=== PATIENT | male | born 1950 | race Caucasian/White ===

== ENCOUNTER 2020-03-13 12:09 | Outpatient (REF) | payer MEDICARE, MEDICAID, SELFPAY | END 2020-03-13 12:10 | disposition home or self-care (01) | LOC: HO.HAP 12:09 | PROVIDERS: Visit Provider Internal Medicine | DX: Z13.89 Encounter for screening for other disorder (principal) | CPT/HCPCS: 92700 ==

== ENCOUNTER 2020-04-02 10:43 | Outpatient (REF) | payer MEDICARE, MEDICAID, SELFPAY ==
[2020-04-02 11:16] LABS: Basophils Percent Auto 0.8 % (0-2); Eosinophils Absolute Auto 0.2 X10*3/uL (0.0-0.4); Eosinophils Percent Auto 4.1 % (0-4); Hematocrit 31.6 % (42-52); Hemoglobin 11.1 g/dl (14.0-18.0); Imm Gran Abs Auto 0.01 X10*3/uL (0.00-0.03); Imm Gran Pct Auto 0.3 % (0.0-0.4); Lymphocytes Absolute Auto 0.7 X10*3/uL (1.2-4.9); Lymphocytes Percent Auto 18.4 % (20-40); MANUAL DIFF FLAG SCAN; Mean Corpuscular HGB Conc 35.1 g/dl (31.0-36.0); Mean Corpuscular Hemoglobin 32.7 pg (27.0-33.0); Mean Corpuscular Volume 93.2 fL (80-98); Mean Platelet Volume 9.9 fL (9.4-12.4); Monocytes Absolute Auto 0.4 X10*3/uL (0.1-1.2); Monocytes Percent Auto 10.6 % (2-11); Neutrophils Absolute Auto 2.4 X10*3/uL (2.0-8.3); Neutrophils Percent Auto 65.8 % (45-73); Red Blood Count 3.39 X10*6/uL (4.60-5.80); Red Cell Distribution Width 13.6 % (11.0-16.0); SCAN SMEAR FLAG 1
[2020-04-02 11:18] LABS: Platelet Count 78 X10*3/uL (160-400)
[2020-04-02 11:19] LABS: White Blood Count 3.7 X10*3/uL (4.8-10.8)
[2020-04-02 11:23] LABS: INTERNATIONAL NORM RATIO 1.3 (0.9-1.1); Prothrombin Time 15.1 SEC (10.8-13.0)
[2020-04-02 11:32] LABS: Ammonia 58 umol/L (13-55)
[2020-04-02 12:18] LABS: SLIDE REVIEW VERIFIED
[2020-04-02 12:26] LABS: Alanine Aminotransferase 29 U/L (0-40); Anion Gap 11 (12-20); Aspartate Amino Transferase 37 U/L (5-37); Blood Urea Nitrogen 31 mg/dL (9-16); Calcium 8.3 mg/dL (8.4-10.2); Carbon Dioxide 27 mmol/L (22-29); Chloride 103 mmol/L (96-108); Estimated Glomerular Filt Rate > 60; Potassium 4.9 mmol/l (3.3-5.1); Sodium 136 mmol/L (135-145)
[2020-04-02 12:36] LABS: Alanine Aminotransferase 29 U/L (0-40); Alkaline Phosphatase 272 U/L (39-117); Anion Gap 9 (12-20); Aspartate Amino Transferase 36 U/L (5-37); Bilirubin Total 4.6 mg/dL (0.0-1.0); Blood Urea Nitrogen 31 mg/dL (9-16); Calcium 8.3 mg/dL (8.4-10.2); Carbon Dioxide 28 mmol/L (22-29); Chloride 103 mmol/L (96-108); Estimated Glomerular Filt Rate > 60; Glucose Random 170 mg/dL (60-115); Magnesium 2.2 mg/dL (1.6-2.6); Potassium 4.9 mmol/l (3.3-5.1); Sodium 135 mmol/L (135-145); Total Protein 5.9 g/dL (6.5-8.0)
== END 2020-04-02 10:44 | disposition home or self-care (01) ==
LOC: HO.LAB 10:43
PROVIDERS: Absent Provider Internal Medicine Hypertension Specialist; PCP Internal Medicine; Visit Provider Internal Medicine Gastroenterology
DX: K70.30 Alcoholic cirrhosis of liver without ascites (principal); E87.1 Hypo-osmolality and hyponatremia; D63.8 Anemia in other chronic diseases classified elsewhere; I10 Essential (primary) hypertension
CPT/HCPCS: 36415; 80051; 80053; 82040; 82140; 82310; 82565; 83735; 84450; 84460; 84520; 85025; 85610

== ENCOUNTER 2020-04-04 12:33 | Outpatient (REF) | payer MEDICARE, MEDICAID, SELFPAY | END 2020-04-04 12:34 | disposition home or self-care (01) | LOC: HO.HAP 12:33 | PROVIDERS: PCP Internal Medicine; Visit Provider Internal Medicine | DX: Z13.89 Encounter for screening for other disorder (principal) ==

== ENCOUNTER → 2020-05-26 09:51 | Outpatient (BNVA) | payer MEDICARE, MEDICAID, SELFPAY | PROVIDERS: Visit Provider Internal Medicine | DX: I83.10 Varicose veins of unspecified lower extremity with inflammation (principal); E11.9 Type 2 diabetes mellitus without complications; L03.119 Cellulitis of unspecified part of limb | CPT/HCPCS: 99212 ==

== ENCOUNTER → 2020-05-29 08:42 | Outpatient (BNVA) | payer MEDICARE, MEDICAID, SELFPAY | PROVIDERS: Visit Provider Nurse Practitioner Gerontology | DX: Z13.89 Encounter for screening for other disorder (principal) | CPT/HCPCS: Q3014 ==

== ENCOUNTER 2020-06-10 09:56 | Outpatient (REF) | payer MEDICARE, MEDICAID, SELFPAY ==
[2020-06-10 10:28] LABS: Hematocrit 32.8 % (42-52); Hemoglobin 11.7 g/dl (14.0-18.0); Mean Corpuscular HGB Conc 35.7 g/dl (31.0-36.0); Mean Corpuscular Volume 92.4 fL (80-98); Mean Platelet Volume 11.2 fL (9.4-12.4); Red Blood Count 3.55 X10*6/uL (4.60-5.80); Red Cell Distribution Width 13.9 % (11.0-16.0); White Blood Count 4.9 X10*3/uL (4.8-10.8)
[2020-06-10 10:39] LABS: Estimated Average Glucose 232 mg/dL; Hemoglobin A1c % 9.7 %
[2020-06-10 10:41] LABS: Platelet Count 79 X10*3/uL (160-400)
[2020-06-10 10:45] LABS: Ammonia 76 umol/L (13-55)
[2020-06-10 10:59] LABS: Alanine Aminotransferase 27 U/L (0-40); Albumin Level 2.8 g/dL (3.5-5.0); Alkaline Phosphatase 299 U/L (39-117); Anion Gap 10 (12-20); Aspartate Amino Transferase 34 U/L (5-37); Blood Urea Nitrogen 33 mg/dL (9-16); Calcium 8.2 mg/dL (8.4-10.2); Carbon Dioxide 30 mmol/L (22-29); Chloride 102 mmol/L (96-108); Cholesterol 103 mg/dL; Estimated Glomerular Filt Rate > 60; Glucose Fasting 196 mg/dL (60-99); HDL Cholesterol 34 mg/dL; LDL Cholesterol Calculated 54 mg/dl; Potassium 4.4 mmol/l (3.3-5.1); Sodium 138 mmol/L (135-145); Total Protein 5.4 g/dL (6.5-8.0); Triglycerides 79 mg/dL
[2020-06-10 12:35] LABS: Microalbumin Urine < 5.0 mg/L
== END 2020-06-10 09:57 | disposition home or self-care (01) ==
LOC: HO.LAB 09:56
PROVIDERS: PCP Internal Medicine; Visit Provider Internal Medicine
DX: E11.9 Type 2 diabetes mellitus without complications (principal); K14.0 Glossitis; I10 Essential (primary) hypertension; G93.40 Encephalopathy, unspecified
CPT/HCPCS: 36415; 80053; 80061; 82043; 82140; 83036; 85027

== ENCOUNTER 2020-06-11 10:19 | Outpatient (REF) | payer MEDICARE, MEDICAID, SELFPAY | END 2020-06-11 10:20 | disposition home or self-care (01) | LOC: HO.HAP 10:19 | PROVIDERS: Visit Provider Internal Medicine | DX: Z46.1 Encounter for fitting and adjustment of hearing aid (principal) | CPT/HCPCS: V5266 ==

== ENCOUNTER → 2020-06-16 08:19 | Outpatient (BNVA) | payer MEDICARE, MEDICAID, SELFPAY | PROVIDERS: PCP Internal Medicine; Visit Provider Internal Medicine Gastroenterology | DX: Z13.89 Encounter for screening for other disorder (principal) | CPT/HCPCS: Q3014 ==

== ENCOUNTER 2020-07-02 08:38 | Outpatient (REF) | payer MEDICARE, MEDICAID, SELFPAY ==
[2020-07-02 10:03] LABS: Alanine Aminotransferase 25 U/L (0-40); Albumin Level 2.7 g/dL (3.5-5.0); Alkaline Phosphatase 257 U/L (39-117); Anion Gap 10 (12-20); Aspartate Amino Transferase 39 U/L (5-37); Bilirubin Total 4.5 mg/dL (0.0-1.0); Blood Urea Nitrogen 32 mg/dL (9-16); Calcium 8.1 mg/dL (8.4-10.2); Carbon Dioxide 25 mmol/L (22-29); Chloride 104 mmol/L (96-108); Cholesterol 98 mg/dL; Estimated Glomerular Filt Rate > 60; Glucose Fasting 127 mg/dL (60-99); HDL Cholesterol 27 mg/dL; LDL Cholesterol Calculated 55 mg/dl; Potassium 4.3 mmol/L (3.3-5.1); Sodium 135 mmol/L (135-145); Total Protein 5.4 g/dL (6.5-8.0); Triglycerides 80 mg/dL
[2020-07-02 10:24] LABS: Estimated Average Glucose 206 mg/dL; Hemoglobin A1c % 8.8 %
[2020-07-03 05:46] LABS: LDL Cholesterol Direct 47 mg/dL (<100)
== END 2020-07-02 08:39 | disposition home or self-care (01) ==
LOC: HO.LAB 08:38
PROVIDERS: Absent Provider Internal Medicine Gastroenterology; PCP Internal Medicine; Visit Provider Nurse Practitioner Gerontology
DX: E11.65 Type 2 diabetes mellitus with hyperglycemia (principal); Z79.4 Long term (current) use of insulin
CPT/HCPCS: 36415; 80053; 80061; 83036; 83721

== ENCOUNTER → 2020-07-07 09:22 | Outpatient (BNVA) | payer MEDICARE, MEDICAID, SELFPAY | PROVIDERS: PCP Internal Medicine; Visit Provider Nurse Practitioner Gerontology | DX: E11.65 Type 2 diabetes mellitus with hyperglycemia (principal); E11.22 Type 2 diabetes mellitus with diabetic chronic kidney disease; N18.30 Chronic kidney disease, stage 3 unspecified; E78.5 Hyperlipidemia, unspecified; I10 Essential (primary) hypertension; R79.89 Other specified abnormal findings of blood chemistry; E66.9 Obesity, unspecified; Z79.899 Other long term (current) drug therapy; Z79.4 Long term (current) use of insulin | CPT/HCPCS: 82947; 99212 ==

== ENCOUNTER → 2020-07-22 08:51 | Outpatient (BNVA) | payer MEDICARE, MEDICAID, SELFPAY | PROVIDERS: PCP Internal Medicine; Visit Provider Dietitian, Registered ==

== ENCOUNTER 2020-08-01 10:48 | Outpatient (REF) | payer MEDICARE, MEDICAID, SELFPAY ==
[2020-08-01 11:13] LABS: Basophils Percent Auto 0.7 % (0-2); Eosinophils Absolute Auto 0.2 X10*3/uL (0.0-0.4); Eosinophils Percent Auto 4.4 % (0-4); Hematocrit 30.9 % (42-52); Hemoglobin 10.8 g/dl (14.0-18.0); Imm Gran Abs Auto 0.01 X10*3/uL (0.00-0.03); Imm Gran Pct Auto 0.2 % (0.0-0.4); Lymphocytes Absolute Auto 0.6 X10*3/uL (1.2-4.9); Lymphocytes Percent Auto 14.5 % (20-40); MANUAL DIFF FLAG SCAN; Mean Corpuscular Hemoglobin 32.8 pg (27.0-33.0); Mean Corpuscular Volume 93.9 fL (80-98); Mean Platelet Volume 10.1 fL (9.4-12.4); Monocytes Absolute Auto 0.4 X10*3/uL (0.1-1.2); Monocytes Percent Auto 8.7 % (2-11); Neutrophils Absolute Auto 3.1 X10*3/uL (2.0-8.3); Neutrophils Percent Auto 71.5 % (45-73); Red Blood Count 3.29 X10*6/uL (4.60-5.80); Red Cell Distribution Width 14.5 % (11.0-16.0); SCAN SMEAR FLAG 1; White Blood Count 4.3 X10*3/uL (4.8-10.8)
[2020-08-01 11:14] LABS: Platelet Count 70 X10*3/uL (160-400)
[2020-08-01 11:30] LABS: Ammonia 59 umol/L (13-55)
[2020-08-01 11:36] LABS: INTERNATIONAL NORM RATIO 1.4 (0.9-1.1); Prothrombin Time 16.2 SEC (10.8-13.0)
[2020-08-01 11:57] LABS: Chloride 106 mmol/L (96-108)
[2020-08-01 11:58] LABS: Alanine Aminotransferase 26 U/L (0-40); Albumin Level 2.7 g/dL (3.5-5.0); Alkaline Phosphatase 260 U/L (39-117); Anion Gap 8 (12-20); Aspartate Amino Transferase 37 U/L (5-37); Bilirubin Total 4.3 mg/dL (0.0-1.0); Blood Urea Nitrogen 33 mg/dL (9-16); Carbon Dioxide 28 mmol/L (22-29); Estimated Glomerular Filt Rate > 60; Gamma Glutamyl Transpeptidase 117 U/L (11-51); Glucose Random 162 mg/dL (60-115); Magnesium 2.6 mg/dL (1.6-2.6); Potassium 4.7 mmol/L (3.3-5.1); Sodium 137 mmol/L (135-145); Total Protein 5.4 g/dL (6.5-8.0)
[2020-08-01 12:01] LABS: SLIDE REVIEW VERIFIED
[2020-08-01 12:16] LABS: TSH reflex Free T4 0.08 uIU/mL (0.32-4.0); Vitamin D 25-OH Total 19.9 ng/mL (>30)
[2020-08-01 12:52] LABS: Free T4 (Free Thyroxine) 1.04 ng/dL (0.71-1.85)
== END 2020-08-01 10:49 | disposition home or self-care (01) ==
LOC: HO.LAB 10:48
PROVIDERS: Absent Provider Internal Medicine; PCP Internal Medicine; Visit Provider Internal Medicine Gastroenterology
DX: K72.90 Hepatic failure, unspecified without coma (principal); K70.9 Alcoholic liver disease, unspecified; E11.22 Type 2 diabetes mellitus with diabetic chronic kidney disease; N18.30 Chronic kidney disease, stage 3 unspecified; Z79.4 Long term (current) use of insulin
CPT/HCPCS: 36415; 80053; 82140; 82306; 82977; 83735; 84439; 84443; 85025; 85610

== ENCOUNTER 2020-08-01 11:27 | Outpatient (REF) | payer MEDICARE, MEDICAID, SELFPAY | END 2020-08-01 11:28 | disposition home or self-care (01) | LOC: HO.HAP 11:27 | PROVIDERS: Visit Provider Internal Medicine | DX: Z46.1 Encounter for fitting and adjustment of hearing aid (principal); H90.3 Sensorineural hearing loss, bilateral | CPT/HCPCS: 99499 ==

== ENCOUNTER 2020-08-19 11:44 | Outpatient (REF) | payer MEDICARE, MEDICAID, SELFPAY ==
--- NOTE | ~2020-08-19 | CT_ITS ---
EXAMINATION: CT ABDOMEN AND PELVIS WITH CONTRAST CLINICAL INFORMATION: Alcoholic liver disease. COMPARISON: Ultrasound of 09/10/[address] scan of 10/02/2018. MRI of 10/03/2018. TECHNIQUE: Multidetector volumetric images were obtained from the superior aspect of the liver through the pubic symphysis following administration 85 mL of Omnipaque 350 intravenous contrast. Sagittal and coronal reformatted images were obtained on the technologist's workstation. Oral contrast: No This CT examination was performed using dose optimization techniques as appropriate, variously including the following: *Automated exposure control *Adjustment of mA and/or kV according to patient size (this includes techniques or standardized protocols for targeted exams where dose is matched to indication/reason for exam; i.e. extremities or head) *Use of iterative reconstruction technique DLP: 1722 mGy-cm FINDINGS: LUNG BASES: The visualized lung bases are unremarkable. No pleural or pericardial effusion. Coronary artery calcification present. Aortic and mitral annular calcification identified. LIVER, GALLBLADDER, AND BILIARY TREE: The liver is small and has a scalloped border. Within what appears to be segments 7 and 8 of the liver there is again noted to be a cyst with some rim calcification measuring approximately 8 x 7 cm in size. This is larger than on previous study of 10/02/2018 where it measured approximately 5 x 4 cm in size. There is a coarsened heterogeneous appearance of the hepatic parenchyma. No other focal lesion is appreciated. The right portal vein appears small. The left portal vein is not identified. Numerous gallbladder calculi are present. No findings to suggest acute cholecystitis. PANCREAS: Unremarkable. SPLEEN: There is splenomegaly present with vertical span of 19 cm. No focal splenic mass identified. ADRENAL GLANDS: Unremarkable. KIDNEYS AND URETERS: The kidneys are normal in size, shape, and attenuation. No hydronephrosis, hydroureter, or calculi seen. No perinephric stranding. There appears be a subcentimeter cyst midpole of the right kidney. BLADDER: Urinary bladder is distended. No bladder wall thickening is seen. GASTROINTESTINAL TRACT: No dilated loops of large or small bowel are evident. No free air is seen. There is a small amount of ascites present. No definite findings to suggest colitis. No evidence of acute appendicitis. With the edematous change present within the mesentery an inflammatory process could not be excluded but this is most likely related to the ascites. No abscess collection is appreciated. ABDOMINAL WALL: No significant hernia is appreciated. LYMPH NODES: No lymphadenopathy is appreciated. VASCULAR: Left portal vein not identified. Right portal vein appears small. There are large portal varices present with what appears to be a spontaneous left splenorenal shunt. There is moderate aortoiliac calcified plaque present. PELVIC VISCERA: No suspicious mass. Small amount of free fluid. OSSEOUS STRUCTURES: No suspicious destructive bony lesion identified. There is degenerative disc disease seen at the L5-S1 level with a moderate grade [address]/CT abdomen pelvis w con IMPRESSION: Portal hypertension with cirrhotic liver containing large cyst and with heterogeneous coarsened parenchymal appearance. Question occlusion of the left portal vein with small right portal vein. Prominent portal vein varices with spontaneous left splenorenal shunt. Cholelithiasis without evidence of acute cholecystitis. Splenomegaly.
[2020-08-19] MEDS: Barium Sulfate Oral (Berry) 450 ML ORAL.SUSP 900 ML PO (16:14)
== END 2020-08-19 11:45 | disposition home or self-care (01) ==
LOC: HO.CT 11:44
PROVIDERS: PCP Internal Medicine; Visit Provider Internal Medicine Gastroenterology
DX: K70.9 Alcoholic liver disease, unspecified (principal)
CPT/HCPCS: 74177; Q9967

== ENCOUNTER → 2020-08-26 13:19 | Outpatient (BNVA) | payer MEDICARE, MEDICAID, SELFPAY | PROVIDERS: PCP Internal Medicine; Visit Provider Internal Medicine Gastroenterology | DX: K72.90 Hepatic failure, unspecified without coma (principal); K70.9 Alcoholic liver disease, unspecified; R79.89 Other specified abnormal findings of blood chemistry; R19.7 Diarrhea, unspecified; K70.31 Alcoholic cirrhosis of liver with ascites | CPT/HCPCS: 99212 ==

== ENCOUNTER 2020-09-01 | Outpatient (REF) | payer MEDICARE, MEDICAID, SELFPAY ==
[2020-09-01 12:17] LABS: CDIFF Ag Negative (Negative); CDIFF Internal ctrl Dots and bkg OK (V); CDiff Toxin Negative (Negative)
[2020-09-01 13:11] LABS: Leukocytes Stool Qualitative NEGATIVE (NEGATIVE)
[2020-09-03 22:57] LABS: Chymotrypsin, Stool 7.6 U/g (2.3-51.4)
== END 2020-09-01 00:01 | disposition home or self-care (01) ==
LOC: HO.HMGCLNP
PROVIDERS: Visit Provider Internal Medicine Gastroenterology
DX: R19.7 Diarrhea, unspecified (principal)
CPT/HCPCS: 87324; 87449; 89055

== ENCOUNTER 2020-09-08 09:56 | Outpatient (REF) | payer MEDICARE, MEDICAID, SELFPAY ==
[2020-09-08 10:49] LABS: Basophils Percent Auto 0.8 % (0-2); Eosinophils Absolute Auto 0.2 X10*3/uL (0.0-0.4); Eosinophils Percent Auto 4.1 % (0-4); Hematocrit 28.7 % (42-52); Hemoglobin 9.9 g/dl (14.0-18.0); Imm Gran Abs Auto 0.01 X10*3/uL (0.00-0.03); Imm Gran Pct Auto 0.3 % (0.0-0.4); Lymphocytes Absolute Auto 0.7 X10*3/uL (1.2-4.9); Lymphocytes Percent Auto 17.6 % (20-40); MANUAL DIFF FLAG SCAN; Mean Corpuscular HGB Conc 34.5 g/dl (31.0-36.0); Mean Corpuscular Hemoglobin 33.1 pg (27.0-33.0); Mean Platelet Volume 10.6 fL (9.4-12.4); Monocytes Absolute Auto 0.3 X10*3/uL (0.1-1.2); Monocytes Percent Auto 8.8 % (2-11); Neutrophils Absolute Auto 2.6 X10*3/uL (2.0-8.3); Neutrophils Percent Auto 68.4 % (45-73); Red Blood Count 2.99 X10*6/uL (4.60-5.80); Red Cell Distribution Width 14.7 % (11.0-16.0); SCAN SMEAR FLAG 1; White Blood Count 3.9 X10*3/uL (4.8-10.8)
[2020-09-08 11:04] LABS: Ammonia 42 umol/L (13-55)
[2020-09-08 11:10] LABS: Platelet Count 63 X10*3/uL (160-400)
[2020-09-08 11:15] LABS: Alanine Aminotransferase 25 U/L (0-40); Alanine Aminotransferase 26 U/L (0-40); Albumin Level 2.6 g/dL (3.5-5.0); Alkaline Phosphatase 273 U/L (39-117); Anion Gap 12 (12-20); Aspartate Amino Transferase 34 U/L (5-37); Aspartate Amino Transferase 36 U/L (5-37); Bilirubin Total 3.3 mg/dL (0.0-1.0); Blood Urea Nitrogen 41 mg/dL (9-16); Carbon Dioxide 24 mmol/L (22-29); Chloride 107 mmol/L (96-108); Estimated Glomerular Filt Rate 55; Glucose Random 191 mg/dL (60-115); Magnesium 2.3 mg/dL (1.6-2.6); Phosphorus 4.6 mg/dL (2.7-4.5); Potassium 5.5 mmol/L (3.3-5.1); Sodium 137 mmol/L (135-145); Total Protein 5.3 g/dL (6.5-8.0)
[2020-09-08 11:17] LABS: SLIDE REVIEW VERIFIED
[2020-09-09 14:01] LABS: Calcium (PTHI) 8.1 mg/dL (8.6-10.3); PTHI 120 pg/mL (14-64)
== END 2020-09-08 09:57 | disposition home or self-care (01) ==
LOC: HO.LAB 09:56
PROVIDERS: Absent Provider Internal Medicine Hypertension Specialist; PCP Internal Medicine; Visit Provider Internal Medicine Gastroenterology
DX: K70.31 Alcoholic cirrhosis of liver with ascites (principal); D63.8 Anemia in other chronic diseases classified elsewhere; I10 Essential (primary) hypertension
CPT/HCPCS: 36415; 80053; 82040; 82140; 83735; 83970; 84100; 84450; 84460; 85025

== ENCOUNTER 2020-09-15 11:49 | Outpatient (REF) | payer MEDICARE, MEDICAID, SELFPAY ==
[2020-09-15 12:25] LABS: Basophils Percent Auto 0.4 % (0-2); Eosinophils Absolute Auto 0.1 X10*3/uL (0.0-0.4); Eosinophils Percent Auto 2.6 % (0-4); Hematocrit 27.8 % (42-52); Hemoglobin 9.8 g/dl (14.0-18.0); Imm Gran Abs Auto 0.01 X10*3/uL (0.00-0.03); Imm Gran Pct Auto 0.2 % (0.0-0.4); Lymphocytes Absolute Auto 0.5 X10*3/uL (1.2-4.9); Lymphocytes Percent Auto 9.3 % (20-40); MANUAL DIFF FLAG SCAN; Mean Corpuscular HGB Conc 35.3 g/dl (31.0-36.0); Mean Corpuscular Hemoglobin 33.3 pg (27.0-33.0); Mean Corpuscular Volume 94.6 fL (80-98); Mean Platelet Volume 10.7 fL (9.4-12.4); Monocytes Absolute Auto 0.5 X10*3/uL (0.1-1.2); Monocytes Percent Auto 9.1 % (2-11); Neutrophils Percent Auto 78.4 % (45-73); Red Blood Count 2.94 X10*6/uL (4.60-5.80); Red Cell Distribution Width 14.5 % (11.0-16.0); SCAN SMEAR FLAG 1; White Blood Count 5.1 X10*3/uL (4.8-10.8)
[2020-09-15 12:30] LABS: Platelet Count 65 X10*3/uL (160-400)
[2020-09-15 13:37] LABS: SLIDE REVIEW VERIFIED
== END 2020-09-15 11:50 | disposition home or self-care (01) ==
LOC: HO.LAB 11:49
PROVIDERS: PCP Internal Medicine; Visit Provider Internal Medicine Gastroenterology
DX: K70.31 Alcoholic cirrhosis of liver with ascites (principal)
CPT/HCPCS: 36415; 85025

== ENCOUNTER 2020-09-26 10:00 | Outpatient (REF) | payer MEDICARE, MEDICAID, SELFPAY ==
[2020-09-26 10:45] LABS: Basophils Percent Auto 0.6 % (0-2); Eosinophils Absolute Auto 0.2 X10*3/uL (0.0-0.4); Eosinophils Percent Auto 4.6 % (0-4); Hematocrit 26.4 % (42-52); Imm Gran Abs Auto 0.01 X10*3/uL (0.00-0.03); Imm Gran Pct Auto 0.3 % (0.0-0.4); Lymphocytes Absolute Auto 0.5 X10*3/uL (1.2-4.9); Lymphocytes Percent Auto 15.2 % (20-40); MANUAL DIFF FLAG SCAN; Mean Corpuscular HGB Conc 34.1 g/dl (31.0-36.0); Mean Corpuscular Hemoglobin 32.5 pg (27.0-33.0); Mean Corpuscular Volume 95.3 fL (80-98); Mean Platelet Volume 10.9 fL (9.4-12.4); Monocytes Absolute Auto 0.4 X10*3/uL (0.1-1.2); Monocytes Percent Auto 10.1 % (2-11); Neutrophils Absolute Auto 2.4 X10*3/uL (2.0-8.3); Neutrophils Percent Auto 69.2 % (45-73); Red Blood Count 2.77 X10*6/uL (4.60-5.80); Red Cell Distribution Width 14.6 % (11.0-16.0); SCAN SMEAR FLAG 1; White Blood Count 3.5 X10*3/uL (4.8-10.8)
[2020-09-26 10:58] LABS: Platelet Count 60 X10*3/uL (160-400)
[2020-09-26 11:05] LABS: Alanine Aminotransferase 31 U/L (0-40); Albumin Level 2.5 g/dL (3.5-5.0); Alkaline Phosphatase 238 U/L (39-117); Anion Gap 9 (12-20); Aspartate Amino Transferase 33 U/L (5-37); Bilirubin Total 4.1 mg/dL (0.0-1.0); Blood Urea Nitrogen 46 mg/dL (9-16); Calcium 8.1 mg/dL (8.4-10.2); Carbon Dioxide 24 mmol/L (22-29); Chloride 108 mmol/L (96-108); Estimated Glomerular Filt Rate 57; Glucose Random 161 mg/dL (60-115); Magnesium 2.3 mg/dL (1.6-2.6); Potassium 4.9 mmol/L (3.3-5.1); Sodium 136 mmol/L (135-145); Total Protein 5.3 g/dL (6.5-8.0)
[2020-09-26 11:07] LABS: Iron 116 mcg/dL (45-160); Percent Iron Saturation 59 % (15-50); Total Iron Binding Capacity 198 mcg/dL (228-428); Unsaturated Iron Binding 82 ug/dL
[2020-09-26 11:14] LABS: SLIDE REVIEW VERIFIED
[2020-09-26 11:39] LABS: Folate > 20.0 ng/mL (> or = 4.0); Vitamin B12 1203 pg/mL (200-900)
== END 2020-09-26 10:01 | disposition home or self-care (01) ==
LOC: HO.LAB 10:00
PROVIDERS: Absent Provider Internal Medicine Gastroenterology; PCP Internal Medicine; Visit Provider Internal Medicine Hypertension Specialist
DX: K70.31 Alcoholic cirrhosis of liver with ascites (principal); I10 Essential (primary) hypertension; D63.8 Anemia in other chronic diseases classified elsewhere
CPT/HCPCS: 36415; 80053; 82607; 82746; 83540; 83735; 85025

== ENCOUNTER 2020-10-09 14:47 | Outpatient (REF) | payer MEDICARE, MEDICAID, SELFPAY ==
--- NOTE | ~2020-10-09 | XR_ITS ---
EXAMINATION: XR CHEST CLINICAL INFORMATION: Edema COMPARISON: Previous chest x-ray most recent July 2019 TECHNIQUE: 2 views of the chest were obtained. FINDINGS: The cardiac silhouette is enlarged and appears increased in size from previous exam July 2019. Hilar and mediastinal contours are unremarkable. The lungs are clear. There is no pleural effusion or pneumothorax. There are degenerative changes of the spine. XR/XR chest 2V IMPRESSION: Enlarged cardiac silhouette increased in size from July 2019 exam.
[2020-10-09 17:34] LABS: Hematocrit 27.2 % (42-52); Hemoglobin 9.2 g/dl (14.0-18.0); Mean Corpuscular HGB Conc 33.8 g/dl (31.0-36.0); Mean Corpuscular Hemoglobin 32.4 pg (27.0-33.0); Mean Corpuscular Volume 95.8 fL (80-98); Mean Platelet Volume 11.8 fL (9.4-12.4); Red Blood Count 2.84 X10*6/uL (4.60-5.80); Red Cell Distribution Width 13.9 % (11.0-16.0); White Blood Count 3.5 X10*3/uL (4.8-10.8)
[2020-10-09 17:38] LABS: Platelet Count 68 X10*3/uL (160-400)
[2020-10-09 17:44] LABS: Blood Urea Nitrogen 70 mg/dL (9-16); Estimated Glomerular Filt Rate 40
[2020-10-09 17:47] LABS: Anion Gap 15 (12-20); Blood Urea Nitrogen 70 mg/dL (9-16); Calcium 8.1 mg/dL (8.4-10.2); Carbon Dioxide 18 mmol/L (22-29); Chloride 107 mmol/L (96-108); Estimated Glomerular Filt Rate 39; Glucose Random 172 mg/dL (60-115); Iron 118 mcg/dL (45-160); Percent Iron Saturation 50 % (15-50); Sodium 135 mmol/L (135-145); Total Iron Binding Capacity 236 mcg/dL (228-428); Unsaturated Iron Binding 118 ug/dL
[2020-10-09 18:21] LABS: Folate > 20.0 ng/mL (> or = 4.0); Vitamin B12 1314 pg/mL (200-900)
[2020-10-10 11:36] LABS: Alpha Fetoprotein 73.4 ng/mL (<6.1)
[2020-10-10 22:06] LABS: Prot Elec - Alpha1 0.2 g/dL (0.2-0.3); Prot Elec - Alpha2 0.4 g/dL (0.5-0.9); Prot Elec - Beta 1 0.3 g/dL (0.4-0.6); Prot Elec - Beta 2 0.3 g/dL (0.2-0.5); Prot Elec - Gamma 1.6 g/dL (0.8-1.7); Prot Elec - Total Protein 5.7 g/dL (6.1-8.1)
[2020-10-14 12:41] LABS: Mitochondrial Antibodies NEGATIVE (NEGATIVE)
[2020-10-15 11:11] LABS: Smooth Muscle Antibody 24 U (<20)
== END 2020-10-09 14:48 | disposition home or self-care (01) ==
LOC: HO.XRAY 14:47
PROVIDERS: Internal Medicine Gastroenterology; PCP Internal Medicine; Visit Provider Internal Medicine Gastroenterology
DX: K70.31 Alcoholic cirrhosis of liver with ascites (principal); R74.8 Abnormal levels of other serum enzymes; R60.1 Generalized edema; K72.90 Hepatic failure, unspecified without coma
CPT/HCPCS: 36415; 71046; 80048; 82105; 82565; 82607; 82746; 83540; 84155; 84165; 84520; 85027; 86255; 86256; 99212

== ENCOUNTER 2020-10-14 22:13 | Inpatient (IN) | payer MEDICARE, MEDICAID, SELFPAY ==
--- NOTE | ~2020-10-14 | US_ITS ---
EXAMINATION: ULTRASOUND PARACENTESIS ABDOMEN W/IMAGE CLINICAL INFORMATION: Alcoholic cirrhosis with ascites. COMPARISON: None TECHNIQUE: Following explaining ultrasound-guided paracentesis procedure, benefits and risk, a written consent was obtained. Patient was placed supine on ultrasound stretcher and preliminary ultrasound imaging was obtained through the abdomen. An optimal site was selected along the left mid abdomen and marked. The marked site was cleaned and draped in usual sterile manner. 1% lidocaine was injected at puncture site. Through a small skin incision a 5 [employer] catheter was advanced into the left peritoneal space. Catheter was manipulated at least couple of times to obtain good stream of fluid. The stylet was withdrawn and catheter drained into vacuum bottle via connecting cannula. After obtaining as much as fluid with no fluid return, catheter was withdrawn and complete hemostasis achieved at puncture site. Sterile dressing was applied postprocedure. Patient tolerated procedure extremely well. FINDINGS: On preliminary ultrasound imaging there is small to moderate fluid seen in the abdomen. Approximately 850 mL of clear yellowish fluid was drained. A diagnostic sample was sent to pathology for further evaluation. US/US paracentesis abd w/image IMPRESSION: Successful ultrasound-guided paracentesis performed without immediate complications.
[2020-10-14 22:22] VITALS: BP 105/57; PULSE 65; RESP 18; TEMP 37.1; O2SAT 100; BMI 43.0
--- NOTE | 2020-10-14 23:53 | ECG_ITS ---
Test Reason : ABD PAIN Blood Pressure : / mmHG Vent. Rate : 063 BPM Atrial Rate : 056 BPM P-R Int : 000 ms QRS Dur : 102 ms QT Int : 444 ms P-R-T Axes : 000 003 018 degrees QTc Int : 454 ms Atrial fibrillation Abnormal ECG When compared to the previous EKG of Afib present now Referred By: Dewey Wallis Electronically Signed By:West Salazar
[2020-10-14 23:58] LABS: Basophils Percent Auto 0.3 % (0-2); Eosinophils Absolute Auto 0.1 X10*3/uL (0.0-0.4); Eosinophils Percent Auto 3.3 % (0-4); Hematocrit 26.1 % (42-52); Hemoglobin 9.3 g/dl (14.0-18.0); Imm Gran Abs Auto 0.01 X10*3/uL (0.00-0.03); Imm Gran Pct Auto 0.3 % (0.0-0.4); Lymphocytes Absolute Auto 0.4 X10*3/uL (1.2-4.9); Lymphocytes Percent Auto 10.8 % (20-40); MANUAL DIFF FLAG SCAN; Mean Corpuscular HGB Conc 35.6 g/dl (31.0-36.0); Mean Corpuscular Hemoglobin 33.5 pg (27.0-33.0); Mean Corpuscular Volume 93.9 fL (80-98); Mean Platelet Volume 10.3 fL (9.4-12.4); Monocytes Absolute Auto 0.4 X10*3/uL (0.1-1.2); Monocytes Percent Auto 9.5 % (2-11); Neutrophils Percent Auto 75.8 % (45-73); Red Blood Count 2.78 X10*6/uL (4.60-5.80); Red Cell Distribution Width 13.6 % (11.0-16.0); SCAN SMEAR FLAG 1; White Blood Count 3.9 X10*3/uL (4.8-10.8)
[2020-10-15] VITALS (15 sets, daily range): BP systolic 110–140; BP diastolic 40–80; PULSE 53–75; RESP 16–20; TEMP 36–37.2; O2SAT 97–100
[2020-10-15 00:03] LABS: Platelet Count 74 X10*3/uL (160-400)
[2020-10-15] MEDS: Famotidine/PF 20 MG/2 ML VIAL IVPUSH (00:03)
[2020-10-15 00:04] LABS: SLIDE REVIEW VERIFIED
[2020-10-15 00:05] LABS: INTERNATIONAL NORM RATIO 1.4 (0.9-1.1); Prothrombin Time 16.3 SEC (10.8-13.0)
[2020-10-15 00:08] LABS: Partial Thromboplastin Time 38.3 SEC (24.1-38.0)
[2020-10-15 00:23] LABS: Alanine Aminotransferase 38 U/L (0-40); Albumin Level 2.7 g/dL (3.5-5.0); Alkaline Phosphatase 213 U/L (39-117); Aspartate Amino Transferase 46 U/L (5-37); Bilirubin Direct 1.9 mg/dL (0.0-0.5); Bilirubin Total 3.5 mg/dL (0.0-1.0); Lipase 56 U/L (8-78); Total Protein 5.6 g/dL (6.5-8.0)
[2020-10-15 00:30] LABS: Ammonia 147 umol/L (13-55)
[2020-10-15 00:54] LABS: Troponin-I High Sensitivity 7.2 ng/L (<3.5-35.0)
[2020-10-15 01:16] LABS: B Type Natriuretic Peptide 568 pg/mL (<100)
[2020-10-15] MEDS: Lactulose 20 GM/30 ML SOLUTION 30 GM PO ×2 (01:24→09:13)
--- NOTE | 2020-10-15 01:46 | PC.NURSE ---
PT MEDICATED PER EMAR FOR HIGH AMMONIA, PT WORRIED ABOUT NOT MAKING IT TO RESTROOM, COMMODE PLACED AT BEDSIDE FOR PT. PT IS ORIENTED TO TIME AND PLACE, REPEATING QUESTIONS. SPOUSE AT BEDSIDE WITH PT. WILL CONTINUE TO MONITOR PT.
[2020-10-15 02:33] LABS: Alanine Aminotransferase 37 U/L (0-40); Albumin Level 2.7 g/dL (3.5-5.0); Alkaline Phosphatase 210 U/L (39-117); Anion Gap 13 (12-20); Aspartate Amino Transferase 46 U/L (5-37); Bilirubin Total 3.7 mg/dL (0.0-1.0); Blood Urea Nitrogen 75 mg/dL (9-16); Calcium 8.1 mg/dL (8.4-10.2); Carbon Dioxide 17 mmol/L (22-29); Chloride 106 mmol/L (96-108); Creatinine Clr Calc Pharmacy 55.6; Estimated Glomerular Filt Rate 39; Glucose Random 145 mg/dL (60-115); Potassium 5.6 mmol/L (3.3-5.1); Sodium 130 mmol/L (135-145); Total Protein 5.7 g/dL (6.5-8.0)
[2020-10-15 03:19] LABS: COVID-19 Test Negative (Negative)
--- NOTE | 2020-10-15 03:47 | ED_ITS ---
HPI - General Adult General Chief complaint: Abdominal Pain Stated complaint: ABD PAIN Time Seen by Provider: 10/14/20 23:46 Source: patient Mode of arrival: ambulatory Limitations: no limitations History of Present Illness HPI narrative: Patient presents to the ED multiple complaints. brings patient to the ED for confusion. She states patient's history of cirrhosis and was taking of lactulose. Secondly patient has increased swelling of legs and testicles. She also states she has a scheduled paracentesis for his ascites. Patient states epigastric pain going up to the throat with nausea. Denies any r ectal bleeding or vomiting blood. Related Data Home Medications Medication Instructions Recorded Confirmed empagliflozin 25 mg tablet 25 mg PO QAM 04/04/20 10/15/20 lactulose 10 gram/15 mL oral 15 ml PO DAILY PRN 04/04/20 10/15/20 solution losartan 50 mg tablet 50 mg PO DAILY 04/04/20 10/15/20 metoprolol tartrate 25 mg tablet 25 mg PO DAILY 04/04/20 10/15/20 pen needle, diabetic 31 gauge x #50 ea 07/07/20 10/09/2007/29 magnesium oxide 400 mg (241.3 mg 400 mg PO BEDTIME 10/09/20 10/15/20 magnesium) tablet celecoxib 200 mg PO BID 10/15/20 10/15/20 cholecalciferol (vitamin D3) 2,000 unit PO DAILY 10/15/20 10/15/20 psyllium husk 1 tbsp PO BID PRN 10/15/20 10/15/20 Previous Rx's Medication Instructions Recorded thiamine HCl (vitamin B1) 100 mg 100 mg PO DAILY #90 tab 04/21/20 tablet penicillin V potassium 250 mg 250 mg PO BID 90 Days #180 tab 05/26/20 tablet blood sugar diagnostic #100 ea 05/29/20 lancets 28 gauge #100 ea 05/29/20 pen needle, diabetic 32 gauge x #125 ea 05/29/20 blood-glucose meter #1 ea 06/04/20 omeprazole 20 mg capsule,delayed 20 mg PO BID #180 cap 07/15/20 release bumetanide 1 mg tablet 2 mg PO BID #60 tab 08/05/20 folic acid 1 mg tablet 1 mg PO DAILY #30 tab 08/05/20 rifaximin 550 mg tablet 550 mg PO BID #60 tab 09/18/20 Allergies Allergy/AdvReac Type Severity Reaction Status Date / Time metformin AdvReac Unknown diarrhea, Verified 10/09/20 15:20 muscle spasms Review of Systems Review of Systems: History from patient and Yes all other systems are reviewed and are negative Constitutional: Constitutional: Reports as per HPI and Reports no additional constitutional complaints Eyes: Eyes: Reports as per HPI and Reports no additional eye complaints ENT: Reports system reviewed and no additional complaints, except as documented and Reports as per HPI Cardiovascular: Cardiovascular: Reports as per HPI and Reports no additional cardiovascular complaints Respiratory: Respiratory: Reports as per HPI and Reports no additional respi ratory complaints Gastrointestinal: Gastrointestinal: Reports as per HPI, Reports no additional gastrointestinal complaints, Reports abdominal pain (Epigastric), Reports heartburn and Reports nausea Genitourinary: Genitourinary: Reports no additional male genitourinary complaints and Reports as per HPI Musculoskeletal: Musculoskeletal: Reports no additional musculoskeletal complaints and Reports as per HPI Comments: Leg swelling Neurologic: Reports system reviewed and no additional complaints, except as documented and Reports as per HPI Psychiatric: Psychiatric: Reports no additional psychiatric complaints and Reports as per HPI REPLACED BY [facility] Past Medical History Medical History (Updated 10/15/20 @ 03:56 by YELENA Fontaine) Acid reflux Alcohol induced liver disorder Anemia Annual physical exam Aortic stenosis Ascites due to alcoholic cirrhosis Cellulitis CHF (congestive heart failure) Chronic edema CKD (chronic kidney disease) stage 3, GFR 30-59 ml/min Diabetes Dyslipidemia Encephalopathy Essential hypertension Hepatic encephalopathy HTN (hypertension) Lipodermatosclerosis Liver cirrhosis Low serum vitamin D Obesity Obesity (BMI 30-39.9) BARTOLOME (obstructive sleep apnea) Osteoarthritis Portal hypertension syndrome Recurrent cellulitis of lower extremity Tongue ulcer Type 2 diabetes mellitus with chronic kidney disease Type 2 diabetes mellitus with hyperglycemia, with long-term current use of insulin Surgical History H/O colonoscopy History of esophagogastroduodenoscopy (EGD) History of tonsillectomy Family History Family History Brother Diabetes Father No problems noted. Social History Social History Household Members: Spouse Alcohol intake: never Advance Directives: No Advance Directives Information Provided: No Current occupational status: retired Physical Exam Vital Signs: Vital Signs: Last Vital Signs Temp 97.5 F 10/15/20 00:00 Pulse 66 10/15/20 00:00 Resp 20 10/15/20 00:00 BP 113/40 L 10/15/20 00:00 Pulse Ox 100 10/15/20 00:00 Body Mass Index 43.0 Const: General: cooperative, healthy appearing, comfortable and no acute distress Orientation/consciousness: patient oriented x3 HENMT: Head: Yes normal to inspection, Yes No palpable skull fracture present, Yes normocephalic and Yes atraumatic Eyes: Other: Icterus Neck: Neck: Yes normal visual inspection, Yes full ROM, Yes no lymphadenopathy, Yes no meningeal signs, Yes trachea midline, Yes supple and No tender Chest: Chest palpation & inspection: normal inspection of the chest and normal palpation of entire chest wall Resp: Effort & Inspection: normal respiratory effort and able to speak in complete sentences Auscultation: clear to auscultation bilaterally Cardio: Jugular venous distension: no JVD Heart sounds: S1 normal heart sound present and S2 normal heart sound present GI: Inspection: Yes normal to inspection, No abdominal wall ecchymosis and Yes distended Palpation (GI): Soft to palpation, not firm, nontender, no guarding and not rigid : Other: Testicular swelling General: No CVA tenderness Back/Spine/Pelvis: Back: no CVA tenderness, No CVA tenderness and No back tenderness Skin: General skin exam: no rashes or lesions noted and elasticity normal Neuro: General: patient oriented x3, gait normal, no meningeal signs and CN's II-XI intact bilaterally Cranial nerves: Yes CN's II-XII intact bilaterally Extrem: Other: Bilateral lower extremity swelling with pitting edema Psych: Appearance: grossly normal, well kempt and not disheveled Course Course Course Narrative: Patient will have labs drawn including ammonia. History have EKG done. Patient presently is alert oriented x3 but states patient's mental status wax and waning the past 2 weeks. Patient has anasarca Reevaluation(s) Reevaluation #1: Patient ammonia is elevated. Will give lactulose. Patient's 1st troponin negative. Patient's labs are at baseline. Presently no abdominal tenderness and abdomen is soft. Presently no need for immediate paracentesis. Not suspect SBP. Patient will be admitted and can not receive schedule paracentesis which he has at 11:00 already this morning. Patient is afebrile and not tachycardic. Present case to hospitalist. Reevaluation #2: Spoke with Dr. Gann who agrees patient could be admitted. Patient will be admitted for hepatic encephalopathy. Patient has scheduled paracentesis at 11:00. EKG shows new atrial fibrillation Medical Decision Making MDM Narrative Medical decision making narrative: Hepatic encephalopathy. Atrial fibrillation Lab Data Result diagrams: 10/14/20 23:52 10/14/20 23:52 Labs: Lab Results 10/14/20 10/14/20 10/14/20 Range/Units 23:50 23:51 23:52 WBC 3.9 L (4.8-10.8) X10*3/uL RBC 2.78 L (4.60-5.80) X10*6/uL Hgb 9.3 L (14.0-18.0) g/dl Hct 26.1 L (42-52) % MCV 93.9 (80-98) fL MCH 33.5 H (27.0-33.0) pg MCHC 35.6 (31.0-36.0) g/dl RDW 13.6 (11.0-16.0) % Plt Count 74 L (160-400) X10*3/uL MPV 10.3 (9.4-12.4) fL Immature Gran % (Auto) 0.3 (0.0-0.4) % Neut % (Auto) 75.8 H (45-73) % Lymph % (Auto) 10.8 L (20-40) % Harvey % (Auto) 9.5 (2-11) % Eos % (Auto) 3.3 (0-4) % Baso % (Auto) 0.3 (0-2) % Lymph # (Auto) 0.4 L (1.2-4.9) X10*3/uL Harvey # (Auto) 0.4 (0.1-1.2) X10*3/uL Eos # (Auto) 0.1 (0.0-0.4) X10*3/uL Baso # (Auto) 0.0 (0.0-0.2) X10*3/uL Abs Immat Gran (auto) 0.01 (0.00-0.03) X10*3/uL Absolute Neuts (auto) 3.0 (2.0-8.3) X10*3/uL Absolute Nucleated RBC 0.000 (0.0-0.012) X10*3/uL Nucleated RBC % (auto) 0.0 (0.0-0.2) /100WBC Smear Tech's Comments VERIFIED PT 16.3 H (10.8-13.0) SEC INR 1.4 H (0.9-1.1) APTT 38.3 H (24.1-38.0) SEC Sodium (135-145) mmol/L Potassium (3.3-5.1) mmol/L Chloride (96-108) mmol/L Carbon Dioxide (22-29) mmol/L Anion Gap (12-20) BUN (9-16) mg/dL Creatinine (0.5-1.4) mg/dL Estim Creat Clear Calc Estimated GFR Random Glucose (60-115) mg/dL Calcium (8.4-10.2) mg/dL Total Bilirubin (0.0-1.0) mg/dL Direct Bilirubin (0.0-0.5) mg/dL AST (5-37) U/L ALT (0-40) U/L Alkaline Phosphatase (39-117) U/L Ammonia 147 H (13-55) umol/L Troponin I High Sens (<3.5-35.0) ng/L B-Natriuretic Peptide (<100) pg/mL Total Protein (6.5-8.0) g/dL Albumin (3.5-5.0) g/dL Lipase (8-78) U/L COVID-19 (JACKY) (Negative) COVID-19 Clin Com 10/14/20 10/14/20 10/15/20 Range/Units 23:52 23:52 02:49 WBC (4.8-10.8) X10*3/uL RBC (4.60-5.80) X10*6/uL Hgb (14.0-18.0) g/dl Hct (42-52) % MCV (80-98) fL MCH (27.0-33.0) pg MCHC (31.0-36.0) g/dl RDW (11.0-16.0) % Plt Count (160-400) X10*3/uL MPV (9.4-12.4) fL Immature Gran % (Auto) (0.0-0.4) % Neut % (Auto) (45-73) % Lymph % (Auto) (20-40) % Harvey % (Auto) (2-11) % Eos % (Auto) (0-4) % Baso % (Auto) (0-2) % Lymph # (Auto) (1.2-4.9) X10*3/uL Harvey # (Auto) (0.1-1.2) X10*3/uL Eos # (Auto) (0.0-0.4) X10*3/uL Baso # (Auto) (0.0-0.2) X10*3/uL Abs Immat Gran (auto) (0.00-0.03) X10*3/uL Absolute Neuts (auto) (2.0-8.3) X10*3/uL Absolute Nucleated RBC (0.0-0.012) X10*3/uL Nucleated RBC % (auto) (0.0-0.2) /100WBC Smear Tech's Comments PT (10.8-13.0) SEC INR (0.9-1.1) APTT (24.1-38.0) SEC Sodium 130 L (135-145) mmol/L Potassium 5.6 H (3.3-5.1) mmol/L Chloride 106 (96-108) mmol/L Carbon Dioxide 17 L (22-29) mmol/L Anion Gap 13 (12-20) BUN 75 H (9-16) mg/dL Creatinine 1.74 H (0.5-1.4) mg/dL Estim Creat Clear Calc 55.6 Estimated GFR 39 Random Glucose 145 H (60-115) mg/dL Calcium 8.1 L (8.4-10.2) mg/dL Total Bilirubin 3.7 H 3.5 H (0.0-1.0) mg/dL Direct Bilirubin 1.9 H (0.0-0.5) mg/dL AST 46 H 46 H (5-37) U/L ALT 37 38 (0-40) U/L Alkaline Phosphatase 210 H 213 H (39-117) U/L Ammonia (13-55) umol/L Troponin I High Sens (<3.5-35.0) ng/L B-Natriuretic Peptide (<100) pg/mL Total Protein 5.7 L 5.6 L (6.5-8.0) g/dL Albumin 2.7 L 2.7 L (3.5-5.0) g/dL Lipase 56 (8-78) U/L COVID-19 (JACKY) Negative (Negative) COVID-19 Clin Com See Note 10/15/20 Range/Units 23:51 WBC (4.8-10.8) X10*3/uL RBC (4.60-5.80) X10*6/uL Hgb (14.0-18.0) g/dl Hct (42-52) % MCV (80-98) fL MCH (27.0-33.0) pg MCHC (31.0-36.0) g/dl RDW (11.0-16.0) % Plt Count (160-400) X10*3/uL MPV (9.4-12.4) fL Immature Gran % (Auto) (0.0-0.4) % Neut % (Auto) (45-73) % Lymph % (Auto) (20-40) % Harvey % (Auto) (2-11) % Eos % (Auto) (0-4) % Baso % (Auto) (0-2) % Lymph # (Auto) (1.2-4.9) X10*3/uL Harvey # (Auto) (0.1-1.2) X10*3/uL Eos # (Auto) (0.0-0.4) X10*3/uL Baso # (Auto) (0.0-0.2) X10*3/uL Abs Immat Gran (auto) (0.00-0.03) X10*3/uL Absolute Neuts (auto) (2.0-8.3) X10*3/uL Absolute Nucleated RBC (0.0-0.012) X10*3/uL Nucleated RBC % (auto) (0.0-0.2) /100WBC Smear Tech's Comments PT (10.8-13.0) SEC INR (0.9-1.1) APTT (24.1-38.0) SEC Sodium (135-145) mmol/L Potassium (3.3-5.1) mmol/L Chloride (96-108) mmol/L Carbon Dioxide (22-29) mmol/L Anion Gap (12-20) BUN (9-16) mg/dL Creatinine (0.5-1.4) mg/dL Estim Creat Clear Calc Estimated GFR Random Glucose (60-115) mg/dL Calcium (8.4-10.2) mg/dL Total Bilirubin (0.0-1.0) mg/dL Direct Bilirubin (0.0-0.5) mg/dL AST (5-37) U/L ALT (0-40) U/L Alkaline Phosphatase (39-117) U/L Ammonia (13-55) umol/L Troponin I High Sens 7.2 (<3.5-35.0) ng/L B-Natriuretic Peptide 568 H (<100) pg/mL Total Protein (6.5-8.0) g/dL Albumin (3.5-5.0) g/dL Lipase (8-78) U/L COVID-19 (JACKY) (Negative) COVID-19 Clin Com ECG Data Interpretation: Atrial fibrillation. Ventricular rate 63. QRS 102. QTC 454. Negative STEMI Discharge Plan Discharge Clinical Impression: Acute hepatic encephalopathy, Atrial fibrillation Patient Disposition: Admitted As Inpatient
--- NOTE | 2020-10-15 04:00 | PC.NURSE ---
PT AWAKE AND WATCHING TV WITH SPOUSE AT BEDSIDE WITH PT. COVID OBTAINED, MED REC DONE AND PT AWAITING FOR ROOM ASSIGNMENT.
--- NOTE | 2020-10-15 04:45 | PC.NURSE ---
PT AWAITING FOR ROOM ASSIGNMENT. PT ON MONITOR, RESPIRATIONS EASY, N/L. SKIN W/D. WILL CONTINUE TO MONITOR PT.
--- NOTE | 2020-10-15 05:35 | PC.NURSE ---
REPORT TO HASMUKH LUNDBERG ON IMC. PT GOING TO ROOM #446. PT LEFT ED IN NAD.
--- NOTE | 2020-10-15 05:59 | PM.IMHP ---
History of Present Illness Date of Service: 10/15/20 Chief Complaint: Confusion This is a 70-year-old male with past medical history of liver cirrhosis secondary to alcohol abuse, anemia, aortic stenosis, ascites secondary to alcoholic cirrhosis, CHF, CKD, diabetes, HLD, HTN, among others who presents to the hospital with multiple complaints including confusion, leg swelling, as well as epigastric pain. Patient reports that he was asked to stop lactulose about a week ago due to significant diarrhea and his noticed him to be slightly more confused this afternoon. Patient currently is alert oriented x3 making complete sense able to answer questions appropriately. He also reports that he had epigastric pain that resolved after receiving Prilosec in the ED. he is also complaining of leg swelling that is chronic not associated with any orthopnea, PND, reports that the swelling has reached to his groin area. Patient reports that he was taken off his water pills due to LINETTE on but has not noticed increase in his leg swelling. He denies any increased shortness of breath although he does feel dyspneic on exertion. Denies any headache, no change in vision, no numbness tingling, no abdominal pain, no chest pain, no nausea or vomiting, no diarrhea currently, no urinary symptoms. Patient is scheduled for outpatient paracentesis today at 11:00 a.m. it is willing to stay only because of the procedure otherwise with like to be discharged back home today On arrival to the ED patient hemodynamically stable with No significant abnormal vitals Labs are significant for WBC count of 3.9 which is chronic leukopenia, hemoglobin of 9.3 which is around his baseline, platelet count of 74 which is also chronic, PT of 16.3, INR of 1.4, sodium 130, potassium of 5.6, BUN of 75, creatinine of 1.7 for increased of around 1.2 in early September, total bili of 3.7, AST of 46, ALT of 38, alk-phos of 213, BNP of 568, albumin of 2.7. Ammonia level of 147 ( chronically in the 40s) Past medical history as below and confirmed with patient Review of Systems Review of Systems: Yes all other systems are reviewed and are negative [facility] Medical History Acid reflux Alcohol induced liver disorder Anemia Annual physical exam Aortic stenosis Ascites due to alcoholic cirrhosis Cellulitis CHF (congestive heart failure) Chronic edema CKD (chronic kidney disease) stage 3, GFR 30-59 ml/min Diabetes Dyslipidemia Encephalopathy Essential hypertension Hepatic encephalopathy HTN (hypertension) Lipodermatosclerosis Liver cirrhosis Low serum vitamin D Obesity Obesity (BMI 30-39.9) BARTOLOME (obstructive sleep apnea) Osteoarthritis Portal hypertension syndrome Recurrent cellulitis of lower extremity Tongue ulcer Type 2 diabetes mellitus with chronic kidney disease Type 2 diabetes mellitus with hyperglycemia, with long-term current use of insulin Family History Brother Diabetes Father No problems noted. Family history: reviewed and not pertinent Surgical History H/O colonoscopy History of esophagogastroduodenoscopy (EGD) History of tonsillectomy Social History Household Members: Spouse Alcohol intake: never Advance Directives: No Advance Directives Information Provided: No Current occupational status: retired Meds Allergies Allergy/AdvReac Type Severity Reaction Status Date / Time metformin AdvReac Unknown diarrhea, Verified 10/09/20 15:20 muscle spasms Active Medications: Current Medications Generic Name Dose Route Start Last Admin Trade Name Freq PRN Reason Stop Dose Admin Pharmacy Consult 1 each 10/15/20 02:55 Consult Rx Perform Med Rec MISCELLANE ONCE PRN Consult order Home Medications Medication Instructions Recorded Confirmed Last Taken Type empagliflozin 25 mg tablet 25 mg PO QAM 04/04/20 10/15/20 Unknown History lactulose 10 gram/15 mL oral 15 ml PO DAILY PRN 04/04/20 10/15/20 Unknown History solution losartan 50 mg tablet 50 mg PO DAILY 04/04/20 10/15/20 Unknown History metoprolol tartrate 25 mg tablet 25 mg PO DAILY 04/04/20 10/15/20 Unknown History pen needle, diabetic 31 gauge x #50 ea 07/07/20 10/09/20 Unknown History 07/29 magnesium oxide 400 mg (241.3 mg 400 mg PO BEDTIME 10/09/20 10/15/20 Unknown History magnesium) tablet celecoxib 200 mg PO BID 10/15/20 10/15/20 Unknown History cholecalciferol (vitamin D3) 2,000 unit PO DAILY 10/15/20 10/15/20 Unknown History psyllium husk 1 tbsp PO BID PRN 10/15/20 10/15/20 Unknown History Physical Exam Vital Signs and Narrative: Vital Signs: Last Vital Signs Temp 97.5 F 10/15/20 00:00 Pulse 61 10/15/20 05:39 Resp 20 10/15/20 05:39 BP 134/54 L 10/15/20 05:39 Pulse Ox 97 10/15/20 05:39 Body Mass Index 43.0 Const: Other: Patient fully awake, alert, oriented, able to answer questions appropriately General: cooperative and no acute distress Orientation/consciousness: patient oriented x3 Eyes: General: appearance normal, both eyes and all related structures Pupils: Equal, round and reactive pupils present Resp: Effort & Inspection: normal respiratory effort and able to speak in complete sentences Cardio: Rate: regular rate Rhythm: regular rhythm GI: Palpation (GI): Soft to palpation Auscultation: normal bowel sounds Skin: Other: Lower extremity skin changes of chronic lymphedema Neuro: General: patient oriented x3 Cranial nerves: Yes Equal, round and reactive pupils present Cognition (Neuro): normal cognition Extrem: Other: 3+ lower extremity edema extending all the way to the upper thighs Results Labs CBC and Chem 7: 10/14/20 23:52 10/14/20 23:52 Labs: Laboratory Results - last 24 hr 10/14/20 10/14/20 10/14/20 23:50 23:51 23:52 MCV 93.9 MCH 33.5 H MCHC 35.6 RDW 13.6 Plt Count 74 L MPV 10.3 Immature Gran % (Auto) 0.3 Neut % (Auto) 75.8 H Lymph % (Auto) 10.8 L Sherman % (Auto) 9.5 Eos % (Auto) 3.3 Baso % (Auto) 0.3 Lymph # (Auto) 0.4 L Sherman # (Auto) 0.4 Eos # (Auto) 0.1 Baso # (Auto) 0.0 Abs Immat Gran (auto) 0.01 Absolute Neuts (auto) 3.0 Absolute Nucleated RBC 0.000 Nucleated RBC % (auto) 0.0 Smear Tech's Comments VERIFIED PT 16.3 H INR 1.4 H APTT 38.3 H Anion Gap Estim Creat Clear Calc Estimated GFR Random Glucose Calcium Total Bilirubin Direct Bilirubin AST ALT Alkaline Phosphatase Ammonia 147 H Troponin I High Sens B-Natriuretic Peptide Total Protein Albumin Lipase COVID-19 (JACKY) COVID-19 Fiiiling Com 10/14/20 10/14/20 10/15/20 23:52 23:52 02:49 MCV MCH MCHC RDW Plt Count MPV Immature Gran % (Auto) Neut % (Auto) Lymph % (Auto) Sherman % (Auto) Eos % (Auto) Baso % (Auto) Lymph # (Auto) Sherman # (Auto) Eos # (Auto) Baso # (Auto) Abs Immat Gran (auto) Absolute Neuts (auto) Absolute Nucleated RBC Nucleated RBC % (auto) Smear Tech's Comments PT INR APTT Anion Gap 13 Estim Creat Clear Calc 55.6 Estimated GFR 39 Random Glucose 145 H Calcium 8.1 L Total Bilirubin 3.7 H 3.5 H Direct Bilirubin 1.9 H AST 46 H 46 H ALT 37 38 Alkaline Phosphatase 210 H 213 H Ammonia Troponin I High Sens B-Natriuretic Peptide Total Protein 5.7 L 5.6 L Albumin 2.7 L 2.7 L Lipase 56 COVID-19 (JACKY) Negative [employer]-CBIT A/S See Note 10/15/20 23:51 MCV MCH MCHC RDW Plt Count MPV Immature Gran % (Auto) Neut % (Auto) Lymph % (Auto) Sherman % (Auto) Eos % (Auto) Baso % (Auto) Lymph # (Auto) Sherman # (Auto) Eos # (Auto) Baso # (Auto) Abs Immat Gran (auto) Absolute Neuts (auto) Absolute Nucleated RBC Nucleated RBC % (auto) Smear Tech's Comments PT INR APTT Anion Gap Estim Creat Clear Calc Estimated GFR Random Glucose Calcium Total Bilirubin Direct Bilirubin AST ALT Alkaline Phosphatase Ammonia Troponin I High Sens 7.2 B-Natriuretic Peptide 568 H Total Protein Albumin Lipase COVID-19 (JACKY) COVID-CBIT A/S Assessment and Plan (1) Acute hepatic encephalopathy: Status: Acute (2) Anasarca: Status: Acute (3) Ascites due to alcoholic cirrhosis: Status: Acute (4) Lower extremity edema: Status: Acute (5) Elevated brain natriuretic peptide (BNP) level: Status: Acute (6) Hyperammonemia: Status: Acute (7) LINETTE (acute kidney injury): Status: Acute This is a 70-year-old male with past medical history of alcoholic liver cirrhosis who presents to the hospital with confusion initially as well as lower extremity edema # acute hepatic encephalopathy - improved - most likely secondary to hyperammonemia - patient reports that he stop taking his lactulose about a week ago due to diarrhea - received 30 mL of lactulose in the ED with improvement of his mentation - will continue lactulose t.i.d. 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 Bumex but according to his was also stopped due to recent LINETTE # LINETTE on CKD - worsened within the last 2-3 weeks - creatinine of 1.2 from early September currently it is 1.7 - possibly hepatorenal - patient scale stooled for paracentesis today, will continue Bumex - consult gastroenterology as well as Cardiology and a 4 symptoms creatinine function consider consulting Nephrology # ascites due to liver cirrhosis - scheduled for paracentesis today - IR consulted # hyperammonemia - lactulose 30 mL t.i.d. # diabetes - low-dose sliding scale insulin - diabetic diet # hypertension - stable - continue losartan DVT prophylaxis: Heparin subQ
[2020-10-15] MEDS: Omeprazole 20 MG CAPSULE.DR PO ×2 (07:39→15:21)
[2020-10-15 08:45] LABS: Hemoglobin 8.4 g/dl (14.0-18.0); Mean Corpuscular Hemoglobin 32.6 pg (27.0-33.0); Mean Platelet Volume 10.3 fL (9.4-12.4); Red Blood Count 2.58 X10*6/uL (4.60-5.80); Red Cell Distribution Width 13.4 % (11.0-16.0); White Blood Count 3.4 X10*3/uL (4.8-10.8)
[2020-10-15 08:52] LABS: Platelet Count 67 X10*3/uL (160-400)
[2020-10-15] MEDS: Penicillin V Potassium 250 MG TABLET PO ×2 (09:11→21:21)
[2020-10-15] MEDS: Losartan Potassium 50 MG TABLET PO (09:11)
[2020-10-15] MEDS: Thiamine HCL 100 MG TABLET PO (09:11)
[2020-10-15] MEDS: rifAXIMin 550 MG TABLET PO ×2 (09:11→21:20)
[2020-10-15] MEDS: Folic Acid 1 MG TABLET PO (09:11)
[2020-10-15] MEDS: Metoprolol Tartrate 25 MG TABLET PO (09:11)
[2020-10-15] MEDS: 0.9 % Sodium Chloride Flush 3 ML SYRINGE IVFLUSH ×3 (09:13→21:21)
[2020-10-15 09:15] LABS: Anion Gap 12 (12-20); Blood Urea Nitrogen 74 mg/dL (9-16); Carbon Dioxide 16 mmol/L (22-29); Chloride 107 mmol/L (96-108); Creatinine Clr Calc Pharmacy 55.3; Estimated Glomerular Filt Rate 39; Glucose Random 148 mg/dL (60-115); Potassium 5.2 mmol/L (3.3-5.1); Sodium 130 mmol/L (135-145)
[2020-10-15 09:33] LABS: Glucose, Whole Blood 123 mg/dL (60-115)
--- NOTE | 2020-10-15 10:21 | P.CNGI_ITS ---
History of Present Illness Data of Consult Service Date: 10/15/20 Requesting physician: [facility] Primary Care Provider: Selena Stewart MD HPI Reason for consult: encephalopathy 70-year-old male with past medical history of liver cirrhosis secondary to alcohol abuse, anemia, aortic stenosis, ascites, CHF, CKD, diabetes, HLD, HTN, who I am asked to see for evaluation for hepatic encephalopathy. He stopped lactulose 1 week ago due to diarrhea after that he became increasingly confused, and had c/o epigastric pain and abdominal swelling. He was given prilosec in ED which relieved the abdominal pain. He has also been taken off diuretics due to worsening kidney fucntion. He has no santhosh worsening leg swelling and ascites because of that but also admits to loss of complaince with low salt diet.. He has chronic diarrhea for years even when he doesn;t take lactulose. He is on rifaximin but thi has not helped the diarrhea. No melena, or rectal bleeding, no epistaxis, hematuria His last EGD, colonoscopy was 2017 with small varices, PHG otherwise no polyps or masses. Today- he feels better after being tapped (no SBP on labs), no confusion, or abdominal pain. no chest pain, no nausea or vomiting. Labs: WBC count of 3.9, hemoglobin of 9.3 with slow drift downwards to this lev el over months, platelet count of 74, PT of 16.3, INR of 1.4, sodium 130, potassium of 5.6, BUN of 75, creatinine of 1.7 for increased of around 1.2 in early September, total bili of 3.7, AST of 46, ALT of 38, alk-phos of 213, BNP of 568, albumin of 2.7. Ammonia level of 147 ( chronically in the 40s) Prior Imagin08/19/[address] SCAN: Portal hypertension with cirrhotic liver containing large cyst and with heterogeneous coarsened parenchymal appearance. Question occlusion of the left portal vein with small right portal vein. Prominent portal vein varices with spontaneous left splenorenal shunt. Cholelithiasis without evidence of acute cholecystitis. Splenomegaly. 09/2018 ABD MRI SCAN: Cirrhotic appearing liver. A 4.4 x 5.3 cm slightly complex cyst in the right lobe. No liver mass. The main and right portal veins appear very thin with circumferential wall thickening, suggestive of changes from old thrombus. No acute appearing portal vein thrombosis/filling defect is seen. The left portal vein is difficult to visualize. Splenomegaly. Enlarged splenic vein, left upper quadrant varices and probable spontaneous splenorenal shunt. Gallstones. Small right renal cyst. Review of Systems Review of Systems: History from patient and Yes all other systems are reviewed and are negative Constitutional: Constitutional: Reports as per HPI, Reports no additional constitutional complaints, Denies chills, Reports fatigue and Denies fever(s) Eyes: Eyes: Reports as per HPI and Reports no additional eye complaints ENT: Reports system reviewed and no additional complaints, except as documented and Reports as per HPI Cardiovascular: Cardiovascular: Reports as per HPI, Reports no additional cardiovascular complaints and Denies chest pain Respiratory: Respiratory: Reports as per HPI, Reports no additional respiratory complaints and Denies cough Gastrointestinal: Gastrointestinal: Reports as per HPI, Reports no additional gastrointestinal complaints, Denies abdominal pain, Reports heartburn and Reports nausea Genitourinary: Genitourinary: Reports no additional male genitourinary complaints and Reports as per HPI Musculoskeletal: Musculoskeletal: Reports no additional musculoskeletal compla ints and Reports as per HPI Neurologic: Reports system reviewed and no additional complaints, except as documented and Reports as per HPI Psychiatric: Psychiatric: Reports no additional psychiatric complaints and Reports as per HPI Endocrine: Endocrine: Reports fatigue Allergic/Immunologic: Allergic/Immunologic: Reports no additional jasmeet rgic/immunologic complaints PMFSH Past Medical History Medical History Acid reflux Alcohol induced liver disorder Anemia Annual physical exam Aortic stenosis Ascites due to alcoholic cirrhosis Cellulitis CHF (congestive heart failure) Chronic edema CKD (chronic kidney disease) stage 3, GFR 30-59 ml/min Diabetes Dyslipidemia Encephalopathy Essential hypertension Hepatic encephalopathy HTN (hypertension) Lipodermatosclerosis Liver cirrhosis Low serum vitamin D Obesity Obesity (BMI 30-39.9) BARTOLOME (obstructive sleep apnea) Osteoarthritis Portal hypertension syndrome Recurrent cellulitis of lower extremity Tongue ulcer Type 2 diabetes mellitus with chronic kidney disease Type 2 diabetes mellitus with hyperglycemia, with long-term current use of insulin Family History Family History Brother Diabetes Father No problems noted. Family history: reviewed and not pertinent Surgical History Surgical History H/O colonoscopy History of esophagogastroduodenoscopy (EGD) History of tonsillectomy Social History Social History Household Members: Spouse Housing: House Do you presently have visiting nurse or other home services: No Alcohol intake: never Patient Tobacco Use Status: Never used Tobacco e-Cigarette/Vaping Use: Never Used Second Hand Smoke Exposure: No Use of substances other than those prescribed or required for medical reasons: No Currently Displaying Signs/Symptoms of Drug Intoxication Withdrawal: No Any prior treatment program specific to substance use: No Have you been hit, kicked, punched, or otherwise hurt by someone within the past year? If so, by whom?: No Do you feel safe in your current relationship?: Yes Is there a partner from a previous relationship who is making you feel unsafe now?: No Are you made to feel afraid or neglected: No Are you DNR?: No Advance Directives: No Advance Directives Information Provided: No Advance Directives on File: No Do you have thoughts of harming others: None Do you have a plan to hurt others: No Plan Recently lost weight without trying: No Eating poorly because of decreased appetite: No Nutrition Risks: No Nutritional Risk Poor oral hygiene: No service: No Current occupational status: retired Meds Allergies Allergy/AdvReac Type Severity Reaction Status Date / Time metformin AdvReac Severe diarrhea, Verified 10/16/20 13:25 muscle spasms Active Medications: Current Medications Generic Name Dose Route Start Last Admin Trade Name Freq PRN Reason Stop Dose Admin Acetaminophen 650 mg 10/15/20 06:15 Acetaminophen 325 Mg Tablet PO Q8H PRN Pain, Mild (Pain Scale 1-3) Bumetanide 2 mg 10/15/20 09:00 10/15/20 09:59 Bumetanide 1 Mg Tablet PO Not Given BID [facility] Protocol Folic Acid 1 mg 10/15/20 09:00 10/15/20 09:11 Folic Acid 1 Mg Tablet PO 1 mg DAILY GEOFF Administration Heparin Sodium (Porcine) 5,000 unit 10/15/20 06:15 10/15/20 06:47 Heparin Sodium,Porcine 5,000 Unit/Ml Vial SUBCUT Not Given Q12H GEOFF Lactulose 30 gm 10/15/20 09:00 10/15/20 09:13 Lactulose 20 Gm/30 Ml Solution PO 30 gm TID GEOFF Administration Losartan Potassium 50 mg 10/15/20 09:00 10/15/20 09:11 Losartan Potassium 50 Mg Tablet PO 50 mg DAILY GEOFF Administration Protocol Magnesium Oxide 400 mg 10/15/20 21:00 Magnesium Oxide 400 Mg Tablet PO BEDTIME [facility] Metoprolol Tartrate 25 mg 10/15/20 09:00 10/15/20 09:11 Metoprolol Tartrate 25 Mg Tablet PO 25 mg DAILY GEOFF Administration Protocol Omeprazole 20 mg 10/15/20 06:30 10/15/20 07:39 Omeprazole 20 Mg Capsule. PO 20 mg BID@0630,1630 GEOFF Administration Ondansetron HCl 4 mg 10/15/20 06:15 Ondansetron Hcl 4 Mg/2 Ml Vial IVPUSH Q8H PRN Nausea and Vomiting Penicillin V Potassium 250 mg 10/15/20 09:00 10/15/20 09:11 Penicillin V Potassium 250 Mg Tablet PO 250 mg BID [facility] Administration Pharmacy Consult 1 each 10/15/20 02:55 Consult Rx Perform Med Rec MISCELLANE ONCE PRN Consult order Rifaximin 550 mg 10/15/20 09:00 10/15/20 09:11 Rifaximin 550 Mg Tablet PO 550 mg BID GEOFF Administration Sodium Chloride 3 ml 10/15/20 08:00 10/15/20 09:13 0.9 % Sodium Chloride Flush 3 Ml Syringe IVFLUSH 3 ml QSHIFT [facility] Administration Thiamine HCl 100 mg 10/15/20 09:00 10/15/20 09:11 Thiamine Hcl 100 Mg Tablet PO 100 mg DAILY GEOFF Administration Home Medications Medication Instructions Recorded Confirmed Last Taken Type empagliflozin 25 mg tablet 25 mg PO QAM 04/04/20 10/15/20 Unknown History lactulose 10 gram/15 mL oral 15 ml PO DAILY PRN 04/04/20 10/15/20 Unknown History solution losartan 50 mg tablet 50 mg PO DAILY 04/04/20 10/15/20 Unknown History metoprolol tartrate 25 mg tablet 25 mg PO DAILY 04/04/20 10/15/20 Unknown History pen needle, diabetic 31 gauge x #50 ea 07/07/20 10/09/20 Unknown History 316 magnesium oxide 400 mg (241.3 mg 400 mg PO BEDTIME 10/09/20 10/15/20 Unknown History magnesium) tablet celecoxib 200 mg PO BID 10/15/20 10/15/20 Unknown History cholecalciferol (vitamin D3) 2,000 unit PO DAILY 10/15/20 10/15/20 Unknown History insulin degludec [Tresiba 30 unit SUBCUT DAILY 10/15/20 10/15/20 Unknown History FlexTouch U-200] liraglutide [Victoza 3-Gorod] 0.3 ml SUBCUT DAILY 10/15/20 10/15/20 Unknown History psyllium husk 1 tbsp PO BID PRN 10/15/20 10/15/20 Unknown History Physical Exam Vital Signs: Vital Signs: Last Vital Signs Temp 97.6 F 10/15/20 07:42 Pulse 75 10/15/20 09:11 Resp 18 10/15/20 07:42 BP 138/72 10/15/20 09:11 Pulse Ox 100 10/15/20 07:42 Body Mass Index 43.0 Const: Other: Patient fully awake, alert, oriented, able to answer questions appropriately General: cooperative, healthy appearing, comfortable, no acute distress, alert and awake Nutritional Appearance: obese Orientation/consciousness: patient oriented x3 HENMT: Head: Yes normal to inspection, Yes No palpable skull fracture present, Yes normocephalic and Yes atraumatic Eyes: Other: Icterus General: appearance normal, both eyes and all related structures Sclerae: sclerae normal Pupils: Equal, round and reactive pupils present Neck: Neck: Yes normal visual inspection, Yes full ROM, Yes no lymphadenopathy, Yes no meningeal signs, Yes trachea midline, Yes supple and No tender Chest: Chest palpation & inspection: normal inspection of the chest and normal palpation of entire chest wall Resp: Other: diminished breath sounds Effort & Inspection: normal respiratory effort, able to speak in complete sentences and no respiratory distress Auscultation: clear to auscultation bilaterally and no wheezes Cardio: Jugular venous distension: JVD (pos hepatojugular reflux) elevated Rate: regular rate Rhythm: abnormal rhythm Heart sounds: S1 normal heart sound present and S2 normal heart sound present GI: Inspection: Yes normal to inspection, No abdominal wall ecchymosis and Yes distended Palpation (GI): Soft to palpation, not firm, nontender, no guarding and not rigid Auscultation: normal bowel sounds : General: No CVA tenderness and Yes no CVA tenderness Back/Spine/Pelvis: Back: no CVA tenderness, No CVA tenderness and No back tenderness Skin: Other: Lower extremity skin changes of chronic lymphedema with lipodermatosclerosis General skin exam: no rashes or lesions noted and elasticity normal Neuro: General: patient oriented x3, gait normal, no meningeal signs and CN's II-XI intact bilaterally Cranial nerves: Yes CN's II-XII intact bilaterally, Yes Equal, round and reactive pupils present and Yes Bilaterally intact EOM present Cognition (Neuro): normal cognition Extrem: Other: b/l leg edema; chronic skin changes Psych: Appearance: grossly normal, well kempt and not disheveled Results Labs CBC & Chem 7: 10/16/20 05:31 10/16/20 05:31 Labs: Short CBC 10/14/20 10/15/20 Range/Units 23:52 08:33 WBC 3.9 L 3.4 L (4.8-10.8) X10*3/uL Hgb 9.3 L 8.4 L (14.0-18.0) g/dl Hct 26.1 L 24.0 L (42-52) % Plt Count 74 L 67 L (160-400) X10*3/uL BMP 10/14/20 10/15/20 23:52 08:33 Sodium 130 L 130 L Potassium 5.6 H 5.2 H Chloride 106 107 Carbon Dioxide 17 L 16 L BUN 75 H 74 H Creatinine 1.74 H 1.75 H Calcium 8.1 L 8.0 L Liver Function 10/14/20 10/14/20 Range/Units 23:52 23:52 Total Bilirubin 3.7 H 3.5 H (0.0-1.0) mg/dL Direct Bilirubin 1.9 H (0.0-0.5) mg/dL AST 46 H 46 H (5-37) U/L ALT 37 38 (0-40) U/L Alkaline Phosphatase 210 H 213 H (39-117) U/L Albumin 2.7 L 2.7 L (3.5-5.0) g/dL Assessment and Plan (1) Ascites due to alcoholic cirrhosis: Status: Acute (2) Hepatic encephalopathy: Status: Acute (3) Anasarca: Status: Acute (4) Elevated brain natriuretic peptide (BNP) level: Status: Acute (5) LINETTE (acute kidney injury): Status: Acute 1/ Subacute acute on chronic anemia, maybe multifactorial from ACD, cirr hosis, splenic sequestration, dietary defcn and malabsorption. He has a splenorenal shunt which reduces risk of varices but he may be bleeding from PHG, or gastritis, GAVE, AVM 2/ Hepatic encephalopathy, now improved, may be due to dehydration, LINETTE, meds, or splenorenal shunt itself, lyte imbalance 3/ LINETTE, maybe related to meds, he is on celebrex, diuretics and ARB. Given he is fluid over loaded then these maybe contributing to maladaptive intravascular dynamics. HRS is also possible. 4/ Ansarca, may be combination of cirrhosis and right heart failure, he prob has BARTOLOME and obesity hypoventilation syndrome at baseline. Other possibility is protein losing enteropathy or colopathy from his portal HTN or nephrotic syndrome 5/ Diarrhea, may be from colonic edema from fluid retention, ddx: microscopic colitis, BAM, hormone secreting tumour PLAN; 1/ stop nephrotixins incl celebrex, ARB, US kidney , ur creat/protein ratio 2/ hol ddiuretics, renal consult and chekc urine for Fena, FeUrea, urine Na, UA--he may need ultrafiltration 3/EGD tomorrow to evla upper gi tract and see if helps with MX 4/check nutrients ie Vit A,D,E,<K, Vit B1, B6, b12and ffolic, iron studies 5/consider echo to re eval cardiac function Procedures Date of Service Date of Service: 10/15/20
[2020-10-15 11:11] LABS: Ammonia 123 umol/L (13-55)
--- NOTE | 2020-10-15 11:52 | MHC.CM.PN ---
met with pt and his they explin they had no servcwis prior to admission and do not anticapate needing servceis when dcd to transport home
--- NOTE | 2020-10-15 12:35 | PM.CNCAR ---
History of Present Illness History of Present Illness Date of Service: 10/15/20 Requesting physician: Paul Quinones Chief complaint: ? 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 He is presenting for lower extremity edema and abdominal distension. Is denying any orthopnea or PND. It appears his spironolactone was held because of worsening kidney function. He is saying he has not been taking Bumex also. As per GI record review he was taking extra salt in his diet. He is due to get paracentesis. We have been asked whether he has congestive heart failure. Is denying dyspnea on exertion, orthopnea PND at now. He also has new onset atrial fibrillation. He is asymptomatic from that point of view. Heart rates are well controlled on metoprolol. [facility] Past Medical History Medical History Acid reflux Alcohol induced liver disorder Anemia Annual physical exam Aortic stenosis Ascites due to alcoholic cirrhosis Cellulitis CHF (congestive heart failure) Chronic edema CKD (chronic kidney disease) stage 3, GFR 30-59 ml/min Diabetes Dyslipidemia Encephalopathy Essential hypertension Hepatic encephalopathy HTN (hypertension) Lipodermatosclerosis Liver cirrhosis Low serum vitamin D Obesity Obesity (BMI 30-39.9) BARTOLOME (obstructive sleep apnea) Osteoarthritis Portal hypertension syndrome Recurrent cellulitis of lower extremity Tongue ulcer Type 2 diabetes mellitus with chronic kidney disease Type 2 diabetes mellitus with hyperglycemia, with long-term current use of insulin Family History Family History Brother Diabetes Father No problems noted. Family history: reviewed and not pertinent Surgical History Surgical History H/O colonoscopy History of esophagogastroduodenoscopy (EGD) History of tonsillectomy Social History Social History Household Members: Spouse Housing: House Do you presently have visiting nurse or other home services: No Alcohol intake: never Patient Tobacco Use Status: Never used Tobacco e-Cigarette/Vaping Use: Never Used Second Hand Smoke Exposure: No Use of substances other than those prescribed or required for medical reasons: No Currently Displaying Signs/Symptoms of Drug Intoxication Withdrawal: No Any prior treatment program specific to substance use: No Have you been hit, kicked, punched, or otherwise hurt by someone within the past year? If so, by whom?: No Do you feel safe in your current relationship?: Yes Is there a partner from a previous relationship who is making you feel unsafe now?: No Are you made to feel afraid or neglected: No Advance Directives: No Advance Directives Information Provided: No Advance Directives on File: No Do you have thoughts of harming others: None Do you have a plan to hurt others: No Plan Recently lost weight without trying: No Eating poorly because of decreased appetite: No Nutrition Risks: No Nutritional Risk Poor oral hygiene: No service: No Current occupational status: retired [employer] Allergies Allergy/AdvReac Type Severity Reaction Status Date / Time metformin AdvReac Unknown diarrhea, Verified 10/09/20 15:20 muscle spasms Active Medications: Current Medications Generic Name Dose Route Start Last Admin Trade Name Freq PRN Reason Stop Dose Admin Acetaminophen 650 mg 10/15/20 06:15 Acetaminophen 325 Mg Tablet PO Q8H PRN Pain, Mild (Pain Scale 1-3) Bumetanide 2 mg 10/15/20 09:00 10/15/20 09:59 Bumetanide 1 Mg Tablet PO Not Given BID [facility] Protocol Folic Acid 1 mg 10/15/20 09:00 10/15/20 09:11 Folic Acid 1 Mg Tablet PO 1 mg DAILY GEOFF Administration Heparin Sodium (Porcine) 5,000 unit 10/15/20 06:15 10/15/20 06:47 Heparin Sodium,Porcine 5,000 Unit/Ml Vial SUBCUT Not Given Q12H GEOFF Lactulose 30 gm 10/15/20 09:00 10/15/20 09:13 Lactulose 20 Gm/30 Ml Solution PO 30 gm TID GEOFF Administration Losartan Potassium 50 mg 10/15/20 09:00 10/15/20 09:11 Losartan Potassium 50 Mg Tablet PO 50 mg DAILY GEOFF Administration Protocol Magnesium Oxide 400 mg 10/15/20 21:00 Magnesium Oxide 400 Mg Tablet PO BEDTIME GEOFF Metoprolol Tartrate 25 mg 10/15/20 09:00 10/15/20 09:11 Metoprolol Tartrate 25 Mg Tablet PO 25 mg DAILY GEOFF Administration Protocol Omeprazole 20 mg 10/15/20 06:30 10/15/20 07:39 Omeprazole 20 Mg Capsule. PO 20 mg BID@4703,4169 GEOFF Administration Ondansetron HCl 4 mg 10/15/20 06:15 Ondansetron Hcl 4 Mg/2 Ml Vial IVPUSH Q8H PRN Nausea and Vomiting Penicillin V Potassium 250 mg 10/15/20 09:00 10/15/20 09:11 Penicillin V Potassium 250 Mg Tablet PO 250 mg BID GEOFF Administration Pharmacy Consult 1 each 10/15/20 02:55 Consult Rx Perform Med Rec MISCELLANE ONCE PRN Consult order Rifaximin 550 mg 10/15/20 09:00 10/15/20 09:11 Rifaximin 550 Mg Tablet PO 550 mg BID GEOFF Administration Sodium Chloride 3 ml 10/15/20 08:00 10/15/20 09:13 0.9 % Sodium Chloride Flush 3 Ml Syringe IVFLUSH 3 ml QSHIFT GEOFF Administration Thiamine HCl 100 mg 10/15/20 09:00 10/15/20 09:11 Thiamine Hcl 100 Mg Tablet PO 100 mg DAILY GEOFF Administration Home Medications Medication Instructions Recorded Confirmed Last Taken Type empagliflozin 25 mg tablet 25 mg PO QAM 04/04/20 10/15/20 Unknown History lactulose 10 gram/15 mL oral 15 ml PO DAILY PRN 04/04/20 10/15/20 Unknown History solution losartan 50 mg tablet 50 mg PO DAILY 04/04/20 10/15/20 Unknown History metoprolol tartrate 25 mg tablet 25 mg PO DAILY 04/04/20 10/15/20 Unknown History pen needle, diabetic 31 gauge x #50 ea 07/07/20 10/09/20 Unknown History 07/29 magnesium oxide 400 mg (241.3 mg 400 mg PO BEDTIME 10/09/20 10/15/20 Unknown History magnesium) tablet celecoxib 200 mg PO BID 10/15/20 10/15/20 Unknown History cholecalciferol (vitamin D3) 2,000 unit PO DAILY 10/15/20 10/15/20 Unknown History insulin degludec [Tresiba 30 unit SUBCUT DAILY 10/15/20 10/15/20 Unknown History FlexTouch U-200] liraglutide [Victoza 3-Gordo] 0.3 ml SUBCUT DAILY 10/15/20 10/15/20 Unknown History psyllium husk 1 tbsp PO BID PRN 10/15/20 10/15/20 Unknown History Physical Exam Vital Signs: Vital Signs: Last Vital Signs Temp 96.9 F 10/15/20 11:11 Pulse 68 10/15/20 11:11 Resp 18 10/15/20 11:11 BP 110/53 L 10/15/20 11:11 Pulse Ox 98 10/15/20 11:11 Body Mass Index 43.0 GENERAL APPEARANCE: in no acute distress, pleasant. NECK: no carotid bruit, positive JVD. SKIN: no suspicious lesions, warm and dry. HEART: no murmurs, regular rate and rhythm. LUNGS: clear to auscultation bilaterally. ABDOMEN: soft, mildly distended, nontender. EXTREMITIES: Significant edema to the thighs. PERIPHERAL PULSES: equal. NEUROLOGIC: No gross deficits, AAO X 3 Results Labs and Meds Result diagrams: 10/15/20 08:33 10/15/20 08:33 Lab results: Laboratory Results - last 24 hr 10/14/20 10/14/20 10/14/20 23:50 23:51 23:52 WBC 3.9 L RBC 2.78 L Hgb 9.3 L Hct 26.1 L MCV 93.9 MCH 33.5 H MCHC 35.6 RDW 13.6 Plt Count 74 L MPV 10.3 Immature Gran % (Auto) 0.3 Neut % (Auto) 75.8 H Lymph % (Auto) 10.8 L [place] % (Auto) 9.5 Eos % (Auto) 3.3 Baso % (Auto) 0.3 Lymph # (Auto) 0.4 L [place] # (Auto) 0.4 Eos # (Auto) 0.1 Baso # (Auto) 0.0 Abs Immat Gran (auto) 0.01 Absolute Neuts (auto) 3.0 Absolute Nucleated RBC 0.000 Nucleated RBC % (auto) 0.0 Smear Tech's Comments VERIFIED PT 16.3 H INR 1.4 H APTT 38.3 H Sodium Potassium Chloride Carbon Dioxide Anion Gap BUN Creatinine Estim Creat Clear Calc Estimated GFR POC Glucose Random Glucose Calcium Total Bilirubin Direct Bilirubin AST ALT Alkaline Phosphatase Ammonia 147 H Troponin I High Sens B-Natriuretic Peptide Total Protein Albumin Lipase COVID-19 (JACKY) COVID-19 Clin Com 10/14/20 10/14/20 10/15/20 23:52 23:52 02:49 WBC RBC Hgb Hct MCV MCH MCHC RDW Plt Count MPV Immature Gran % (Auto) Neut % (Auto) Lymph % (Auto) [place] % (Auto) Eos % (Auto) Baso % (Auto) Lymph # (Auto) [place] # (Auto) Eos # (Auto) Baso # (Auto) Abs Immat Gran (auto) Absolute Neuts (auto) Absolute Nucleated RBC Nucleated RBC % (auto) Smear Tech's Comments PT INR APTT Sodium 130 L Potassium 5.6 H Chloride 106 Carbon Dioxide 17 L Anion Gap 13 BUN 75 H Creatinine 1.74 H Estim Creat Clear Calc 55.6 Estimated GFR 39 POC Glucose Random Glucose 145 H Calcium 8.1 L Total Bilirubin 3.7 H 3.5 H Direct Bilirubin 1.9 H AST 46 H 46 H ALT 37 38 Alkaline Phosphatase 210 H 213 H Ammonia Troponin I High Sens B-Natriuretic Peptide Total Protein 5.7 L 5.6 L Albumin 2.7 L 2.7 L Lipase 56 COVID-19 (JACKY) Negative [employer]-ARDACO Com See Note 10/15/20 10/15/20 10/15/20 08:33 08:33 09:29 WBC 3.4 L RBC 2.58 L Hgb 8.4 L Hct 24.0 L MCV 93.0 MCH 32.6 MCHC 35.0 RDW 13.4 Plt Count 67 L MPV 10.3 Immature Gran % (Auto) Neut % (Auto) Lymph % (Auto) [place] % (Auto) Eos % (Auto) Baso % (Auto) Lymph # (Auto) [place] # (Auto) Eos # (Auto) Baso # (Auto) Abs Immat Gran (auto) Absolute Neuts (auto) Absolute Nucleated RBC 0.000 Nucleated RBC % (auto) 0.0 Smear Tech's Comments PT INR APTT Sodium 130 L Potassium 5.2 H Chloride 107 Carbon Dioxide 16 L Anion Gap 12 BUN 74 H Creatinine 1.75 H Estim Creat Clear Calc 55.3 Estimated GFR 39 POC Glucose 123 H Random Glucose 148 H Calcium 8.0 L Total Bilirubin Direct Bilirubin AST ALT Alkaline Phosphatase Ammonia Troponin I High Sens B-Natriuretic Peptide Total Protein Albumin Lipase COVID-19 (JACKY) COVID-19 Clin Com 10/15/20 10/15/20 10:25 23:51 WBC RBC Hgb Hct MCV MCH MCHC RDW Plt Count MPV Immature Gran % (Auto) Neut % (Auto) Lymph % (Auto) [place] % (Auto) Eos % (Auto) Baso % (Auto) Lymph # (Auto) [place] # (Auto) Eos # (Auto) Baso # (Auto) Abs Immat Gran (auto) Absolute Neuts (auto) Absolute Nucleated RBC Nucleated RBC % (auto) Smear Tech's Comments PT INR APTT Sodium Potassium Chloride Carbon Dioxide Anion Gap BUN Creatinine Estim Creat Clear Calc Estimated GFR POC Glucose Random Glucose Calcium Total Bilirubin Direct Bilirubin AST ALT Alkaline Phosphatase Ammonia 123 H Troponin I High Sens 7.2 B-Natriuretic Peptide 568 H Total Protein Albumin Lipase COVID-19 (JACKY) COVID-19 Clin Com Assessment and Plan (1) LINETTE (acute kidney injury): Status: Acute (2) Atrial fibrillation: Status: Acute (3) Anasarca: Status: Acute (4) Ascites due to alcoholic cirrhosis: Status: Acute Pleasant 70 gentleman with alcoholic cirrhosis. He has portal hypertension and ascites. It appears is diuretics for her due to kidney injury recently. There are some dietary indiscretions. He has significant volume overload at this point. He is going for paracentesis. Post paracentesis if his blood pressure is stable I think he would benefit from getting back on diuretics. GI is consulted and they can weigh in on this also. I think his problem mostly is anasarca due to liver issues and not heart failure right now. He has atrial fibrillation which is new onset. His chads Vasc score is 3. With cirrhosis he has risk of bleeding but I think he should be anticoagulated. This can be again discussed with GI that he does not have any significant varices or concern for bleeding. Continue beta-christen for rate control. Thank you for allowing me to participate in the care of your patient. Please feel free to contact me if you have any questions. Procedures Date of Service Date of Service: 10/15/20
[2020-10-15] MEDS: Lidocaine HCl 1 % MPF 5 ML VIAL SUBCUT (12:54)
[2020-10-15 12:57] LABS: OBS Int Ctl Valid YES; OBS1 POSITIVE (NEGATIVE)
[2020-10-15 14:08] LABS: MN% 81.7 %; PMN% 18.3 %; WBC Peritoneal Fluid 0.159 X10*3/uL
[2020-10-15 14:09] LABS: RBC Peritoneal Fluid < 0.002 X10*6/uL
--- NOTE | 2020-10-15 14:48 | MHC.CM.PN ---
pt dcd home no skilled servcies ordered by
[2020-10-15 14:49] LABS: BF Shift QC OK YES; Lymphocyte Peritoneal Fl 30 %; Man Diluent Bkgrd OK YES; Monocytes Peritoneal Fl 21 %; Neutrophils Peritoneal Fluid 22 %; Other Peritioneal Fl 27 %
--- NOTE | 2020-10-15 17:29 | P.PNIM_ITS ---
Subjective Subjective Date of Service: 10/15/20 Interval History: Seen and examined this morning Patient is alert and oriented, no confusion No complaints this morning Plan for paracentesis this afternoon Review of Systems Review of Systems: Yes all other systems are reviewed and are negative Constitutional Constitutional: Denies chills and Denies fever(s) Cardiovascular Cardiovascular: Denies chest pain Respiratory Respiratory: Denies cough Gastrointestinal Gastrointestinal: Denies abdominal pain Physical Exam Vital Signs: Vital Signs: Last Vital Signs Temp 98.4 F 10/15/20 16:00 Pulse 62 10/15/20 16:00 Resp 18 10/15/20 16:00 BP 122/70 10/15/20 16:00 Pulse Ox 100 10/15/20 16:00 Body Mass Index 43.0 Const: General: comfortable, no acute distress, alert and awake Nutritional Appearance: obese Orientation/consciousness: patient oriented x3 HENMT: Head: Yes normocephalic and Yes atraumatic Eyes: Sclerae: sclerae normal Chest: Chest palpation & inspection: normal inspection of the chest Resp: Other: diminished breath sounds Effort & Inspection: normal respiratory effort and no respiratory distress Auscultation: no wheezes Cardio: Rate: regular rate Rhythm: regular rhythm GI: Palpation (GI): Soft to palpation and nontender Neuro: General: patient oriented x3 Cranial nerves: Yes CN's II-XII intact bilaterally and Yes Bilaterally intact EOM present Extrem: Other: b/l leg edema; chronic skin changes Objective Data Current Medications Generic Name Dose Route Start Last Admin Trade Name Freq PRN Reason Stop Dose Admin Acetaminophen 650 mg 10/15/20 06:15 Acetaminophen 325 Mg Tablet PO Q8H PRN Pain, Mild (Pain Scale 1-3) Bumetanide 2 mg 10/15/20 09:00 10/15/20 09:59 Bumetanide 1 Mg Tablet PO Not Given BID [facility] Protocol Folic Acid 1 mg 10/15/20 09:00 10/15/20 09:11 Folic Acid 1 Mg Tablet PO 1 mg DAILY GEOFF Administration Losartan Potassium 50 mg 10/15/20 09:00 10/15/20 09:11 Losartan Potassium 50 Mg Tablet PO 50 mg DAILY GEOFF Administration Protocol Magnesium Oxide 400 mg 10/15/20 21:00 Magnesium Oxide 400 Mg Tablet PO BEDTIME [facility] Metoprolol Tartrate 25 mg 10/15/20 09:00 10/15/20 09:11 Metoprolol Tartrate 25 Mg Tablet PO 25 mg DAILY GEOFF Administration Protocol Omeprazole 20 mg 10/15/20 06:30 10/15/20 15:21 Omeprazole 20 Mg Capsule. PO 20 mg BID@2730,8310 GEOFF Administration Ondansetron HCl 4 mg 10/15/20 06:15 Ondansetron Hcl 4 Mg/2 Ml Vial IVPUSH Q8H PRN Nausea and Vomiting Penicillin V Potassium 250 mg 10/15/20 09:00 10/15/20 09:11 Penicillin V Potassium 250 Mg Tablet PO 250 mg BID GEOFF Administration Pharmacy Consult 1 each 10/15/20 02:55 Consult Rx Perform Med Rec MISCELLANE ONCE PRN Consult order Rifaximin 550 mg 10/15/20 09:00 10/15/20 09:11 Rifaximin 550 Mg Tablet PO 550 mg BID GEOFF Administration Sodium Chloride 3 ml 10/15/20 08:00 10/15/20 15:21 0.9 % Sodium Chloride Flush 3 Ml Syringe IVFLUSH 3 ml QSHIFT GEOFF Administration Thiamine HCl 100 mg 10/15/20 09:00 10/15/20 09:11 Thiamine Hcl 100 Mg Tablet PO 100 mg DAILY GEOFF Administration Labs CBC & Chem 7: 10/15/20 08:33 10/15/20 08:33 Assessment and Plan (1) LINETTE (acute kidney injury): Status: Acute (2) Hyperammonemia: Status: Acute (3) Lower extremity edema: Status: Acute (4) Atrial fibrillation: Status: Acute Assessment and Plan: This is a 70-year-old male with history of alcoholic liver cirrhosis, CKD, diabetes, hypertension who presented to the emergency department with epigastric abdominal pain found to have elevated ammonia and new onset atrial fibrillation Anemia with heme-positive stools -seen by GI, plan for EGD in a.m. -NPO at midnight -follow CBC Alcoholic liver cirrhosis Scheduled outpatient paracentesis completed while inpatient 850 ml removed -follow up fluid studies Lower extremity edema Patient appears fluid overloaded, BNP elevated but has no orthopnea, no PND Seen by Cardiology who does not feel that the patient is in heart failure ? r/t underlying cirrhosis/low albumin -will obtain echocardiogram -continue home dose of Bumex for now Hyperammonemia Ammonia 147, down to 123 today. no encephalopathy Has been off lactulose due to daily diarrhea -continue rifaximin LINETTE on CKD Scr stable overnight at 1.75, but this is an increase from recent baseline of 1.2-1.9 in September ?hepatorenal -will consult nephrology -follow renal function Hyponatremia na 130. likely r/t fluid overload -follow chemistries -nephrology consult Thrombocytopenia Related to underlying liver disease -follow CBC Diabetes tresiba, bill, victoza are NF -SSI, POCs -ADA diet Hypertension -continue metoprolol -continue losartan for now Morbid obesity BMI 43.0 on penicillin at home, will check with patient about indication, continue for now DVT prophylaxis-will DC subcu heparin due to heme-positive stool Code status-full code Attending-Dr. Quinones
[2020-10-15 21:02] LABS: Glucose, Whole Blood 215 mg/dL (60-115)
[2020-10-15] MEDS: Bumetanide 1 MG TABLET 2 MG PO (21:20)
[2020-10-15] MEDS: Insulin Lispro 100 UNIT/ML 3 ML VIAL SUBCUT (21:20)
[2020-10-15] MEDS: Magnesium Oxide 400 MG TABLET PO (21:21)
[2020-10-16] VITALS (11 sets, daily range): BP systolic 105–142; BP diastolic 39–65; PULSE 58–70; RESP 14–20; TEMP 36.1–36.9; O2SAT 97–100
[2020-10-16 06:46] LABS: Basophils Percent Auto 0.9 % (0-2); Eosinophils Absolute Auto 0.2 X10*3/uL (0.0-0.4); Eosinophils Percent Auto 5.8 % (0-4); Hematocrit 23.5 % (42-52); Hemoglobin 8.3 g/dl (14.0-18.0); Imm Gran Abs Auto 0.01 X10*3/uL (0.00-0.03); Imm Gran Pct Auto 0.3 % (0.0-0.4); Lymphocytes Absolute Auto 0.5 X10*3/uL (1.2-4.9); Lymphocytes Percent Auto 16.5 % (20-40); MANUAL DIFF FLAG SCAN; Mean Corpuscular HGB Conc 35.3 g/dl (31.0-36.0); Mean Corpuscular Hemoglobin 32.9 pg (27.0-33.0); Mean Corpuscular Volume 93.3 fL (80-98); Mean Platelet Volume 10.5 fL (9.4-12.4); Monocytes Absolute Auto 0.5 X10*3/uL (0.1-1.2); Monocytes Percent Auto 15.9 % (2-11); Neutrophils Percent Auto 60.6 % (45-73); Red Blood Count 2.52 X10*6/uL (4.60-5.80); Red Cell Distribution Width 13.4 % (11.0-16.0); SCAN SMEAR FLAG 1; White Blood Count 3.3 X10*3/uL (4.8-10.8)
[2020-10-16 07:04] LABS: Anion Gap 11 (12-20); Blood Urea Nitrogen 74 mg/dL (9-16); Calcium 7.9 mg/dL (8.4-10.2); Carbon Dioxide 15 mmol/L (22-29); Chloride 109 mmol/L (96-108); Estimated Glomerular Filt Rate 39; Glucose Random 110 mg/dL (60-115); Potassium 5.1 mmol/L (3.3-5.1); Sodium 130 mmol/L (135-145)
[2020-10-16 07:07] LABS: Platelet Count 69 X10*3/uL (160-400)
[2020-10-16 07:14] LABS: Glucose, Whole Blood 109 mg/dL (60-115)
--- NOTE | 2020-10-16 07:30 | CA_ITS ---
Transthoracic Echocardiogram Patient (Last, First, Middle): Shadi Tom G Gender: Male Date of : 1950 Age: 70 Procedure Date: 10/16/2020 Procedure Type: Transthoracic [place] [facility] [place]: 177.8 cm Weight: 136.08 kg BSA: 2.48 m2 Heart Rate: bpm BP: 128 / 53 mmHg Traverse Rod Assembler: SAJI Referring MD: Magdalene KIRK Symptoms: fluid overload Study Quality: Good Conclusions: - The left ventricular systolic function is hyperdynamic. The visually estimated ejection fraction is >70%. - Normal right ventricular cavity size and systolic function. - The left atrium is severely dilated. The right atrium is severely dilated. - There is no evidence of pulmonary hypertension. Findings Left Ventricle Normal left ventricular cavity size. There is mildly increased left ventricular wall thickness. The left ventricular systolic function is hyperdynamic. The visually estimated ejection fraction is >70%. There is no evidence of regional wall motion abnormalities. Diastolic function is indeterminate on the basis of available data. Right Ventricle Normal right ventricular cavity size and systolic function. Atria The left atrium is severely dilated. The right atrium is severely dilated. Aortic Valve There is a normal trileaflet aortic valve. There is mild calcification of the aortic valve. There is mild thickening of the aortic valve. There is mild aortic valve stenosis. There is trace (trivial) aortic valve regurgitation. Mitral Valve There is moderate mitral annular calcification. There is trace mitral valve regurgitation. There is no mitral valve stenosis. Pulmonic Valve Normal pulmonic valve structure and function. There is trace pulmonic valve regurgitation. Tricuspid Valve Normal right atrial pressure. There is no evidence of pulmonary hypertension. Great Vessels All visible segments of the aorta are normal in size. The visualized portions of the pulmonary artery and branches are normal. Venous The inferior vena cava is normal in size and collapses greater than 50% with inspiration. Pericardium/Pleural There is no evidence of pericardial effusion. Prior Study Comparison Changes noted compared to prior study dated: 02/18/2016. Hyperdynamic left ventricle. severe biatrial enlargement. Measurements 2D Linear Measurements IVSd: 1.20 0.6-0.9/0.6-1.0 cm LVIDd: 5.16 3.9-5.3/4.2-5.9 cm LVIDd Index: 2.08 2.4-3.2/2.2-3.1 cm/m2 LVIDs: 3.14 2.0-3.6 cm LVPWd: 1.24 0.7-1.1 cm Ao Root: 3.70 2.1-3.5 cm LA Diam: 5.00 2.7-3.8/3.0-4.0 cm LAIDs Index: 2.02 1.5-2.3 cm/m2 LV Mass: 313.65 67-162/88-224 g LV Mass Index: 126.47 43-95/49-115 g/m2 LVOT Diam: 2.20 3.0+(-)1.3 cm 2D Systolic Function EF 4C: 65.60 >55% EF 2C: 62.90 >55% EF BiP: 65.00 >55% Mitral Valve E'Lateral: 11.30 E'Medial: 9.25 Aortic Valve AoV Pk Werner: 2.49 AoV Mn Werner: 1.68 AoV VTI: 0.54 AoV Pk Grad: 25.00 Aov Mn Grad: 13.00 NEELA Cont.VTI: 2.98 LVOT LVOT Pk Werner: 2.00 LVOT Mn Werner: 1.41 LVOT VTI: 0.42 LVOT Pk Grad: 16.00 LVOT Mn Grad: 9.00 LVOT Diam: 2.20 LVOT Area: 3.80 Diastolic Function E'Medial: 9.25 E' Laterial: 11.30 Tricuspid Valve TR Pk Werner: 2.43 TR Pk Grad: 24.00 RA Press: 8.00 RVSP: 32.00 Great Vessels Aorta Ao Root-2D: 3.70 2.0-3.7 cm Ao Asc: 3.40 2.1-3.4 cm Ao Arch: 3.00 Updated in Other Vendor System with Status of Final [place] MD electronically signed on 10/17/2020 4:08:46 PM with status of Final
[2020-10-16 07:31] LABS: Albumin Peritoneal Fluid 0.2; Total Protein Peritoneal Fluid 0.5
[2020-10-16 07:32] LABS: LDH Peritoneal Fluid 40
[2020-10-16 08:23] LABS: SLIDE REVIEW VERIFIED
[2020-10-16] MEDS: 0.9 % Sodium Chloride Flush 3 ML SYRINGE IVFLUSH ×2 (09:26→17:06)
[2020-10-16] MEDS: Metoprolol Tartrate 25 MG TABLET PO (09:27)
[2020-10-16 11:31] LABS: Glucose, Whole Blood 105 mg/dL (60-115)
--- NOTE | 2020-10-16 11:41 | HO.PM.IMPN ---
Subjective Subjective Date of Service: 10/16/20 <YELENA Ibanez - Last Filed: 10/16/20 12:06> 10/16/20 <Paul Quinones MD - Last Filed: 10/16/20 18:23> Interval History: seen and examined this morning resting in bed comfortably, awake and alert Denies orthopnea, PND, shortness of breath No overnight events <YELENA Ibanez - Last Filed: 10/16/20 12:06> Review of Systems Review of Systems: Yes all other systems are reviewed and are negative <YELENA Ibanez - Last Filed: 10/16/20 12:06> Constitutional Constitutional: Denies chills and Denies fever(s) <YELENA Ibanez Last Filed: 10/16/20 12:06> Cardiovascular Cardiovascular: Denies chest pain <YELENA Ibanez - Last Filed: 10/16/20 12:06> Respiratory Respiratory: Denies cough <YELENA Ibanez - Last Filed: 10/16/20 12:06> Gastrointestinal Gastrointestinal: Denies abdominal pain <YELENA Ibanez - Last Filed: 10/16/20 12:06> Physical Exam Vital Signs: Vital Signs: Last Vital Signs Temp 97.0 F 10/16/20 07:40 Pulse 64 10/16/20 09:27 Resp 20 10/16/20 07:40 BP 132/60 10/16/20 09:27 Pulse Ox 100 10/16/20 07:40 Body Mass Index 43.0 <YELENA Ibanez - Last Filed: 10/16/20 12:06> Const: General: comfortable, no acute distress, alert and awake <YELENA Ibanez - Last Filed: 10/16/20 12:06> Nutritional Appearance: obese <YELENA Ibanez - Last Filed: 10/16/20 12:06> Orientation/consciousness: patient oriented x3 <YELENA Ibanez Last Filed: 10/16/20 12:06> HENMT: Head: Yes normocephalic and Yes atraumatic <YELENA Ibanez - Last Filed: 10/16/20 12:06> Eyes: Sclerae: sclerae normal <YELENA Ibanez - Last Filed: 10/16/20 12:06> Chest: Chest palpation & inspection: normal inspection of the chest <YELENA Ibanez - Last Filed: 10/16/20 12:06> Resp: Other: diminished breath sounds <YELENA Ibanez - Last Filed: 10/16/20 12:06> Effort & Inspection: normal respiratory effort and no respiratory distress <YELENA Ibanez - Last Filed: 10/16/20 12:06> Auscultation: no wheezes <YELENA Ibanez - Last Filed: 10/16/20 12:06> Cardio: Rate: regular rate <YELENA Ibanez - Last Filed: 10/16/20 12:06> Rhythm: regular rhythm <YELENA Ibanez - Last Filed: 10/16/20 12:06> GI: Palpation (GI): Soft to palpation and nontender <YELENA Ibanez - Last Filed: 10/16/20 12:06> Neuro: General: patient oriented x3 <YELENA Ibanez - Last Filed: 10/16/20 12:06> Cranial nerves: Yes CN's II-XII intact bilaterally and Yes Bilaterally intact EOM present <YELENA Ibanez Last Filed: 10/16/20 12:06> Extrem: Other: b/l leg edema; chronic skin changes <YELENA Ibanez Last Filed: 10/16/20 12:06> Objective Data Current Medications Generic Name Dose Route Start Last Admin Trade Name Freq PRN Reason Stop Dose Admin Acetaminophen 650 mg 10/15/20 06:15 Acetaminophen 325 Mg Tablet PO Q8H PRN Pain, Mild (Pain Scale 1-3) Bumetanide 2 mg 10/15/20 09:00 10/16/20 11:12 Bumetanide 1 Mg Tablet PO Not Given BID [facility] Protocol Folic Acid 1 mg 10/15/20 09:00 10/16/20 09:15 Folic Acid 1 Mg Tablet PO Not Given DAILY [facility] Insulin Human Lispro 0 unit 10/15/20 21:00 10/16/20 07:24 Insulin Lispro 100 Unit/Ml 3 Ml Vial SUBCUT Not Given QIDACHS [facility] Protocol Magnesium Oxide 400 mg 10/15/20 21:00 10/15/20 21:21 Magnesium Oxide 400 Mg Tablet PO 400 mg BEDTIME [facility] Administration Metoprolol Tartrate 25 mg 10/15/20 09:00 10/16/20 09:27 Metoprolol Tartrate 25 Mg Tablet PO 25 mg DAILY [facility] Administration Protocol Omeprazole 20 mg 10/15/20 06:30 10/16/20 05:47 Omeprazole 20 Mg Capsule.Dr PO Not Given BID@0630,1630 [facility] Ondansetron HCl 4 mg 10/15/20 06:15 Ondansetron Hcl 4 Mg/2 Ml Vial IVPUSH Q8H PRN Nausea and Vomiting Penicillin V Potassium 250 mg 10/15/20 09:00 10/16/20 09:15 Penicillin V Potassium 250 Mg Tablet PO Not Given BID [facility] Pharmacy Consult 1 each 10/15/20 02:55 Consult Rx Perform Med Rec MISCELLANE ONCE PRN Consult order Rifaximin 550 mg 10/15/20 09:00 10/16/20 09:15 Rifaximin 550 Mg Tablet PO Not Given BID [facility] Sodium Chloride 3 ml 10/15/20 08:00 10/16/20 09:26 0.9 % Sodium Chloride Flush 3 Ml Syringe IVFLUSH 3 ml QSHIFT [facility] Administration Thiamine HCl 100 mg 10/15/20 09:00 10/16/20 09:15 Thiamine Hcl 100 Mg Tablet PO Not Given DAILY [facility] <YELENA Ibanez - Last Filed: 10/16/20 12:06> Labs CBC & Chem 7: : 10/16/20 05:31 10/16/20 05:31 <YELENA Ibanez - Last Filed: 10/16/20 12:06> Microbiology Microbiology Results: Microbiology 10/15/20 13:30 Abdominal Fluid Gram Stain - Final 10/15/20 13:30 Abdominal Fluid Routine Culture - Preliminary No growth to date. 10/15/20 13:30 Abdominal Fluid Anaerobic Culture - Preliminary No growth to date. <YELENA Ibanez - Last Filed: 10/16/20 12:06> Assessment and Plan (1) LINETTE (acute kidney injury): Status: Acute <YELENA Ibanez - Last Filed: 10/16/20 12:06> (2) Hyperammonemia: Status: Acute <YELENA Ibanez - Last Filed: 10/16/20 12:06> (3) Lower extremity edema: Status: Acute <YELENA Ibanez - Last Filed: 10/16/20 12:06> (4) Atrial fibrillation: Status: Acute <YELENA Ibanez - Last Filed: 10/16/20 12:06> Assessment and Plan: This is a 70-year-old male with history of alcoholic liver cirrhosis, CKD, diabetes, hypertension who presented to the emergency department with epigastric abdominal pain found to have elevated ammonia and new onset atrial fibrillation Anemia with heme-positive stools H/H stable overnight -seen by GI, plan for EGD today -follow CBC -iron studies, b12, folic acid Lower extremity edema Patient appears fluid overloaded, BNP elevated but has no orthopnea, no PND Seen by Cardiology who does not feel that the patient is in heart failure ? r/t underlying cirrhosis/low albumin -echocardiogram pending -continue home dose of Bumex for now, follow UO -nephrology consult New onset atrial fibrillation Chadsvasc score 3, cardiology rec AC EGD today, then discuss risk and benefit of anticoagulation -HR controlled -echo pending Alcoholic liver cirrhosis Scheduled outpatient paracentesis completed while inpatient 850 ml removed Hyperammonemia Ammonia 147, down to 123 today. no encephalopathy Has been off lactulose due to daily diarrhea -continue rifaximin LINETTE on CKD Scr stable overnight at 1.75, but this is an increase from recent baseline of 1.2-1.9 in September ?hepatorenal -nephrology following -follow renal function -hold losartan Hyponatremia sodium stable at 130 likely r/t fluid overload/liver dz -follow chemistries -nephrology consult -urine studies pending Thrombocytopenia Related to underlying liver disease Platelets at baseline -follow CBC Diabetes tresiba, jardiance, victoza are NF -SSI, POCs -ADA diet Hypertension -continue metoprolol -hold losartan for worsening renal function Morbid obesity BMI 43.0 on chronic penicillin to prevent infection in his legs per patient DVT prophylaxis-will DC subcu heparin due to heme-positive stool, boots Code status-full code Attending-Dr. Quinones <YELENA Ibanez - Last Filed: 10/16/20 12:06> I have seen and evaluated this patient. I have discussed the case and its management with the PA and I agree with the findings and plan as documented in the PA's note <Paul Quinones MD - Last Filed: 10/16/20 18:23>
--- NOTE | 2020-10-16 11:44 | CONS_ITS ---
DATE OF SERVICE: 10/16/2020 REASON FOR CONSULTATION: I was called to see this patient to assist in the management of patient's acute kidney injury. HISTORY OF PRESENT ILLNESS: To summary, Shadi is well known to me. He is a 70-year-old man with a history of cirrhosis of the liver due to chronic alcohol use in the past congestive heart failure with diabetes mellitus and obesity, who has chronic hyponatremia in the past. He was admitted because of increasing weight gain and acute kidney injury and possible confusion. At the time of admission, his serum ammonia was 146. He has not been taking lactulose due to diarrhea. His baseline creatinine is around 1 mg/dL and at the time of admission, creatinine was 1.76, which has been in that range for almost 2 weeks. This consultation requested for further management of acute kidney injury. He was on Bumex, which has been placed on hold prior to admission. Since admission, the lactulose were resumed. He is having loose stools. He has gained about 10 kg over the last 2 months. There has also been a decrease in hemoglobin, is currently being worked up for the same. He underwent a paracentesis yesterday and 1 L was removed. The serum albumin has been stable around 2.7. PAST MEDICAL HISTORY: Ongoing medical problems include history of obesity, diabetes mellitus, hypertension, chronic hyponatremia, cirrhosis of the liver with history of hepatic encephalopathy, obstructive sleep apnea, portal hypertension, aortic stenosis, and anemia. FAMILY HISTORY: Significant for diabetes mellitus. No kidney disease colonoscopy. SOCIAL HISTORY: He has no history of any alcohol abuse at present. No history of smoking. He is retired. SURGICAL HISTORY: Significant for tonsillectomy, EGD and colonoscopies. ALLERGIES: HE IS ALLERGIC TO METFORMIN. MEDICATIONS: At time of admission included empagliflozin, lactulose, losartan 50 mg, metoprolol, magnesium oxide, Celebrex, cholecalciferol, and . REVIEW OF SYSTEMS: Positive for increased weight gain. No shortness of breath. No abdominal pain. No nausea, vomiting. He has diarrhea. No urinary symptoms. No fever. All other systems were reviewed. PHYSICAL EXAMINATION: GENERAL: Shadi is a middle-aged man who appears comfortable. He is obese, not in any distress. NECK: Supple. No JVD. LUNGS: Air entry equal. No significant rales. HEART: S1, S2 heard. ABDOMEN: Obese, soft, nontender. NEURO: Alert and awake. EXTREMITIES: With 3+ edema. No rash. No clubbing. VITAL SIGNS: Blood pressure was 130/58, pulse , temperature 97.0. LABORATORY DATA: Hemoglobin 8.8, WBC 3.3, platelets 69,000. Sodium 130, potassium 5.1, CO2 15, BUN 74, creatinine 1.76. BNP 568. IMPRESSION: A 70-year-old man with cirrhosis of the liver, diabetes mellitus, hypertension, comes in with increased fluid retention and acute kidney injury. The different diagnosis of acute kidney injury would include hypoperfusion and it could have progressed to ischemic ATN. Obstructive uropathy should be ruled out. Other glomerular interstitial disease seem unlikely, but nevertheless, we will rule that out. Shadi was also taking losartan and Celebrex in the outpatient setting. Therefore, hypoperfusion from this combination is a possibility. At this point, he has significant fluid overload and I will resume the Bumex 2 mg twice a day. We will watch his daily weights and urine output. We will keep him in a negative fluid balance. I agree with the current management and keep him on a low sodium diet. He is scheduled for an upper endoscopy as well. Until renal function improves, I will hold the losartan and avoid using Celebrex. Further workup will be based on the outcome of the baseline investigations. I will follow him closely with the team. Malcolm Morgan MD BPA/MODL / [id number]
[2020-10-16 12:25] LABS: Iron 159 mcg/dL (45-160); Percent Iron Saturation 84 % (15-50); Total Iron Binding Capacity 190 mcg/dL (228-428); Unsaturated Iron Binding 31 ug/dL
[2020-10-16 12:35] LABS: Glucose Urine UA NEG (NEG); Leukocyte Esterase Urine NEG (NEG); Nitrite Urine NEG (NEG); PH 5.5 (5.0-8.0); Urine Blood TRACE (NEG); Urine Ketones NEG (NEG); Urine Protein NEG (NEG-TRACE)
[2020-10-16 12:48] LABS: Appearance Urine CLEAR; Color Urine YELLOW
[2020-10-16 12:53] LABS: Sodium Urine Random < 20.0 mmol/L; Total Protein Urine Random < 7 mg/dL (<12)
[2020-10-16 12:54] LABS: Osmolality Urine 293 mosm/kg (373-1093)
[2020-10-16 13:23] LABS: Folate > 20.0 ng/mL (> or = 4.0); Vitamin B12 1528 pg/mL (200-900)
--- NOTE | 2020-10-16 13:41 | P.CONAN_ITS ---
[facility] Active Problems Active Problems: All Active Problems (Updated 10/15/20 @ 06:10 by Thanh Restrepo MD) LINETTE (acute kidney injury) (Acute) Hyperammonemia (Acute) Elevated brain natriuretic peptide (BNP) level (Acute) Lower extremity edema (Acute) Acute hepatic encephalopathy (Acute) Atrial fibrillation (Acute) Anasarca (Acute) Elevated alkaline phosphatase level (Acute) Diarrhea (Acute) Ascites due to alcoholic cirrhosis (Acute) Annual physical exam (Acute) Hepatic encephalopathy (Acute) Alcohol induced liver disorder (Acute) Type 2 diabetes mellitus with chronic kidney disease (Acute) Type 2 diabetes mellitus with hyperglycemia, with long-term current use of insulin (Acute) Dyslipidemia (Acute) Essential hypertension (Acute) Low serum vitamin D (Acute) Obesity (BMI 30-39.9) (Acute) Recurrent cellulitis of lower extremity (Acute) Lipodermatosclerosis (Acute) CKD (chronic kidney disease) stage 3, GFR 30-59 ml/min (Acute) Diabetes (Acute) HTN (hypertension) (Acute) Tongue ulcer (Acute) Past Medical History Medical History Acid reflux Alcohol induced liver disorder Anemia Annual physical exam Aortic stenosis Ascites due to alcoholic cirrhosis Cellulitis CHF (congestive heart failure) Chronic edema CKD (chronic kidney disease) stage 3, GFR 30-59 ml/min Diabetes Dyslipidemia Encephalopathy Essential hypertension Hepatic encephalopathy HTN (hypertension) Lipodermatosclerosis Liver cirrhosis Low serum vitamin D Obesity Obesity (BMI 30-39.9) BARTOLOME (obstructive sleep apnea) Osteoarthritis Portal hypertension syndrome Recurrent cellulitis of lower extremity Tongue ulcer Type 2 diabetes mellitus with chronic kidney disease Type 2 diabetes mellitus with hyperglycemia, with long-term current use of insulin Family History Family History Brother Diabetes Father No problems noted. Surgical History Surgical History H/O colonoscopy History of esophagogastroduodenoscopy (EGD) History of tonsillectomy Social History Social History Household Members: Spouse Housing: House Do you presently have visiting nurse or other home services: No Alcohol intake: never Patient Tobacco Use Status: Never used Tobacco e-Cigarette/Vaping Use: Never Used Second Hand Smoke Exposure: No Use of substances other than those prescribed or required for medical reasons: No Currently Displaying Signs/Symptoms of Drug Intoxication Withdrawal: No Any prior treatment program specific to substance use: No Have you been hit, kicked, punched, or otherwise hurt by someone within the past year? If so, by whom?: No Do you feel safe in your current relationship?: Yes Is there a partner from a previous relationship who is making you feel unsafe now?: No Are you made to feel afraid or neglected: No Are you DNR?: No Advance Directives: No Advance Directives Information Provided: No Advance Directives on File: No Do you have thoughts of harming others: None Do you have a plan to hurt others: No Plan Recently lost weight without trying: No Eating poorly because of decreased appetite: No Nutrition Risks: No Nutritional Risk Poor oral hygiene: No service: No Current occupational status: retired [employer] Allergies Allergy/AdvReac Type Severity Reaction Status Date / Time metformin AdvReac Severe diarrhea, Verified 10/16/20 13:25 muscle spasms Active Medications: Current Medications Generic Name Dose Route Start Last Admin Trade Name Freq PRN Reason Stop Dose Admin Acetaminophen 650 mg 10/15/20 06:15 Acetaminophen 325 Mg Tablet PO Q8H PRN Pain, Mild (Pain Scale 1-3) Bumetanide 2 mg 10/15/20 09:00 10/16/20 11:12 Bumetanide 1 Mg Tablet PO Not Given BID [facility] Protocol Folic Acid 1 mg 10/15/20 09:00 10/16/20 09:15 Folic Acid 1 Mg Tablet PO Not Given DAILY [facility] Insulin Human Lispro 0 unit 10/15/20 21:00 10/16/20 12:35 Insulin Lispro 100 Unit/Ml 3 Ml Vial SUBCUT Not Given QIDACHS [facility] Protocol Magnesium Oxide 400 mg 10/15/20 21:00 10/15/20 21:21 Magnesium Oxide 400 Mg Tablet PO 400 mg BEDTIME [facility] Administration Metoprolol Tartrate 25 mg 10/15/20 09:00 10/16/20 09:27 Metoprolol Tartrate 25 Mg Tablet PO 25 mg DAILY [facility] Administration Protocol Omeprazole 20 mg 10/15/20 06:30 10/16/20 05:47 Omeprazole 20 Mg Capsule. PO Not Given BID@0630,1630 [facility] Ondansetron HCl 4 mg 10/15/20 06:15 Ondansetron Hcl 4 Mg/2 Ml Vial IVPUSH Q8H PRN Nausea and Vomiting Penicillin V Potassium 250 mg 10/15/20 09:00 10/16/20 09:15 Penicillin V Potassium 250 Mg Tablet PO Not Given BID [facility] Pharmacy Consult 1 each 10/15/20 02:55 Consult Rx Perform Med Rec MISCELLANE ONCE PRN Consult order Rifaximin 550 mg 10/15/20 09:00 10/16/20 09:15 Rifaximin 550 Mg Tablet PO Not Given BID [facility] Sodium Chloride 3 ml 10/15/20 08:00 10/16/20 09:26 0.9 % Sodium Chloride Flush 3 Ml Syringe IVFLUSH 3 ml QSHIFT [facility] Administration Thiamine HCl 100 mg 10/15/20 09:00 10/16/20 09:15 Thiamine Hcl 100 Mg Tablet PO Not Given DAILY [facility] Home Medications Medication Instructions Recorded Confirmed Last Taken Type empagliflozin 25 mg tablet 25 mg PO QAM 04/04/20 10/15/20 Unknown History lactulose 10 gram/15 mL oral 15 ml PO DAILY PRN 04/04/20 10/15/20 Unknown History solution losartan 50 mg tablet 50 mg PO DAILY 04/04/20 10/15/20 Unknown History metoprolol tartrate 25 mg tablet 25 mg PO DAILY 04/04/20 10/15/20 Unknown History pen needle, diabetic 31 gauge x #50 ea 07/07/20 10/09/20 Unknown History 07/29 magnesium oxide 400 mg (241.3 mg 400 mg PO BEDTIME 10/09/20 10/15/20 Unknown History magnesium) tablet celecoxib 200 mg PO BID 10/15/20 10/15/20 Unknown History cholecalciferol (vitamin D3) 2,000 unit PO DAILY 10/15/20 10/15/20 Unknown History insulin degludec [Tresiba 30 unit SUBCUT DAILY 10/15/20 10/15/20 Unknown History FlexTouch U-200] liraglutide [Victoza 3-Gordo] 0.3 ml SUBCUT DAILY 10/15/20 10/15/20 Unknown History psyllium husk 1 tbsp PO BID PRN 10/15/20 10/15/20 Unknown History Exam Exam Date and Time: October 16, 2020 1341 Height,Weight and Vital Signs: Height 5 ft 10 in Weight 136.078 kg Last Vital Signs Temp 97.4 F 10/16/20 11:53 Pulse 60 10/16/20 11:53 Resp 20 10/16/20 11:53 BP 119/59 L 10/16/20 11:53 Pulse Ox 100 10/16/20 11:53 Pertinent Lab Results Pertinent Lab Results: Laboratory Tests 10/14/20 10/14/20 10/14/20 23:50 23:51 23:52 WBC 3.9 L RBC 2.78 L Hgb 9.3 L Hct 26.1 L MCV 93.9 MCH 33.5 H MCHC 35.6 RDW 13.6 Plt Count 74 L MPV 10.3 Immature Gran % (Auto) 0.3 Neut % (Auto) 75.8 H Lymph % (Auto) 10.8 L Dawson % (Auto) 9.5 Eos % (Auto) 3.3 Baso % (Auto) 0.3 Lymph # (Auto) 0.4 L Dawson # (Auto) 0.4 Eos # (Auto) 0.1 Baso # (Auto) 0.0 Abs Immat Gran (auto) 0.01 Absolute Neuts (auto) 3.0 Absolute Nucleated RBC 0.000 Nucleated RBC % (auto) 0.0 Smear Tech's Comments VERIFIED PT 16.3 H INR 1.4 H APTT 38.3 H Sodium Potassium Chloride Carbon Dioxide Anion Gap BUN Creatinine Estim Creat Clear Calc Estimated GFR POC Glucose Random Glucose Calcium Iron TIBC % Saturation Unsat Iron Binding Total Bilirubin Direct Bilirubin AST ALT Alkaline Phosphatase Ammonia 147 H Troponin I High Sens B-Natriuretic Peptide Total Protein Albumin Lipase Vitamin B12 Folate Urine Color Urine Appearance Urine pH Ur Specific [place] Urine Protein Urine Glucose (UA) Urine Ketones Urine Blood Urine Nitrite Ur Leukocyte Esterase Urine Osmolality U Random Total Protein Ur Random Sodium Peritoneal WBC Peritoneal RBC Periton Neutrophils Periton Lymphocytes Peritoneal Monocytes Peritoneal Other Cells Peritoneal Tot Protein Peritoneal Albumin Peritoneal LDH Stool Occult Blood COVID-19 (JACKY) COVID-19 Clin Com 10/14/20 10/14/20 10/15/20 23:52 23:52 02:49 WBC RBC Hgb Hct MCV MCH MCHC RDW Plt Count MPV Immature Gran % (Auto) Neut % (Auto) Lymph % (Auto) Dawson % (Auto) Eos % (Auto) Baso % (Auto) Lymph # (Auto) Dawson # (Auto) Eos # (Auto) Baso # (Auto) Abs Immat Gran (auto) Absolute Neuts (auto) Absolute Nucleated RBC Nucleated RBC % (auto) Smear Tech's Comments PT INR APTT Sodium 130 L Potassium 5.6 H Chloride 106 Carbon Dioxide 17 L Anion Gap 13 BUN 75 H Creatinine 1.74 H Estim Creat Clear Calc 55.6 Estimated GFR 39 POC Glucose Random Glucose 145 H Calcium 8.1 L Iron TIBC % Saturation Unsat Iron Binding Total Bilirubin 3.7 H 3.5 H Direct Bilirubin 1.9 H AST 46 H 46 H ALT 37 38 Alkaline Phosphatase 210 H 213 H Ammonia Troponin I High Sens B-Natriuretic Peptide Total Protein 5.7 L 5.6 L Albumin 2.7 L 2.7 L Lipase 56 Vitamin B12 Folate Urine Color Urine Appearance Urine pH Ur Specific [place] Urine Protein Urine Glucose (UA) Urine Ketones Urine Blood Urine Nitrite Ur Leukocyte Esterase Urine Osmolality U Random Total Protein Ur Random Sodium Peritoneal WBC Peritoneal RBC Periton Neutrophils Periton Lymphocytes Peritoneal Monocytes Peritoneal Other Cells Peritoneal Tot Protein Peritoneal Albumin Peritoneal LDH Stool Occult Blood COVID-19 (JACKY) Negative COVID-19 Clin Com See Note 10/15/20 10/15/20 10/15/20 08:33 08:33 09:29 WBC 3.4 L RBC 2.58 L Hgb 8.4 L Hct 24.0 L MCV 93.0 MCH 32.6 MCHC 35.0 RDW 13.4 Plt Count 67 L MPV 10.3 Immature Gran % (Auto) Neut % (Auto) Lymph % (Auto) Dawson % (Auto) Eos % (Auto) Baso % (Auto) Lymph # (Auto) Dawson # (Auto) Eos # (Auto) Baso # (Auto) Abs Immat Gran (auto) Absolute Neuts (auto) Absolute Nucleated RBC 0.000 Nucleated RBC % (auto) 0.0 Smear Tech's Comments PT INR APTT Sodium 130 L Potassium 5.2 H Chloride 107 Carbon Dioxide 16 L Anion Gap 12 BUN 74 H Creatinine 1.75 H Estim Creat Clear Calc 55.3 Estimated GFR 39 POC Glucose 123 H Random Glucose 148 H Calcium 8.0 L Iron TIBC % Saturation Unsat Iron Binding Total Bilirubin Direct Bilirubin AST ALT Alkaline Phosphatase Ammonia Troponin I High Sens B-Natriuretic Peptide Total Protein Albumin Lipase Vitamin B12 Folate Urine Color Urine Appearance Urine pH Ur Specific [place] Urine Protein Urine Glucose (UA) Urine Ketones Urine Blood Urine Nitrite Ur Leukocyte Esterase Urine Osmolality U Random Total Protein Ur Random Sodium Peritoneal WBC Peritoneal RBC Periton Neutrophils Periton Lymphocytes Peritoneal Monocytes Peritoneal Other Cells Peritoneal Tot Protein Peritoneal Albumin Peritoneal LDH Stool Occult Blood COVID-19 (JACKY) COVID-19 Clin Com 10/15/20 10/15/20 10/15/20 10:25 12:36 13:30 WBC RBC Hgb Hct MCV MCH MCHC RDW Plt Count MPV Immature Gran % (Auto) Neut % (Auto) Lymph % (Auto) Dawson % (Auto) Eos % (Auto) Baso % (Auto) Lymph # (Auto) Dawson # (Auto) Eos # (Auto) Baso # (Auto) Abs Immat Gran (auto) Absolute Neuts (auto) Absolute Nucleated RBC Nucleated RBC % (auto) Smear Tech's Comments PT INR APTT Sodium Potassium Chloride Carbon Dioxide Anion Gap BUN Creatinine Estim Creat Clear Calc Estimated GFR POC Glucose Random Glucose Calcium Iron TIBC % Saturation Unsat Iron Binding Total Bilirubin Direct Bilirubin AST ALT Alkaline Phosphatase Ammonia 123 H Troponin I High Sens B-Natriuretic Peptide Total Protein Albumin Lipase Vitamin B12 Folate Urine Color Urine Appearance Urine pH Ur Specific [place] Urine Protein Urine Glucose (UA) Urine Ketones Urine Blood Urine Nitrite Ur Leukocyte Esterase Urine Osmolality U Random Total Protein Ur Random Sodium Peritoneal WBC 0.159 Peritoneal RBC < 0.002 Periton Neutrophils 22 Periton Lymphocytes 30 Peritoneal Monocytes 21 Peritoneal Other Cells 27 Peritoneal Tot Protein Peritoneal Albumin Peritoneal LDH Stool Occult Blood POSITIVE COVID-19 (JACKY) COVID-19 Clin Com 10/15/20 10/15/20 10/15/20 13:30 20:58 23:51 WBC RBC Hgb Hct MCV MCH MCHC RDW Plt Count MPV Immature Gran % (Auto) Neut % (Auto) Lymph % (Auto) Dawson % (Auto) Eos % (Auto) Baso % (Auto) Lymph # (Auto) Dawson # (Auto) Eos # (Auto) Baso # (Auto) Abs Immat Gran (auto) Absolute Neuts (auto) Absolute Nucleated RBC Nucleated RBC % (auto) Smear Tech's Comments PT INR APTT Sodium Potassium Chloride Carbon Dioxide Anion Gap BUN Creatinine Estim Creat Clear Calc Estimated GFR POC Glucose 215 H Random Glucose Calcium Iron TIBC % Saturation Unsat Iron Binding Total Bilirubin Direct Bilirubin AST ALT Alkaline Phosphatase Ammonia Troponin I High Sens 7.2 B-Natriuretic Peptide 568 H Total Protein Albumin Lipase Vitamin B12 Folate Urine Color Urine Appearance Urine pH Ur Specific [place] Urine Protein Urine Glucose (UA) Urine Ketones Urine Blood Urine Nitrite Ur Leukocyte Esterase Urine Osmolality U Random Total Protein Ur Random Sodium Peritoneal WBC Peritoneal RBC Periton Neutrophils Periton Lymphocytes Peritoneal Monocytes Peritoneal Other Cells Peritoneal Tot Protein 0.5 Peritoneal Albumin 0.2 Peritoneal LDH 40 Stool Occult Blood COVID-19 (JACKY) COVID-19 Clin Com 10/16/20 10/16/20 10/16/20 05:31 05:31 05:31 WBC 3.3 L RBC 2.52 L Hgb 8.3 L Hct 23.5 L MCV 93.3 MCH 32.9 MCHC 35.3 RDW 13.4 Plt Count 69 L MPV 10.5 Immature Gran % (Auto) 0.3 Neut % (Auto) 60.6 Lymph % (Auto) 16.5 L Dawson % (Auto) 15.9 H Eos % (Auto) 5.8 H Baso % (Auto) 0.9 Lymph # (Auto) 0.5 L Dawson # (Auto) 0.5 Eos # (Auto) 0.2 Baso # (Auto) 0.0 Abs Immat Gran (auto) 0.01 Absolute Neuts (auto) 2.0 Absolute Nucleated RBC 0.000 Nucleated RBC % (auto) 0.0 Smear Tech's Comments VERIFIED PT INR APTT Sodium 130 L Potassium 5.1 Chloride 109 H Carbon Dioxide 15 L Anion Gap 11 L BUN 74 H Creatinine 1.76 H Estim Creat Clear Calc 55.0 Estimated GFR 39 POC Glucose Random Glucose 110 Calcium 7.9 L Iron 159 TIBC 190 L % Saturation 84 H Unsat Iron Binding 31 Total Bilirubin Direct Bilirubin AST ALT Alkaline Phosphatase Ammonia Troponin I High Sens B-Natriuretic Peptide Total Protein Albumin Lipase Vitamin B12 1528 H Folate > 20.0 Urine Color Urine Appearance Urine pH Ur Specific [place] Urine Protein Urine Glucose (UA) Urine Ketones Urine Blood Urine Nitrite Ur Leukocyte Esterase Urine Osmolality U Random Total Protein Ur Random Sodium Peritoneal WBC Peritoneal RBC Periton Neutrophils Periton Lymphocytes Peritoneal Monocytes Peritoneal Other Cells Peritoneal Tot Protein Peritoneal Albumin Peritoneal LDH Stool Occult Blood COVID-19 (JACKY) COVID-19 Clin Com 10/16/20 10/16/20 10/16/20 07:02 11:18 12:04 WBC RBC Hgb Hct MCV MCH MCHC RDW Plt Count MPV Immature Gran % (Auto) Neut % (Auto) Lymph % (Auto) Dawson % (Auto) Eos % (Auto) Baso % (Auto) Lymph # (Auto) Dawson # (Auto) Eos # (Auto) Baso # (Auto) Abs Immat Gran (auto) Absolute Neuts (auto) Absolute Nucleated RBC Nucleated RBC % (auto) Smear Tech's Comments PT INR APTT Sodium Potassium Chloride Carbon Dioxide Anion Gap BUN Creatinine Estim Creat Clear Calc Estimated GFR POC Glucose 109 105 Random Glucose Calcium Iron TIBC % Saturation Unsat Iron Binding Total Bilirubin Direct Bilirubin AST ALT Alkaline Phosphatase Ammonia Troponin I High Sens B-Natriuretic Peptide Total Protein Albumin Lipase Vitamin B12 Folate Urine Color Urine Appearance Urine pH Ur Specific [place] Urine Protein Urine Glucose (UA) Urine Ketones Urine Blood Urine Nitrite Ur Leukocyte Esterase Urine Osmolality 293 L U Random Total Protein Ur Random Sodium Peritoneal WBC Peritoneal RBC Periton Neutrophils Periton Lymphocytes Peritoneal Monocytes Peritoneal Other Cells Peritoneal Tot Protein Peritoneal Albumin Peritoneal LDH Stool Occult Blood COVID-19 (JACKY) COVID-19 [employer] Com 10/16/20 10/16/20 12:04 12:04 WBC RBC Hgb Hct MCV MCH MCHC RDW Plt Count MPV Immature Gran % (Auto) Neut % (Auto) Lymph % (Auto) Dawson % (Auto) Eos % (Auto) Baso % (Auto) Lymph # (Auto) Dawson # (Auto) Eos # (Auto) Baso # (Auto) Abs Immat Gran (auto) Absolute Neuts (auto) Absolute Nucleated RBC Nucleated RBC % (auto) Smear Tech's Comments PT INR APTT Sodium Potassium Chloride Carbon Dioxide Anion Gap BUN Creatinine Estim Creat Clear Calc Estimated GFR POC Glucose Random Glucose Calcium Iron TIBC % Saturation Unsat Iron Binding Total Bilirubin Direct Bilirubin AST ALT Alkaline Phosphatase Ammonia Troponin I High Sens B-Natriuretic Peptide Total Protein Albumin Lipase Vitamin B12 Folate Urine Color YELLOW Urine Appearance CLEAR Urine pH 5.5 Ur Specific [place] 1.020 Urine Protein NEG Urine Glucose (UA) NEG Urine Ketones NEG Urine Blood TRACE Urine Nitrite NEG Ur Leukocyte Esterase NEG Urine Osmolality U Random Total Protein < 7 Ur Random Sodium < 20.0 Peritoneal WBC Peritoneal RBC Periton Neutrophils Periton Lymphocytes Peritoneal Monocytes Peritoneal Other Cells Peritoneal Tot Protein Peritoneal Albumin Peritoneal LDH Stool Occult Blood COVID-19 (JACKY) COVID-19 Clin Com Airway Mallampati Class: II TM Dist: >3cm Neck ROM: Limited Assessment and Plan Assessment Anesthesia Assessment: Anesthesia Plan Discussed and Chart Reviewed Final Anesthetic Review NPO: Yes ASA Class: IV Final Preanesthetic Review: No Changes in Pt Med Stat, Meds/Allgs Chart Reviewed, Consent Obtained/Reviewed and Anes Risks/Benef Reviewed Patient Risk: High Procedure Risk: Low Assessment/Block/Sedation in SS: Assess/Block/Sedation-SS Anesthetic Plan Anesthetic Plan: MAC: Disposition: Standard PACU
[2020-10-16 13:55] LABS: Glucose, Whole Blood 96 mg/dL (60-115)
[2020-10-16 14:00] LABS: RBC Urine 0 /HPF (0); Renal Epithelial Cells Urine TRACE /LPF; Squamous Epithelial Cell Urine TRACE /LPF; White Blood Cell Casts Urine 0-2 /LPF
--- NOTE | 2020-10-16 14:29 | MHC.SHP ---
Pre-Procedural Eval Section A The patient is an INPATIENT: Yes The History & Physical has been completed within 30 days and I have reviewed it.: Yes Section B Chief Complaint: ? CHF, Afib Allergies: Allergies Allergy/AdvReac Type Severity Reaction Status Date / Time metformin AdvReac Severe diarrhea, Verified 10/16/20 13:25 muscle spasms Plan Diagnosis/Plan: Unchanged I have reviewed the history and physical and performed a pertinent physical examination on my patient. No changes have occurred unless specified.
--- NOTE | 2020-10-16 14:30 | P.BOP_ITS ---
Brief Operative Note Date of Service: 10/16/20 Pre-op diagnosis: anemia Post-op diagnosis: same Surgeon: Jose Rudolph MD Was an Employment Officer used for this Procedure?: No Estimated blood loss (mL): 10
--- NOTE | 2020-10-16 14:31 | W.PM.OPN ---
Operative Note Operative Note Date of Service: 10/16/20 Narrative: Procedure Description: EGD FLEXIBLE TRANSORAL UPPER GASTROINTESTINAL ENDOSCOPY UPPER ENDOSCOPY Consent: Indications for the procedure and potential complications of bleeding, perforation, reaction to medications and missed diagnosis were discussed with the patient and informed consent was obtained. Instrument: Olympus GIF H 190 J mid size upper endoscope Monitoring: Vital signs and clinical assessment, continuous EKG monitoring, Pulse oximetry, Carbon Dioxide monitoring and blood pressure monitoring were done throughout the procedure. Procedure: The patient was placed in the left lateral decubitis position and pre-procedure medications were administered and a bite block was placed. The endoscope was inserted into the mouth and advanced under direct vision to the third part of duodenum. A careful inspection was made as the upper endoscope was withdrawn including a retroflexed examination of the proximal stomach; Findings and interventions are described below. Findings: Larynx:normal Esophagus: GE junction at 40 cm, diaphragm hiatus at 40 cm, x 1 grade II varix noted, no red winter Stomach: Patchy gastric erythema especially around the antrum compatible with GAVE. Grade 2 flap valve on retroflexed examination of the cardia. No gastric varices seen. After retroflexion he kept bleeding and wouldn;t stop so hemospray used with good effect. I held on APC for the GAVE due to this. Mosaic pattern consistent with portal hypertensive gastropathy also noted Duodenum: Congestion of mucosa with mild duodenitis noted. Intervention: hemospray Impression/Findings: portal hypertensive gastropathy duodenitis varix, esophageal GAVE PLAN: consider 5 d course of doptelet and bring back for APC to [facility] GAVE and esophageal banding, will discuss risks/benefits with patient meantime should be on PPI BID and carafate (carafate may help the diarrhea)
[2020-10-16] MEDS: 0.9 % Sodium Chloride 500 ML 20 ML IVCONT (14:42)
[2020-10-16 16:02] LABS: Glucose, Whole Blood 103 mg/dL (60-115)
[2020-10-16 16:21] LABS: Ferritin 184 ng/mL (20-250)
[2020-10-16] MEDS: Sucralfate 1 GM TABLET PO (17:06)
[2020-10-16] MEDS: Omeprazole 20 MG CAPSULE.DR PO (17:06)
[2020-10-16 20:24] LABS: Glucose, Whole Blood 216 mg/dL (60-115)
[2020-10-16] MEDS: Bumetanide 1 MG TABLET 2 MG PO (20:54)
[2020-10-16] MEDS: Magnesium Oxide 400 MG TABLET PO (20:55)
[2020-10-16] MEDS: rifAXIMin 550 MG TABLET PO (20:55)
[2020-10-16] MEDS: Penicillin V Potassium 250 MG TABLET PO (20:55)
[2020-10-16] MEDS: Insulin Lispro 100 UNIT/ML 3 ML VIAL SUBCUT (21:06)
[2020-10-17 03:22] VITALS: BP 125/56; PULSE 74; RESP 18; TEMP 36.8; O2SAT 100
--- NOTE | 2020-10-17 06:48 | HO.POSTANES ---
Post Anesthesia Evaluation Post Anesthesia Evaluation Vital Signs: Vital Signs Temp Pulse Resp BP Pulse Ox 10/17/20 03:22 98.2 F 74 18 125/56 L 100 10/16/20 23:40 98.4 F 69 18 114/56 L 100 10/16/20 19:19 97.5 F 65 16 142/65 H 100 Anesthesia: Monitored Mental Status: Awake Pain Control: Satisfactory Nausea/Vomiting: None Hydration: Adequate Anesthesia-Related Issues: No Anes. Related Issues
[2020-10-17] MEDS: Omeprazole 20 MG CAPSULE.DR PO ×2 (06:53→16:30)
[2020-10-17 06:55] VITALS: BP 143/61; PULSE 73; RESP 19; TEMP 36.1; O2SAT 99
[2020-10-17 06:59] LABS: Hematocrit 23.2 % (42-52); Hemoglobin 8.1 g/dl (14.0-18.0); Mean Corpuscular HGB Conc 34.9 g/dl (31.0-36.0); Mean Corpuscular Hemoglobin 32.5 pg (27.0-33.0); Mean Corpuscular Volume 93.2 fL (80-98); Mean Platelet Volume 10.7 fL (9.4-12.4); Red Blood Count 2.49 X10*6/uL (4.60-5.80); Red Cell Distribution Width 13.5 % (11.0-16.0); White Blood Count 3.7 X10*3/uL (4.8-10.8)
[2020-10-17 07:10] LABS: Platelet Count 67 X10*3/uL (160-400)
[2020-10-17 07:12] LABS: Glucose, Whole Blood 118 mg/dL (60-115)
[2020-10-17 07:16] LABS: Anion Gap 12 (12-20); Blood Urea Nitrogen 71 mg/dL (9-16); Calcium 7.9 mg/dL (8.4-10.2); Carbon Dioxide 16 mmol/L (22-29); Chloride 106 mmol/L (96-108); Creatinine Clr Calc Pharmacy 57.6; Estimated Glomerular Filt Rate 41; Glucose Random 125 mg/dL (60-115); Potassium 4.8 mmol/L (3.3-5.1); Sodium 129 mmol/L (135-145)
[2020-10-17] MEDS: Metoprolol Tartrate 25 MG TABLET PO (08:02)
[2020-10-17] MEDS: Sucralfate 1 GM TABLET PO ×2 (08:02→16:30)
[2020-10-17] MEDS: Bumetanide 1 MG TABLET 2 MG PO (08:02)
[2020-10-17] MEDS: Penicillin V Potassium 250 MG TABLET PO ×2 (08:02→20:33)
[2020-10-17] MEDS: rifAXIMin 550 MG TABLET PO ×2 (08:02→20:33)
[2020-10-17] MEDS: Folic Acid 1 MG TABLET PO (08:03)
[2020-10-17] MEDS: Thiamine HCL 100 MG TABLET PO (08:03)
[2020-10-17] MEDS: 0.9 % Sodium Chloride Flush 3 ML SYRINGE IVFLUSH ×4 (08:03→22:52)
[2020-10-17] MEDS: Bumetanide 1 MG/4 ML VIAL 2 MG IVPUSH ×2 (10:31→16:29)
[2020-10-17 11:01] VITALS: BP 120/61; PULSE 70; RESP 20; TEMP 36.6; O2SAT 97
[2020-10-17 11:15] LABS: Glucose, Whole Blood 179 mg/dL (60-115)
[2020-10-17] MEDS: Insulin Lispro 100 UNIT/ML 3 ML VIAL SUBCUT ×3 (11:49→20:33)
--- NOTE | 2020-10-17 11:54 | P.PNNP_ITS ---
Subjective Subjective Date of Service: 10/30/20 Interval history: Events noted s/p EGD Sub optimal response to PO BUMEX Switched to IV Bumex today Adamant about going home today Physical Exam Vital Signs: Vital Signs: Last Vital Signs Temp 97.8 F 10/17/20 11:01 Pulse 70 10/17/20 11:01 Resp 20 10/17/20 11:01 BP 120/61 10/17/20 11:01 Pulse Ox 97 10/17/20 11:01 Body Mass Index 43.0 Const: General: alert Orientation/consciousness: patient oriented x3 Neck: Neck: Yes supple and Yes JVD Resp: Effort & Inspection: normal respiratory effort and no cough Cardio: Heart sounds: no murmurs and no rubs GI: Palpation (GI): Soft to palpation, nontender and Ascites present Skin: General skin exam: striae Neuro: General: patient oriented x3 Motor exam (neuro): No Asterixis during motor activity present Extrem: General: Yes edema Objective Data Labs CBC & Chem 7: 10/18/20 06:02 10/18/20 06:02 Labs: Laboratory Results - last 24 hr 10/16/20 10/16/20 10/16/20 05:31 05:31 12:04 WBC RBC Hgb Hct MCV MCH MCHC RDW Plt Count MPV Absolute Nucleated RBC Nucleated RBC % (auto) Sodium Potassium Chloride Carbon Dioxide Anion Gap BUN Creatinine Estim Creat Clear Calc Estimated GFR POC Glucose Random Glucose Calcium Iron 159 TIBC 190 L % Saturation 84 H Unsat Iron Binding 31 Ferritin 184 Vitamin B12 1528 H Folate > 20.0 Urine Color Urine Appearance Urine pH Ur Specific [place] Urine Protein Urine Glucose (UA) Urine Ketones Urine Blood Urine Nitrite Ur Leukocyte Esterase Urine RBC Urine WBC Ur Squamous Epith Cells Ur Renal Epithelial Cell Urine Bacteria Hyaline Casts WBC Casts Urine Osmolality 293 L U Random Total Protein Ur Random Sodium 10/16/20 10/16/20 10/16/20 12:04 12:04 13:50 WBC RBC Hgb Hct MCV MCH MCHC RDW Plt Count MPV Absolute Nucleated RBC Nucleated RBC % (auto) Sodium Potassium Chloride Carbon Dioxide Anion Gap BUN Creatinine Estim Creat Clear Calc Estimated GFR POC Glucose 96 Random Glucose Calcium Iron TIBC % Saturation Unsat Iron Binding Ferritin Vitamin B12 Folate Urine Color YELLOW Urine Appearance CLEAR Urine pH 5.5 Ur Specific [place] 1.020 Urine Protein NEG Urine Glucose (UA) NEG Urine Ketones NEG Urine Blood TRACE Urine Nitrite NEG Ur Leukocyte Esterase NEG Urine RBC 0 Urine WBC 1-4 Ur Squamous Epith Cells TRACE Ur Renal Epithelial Cell TRACE Urine Bacteria NONE Hyaline Casts 5-9 WBC Casts 0-2 Urine Osmolality U Random Total Protein < 7 Ur Random Sodium < 20.0 10/16/20 10/16/20 10/17/20 15:56 20:14 05:16 WBC 3.7 L RBC 2.49 L Hgb 8.1 L Hct 23.2 L MCV 93.2 MCH 32.5 MCHC 34.9 RDW 13.5 Plt Count 67 L MPV 10.7 Absolute Nucleated RBC 0.000 Nucleated RBC % (auto) 0.0 Sodium Potassium Chloride Carbon Dioxide Anion Gap BUN Creatinine Estim Creat Clear Calc Estimated GFR POC Glucose 103 216 H Random Glucose Calcium Iron TIBC % Saturation Unsat Iron Binding Ferritin Vitamin B12 Folate Urine Color Urine Appearance Urine pH Ur Specific [place] Urine Protein Urine Glucose (UA) Urine Ketones Urine Blood Urine Nitrite Ur Leukocyte Esterase Urine RBC Urine WBC Ur Squamous Epith Cells Ur Renal Epithelial Cell Urine Bacteria Hyaline Casts WBC Casts Urine Osmolality U Random Total Protein Ur Random Sodium 10/17/20 10/17/20 10/17/20 05:16 06:56 11:01 WBC RBC Hgb Hct MCV MCH MCHC RDW Plt Count MPV Absolute Nucleated RBC Nucleated RBC % (auto) Sodium 129 L Potassium 4.8 Chloride 106 Carbon Dioxide 16 L Anion Gap 12 BUN 71 H Creatinine 1.68 H Estim Creat Clear Calc 57.6 Estimated GFR 41 POC Glucose 118 H 179 H Random Glucose 125 H Calcium 7.9 L Iron TIBC % Saturation Unsat Iron Binding Ferritin Vitamin B12 Folate Urine Color Urine Appearance Urine pH Ur Specific [place] Urine Protein Urine Glucose (UA) Urine Ketones Urine Blood Urine Nitrite Ur Leukocyte Esterase Urine RBC Urine WBC Ur Squamous Epith Cells Ur Renal Epithelial Cell Urine Bacteria Hyaline Casts WBC Casts Urine Osmolality U Random Total Protein Ur Random Sodium Microbiology Microbiology Results: Microbiology 10/15/20 13:30 Abdominal Fluid Gram Stain - Final 10/15/20 13:30 Abdominal Fluid Routine Culture - Final No growth after 2 days 10/15/20 13:30 Abdominal Fluid Anaerobic Culture - Preliminary No growth to date. Assessment & Plan Assessment and plan (1) LINETTE (acute kidney injury): Assessment and Plan: 70 yr old man with LINETTE in a setting of Cirrhosis , and now with Hyponatremia and Met acidosis. He was on Losartan and CELEBREX prior to admission and sustained LINETTE Bumex was held due to elevated creatinine and he has gained about about 10 kg Suggest: 2 gm Na diet DC CELEBREX ( done) Hold Losartan Keep on BUMEX 2 mg IV BID No indication for ultrafilteration yet Restrict PO water intake to 1.2 L per 24 hrs to correct hyponatremia Time Spent With Patient Time: Total time spent is greater than 50% in coordination of care (as documented) at patient's floor/unit and/or counseling patient: Procedures Date of Service Date of Service: 10/17/20
--- NOTE | 2020-10-17 13:01 | PC.NURSE ---
pt refusing groundwater monitoring technician dr. lennon made aware.
--- NOTE | 2020-10-17 13:21 | HO.PM.IMPN ---
Subjective Subjective Date of Service: 10/17/20 <YELENA Ibanez - Last Filed: 10/17/20 14:06> 10/17/20 <Paul Quinones MD - Last Filed: 10/17/20 17:54> Interval History: seen and examined this morning frustrated with staying in the hospital, says he is leaving tomorrow no matter what denies sob, chest pain; ongoing leg edema <YELENA Ibanez - Last Filed: 10/17/20 14:06> Review of Systems Review of Systems: Yes all other systems are reviewed and are negative <YELENA Ibanez - Last Filed: 10/17/20 14:06> Constitutional Constitutional: Denies chills and Denies fever(s) <YELENA Ibanez - Last Filed: 10/17/20 14:06> Cardiovascular Cardiovascular: Denies chest pain <YELENA Ibanez Last Filed: 10/17/20 14:06> Respiratory Respiratory: Denies cough <YELENA Ibanez - Last Filed: 10/17/20 14:06> Gastrointestinal Gastrointestinal: Denies abdominal pain <YELENA Ibanez Last Filed: 10/17/20 14:06> Physical Exam Vital Signs: Vital Signs: Last Vital Signs Temp 97.8 F 10/17/20 11:01 Pulse 70 10/17/20 11:01 Resp 20 10/17/20 11:01 BP 120/61 10/17/20 11:01 Pulse Ox 97 10/17/20 11:01 Body Mass Index 43.0 <YELENA Ibanez - Last Filed: 10/17/20 14:06> Const: General: comfortable, no acute distress, alert and awake <YELENA Ibanez Last Filed: 10/17/20 14:06> Nutritional Appearance: obese <YELENA Ibanez Last Filed: 10/17/20 14:06> Orientation/consciousness: patient oriented x3 <YELENA Ibanez Last Filed: 10/17/20 14:06> HENMT: Head: Yes normocephalic and Yes atraumatic <YELENA Ibanez - Last Filed: 10/17/20 14:06> Eyes: Sclerae: sclerae normal <YELENA Ibanez - Last Filed: 10/17/20 14:06> Chest: Chest palpation & inspection: normal inspection of the chest <YELENA Ibanez - Last Filed: 10/17/20 14:06> Resp: Other: diminished breath sounds <YELENA Ibanez - Last Filed: 10/17/20 14:06> Effort & Inspection: normal respiratory effort and no respiratory distress <YELENA Ibanez - Last Filed: 10/17/20 14:06> Auscultation: no wheezes <YELENA Ibanez - Last Filed: 10/17/20 14:06> Cardio: Jugular venous distension: JVD <YELENA Ibanez - Last Filed: 10/17/20 14:06> Rate: regular rate <YELENA Ibanez - Last Filed: 10/17/20 14:06> Rhythm: regular rhythm <YELENA Ibanez - Last Filed: 10/17/20 14:06> Heart sounds: Murmur heart sound present <YELENA Ibanez - Last Filed: 10/17/20 14:06> GI: Palpation (GI): Soft to palpation and nontender <YELENA Ibanez - Last Filed: 10/17/20 14:06> Neuro: General: patient oriented x3 <YELENA Ibanez - Last Filed: 10/17/20 14:06> Cranial nerves: Yes CN's II-XII intact bilaterally and Yes Bilaterally intact EOM present <YELENA Ibanez - Last Filed: 10/17/20 14:06> Extrem: Other: significant b/l leg edema; chronic skin changes <YELENA Ibanez Last Filed: 10/17/20 14:06> Objective Data Current Medications Generic Name Dose Route Start Last Admin Trade Name Freq PRN Reason Stop Dose Admin Acetaminophen 650 mg 10/15/20 06:15 Acetaminophen 325 Mg Tablet PO Q8H PRN Pain, Mild (Pain Scale 1-3) Bumetanide 2 mg 10/17/20 21:00 Bumetanide 1 Mg/4 Ml Vial IVPUSH BID GEOFF Protocol Folic Acid 1 mg 10/15/20 09:00 10/17/20 08:03 Folic Acid 1 Mg Tablet PO 1 mg DAILY GEOFF Administration Sodium Chloride 500 mls @ 20 mls/hr 10/16/20 14:00 10/17/20 10:47 Ns IVCONT 10/17/20 14:59 Not Given .Q24H GEOFF Insulin Human Lispro 0 unit 10/15/20 21:00 10/17/20 11:49 Insulin Lispro 100 Unit/Ml 3 Ml Vial SUBCUT 2 unit QIDACHS [facility] Administration Protocol Magnesium Oxide 400 mg 10/15/20 21:00 10/16/20 20:55 Magnesium Oxide 400 Mg Tablet PO 400 mg BEDTIME GEOFF Administration Metoprolol Tartrate 25 mg 10/15/20 09:00 10/17/20 08:02 Metoprolol Tartrate 25 Mg Tablet PO 25 mg DAILY GEOFF Administration Protocol Omeprazole 20 mg 10/15/20 06:30 10/17/20 06:53 Omeprazole 20 Mg Capsule.Dr PO 20 mg BID@0630,1630 GEOFF Administration Ondansetron HCl 4 mg 10/15/20 06:15 Ondansetron Hcl 4 Mg/2 Ml Vial IVPUSH Q8H PRN Nausea and Vomiting Penicillin V Potassium 250 mg 10/15/20 09:00 10/17/20 08:02 Penicillin V Potassium 250 Mg Tablet PO 250 mg BID GEOFF Administration Pharmacy Consult 1 each 10/15/20 02:55 Consult Rx Perform Med Rec MISCELLANE ONCE PRN Consult order Rifaximin 550 mg 10/15/20 09:00 10/17/20 08:02 Rifaximin 550 Mg Tablet PO 550 mg BID GEOFF Administration Sodium Chloride 3 ml 10/15/20 08:00 10/17/20 08:03 0.9 % Sodium Chloride Flush 3 Ml Syringe IVFLUSH 3 ml QSHIFT GEOFF Administration Sucralfate 1 gm 10/16/20 16:30 10/17/20 08:02 Sucralfate 1 Gm Tablet PO 1 gm BIDAC GEOFF Administration Thiamine HCl 100 mg 10/15/20 09:00 10/17/20 08:03 Thiamine Hcl 100 Mg Tablet PO 100 mg DAILY GEOFF Administration <YELENA Ibanez - Last Filed: 10/17/20 14:06> Labs CBC & Chem 7: : 10/17/20 05:16 10/17/20 05:16 <YELENA Ibanez - Last Filed: 10/17/20 14:06> Microbiology Microbiology Results: Microbiology 10/15/20 13:30 Abdominal Fluid Gram Stain - Final 10/15/20 13:30 Abdominal Fluid Routine Culture - Final No growth after 2 days 10/15/20 13:30 Abdominal Fluid Anaerobic Culture - Preliminary No growth to date. <YELENA Ibanez - Last Filed: 10/17/20 14:06> Assessment and Plan (1) LINETTE (acute kidney injury): Status: Acute <YELENA Ibanez - Last Filed: 10/17/20 14:06> (2) Hyperammonemia: Status: Acute <YELENA Ibanez - Last Filed: 10/17/20 14:06> (3) Lower extremity edema: Status: Acute <YELENA Ibanez - Last Filed: 10/17/20 14:06> (4) Atrial fibrillation: Status: Acute <YELENA Ibanez - Last Filed: 10/17/20 14:06> Assessment and Plan: This is a 70-year-old male with history of alcoholic liver cirrhosis, CKD, diabetes, hypertension who presented to the emergency department with epigastric abdominal pain found to have elevated ammonia, fluid overload and new onset atrial fibrillation course complicated by anemia Anemia with heme-positive stools seen by GI, 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 Bumex stopped outpatient due to worsening renal function. Pt has gained significant amount of weight since being off duiretics. Seen by Cardiology who does not feel that the patient is in heart failure ? r/t underlying cirrhosis/low albumin -echocardiogram done, reading pending -suboptimal response to PO bumex, will change to IV bumex -nephrology following New onset atrial fibrillation Chadsvasc score 3, cardiology rec AC EGD showing GAVE, increased risk of bleeding. Not likely good candidate for full AC. -HR controlled -echo pending -outpatient cardiology follow up Alcoholic liver cirrhosis Scheduled outpatient paracentesis completed while inpatient; 850 ml removed 6/2 Hyperammonemia Ammonia 147, down to 123. no encephalopathy Has been off lactulose for weeks due to daily diarrhea. still having diarrhea -can consider cholestyramine for chronic diarrhea -continue rifaximin LINETTE on CKD Scr trending down slightly 1.68 ?hepatorenal -nephrology following -follow renal function daily -hold losartan, celebrx d/c on discharge Hyponatremia sodium stable at 129 likely r/t fluid overload/liver dz -follow chemistries -nephrology following -fluid restriction Thrombocytopenia Related to underlying liver disease Platelets at baseline -follow CBC Diabetes tresiba, jardiance, victoza are NF -SSI, POCs -ADA diet Hypertension Blood pressure stable -continue metoprolol -d/c losartan for worsening renal function Morbid obesity BMI 43.0 on chronic penicillin to prevent infection in his legs per patient DVT prophylaxis-will DC subcu heparin due to heme-positive stool, boots Code status-full code Attending-Dr. Quinones Dispo: home when medically stable <YELENA Ibanez - Last Filed: 10/17/20 14:06> Seen and examined, plan, management and finding discussed with YELENA and I agree with above. Reasess tomorrow for discharge <Paul Quinones MD - Last Filed: 10/17/20 17:54>
[2020-10-17 15:04] VITALS: BP 131/57; PULSE 83; RESP 20; TEMP 36.6; O2SAT 100
[2020-10-17 15:58] LABS: Glucose, Whole Blood 185 mg/dL (60-115)
[2020-10-17 19:00] VITALS: BP 115/50; PULSE 79; RESP 20; TEMP 37.3; O2SAT 100
[2020-10-17 20:04] LABS: Glucose, Whole Blood 194 mg/dL (60-115)
[2020-10-17] MEDS: Magnesium Oxide 400 MG TABLET PO (20:33)
[2020-10-17 23:35] VITALS: BP 139/63; PULSE 76; RESP 18; TEMP 36.6; O2SAT 100
[2020-10-18 04:00] VITALS: BP 134/64; PULSE 88; RESP 18; TEMP 37.1; O2SAT 100
[2020-10-18 04:46] LABS: Glucose, Whole Blood 145 mg/dL (60-115)
[2020-10-18] MEDS: Omeprazole 20 MG CAPSULE.DR PO (05:37)
[2020-10-18 06:56] VITALS: BP 153/59; PULSE 78; RESP 18; TEMP 36.6; O2SAT 97
[2020-10-18 07:16] LABS: Glucose, Whole Blood 178 mg/dL (60-115)
[2020-10-18 07:23] LABS: Hemoglobin 8.1 g/dl (14.0-18.0); Mean Corpuscular HGB Conc 35.2 g/dl (31.0-36.0); Mean Corpuscular Hemoglobin 32.7 pg (27.0-33.0); Mean Corpuscular Volume 92.7 fL (80-98); Mean Platelet Volume 10.7 fL (9.4-12.4); Red Blood Count 2.48 X10*6/uL (4.60-5.80); Red Cell Distribution Width 13.7 % (11.0-16.0); White Blood Count 4.2 X10*3/uL (4.8-10.8)
[2020-10-18 07:32] LABS: Platelet Count 69 X10*3/uL (160-400)
[2020-10-18] MEDS: 0.9 % Sodium Chloride Flush 3 ML SYRINGE IVFLUSH (07:47)
[2020-10-18] MEDS: Bumetanide 1 MG/4 ML VIAL 2 MG IVPUSH (07:47)
[2020-10-18] MEDS: Insulin Lispro 100 UNIT/ML 3 ML VIAL SUBCUT ×2 (07:47→11:31)
[2020-10-18] MEDS: Sucralfate 1 GM TABLET PO (07:47)
[2020-10-18] MEDS: rifAXIMin 550 MG TABLET PO (07:48)
[2020-10-18] MEDS: Thiamine HCL 100 MG TABLET PO (07:48)
[2020-10-18] MEDS: Metoprolol Tartrate 25 MG TABLET PO (07:48)
[2020-10-18] MEDS: Folic Acid 1 MG TABLET PO (07:48)
[2020-10-18] MEDS: Penicillin V Potassium 250 MG TABLET PO (07:48)
[2020-10-18 08:02] LABS: Blood Urea Nitrogen 73 mg/dL (9-16); Calcium 7.9 mg/dL (8.4-10.2); Creatinine Clr Calc Pharmacy 53.8; Estimated Glomerular Filt Rate 38; Glucose Random 162 mg/dL (60-115)
[2020-10-18 08:25] LABS: Anion Gap 13 (12-20); Carbon Dioxide 17 mmol/L (22-29); Chloride 105 mmol/L (96-108); Potassium 4.6 mmol/L (3.3-5.1); Sodium 130 mmol/L (135-145)
[2020-10-18 11:11] LABS: Glucose, Whole Blood 197 mg/dL (60-115)
[2020-10-18 11:35] VITALS: TEMP 36.6
--- NOTE | 2020-10-18 13:19 | MHC.CM.PN ---
pt being discharged home today. [facility]NA services offered and declined. F/U [facility] delivered. present to transport
--- NOTE | 2020-10-18 14:32 | PM.DS ---
DS: Providers Provider Date of Service: 10/18/20 Date of admission: 10/15/20 03:06 Primary care physician: Selena Stewart MD Consults: 10/15/20 05:38 Consult to Gastroenterology Routine Consulting Provider: Ave Cho Reason for consultation: encephalopathy Has provider been notified: No 10/15/20 06:00 Consult to Cardiology Routine Consulting Provider: West Salazar Reason for consultation: leg swelling chf or ascietes due to liver failure? Has provider been notified: No 10/15/20 15:10 Consult to Nephrology Routine Consulting Provider: Malcolm Morgan Reason for consultation: worsening renal function, ?ultrafiltration vs. duiresis Has provider been notified: No DS: Diagnosis Discharge Diagnosis (1) Acute on chronic kidney failure: Status: Acute (2) Lower extremity edema: Status: Acute (3) Acute hepatic encephalopathy: Status: Acute (4) Atrial fibrillation: Status: Acute (5) Anasarca: Status: Acute (6) Cirrhosis: Status: Acute (7) Diarrhea: Status: Acute (8) Ascites due to alcoholic cirrhosis: Status: Acute (9) Hepatic encephalopathy: Status: Acute (10) GAVE (gastric antral vascular ectasia): Status: Acute (11) Esophageal varix: Status: Acute (12) Portal hypertensive gastropathy: Status: Acute (13) Hyponatremia: Status: Acute DS: Medications Discharge Medications Home Medications: Home Medications Medication Instructions Recorded Confirmed empagliflozin 25 mg tablet 25 mg PO QAM 04/04/20 10/15/20 lactulose 10 gram/15 mL oral 15 ml PO DAILY PRN 04/04/20 10/15/20 solution pen needle, diabetic 31 gauge x #50 ea 07/07/20 10/09/2007/29 magnesium oxide 400 mg (241.3 mg 400 mg PO BEDTIME 10/09/20 10/15/20 magnesium) tablet Tresiba FlexTouch U-200 30 unit SUBCUT DAILY 10/15/20 10/15/20 Victoza 3-Gordo 0.3 ml SUBCUT DAILY 10/15/20 10/15/20 cholecalciferol (vitamin D3) 2,000 unit PO DAILY 10/15/20 10/15/20 Previous Rx's Medication Instructions Recorded thiamine HCl (vitamin B1) 100 mg 100 mg PO DAILY #90 tab 12/07/20 tablet penicillin V potassium 250 mg 250 mg PO BID 90 Days #180 tab 05/26/20 tablet blood sugar diagnostic #100 ea 05/29/20 lancets 28 gauge #100 ea 05/29/20 pen needle, diabetic 32 gauge x #125 ea 05/29/20 blood-glucose meter #1 ea 06/04/20 omeprazole 20 mg capsule,delayed 20 mg PO BID #180 cap 07/15/20 release bumetanide 1 mg tablet 2 mg PO BID #60 tab 08/05/20 folic acid 1 mg tablet 1 mg PO DAILY #30 tab 08/05/20 rifaximin 550 mg tablet 550 mg PO BID #60 tab 09/18/20 propranolol 10 mg PO BID #60 tab 10/18/20 sucralfate 1 g PO BIDAC #60 tab 10/18/20 DS: Summary Hospital Course Hospital Course: from admission H+P by hospitalist Thanh Restrepo, 10/15/20: This is a 70-year-old male with past medical history of liver cirrhosis secondary to alcohol abuse, anemia, aortic stenosis, ascites secondary to alcoholic cirrhosis, CHF, CKD, diabetes, HLD, HTN, among others who presents to the hospital with multiple complaints including confusion, leg swelling, as well as epigastric pain. Patient reports that he was asked to stop lactulose about a week ago due to significant diarrhea and his noticed him to be slightly more confused this afternoon. Patient currently is alert oriented x3 making complete sense able to answer questions appropriately. He also reports that he had epigastric pain that resolved after receiving Prilosec in the ED. he is also complaining of leg swelling that is chronic not associated with any orthopnea, PND, reports that the swelling has reached to his groin area. Patient reports that he was taken off his water pills due to LINETTE on but has not noticed increase in his leg swelling. He denies any increased shortness of breath although he does feel dyspneic on exertion. Denies any headache, no change in vision, no numbness tingling, no abdominal pain, no chest pain, no nausea or vomiting, no diarrhea currently, no urinary symptoms. Patient is scheduled for outpatient paracentesis today at 11:00 a.m. it is willing to stay only because of the procedure otherwise with like to be discharged back home today On arrival to the ED patient hemodynamically stable with No significant abnormal vitals Labs are significant for WBC count of 3.9 which is chronic leukopenia, hemoglobin of 9.3 which is around his baseline, platelet count of 74 which is also chronic, PT of 16.3, INR of 1.4, sodium 130, potassium of 5.6, BUN of 75, creatinine of 1.7 for increased of around 1.2 in early September, total bili of 3.7, AST of 46, ALT of 38, alk-phos of 213, BNP of 568, albumin of 2.7. Ammonia level of 147 ( chronically in the 40s) The patient was admitted to the [facility] with hepatic encepahlopathy, hypervolemia, and new-onset atrial fibrillation complicated by anemia. By problem: 1. Anemia with heme-positive stools. PPI and sucralfate were started. GI was consulted. EGD done on 10/[address] Rudolph showed: Esophagus: GE junction at 40 cm, diaphragm hiatus at 40 cm, x 1 grade II varix noted, no red winter Stomach: Patchy gastric erythema especially around the antrum compatible with GAVE. Grade 2 flap valve on retroflexed examination of the cardia. No gastric varices seen. After retroflexion he kept bleeding and wouldn;t stop so hemospray used with good effect. I held on APC for the GAVE due to this. Mosaic pattern consistent with portal hypertensive gastropathy also noted Duodenum: Congestion of mucosa with mild duodenitis noted. APC and esophageal varix banding will be revisited by the GI as an outpatient. Metoprolol was switched to propranolol for prevention of variceal hemorrhage. Repeat labs in 1 week were ordered. 2. Hypervolemia with ascites due to cirrhosis. He underwent paracentesis with removal of 850mL of ascites. No evidence of SBP or maligancy. Bumetanide was resumed and he even received 1 day of bumetanide IV. He was seen by Cardiology and was not felt to be in heart failure. He was discharged on bumetanide 2 mg bid and was instructed to maintain sodium restriction to 2000 mg/d. 3. New-onset atrial fibrillation. Despite a [id number] score of 3, anticoagulation was felt unsafe due to issue #1 above. Rate was controlled on metoprolol; switched to propranolol due to issue #1 above. He will need outpatient cardiology follow-up. 4. Hyperammonemia with history of hepatic encephalopathy Rifaximin was continued. Lactulose was held due to diarrhea, which improved. 5. Hyponatremia Due to cirrhosis and improved to SNa of around 130 with fluid restriction to 1200 mL/d. 6. LINETTE/CKD Losartan was discontinued and the patient was instructed to stop taking celecoxib. Likely new creatinine baseline is around 1.6-1.8. He will need outpatient Nephrology follow-up. 7. Thrombocytopenia Platelets remained at his baseline in the 60s and is attributable to underlying cirrhosis. The patient was discharged home with instructions to repeat labs [CBCd, CMP, magnesium, and PT/INR] in 1 week. He declined VNA services. He will need outpatient GI, Nephrology, and Cardiology follow-up. Time Spent with Patient Time attestation: Total time spent providing and/or coordinating discharge services: 45 Discharge coordination time: Greater than 30 minutes Quality: Stroke Does the patient have a stroke diagnosis?: No Physical Exam Vital Signs: Vital Signs: Last Vital Signs Temp 98 F 10/18/20 11:35 Pulse 78 10/18/20 06:56 Resp 18 10/18/20 06:56 BP 153/59 H 10/18/20 06:56 Pulse Ox 97 10/18/20 06:56 Body Mass Index 43.0 Gen: in no acute distress HEENT: sclera mildly icteric, moist mucus membranes Neck: supple Lungs: clear to auscultation bilaterally Heart: regular rate and rhythm, no murmurs Abd: soft, non-tender, non-distended, non-tense ascites present Ext: 2+ edema to knees Skin: warm/well-perfused Neuro: alert and oriented x3, no focal findings, no asterixis present Psych: appropriate affect DS: Data Data Completed and Pending Completed studies during hospitalization [Text1]: Pending at discharge Laboratory Results WBC 4.2 X10*3/uL (4.8-10.8) L 10/18/20 06:02 RBC 2.48 X10*6/uL (4.60-5.80) L 10/18/20 06:02 Hgb 8.1 g/dl (14.0-18.0) L 10/18/20 06:02 Hct 23.0 % (42-52) L 10/18/20 06:02 MCV 92.7 fL (80-98) 10/18/20 06:02 MCH 32.7 pg (27.0-33.0) 10/18/20 06:02 MCHC 35.2 g/dl (31.0-36.0) 10/18/20 06:02 RDW 13.7 % (11.0-16.0) 10/18/20 06:02 Plt Count 69 X10*3/uL (160-400) L 10/18/20 06:02 MPV 10.7 fL (9.4-12.4) 10/18/20 06:02 Immature Gran % (Auto) 0.3 % (0.0-0.4) 10/16/20 05:31 Neut % (Auto) 60.6 % (45-73) 10/16/20 05:31 Lymph % (Auto) 16.5 % (20-40) L 10/16/20 05:31 [place]annin % (Auto) 15.9 % (2-11) H 10/16/20 05:31 Eos % (Auto) 5.8 % (0-4) H 10/16/20 05:31 Baso % (Auto) 0.9 % (0-2) 10/16/20 05:31 Lymph # (Auto) 0.5 X10*3/uL (1.2-4.9) L 10/16/20 05:31 Fannin # (Auto) 0.5 X10*3/uL (0.1-1.2) 10/16/20 05:31 Eos # (Auto) 0.2 X10*3/uL (0.0-0.4) 10/16/20 05:31 Baso # (Auto) 0.0 X10*3/uL (0.0-0.2) 10/16/20 05:31 Abs Immat Gran (auto) 0.01 X10*3/uL (0.00-0.03) 10/16/20 05:31 Absolute Neuts (auto) 2.0 X10*3/uL (2.0-8.3) 10/16/20 05:31 Absolute Nucleated RBC 0.000 X10*3/uL (0.0-0.012) 10/18/20 06:02 Nucleated RBC % (auto) 0.0 /100WBC (0.0-0.2) 10/18/20 06:02 Smear Tech's Comments VERIFIED 10/16/20 05:31 PT 16.3 SEC (10.8-13.0) H 10/14/20 23:50 INR 1.4 (0.9-1.1) H 10/14/20 23:50 APTT 38.3 SEC (24.1-38.0) H 10/14/20 23:50 Sodium 130 mmol/L (135-145) L 10/18/20 06:02 Potassium 4.6 mmol/L (3.3-5.1) 10/18/20 06:02 Chloride 105 mmol/L (96-108) 10/18/20 06:02 Carbon Dioxide 17 mmol/L (22-29) L 10/18/20 06:02 Anion Gap 13 (12-20) 10/18/20 06:02 BUN 73 mg/dL (9-16) H 10/18/20 06:02 Creatinine 1.80 mg/dL (0.5-1.4) H 10/18/20 06:02 Estim Creat Clear Calc 53.8 10/18/20 06:02 Estimated GFR 38 10/18/20 06:02 POC Glucose 197 mg/dL (60-115) H 10/18/20 10:52 Random Glucose 162 mg/dL (60-115) H 10/18/20 06:02 Calcium 7.9 mg/dL (8.4-10.2) L 10/18/20 06:02 Iron 159 mcg/dL (45-160) 10/16/20 05:31 TIBC 190 mcg/dL (228-428) L 10/16/20 05:31 % Saturation 84 % (15-50) H 10/16/20 05:31 Unsat Iron Binding 31 ug/dL 10/16/20 05:31 Ferritin 184 ng/mL (20-250) 10/16/20 05:31 Total Bilirubin 3.5 mg/dL (0.0-1.0) H 10/14/20 23:52 Total Bilirubin 3.7 mg/dL (0.0-1.0) H 10/14/20 23:52 Direct Bilirubin 1.9 mg/dL (0.0-0.5) H 10/14/20 23:52 AST 46 U/L (5-37) H 10/14/20 23:52 AST 46 U/L (5-37) H 10/14/20 23:52 ALT 37 U/L (0-40) 10/14/20 23:52 ALT 38 U/L (0-40) 10/14/20 23:52 Alkaline Phosphatase 210 U/L (39-117) H 10/14/20 23:52 Alkaline Phosphatase 213 U/L (39-117) H 10/14/20 23:52 Ammonia 123 umol/L (13-55) H 10/15/20 10:25 Troponin I High Sens 7.2 ng/L (<3.5-35.0) 10/15/20 23:51 B-Natriuretic Peptide 568 pg/mL (<100) H 10/15/20 23:51 Total Protein 5.6 g/dL (6.5-8.0) L 10/14/20 23:52 Total Protein 5.7 g/dL (6.5-8.0) L 10/14/20 23:52 Albumin 2.7 g/dL (3.5-5.0) L 10/14/20 23:52 Albumin 2.7 g/dL (3.5-5.0) L 10/14/20 23:52 Lipase 56 U/L (8-78) 10/14/20 23:52 Vitamin B12 1528 pg/mL (200-900) H 10/16/20 05:31 Folate > 20.0 ng/mL (> or = 4.0) 10/16/20 05:31 Urine Color YELLOW 10/16/20 12:04 Urine Appearance CLEAR 10/16/20 12:04 Urine pH 5.5 (5.0-8.0) 10/16/20 12:04 Ur Specific [place] 1.020 (1.005-1.025) 10/16/20 12:04 Urine Protein NEG MG/DL (NEG-TRACE) 10/16/20 12:04 Urine Glucose (UA) NEG MG/DL (NEG) 10/16/20 12:04 Urine Ketones NEG MG/DL (NEG) 10/16/20 12:04 Urine Blood TRACE (NEG) 10/16/20 12:04 Urine Nitrite NEG (NEG) 10/16/20 12:04 Ur Leukocyte Esterase NEG (NEG) 10/16/20 12:04 Urine RBC 0 /HPF (0) 10/16/20 12:04 Urine WBC 1-4 /HPF (0-4) 10/16/20 12:04 Ur Squamous Epith Cells TRACE /LPF 10/16/20 12:04 Ur Renal Epithelial Cell TRACE /LPF 10/16/20 12:04 Urine Bacteria NONE /LPF 10/16/20 12:04 Hyaline Casts 5-9 /LPF 10/16/20 12:04 WBC Casts 0-2 /LPF 10/16/20 12:04 Urine Osmolality 293 mosm/kg (373-1093) L 10/16/20 12:04 U Random Total Protein < 7 mg/dL (<12) 10/16/20 12:04 Ur Random Sodium < 20.0 mmol/L 10/16/20 12:04 Peritoneal WBC 0.159 X10*3/uL 10/15/20 13:30 Peritoneal RBC < 0.002 X10*6/uL 10/15/20 13:30 Periton Neutrophils 22 % 10/15/20 13:30 Periton Lymphocytes 30 % 10/15/20 13:30 Peritoneal Monocytes 21 % 10/15/20 13:30 Peritoneal Other Cells 27 % 10/15/20 13:30 Peritoneal Tot Protein 0.5 10/15/20 13:30 Peritoneal Albumin 0.2 10/15/20 13:30 Peritoneal LDH 40 10/15/20 13:30 Stool Occult Blood POSITIVE (NEGATIVE) 10/15/20 12:36 COVID-19 (JACKY) Negative (Negative) 10/15/20 02:49 COVID-19 Clin Com See Note 10/15/20 02:49 Impressions Paracentesis Ultrasound 10/15/20 13:32 IMPRESSION: Successful ultrasound-guided paracentesis performed without immediate complications. 10/15/20 13:30 Cytology [PTH] Routine Ascites, paracentesis: No malignancy identified. See comment. COMMENT: Moderately cellular specimen consisting mostly of macrophages, lymphocytes, neutrophils and some blood. Admixed reactive appearing mesothelial cells are also present TTE 10/16/20 - The left ventricular systolic function is hyperdynamic. The visually estimated ejection fraction is >70%. - Normal right ventricular cavity size and systolic function. - The left atrium is severely dilated. The right atrium is severely dilated. - There is no evidence of pulmonary hypertension. Discharge Plan Discharge Patient Disposition: Home, Self-Care Discharge Diagnosis: anemia, GAVE/portal hypertensive gastropathy/esophageal varix, edema/ascites due to cirrhosis, new-onset atrial fibrillation, [id number] kidney failure, hyponatremia, cirrhosis of the liver Referrals: Selena Stewart MD [Primary Care Provider] - [address] Cho MD [Physician] - 1 Week West Salazar MD [Physician] - 1 Week Malcolm Morgan MD [Physician] - 1 Week Discharge Medications: New sucralfate 1 gram Tablet 1 g PO BIDAC Qty: 60 RF: 0 propranolol 10 mg tablet 10 mg PO BID Qty: 60 RF: 0 Continued thiamine HCl (vitamin B1) 100 mg tablet 100 mg PO DAILY Qty: 90 RF: 2 (DME) FreeStyle Lite Strips Strip See Rx Instructions .ROUTE .MEDSUPPLY Qty: 100 RF: 11 (DME) blood-glucose meter [FreeStyle Lite Meter] Kit See Rx Instructions .ROUTE .MEDSUPPLY Qty: 1 RF: 0 omeprazole 20 mg capsule,delayed release(DR/EC) 20 mg PO BID Qty: 180 RF: 1 bumetanide 1 mg tablet 2 mg PO BID Qty: 60 RF: 0 folic acid 1 mg tablet 1 mg PO DAILY Qty: 30 RF: 0 Xifaxan 550 mg tablet 550 mg PO BID Qty: 60 RF: 3 cholecalciferol (vitamin D3) 1,250 mcg (50,000 unit) capsule 2,000 unit PO DAILY RF: 0 Victoza 3-Gordo 0.6 mg/0.1 mL (18 mg/3 mL) pen injector 0.3 ml subcut DAILY RF: 0 Tresiba FlexTouch U-200 200 unit/mL (3 mL) insulin pen 30 unit subcut DAILY RF: 0 lactulose 10 gram/15 mL solution 15 ml PO DAILY PRN (Reason: Constipation) RF: 0 empagliflozin 25 mg tablet 25 mg PO QAM RF: 0 (DME) pen needle, diabetic [BD Ultra-Fine Tracee Pen Needle] 32 gauge x 5/32 needle See Rx Instructions .ROUTE .MEDSUPPLY Qty: 125 RF: 11 (DME) lancets [FreeStyle Lancets] 28 gauge [facility] See Rx Instructions .ROUTE .MEDSUPPLY Qty: 100 RF: 11 penicillin V potassium 250 mg tablet 250 mg PO BID 90 Days Qty: 180 RF: 3 (DME) pen needle, diabetic 31 gauge x 3/16 needle See Rx Instructions ea subcut QID Qty: 50 RF: 0 magnesium oxide 400 mg (241.3 mg magnesium) tablet 400 mg PO BEDTIME RF: 0 Discontinued celecoxib 200 mg capsule 200 mg PO BID RF: 0 psyllium husk 2.6 gram/4.1 gram powder 1 tbsp PO BID PRN (Reason: Constipation) RF: 0 losartan 50 mg tablet 50 mg PO DAILY RF: 0 metoprolol tartrate 25 mg tablet 25 mg PO DAILY RF: 0 Discharge Orders: Discharge Order (Routine); Ordered 10/18/20 Ordered By: Donis Tucker Diet: diabetic diet, low salt diet and other Activity on Discharge: As tolerated Stand Alone Forms: Patient Portal Discharge page Other Ambulatory Orders: Complete Blood Count no Diff (Routine) Timeframe: 1 Week Facility: [facility] - Location: Laboratory Ordered By: Donis Tucker Comprehensive Met. Panel (Routine) Timeframe: 1 Week Facility: [facility] - Location: Laboratory Ordered By: Donis Tucker Magnesium (Routine) Timeframe: 1 Week Facility: [facility] - Location: Laboratory Ordered By: Donis Tucker Prothrombin Time INR (Routine) Timeframe: 1 Week Facility: [facility] - Location: Laboratory Ordered By: Donis Tucker Care Plan Goals: prevention of cirrhosis complications Health Concerns: anemia and thrombocytopenia [low platelets] due to cirrhosis possible GI sources of bleeding: GAVE, portal hypertensive gastropathy, and esophageal varices new-onset atrial fibrillation leg swelling and ascites due to cirrhosis; [id number] kidney failure hyponatremia due to cirrhosis chronic diarrhea Plan of Treatment: avoid aspirin and NSAIDs follow up with Tiffani Cho or Klaudia at [facility] in 1-2 weeks; to consider repeat EGD with esophageal varix banding and argon photocoagulation change metoprolol to PROPRANOLOL 10 MG TWICE DAILY to prevent variceal bleeding too dangerous to anticoagulate to prevent strokes; heart rate controlled on beta-christen [metoprolol changed to propranolol]; follow up with Dr Salazar at [facility] in 2 weeks resume bumetanide [BUMEX] 2 mg twice daily and restrict sodium to 2000 mg daily; follow up with Dr Morgan at [facility] in 2 weeks restrict fluid intake to 1200 mL daily take sucralfate 1 g twice daily check labs in 1 week [non-fasting]: CBCd, CMP, PT/INR, magnesium see your primary care doctor in 1 week Assessment: as above Patient Instructions: A-fib (Atrial Fibrillation) (DC), Cirrhosis (DC), Esophageal Varices (DC), Portal Hypertension (DC) Discharge Date/Time: 10/18/20 14:16
== END 2020-10-18 14:16 | disposition home or self-care (01) | DRG 441 ==
LOC: HO.ED 10-15 03:56 → HO.EDOVER 10-15 04:35 → HO.IMC 10-15 04:39
PROVIDERS: Internal Medicine; Internal Medicine Gastroenterology; Internal Medicine Hypertension Specialist; Physician Assistant; Physician Assistant Medical; Radiology Diagnostic Radiology; Admitting Provider Internal Medicine; Emergency Provider Emergency Medicine; PCP Internal Medicine; Visit Provider Family Medicine
PROC: 0W9G3ZZ Drainage of Peritoneal Cavity, Percutaneous Approach (ICD-10-PCS; principal; 2020-10-15 13:00)
PROC: 0DJ08ZZ Inspection of Upper Intestinal Tract, Via Natural or Artificial Opening Endoscopic (ICD-10-PCS; CPT 43235; principal; 2020-10-16 15:10)
DX: K72.00 Acute and subacute hepatic failure without coma (principal); K31.811 Angiodysplasia of stomach and duodenum with bleeding; K29.81 Duodenitis with bleeding; I85.11 Secondary esophageal varices with bleeding; I13.0 Hypertensive heart and chronic kidney disease with heart failure and stage 1 through stage 4 chronic kidney disease, or unspecified chronic kidney disease; N17.9 Acute kidney failure, unspecified; Z68.41 Body mass index [BMI] 40.0-44.9, adult; K76.6 Portal hypertension; I48.91 Unspecified atrial fibrillation; K21.9 Gastro-esophageal reflux disease without esophagitis; E11.22 Type 2 diabetes mellitus with diabetic chronic kidney disease; N18.9 Chronic kidney disease, unspecified; K70.31 Alcoholic cirrhosis of liver with ascites; D63.1 Anemia in chronic kidney disease; F10.10 Alcohol abuse, uncomplicated; E78.5 Hyperlipidemia, unspecified; D69.6 Thrombocytopenia, unspecified; E66.01 Morbid (severe) obesity due to excess calories; K31.89 Other diseases of stomach and duodenum; Z20.822 Contact with and (suspected) exposure to COVID-19; Z79.899 Other long term (current) drug therapy
CPT/HCPCS: 36415; 49083; 80048; 80053; 80076; 81001; 82042; 82140; 82272; 82607; 82728; 82746; 82947; 83540; 83615; 83690; 83880; 83935; 84156; 84157; 84300; 84484; 85025; 85027; 85610; 85730; 87071; 87073; 87205; 87635; 88112; 89051; 93005; 93306; 96374; 99285; J2370

== ENCOUNTER 2020-10-24 11:35 | Outpatient (REF) | payer MEDICARE, MEDICAID, SELFPAY ==
[2020-10-24 13:01] LABS: Hematocrit 24.6 % (42-52); Hemoglobin 8.5 g/dl (14.0-18.0); Mean Corpuscular HGB Conc 34.6 g/dl (31.0-36.0); Mean Corpuscular Hemoglobin 32.2 pg (27.0-33.0); Mean Corpuscular Volume 93.2 fL (80-98); Mean Platelet Volume 10.2 fL (9.4-12.4); Red Blood Count 2.64 X10*6/uL (4.60-5.80); Red Cell Distribution Width 14.4 % (11.0-16.0); White Blood Count 5.5 X10*3/uL (4.8-10.8)
[2020-10-24 13:09] LABS: Alanine Aminotransferase 25 U/L (0-40); Albumin Level 2.6 g/dL (3.5-5.0); Alkaline Phosphatase 182 U/L (39-117); Anion Gap 10 (12-20); Aspartate Amino Transferase 33 U/L (5-37); Blood Urea Nitrogen 61 mg/dL (9-16); Calcium 7.7 mg/dL (8.4-10.2); Carbon Dioxide 22 mmol/L (22-29); Chloride 105 mmol/L (96-108); Estimated Glomerular Filt Rate 42; Glucose Random 105 mg/dL (60-115); Magnesium 1.8 mg/dL (1.6-2.6); Potassium 4.2 mmol/L (3.3-5.1); Sodium 133 mmol/L (135-145); Total Protein 5.4 g/dL (6.5-8.0)
[2020-10-24 13:15] LABS: INTERNATIONAL NORM RATIO 1.6 (0.9-1.1); Prothrombin Time 19.3 SEC (10.8-13.0)
[2020-10-24 13:24] LABS: Platelet Count 73 X10*3/uL (160-400)
== END 2020-10-24 11:36 | disposition home or self-care (01) ==
LOC: HO.LAB 11:35
PROVIDERS: Absent Provider Internal Medicine Gastroenterology; PCP Internal Medicine; Visit Provider Family Medicine
DX: K74.60 Unspecified cirrhosis of liver (principal)
CPT/HCPCS: 36415; 80053; 83735; 85027; 85610

== ENCOUNTER → 2020-10-27 11:29 | Outpatient (BNVA) | payer MEDICARE, MEDICAID, SELFPAY | PROVIDERS: PCP Internal Medicine; Visit Provider Internal Medicine Gastroenterology | DX: K76.6 Portal hypertension (principal); K31.89 Other diseases of stomach and duodenum; K31.819 Angiodysplasia of stomach and duodenum without bleeding; K74.60 Unspecified cirrhosis of liver; I85.00 Esophageal varices without bleeding; R18.8 Other ascites; E11.22 Type 2 diabetes mellitus with diabetic chronic kidney disease; N18.30 Chronic kidney disease, stage 3 unspecified; Z79.4 Long term (current) use of insulin | CPT/HCPCS: 99212 ==

== ENCOUNTER 2020-10-30 09:50 | Outpatient (REF) | payer MEDICARE, MEDICAID, SELFPAY ==
[2020-10-30 11:06] LABS: Anion Gap 11 (12-20); Blood Urea Nitrogen 52 mg/dL (9-16); Calcium 7.7 mg/dL (8.4-10.2); Carbon Dioxide 22 mmol/L (22-29); Chloride 104 mmol/L (96-108); Estimated Glomerular Filt Rate 44; Potassium 4.2 mmol/L (3.3-5.1); Sodium 133 mmol/L (135-145)
== END 2020-10-30 09:51 | disposition home or self-care (01) ==
LOC: HO.LAB 09:50
PROVIDERS: PCP Internal Medicine; Visit Provider Internal Medicine Hypertension Specialist
DX: R60.1 Generalized edema (principal)
CPT/HCPCS: 36415; 80051; 82310; 82565; 84520

== ENCOUNTER 2020-10-31 11:16 | Day surgery (SDC) | payer MEDICARE, MEDICAID, SELFPAY ==
--- NOTE | ~2020-10-31 | US_ITS ---
EXAMINATION: ULTRASOUND-GUIDED PARACENTESIS CLINICAL INFORMATION: Ascites COMPARISON: Previous exam 10/15/2020 TECHNIQUE: Procedure and risks and benefits including bleeding, infection and low blood pressure was discussed with the patient and informed consent was obtained. The right upper quadrant was prepped and draped in the usual sterile fashion. The skin and soft tissues were anesthetized with 1% lidocaine plain. Using ultrasound guidance and a 5 [place] rapid centesis catheter, access to the ascitic fluid was obtained. 1.3 L of clear yellow fluid was removed. FINDINGS: There is a small amount of ascites. US/US paracentesis abd w/image IMPRESSION: Ultrasound-guided paracentesis.
[2020-10-31 11:53] VITALS: BMI 42.7
--- NOTE | 2020-10-31 13:27 | HO.RADPN ---
RADIOLOGY Narrative Narrative: Right upper quadrant paracentesis performed using 5Fr angiocath. 1.3 L clear yellow fluid removed. No specimen sent.
[2020-10-31 13:40] VITALS: BP 137/37; PULSE 63; RESP 17; TEMP 36.9; O2SAT 100
[2020-10-31] MEDS: Lidocaine HCl 1 % MPF 5 ML VIAL SUBCUT (13:40)
[2020-10-31 13:55] VITALS: BP 131/54; PULSE 69; RESP 19; O2SAT 100
[2020-10-31 14:10] VITALS: BP 129/47; PULSE 63; RESP 17; O2SAT 100
[2020-10-31 14:26] VITALS: BP 131/45; PULSE 65; RESP 17; O2SAT 100
[2020-10-31 14:41] VITALS: BP 114/53; PULSE 65; RESP 17; O2SAT 100
[2020-11-03 05:06] LABS: Glucose, Whole Blood 158 mg/dL (60-115)
== END 2020-10-31 14:52 | disposition home or self-care (01) ==
PROVIDERS: PCP Internal Medicine; Visit Provider Radiology Diagnostic Radiology
DX: K70.31 Alcoholic cirrhosis of liver with ascites (principal); E11.22 Type 2 diabetes mellitus with diabetic chronic kidney disease; I13.0 Hypertensive heart and chronic kidney disease with heart failure and stage 1 through stage 4 chronic kidney disease, or unspecified chronic kidney disease; N18.30 Chronic kidney disease, stage 3 unspecified; I50.9 Heart failure, unspecified; N17.9 Acute kidney failure, unspecified; G47.33 Obstructive sleep apnea (adult) (pediatric); Z79.4 Long term (current) use of insulin; Z79.899 Other long term (current) drug therapy
CPT/HCPCS: 36415; 49083; 80051; 82310; 82565; 82607; 82746; 82947; 83540; 84520; 85025

== ENCOUNTER 2020-11-05 13:42 | Outpatient (REF) | payer MEDICARE, MEDICAID, SELFPAY | END 2020-11-05 13:43 | disposition home or self-care (01) | LOC: HO.MDS 13:42 | PROVIDERS: PCP Internal Medicine; Visit Provider Internal Medicine Hypertension Specialist | DX: R60.1 Generalized edema (principal) | CPT/HCPCS: 96365 ==

== ENCOUNTER 2020-11-06 11:49 | Outpatient (REF) | payer MEDICARE, MEDICAID, SELFPAY | END 2020-11-06 11:50 | disposition home or self-care (01) | LOC: HO.MDS 11:49 | PROVIDERS: PCP Internal Medicine; Visit Provider Internal Medicine Hypertension Specialist | DX: R60.1 Generalized edema (principal) | CPT/HCPCS: 96365 ==

== ENCOUNTER 2020-11-07 08:39 | Day surgery (SDC) | payer MEDICARE, MEDICAID, SELFPAY ==
[2020-11-07 09:11] VITALS: BP 147/63; PULSE 60; RESP 20; TEMP 36.9; O2SAT 99; BMI 43.0
[2020-11-07 09:22] LABS: Glucose, Whole Blood 108 mg/dL (60-115)
--- NOTE | 2020-11-07 09:30 | MHC.SHP ---
Pre-Procedural Eval Section A Date of Service: 11/07/20 The patient is an INPATIENT: No Changes since office visit: Yes Changes in Medication and Yes Patient answered all questions; No Cold of Flu in the past 2 weeks and No New Medical Problems The History & Physical has been completed within 30 days and I have reviewed it.: Yes Section B Chief Complaint: cirrhosis of liver Allergies: Allergies Allergy/AdvReac Type Severity Reaction Status Date / Time No Known Allergies Allergy Verified 10/31/20 13:26 Plan I have reviewed the history and physical and performed a pertinent physical examination on my patient. No changes have occurred unless specified.
--- NOTE | 2020-11-07 09:31 | P.OP_ITS ---
Operative Note Operative Note Date of Service: 11/07/20 Narrative: Pre-op diagnosis: FU of esophageal Varices & GAVE Post-op diagnosis: same Procedure: FLEXIBLE TRANSORAL UPPER GASTROINTESTINAL ENDOSCOPY WITH ARGON PLASMA COAGULATION OF GASTRIC ANTRAL VASCULAR ECTASIA Consent: Indications for the procedure and potential complications of bleeding, perforation, reaction to medications and missed diagnosis were discussed with the patient and informed consent was obtained. Instrument: Olympus GIF H 190 mid size upper endoscope Monitoring: Vital signs and clinical assessment, continuous EKG monitoring, Pulse oximetry, Carbon Dioxide monitoring and blood pressure monitoring were done throughout the procedure. Procedure: The patient was placed in the left lateral decubitis position and pre-procedure medications were administered and a bite block was placed. The endoscope was inserted into the mouth and advanced under direct vision to the third part of duodenum. A careful inspection was made as the upper endoscope was withdrawn including a retroflexed examination of the proximal stomach; Findings and interventions are described below. Findings: Larynx: Normal Esophagus: GE junction at 40 cms. Grade 1 single column varix from 30 to 40 cms without stigmata for bleeding. No esophagitis or Martínez's Stomach: Moderate portal gastropathy with changes suggestive of GAVE in the antrum - treated with APC. Grade 2 flap valve and no gastric varices on retroflexed examination of the cardia. Duodenum: Normal bulb and descending duodenum Intervention: Biopsies as noted above Impression and Post Procedure Diagnosis: Endoscopy Findings: ESOPHAGUS: Grade 1 single column varix from 30 to 40 cms without stigmata for bleeding. STOMACH: Moderate portal gastropathy with changes suggestive of GAVE in the antrum - treated with APC. Plan: Patient will be scheduled for a FU appointment in the GI Clinic with Ave Cho M.D. Repeat EGD in 3-4 months if patient has persistent anemia. Surgeon: Ave Cho MD Anesthesia: MAC (Elise Lee CRNA) Was an Material Expeditor used for this Procedure?: Yes Material Expeditor: Evelin Woodard Estimated blood loss (mL): 0 Pathology: none sent Condition: stable Disposition: PACU
--- NOTE | 2020-11-07 09:50 | P.CONAN_ITS ---
[facility] Active Problems Active Problems: All Active Problems (Updated 10/27/20 @ 12:[address] MD) Cirrhosis of liver with ascites (Acute) Hyponatremia (Acute) Portal hypertensive gastropathy (Acute) Esophageal varix (Acute) GAVE (gastric antral vascular ectasia) (Acute) Acute on chronic kidney failure (Acute) Cirrhosis (Acute) Elevated alkaline phosphatase level (Acute) Diarrhea (Acute) Annual physical exam (Acute) Alcohol induced liver disorder (Acute) Type 2 diabetes mellitus with chronic kidney disease (Acute) Type 2 diabetes mellitus with hyperglycemia, with long-term current use of insulin (Acute) Dyslipidemia (Acute) Essential hypertension (Acute) Low serum vitamin D (Acute) Obesity (BMI 30-39.9) (Acute) Recurrent cellulitis of lower extremity (Acute) Lipodermatosclerosis (Acute) CKD (chronic kidney disease) stage 3, GFR 30-59 ml/min (Acute) Diabetes (Acute) HTN (hypertension) (Acute) Tongue ulcer (Acute) Past Medical History Medical History Acid reflux Acute hepatic encephalopathy Acute on chronic kidney failure LINETTE (acute kidney injury) Alcohol induced liver disorder Anasarca Anemia Annual physical exam Aortic stenosis Ascites due to alcoholic cirrhosis Atrial fibrillation Cellulitis CHF (congestive heart failure) Chronic edema Cirrhosis CKD (chronic kidney disease) stage 3, GFR 30-59 ml/min Diabetes Dyslipidemia Elevated brain natriuretic peptide (BNP) level Encephalopathy Esophageal varix Essential hypertension GAVE (gastric antral vascular ectasia) Hepatic encephalopathy HTN (hypertension) Hyperammonemia Hyponatremia Lipodermatosclerosis Liver cirrhosis Low serum vitamin D Lower extremity edema Obesity Obesity (BMI 30-39.9) BARTOLOME (obstructive sleep apnea) Osteoarthritis Portal hypertension syndrome Portal hypertensive gastropathy Recurrent cellulitis of lower extremity Tongue ulcer Type 2 diabetes mellitus with chronic kidney disease Type 2 diabetes mellitus with hyperglycemia, with long-term current use of insulin Family History Family History Brother Diabetes Father No problems noted. Surgical History Surgical History H/O colonoscopy History of esophagogastroduodenoscopy (EGD) History of tonsillectomy Social History Social History Household Members: Spouse Housing: House Do you presently have visiting nurse or other home services: No Alcohol intake: never Patient Tobacco Use Status: Never used Tobacco e-Cigarette/Vaping Use: Never Used Second Hand Smoke Exposure: No Use of substances other than those prescribed or required for medical reasons: No Are you DNR?: No Advance Directives: No Advance Directives Information Provided: Yes service: No Current occupational status: retired Meds Allergies Allergy/AdvReac Type Severity Reaction Status Date / Time No Known Allergies Allergy Verified 10/31/20 13:26 Home Medications Medication Instructions Recorded Confirmed Last Taken Type empagliflozin 25 mg tablet 25 mg PO QAM 04/04/20 10/27/20 Unknown History lactulose 10 gram/15 mL oral 15 ml PO DAILY PRN 04/04/20 10/27/20 Unknown History solution pen needle, diabetic 31 gauge x #50 ea 07/07/20 10/27/20 Unknown History 07/29 magnesium oxide 400 mg (241.3 mg 400 mg PO BEDTIME 10/09/20 10/27/20 Unknown History magnesium) tablet Tresiba FlexTouch U-200 30 unit SUBCUT DAILY 10/15/20 10/27/20 Unknown History Victoza 3-Gordo 0.3 ml SUBCUT DAILY 10/15/20 10/27/20 Unknown History cholecalciferol (vitamin D3) 2,000 unit PO DAILY 10/15/20 10/27/20 Unknown History Exam Exam Date and Time: November 07, 2020 0950 Height,Weight and Vital Signs: Height 5 ft 10 in Weight 136.078 kg Last Vital Signs Temp 98.4 F 11/07/20 09:11 Pulse 60 11/07/20 09:11 Resp 20 11/07/20 09:11 BP 147/63 H 11/07/20 09:11 Pulse Ox 99 11/07/20 09:11 Pertinent Lab Results Pertinent Lab Results: Laboratory Tests 11/07/20 09:17 POC Glucose 108 Airway Mallampati Class: II TM Dist: >3cm Neck ROM: Full
[2020-11-07] MEDS: Lactated Ringers 1,000 ML 100 ML IVCONT (09:52)
[2020-11-07 10:15] VITALS: BP 118/51; PULSE 66; RESP 16; TEMP 37.2; O2SAT 96
[2020-11-07 10:30] VITALS: BP 133/66; PULSE 71; RESP 20; O2SAT 97
[2020-11-07 10:45] VITALS: BP 149/66; PULSE 64; RESP 22; TEMP 36.6; O2SAT 98
[2020-11-07 11:02] VITALS: BP 143/69; PULSE 64; RESP 18; O2SAT 99
[2020-11-07 11:15] VITALS: BP 134/62; PULSE 62; RESP 18; TEMP 37; O2SAT 100
== END 2020-11-07 13:09 | disposition home or self-care (01) ==
PROVIDERS: PCP Internal Medicine; Visit Provider Internal Medicine Gastroenterology
PROC: 0DJ08ZZ Inspection of Upper Intestinal Tract, Via Natural or Artificial Opening Endoscopic (ICD-10-PCS; CPT 43235; principal; 2020-11-07 10:20)
DX: I85.00 Esophageal varices without bleeding (principal); K76.6 Portal hypertension; K70.31 Alcoholic cirrhosis of liver with ascites; K31.819 Angiodysplasia of stomach and duodenum without bleeding; K72.00 Acute and subacute hepatic failure without coma; K31.89 Other diseases of stomach and duodenum; K21.9 Gastro-esophageal reflux disease without esophagitis; E11.22 Type 2 diabetes mellitus with diabetic chronic kidney disease; I13.0 Hypertensive heart and chronic kidney disease with heart failure and stage 1 through stage 4 chronic kidney disease, or unspecified chronic kidney disease; N18.30 Chronic kidney disease, stage 3 unspecified; I50.9 Heart failure, unspecified; G47.33 Obstructive sleep apnea (adult) (pediatric); D64.9 Anemia, unspecified; I48.91 Unspecified atrial fibrillation; Z79.4 Long term (current) use of insulin; Z79.899 Other long term (current) drug therapy; Z88.8 Allergy status to other drugs, medicaments and biological substances
CPT/HCPCS: 43270; 82947

== ENCOUNTER → 2020-11-27 14:21 | Outpatient (BNVA) | payer MEDICARE, MEDICAID, SELFPAY | PROVIDERS: PCP Internal Medicine; Referring Provider Internal Medicine; Visit Provider Internal Medicine Gastroenterology | DX: K74.60 Unspecified cirrhosis of liver (principal); R18.8 Other ascites; K76.6 Portal hypertension; K31.89 Other diseases of stomach and duodenum; K31.819 Angiodysplasia of stomach and duodenum without bleeding; I85.00 Esophageal varices without bleeding; E87.1 Hypo-osmolality and hyponatremia; N18.30 Chronic kidney disease, stage 3 unspecified | CPT/HCPCS: 99212 ==

== ENCOUNTER 2020-11-28 10:08 | Outpatient (REF) | payer MEDICARE, MEDICAID, SELFPAY ==
[2020-11-28 10:35] LABS: MANUAL DIFF FLAG NO
[2020-11-28 10:41] LABS: Basophils Absolute Auto 0.1 X10*3/uL (0.0-0.2); Basophils Percent Auto 0.9 % (0-2); Eosinophils Absolute Auto 0.4 X10*3/uL (0.0-0.4); Eosinophils Percent Auto 6.5 % (0-4); Hematocrit 27.5 % (42-52); Hemoglobin 9.9 g/dl (14.0-18.0); Imm Gran Abs Auto 0.02 X10*3/uL (0.00-0.03); Imm Gran Pct Auto 0.3 % (0.0-0.4); Lymphocytes Absolute Auto 1.2 X10*3/uL (1.2-4.9); Lymphocytes Percent Auto 17.6 % (20-40); Mean Corpuscular Hemoglobin 32.6 pg (27.0-33.0); Mean Corpuscular Volume 90.5 fL (80-98); Mean Platelet Volume 8.9 fL (9.4-12.4); Monocytes Absolute Auto 0.7 X10*3/uL (0.1-1.2); Monocytes Percent Auto 9.8 % (2-11); Neutrophils Absolute Auto 4.4 X10*3/uL (2.0-8.3); Neutrophils Percent Auto 64.9 % (45-73); Red Blood Count 3.04 X10*6/uL (4.60-5.80); Red Cell Distribution Width 15.8 % (11.0-16.0); White Blood Count 6.8 X10*3/uL (4.8-10.8)
[2020-11-28 10:45] LABS: INTERNATIONAL NORM RATIO 1.6 (0.9-1.1); Platelet Count 98 X10*3/uL (160-400); Prothrombin Time 18.3 SEC (9.9-13.0)
[2020-11-28 10:53] LABS: Ammonia 92 umol/L (13-55)
[2020-11-28 11:00] LABS: Alanine Aminotransferase 31 U/L (0-40); Albumin Level 2.4 g/dL (3.5-5.0); Alkaline Phosphatase 179 U/L (39-117); Anion Gap 10 (12-20); Aspartate Amino Transferase 55 U/L (5-37); Bilirubin Total 4.6 mg/dL (0.0-1.0); Blood Urea Nitrogen 33 mg/dL (9-16); Carbon Dioxide 23 mmol/L (22-29); Chloride 100 mmol/L (96-108); Estimated Glomerular Filt Rate 58; Glucose Random 77 mg/dL (60-115); Potassium 4.7 mmol/L (3.3-5.1); Sodium 128 mmol/L (135-145); Total Protein 5.2 g/dL (6.5-8.0)
[2020-11-28 14:43] LABS: MN% 86.2 %; PMN% 13.8 %
[2020-11-28 14:44] LABS: RBC Pleural Fluid < 0.002 X10*3/uL
[2020-11-28 15:06] LABS: BF Shift QC OK YES; Lymphocytes Pleural Fluid 49 %; Monocytes Pleural Fluid 21 %; Neutrophils Pleural Fluid 13 %; Other Cells Plerual Fl 17 %
[2020-11-29 06:48] LABS: Albumin Pleural Fluid 0.2
== END 2020-11-28 10:09 | disposition home or self-care (01) ==
LOC: HO.US 10:08
PROVIDERS: PCP Internal Medicine; Visit Provider Internal Medicine Gastroenterology
DX: K31.89 Other diseases of stomach and duodenum (principal); K76.6 Portal hypertension; R18.8 Other ascites; K74.60 Unspecified cirrhosis of liver
CPT/HCPCS: 36415; 49083; 80053; 82042; 82140; 82947; 85025; 85610; 85730; 89051; P9047

== ENCOUNTER 2020-11-28 10:35 | Day surgery (SDC) | payer MEDICARE, MEDICAID, SELFPAY ==
--- NOTE | ~2020-11-28 | US_ITS ---
EXAMINATION: ULTRASOUND-GUIDED PARACENTESIS. CLINICAL INFORMATION: Cirrhosis of liver. Ascites. COMPARISON: None TECHNIQUE: Following explaining ultrasound-guided paracentesis procedure, benefits and risks, written consent was obtained. Patient was placed supine on ultrasound table and preliminary ultrasound imaging was obtained. An optimal site was selected along the left flank and marked. The marked site was cleaned and draped in usual sterile manner. 1% lidocaine was injected at puncture site. Through a small skin incision a long 5-English Farelogixeh catheter was advanced into the peritoneal space. After observing fluid return, stylet was withdrawn and catheter tip was connected to vacuum bottle via connecting cannula. After obtaining all fluid and observing no more fluid remaining, catheter was removed and pressure dressing was applied. Patient tolerated procedure extremely well. FINDINGS: On preliminary ultrasound imaging there is moderate ascites more on the left than the right. There is significant thickening and edematous anterior abdominal wall. Approximately 6.7 L of fluid was drained from the peritoneal space. Some of this fluid was sent to lab as per referring physician's orders. US/US paracentesis abd w/image IMPRESSION: Successful therapeutic and diagnostic ultrasound-guided paracentesis performed.
[2020-11-28 11:07] LABS: MANUAL DIFF FLAG NO
[2020-11-28 11:09] VITALS: BMI 47.3
[2020-11-28 11:12] LABS: Basophils Absolute Auto 0.1 X10*3/uL (0.0-0.2); Basophils Percent Auto 0.8 % (0-2); Eosinophils Absolute Auto 0.4 X10*3/uL (0.0-0.4); Eosinophils Percent Auto 5.9 % (0-4); Hematocrit 26.4 % (42-52); Hemoglobin 9.3 g/dl (14.0-18.0); Imm Gran Abs Auto 0.02 X10*3/uL (0.00-0.03); Imm Gran Pct Auto 0.3 % (0.0-0.4); Lymphocytes Absolute Auto 0.9 X10*3/uL (1.2-4.9); Lymphocytes Percent Auto 15.3 % (20-40); Mean Corpuscular HGB Conc 35.2 g/dl (31.0-36.0); Mean Corpuscular Hemoglobin 32.1 pg (27.0-33.0); Mean Platelet Volume 9.2 fL (9.4-12.4); Monocytes Absolute Auto 0.7 X10*3/uL (0.1-1.2); Monocytes Percent Auto 11.4 % (2-11); Neutrophils Percent Auto 66.3 % (45-73); Red Cell Distribution Width 15.9 % (11.0-16.0); White Blood Count 6.1 X10*3/uL (4.8-10.8)
[2020-11-28 11:17] LABS: Platelet Count 99 X10*3/uL (160-400)
[2020-11-28 11:19] LABS: INTERNATIONAL NORM RATIO 1.7 (0.9-1.1); Prothrombin Time 19.1 SEC (9.9-13.0)
[2020-11-28 11:55] LABS: Glucose, Whole Blood 71 mg/dL (60-115)
[2020-11-28 14:21] VITALS: BP 134/49; PULSE 72; RESP 16; TEMP 36.7; O2SAT 100
[2020-11-28 14:50] VITALS: BP 134/61; PULSE 62; RESP 18; O2SAT 99
[2020-11-28] MEDS: Lidocaine HCl 1 % MPF 5 ML VIAL SUBCUT (14:54)
[2020-11-28 15:20] VITALS: BP 126/56; PULSE 63; RESP 18; O2SAT 98
[2020-11-28 16:20] VITALS: BP 130/59; PULSE 65; RESP 18; TEMP 36.8; O2SAT 99
== END 2020-11-28 16:40 | disposition home or self-care (01) ==
PROVIDERS: PCP Internal Medicine; Visit Provider Radiology Diagnostic Radiology
DX: R18.8 Other ascites (principal); K74.60 Unspecified cirrhosis of liver; E11.65 Type 2 diabetes mellitus with hyperglycemia; E11.22 Type 2 diabetes mellitus with diabetic chronic kidney disease; I13.0 Hypertensive heart and chronic kidney disease with heart failure and stage 1 through stage 4 chronic kidney disease, or unspecified chronic kidney disease; N18.30 Chronic kidney disease, stage 3 unspecified; I50.9 Heart failure, unspecified; G47.33 Obstructive sleep apnea (adult) (pediatric); K31.89 Other diseases of stomach and duodenum; K76.6 Portal hypertension; Z79.4 Long term (current) use of insulin; Z79.899 Other long term (current) drug therapy
CPT/HCPCS: 36415; 49083; 82947; 85025; 85610; 85730; P9047

== ENCOUNTER 2021-01-01 10:16 | Emergency (ER) | payer MEDICARE, MEDICAID, SELFPAY ==
--- NOTE | ~2021-01-01 | XR_ITS ---
EXAMINATION: XR CHEST CLINICAL INFORMATION: Congestive heart failure. COMPARISON: Chest radiographs dated 10/09/2020. TECHNIQUE: Frontal view of the chest was obtained. FINDINGS: The heart size is least top normal. There is mild to moderate pulmonary vascular congestion. There are mildly increased central interstitial markings. There is a moderately severe right upper lobe patchy opacity. No pleural effusion or pneumothorax is seen. There is no acute osseous abnormality. XR/XR chest 1V IMPRESSION: The heart size is upper normal. There is mild to moderate pulmonary vascular congestion and increase in central interstitial markings, consistent with the provided diagnosis of congestive heart failure. There is a superimposed right upper lobe patchy opacity, which may be related to pulmonary edema; however, the possibility of a superimposed pneumonia and/or underlying lesion cannot be excluded without with certainty. Recommend clinical correlation and radiographic follow-up to clearance.
[2021-01-01 10:39] VITALS: BP 116/43; PULSE 65; RESP 16; TEMP 37.1; O2SAT 98; BMI 48.6
[2021-01-01 11:44] VITALS: BP 124/55; PULSE 61; RESP 16; O2SAT 99
--- NOTE | 2021-01-01 12:37 | ED_ITS ---
HPI - General Adult General Chief complaint: General Medical Stated complaint: pedal edema, abdominal distention Time Seen by Provider: 01/01/21 12:37 Source: patient Mode of arrival: ambulatory Limitations: no limitations History of Present Illness HPI narrative: Patient's history of hepatic cirrhosis chronic leg edema with ascites followed by [facility] was seen there 5 days ago [facility] since then today nurse saw him and noticed increased leg swelling and sent the patient here. Patient been taking lactulose twice daily missed a dose yesterday had 5 bowel movements yesterday patient denied any confusion no fever no chills no increased leg swelling no worsening of shortness of breath ago to patient he feels fine as before. Patient had indwelling Lee catheter and urinating well on torsemide Related Data Home Medications Medication Instructions Recorded Confirmed lactulose 10 gram/15 mL oral 15 ml PO DAILY PRN 04/04/20 11/27/20 solution pen needle, diabetic 31 gauge x #50 ea 07/07/20 11/27/20 3/16 magnesium oxide 400 mg (241.3 mg 400 mg PO BEDTIME 10/09/20 11/27/20 magnesium) tablet cholecalciferol (vitamin D3) 1,250 2,000 unit PO DAILY 10/15/20 11/27/20 mcg (50,000 unit) capsule insulin degludec 200 unit/mL (3 30 unit SUBCUT DAILY 10/15/20 11/27/20 mL) subcutaneous pen (Tresiba FlexTouch U-200 insulin) Previous Rx's Medication Instructions Recorded penicillin V potassium 250 mg 250 mg PO BID 90 Days #180 tab 05/26/20 tablet blood sugar diagnostic (FreeStyle #100 ea 05/29/20 Lite Strips) lancets 28 gauge (FreeStyle #100 ea 05/29/20 Lancets) pen needle, diabetic 32 gauge x #125 ea 05/29/2032 (BD Ultra-Fine Tracee Pen Needle) blood-glucose meter (FreeStyle #1 ea 06/04/20 Lite Meter) omeprazole 20 mg capsule,delayed 20 mg PO BID #180 cap 07/15/20 release bumetanide 1 mg tablet 2 mg PO BID #60 tab 08/05/20 folic acid 1 mg tablet 1 mg PO DAILY #30 tab 08/05/20 rifaximin 550 mg tablet (Xifaxan) 550 mg PO BID #60 tab 09/18/20 nystatin 100,000 unit/gram topical 1 appl TOPICAL BID #60 g 11/14/20 powder lift recliner chair #1 ea 11/26/20 empagliflozin 25 mg tablet 25 mg PO QAM 90 Days #90 tab 12/01/20 liraglutide 0.6 mg/0.1 mL (18 mg/3 1.8 mg SUBCUT DAILY 30 Days #9 ml 12/03/20 mL) subcutaneous pen injector (Birdposttoza 3-Gorod) thiamine HCl (vitamin B1) 100 mg 100 mg PO DAILY #90 tab 01/01/21 tablet Allergies Allergy/AdvReac Type Severity Reaction Status Date / Time No Known Allergies Allergy Verified 11/27/20 14:38 Review of Systems Review of Systems: Yes all other systems are reviewed and are negative Neurologic: Denies confusion Psychiatric: Psychiatric: Denies confusion [facility] Past Medical History Medical History Acid reflux Acute hepatic encephalopathy Acute on chronic kidney failure LINETTE (acute kidney injury) Alcohol induced liver disorder Anasarca Anemia Annual physical exam Aortic stenosis Ascites due to alcoholic cirrhosis Atrial fibrillation Cellulitis CHF (congestive heart failure) Chronic edema Cirrhosis CKD (chronic kidney disease) stage 3, GFR 30-59 ml/min Diabetes Dyslipidemia Elevated brain natriuretic peptide (BNP) level Encephalopathy Esophageal varix Essential hypertension GAVE (gastric antral vascular ectasia) Hepatic encephalopathy HTN (hypertension) Hyperammonemia Hyponatremia Lipodermatosclerosis Liver cirrhosis Low serum vitamin D Lower extremity edema Obesity Obesity (BMI 30-39.9) BARTOLOME (obstructive sleep apnea) Osteoarthritis Portal hypertension syndrome Portal hypertensive gastropathy Recurrent cellulitis of lower extremity Tongue ulcer Type 2 diabetes mellitus with chronic kidney disease Type 2 diabetes mellitus with hyperglycemia, with long-term current use of insulin Surgical History H/O colonoscopy History of esophagogastroduodenoscopy (EGD) History of tonsillectomy Family History Family History Brother Diabetes Father No problems noted. Social History Social History Household Members: Spouse Housing: House Do you presently have visiting nurse or other home services: No Alcohol intake: never Patient Tobacco Use Status: Never used Tobacco e-Cigarette/Vaping Use: Never Used Second Hand Smoke Exposure: No Advance Directives: Yes Advance Directives Information Provided: No Advance Directives on File: No service: No Current occupational status: retired Physical Exam Vital Signs: Vital Signs: Last Vital Signs Temp 98.7 F 01/01/21 10:39 Pulse 63 01/01/21 14:17 Resp 18 01/01/21 14:17 BP 120/51 L 01/01/21 14:17 Pulse Ox 99 01/01/21 14:17 Body Mass Index 48.6 Const: General: no acute distress; No confusion Nutritional Appearance: obese Orientation/consciousness: patient oriented x3 and No confusion HENMT: Head: Yes normocephalic Ears: hearing grossly normal bilaterally General nose exam: Normal external nose present Mouth: Normal oral and palatal mucosa present Eyes: Other: Icterus+ Neck: Neck: Yes normal visual inspection Chest: Chest palpation & inspection: normal palpation of entire chest wall Resp: Effort & Inspection: normal respiratory effort Auscultation: clear to auscultation bilaterally, no crackles, no rales and no rhonchi Cardio: Palpation: normal PMI Rhythm: abnormal rhythm irregularly irregular Heart sounds: S1 normal heart sound present and S2 normal heart sound present GI: Inspection: Yes Abdominal wall edema Palpation (GI): Soft to palpation Auscultation: normal bowel sounds : Other: Scrotal edema, Lee catheter in place General: Yes no CVA tenderness Back/Spine/Pelvis: Back: no CVA tenderness Skin: General skin exam: no rashes or lesions noted Neuro: General: patient oriented x3, no focal motor deficits and No confusion Extrem: Other: Chronic lymphedema bilateral slight erythema on the right leg which is chronic, no hepatic flaps Medical Decision Making MDM Narrative Medical decision making narrative: Patient with chronic liver disease with stable labs last ammonia level 2 days ago was 95 today was 115 patient denies any confusion will give extra dose of lactulose patient urinating well he was given extra dose of Lasix in the ER advised to follow-up with [facility] liver tra nsplant team at this time there is no finding of acute decompensation Lab Data Lab results reviewed: Yes I reviewed the patient's lab results. Result diagrams: 01/01/21 13:41 01/01/21 13:40 Labs: Lab Results 01/01/21 01/01/21 01/01/21 Range/Units 13:40 13:40 13:40 WBC (4.8-10.8) X10*3/uL RBC (4.60-5.80) X10*6/uL Hgb (14.0-18.0) g/dl Hct (42-52) % MCV (80-98) fL MCH (27.0-33.0) pg MCHC (31.0-36.0) g/dl RDW (11.0-16.0) % Plt Count (160-400) X10*3/uL MPV (9.4-12.4) fL Immature Gran % (Auto) (0.0-0.4) % Neut % (Auto) (45-73) % Lymph % (Auto) (20-40) % [place] % (Auto) (2-11) % Eos % (Auto) (0-4) % Baso % (Auto) (0-2) % Lymph # (Auto) (1.2-4.9) X10*3/uL [place] # (Auto) (0.1-1.2) X10*3/uL Eos # (Auto) (0.0-0.4) X10*3/uL Baso # (Auto) (0.0-0.2) X10*3/uL Abs Immat Gran (auto) (0.00-0.03) X10*3/uL Absolute Neuts (auto) (2.0-8.3) X10*3/uL Absolute Nucleated RBC (0.0-0.012) X10*3/uL Nucleated RBC % (auto) (0.0-0.2) /100WBC PT (9.9-13.0) SEC INR (0.9-1.1) APTT (24.1-38.0) SEC Sodium 139 (135-145) mmol/L Potassium 3.5 D (3.3-5.1) mmol/L Chloride 101 (96-108) mmol/L Carbon Dioxide 32 H (22-29) mmol/L Anion Gap 10 L (12-20) BUN 55 H D (9-16) mg/dL Creatinine 1.54 H (0.5-1.4) mg/dL Estim Creat Clear Calc 65.3 Estimated GFR 45 Random Glucose 148 H D (60-115) mg/dL Calcium 8.6 D (8.4-10.2) mg/dL Total Bilirubin 5.8 H (0.0-1.0) mg/dL AST 41 H (5-37) U/L ALT 30 (0-40) U/L Alkaline Phosphatase 103 D (39-117) U/L Ammonia (13-55) umol/L B-Natriuretic Peptide 978 H (<100) pg/mL Total Protein 5.3 L (6.5-8.0) g/dL Albumin 3.0 L D (3.5-5.0) g/dL Lipase 28 (8-78) U/L COVID-19 (JACKY) (Negative) COVID-19 Clin Com 01/01/21 01/01/21 01/01/21 Range/Units 13:40 13:41 13:41 WBC 4.9 (4.8-10.8) X10*3/uL RBC 2.66 L (4.60-5.80) X10*6/uL Hgb 8.5 L (14.0-18.0) g/dl Hct 25.8 L (42-52) % MCV 97.0 (80-98) fL MCH 32.0 (27.0-33.0) pg MCHC 32.9 (31.0-36.0) g/dl RDW 19.3 H (11.0-16.0) % Plt Count 60 L D (160-400) X10*3/uL MPV 10.1 (9.4-12.4) fL Immature Gran % (Auto) 0.2 (0.0-0.4) % Neut % (Auto) 71.2 (45-73) % Lymph % (Auto) 10.3 L (20-40) % [place] % (Auto) 10.9 (2-11) % Eos % (Auto) 6.6 H (0-4) % Baso % (Auto) 0.8 (0-2) % Lymph # (Auto) 0.5 L (1.2-4.9) X10*3/uL [place] # (Auto) 0.5 (0.1-1.2) X10*3/uL Eos # (Auto) 0.3 (0.0-0.4) X10*3/uL Baso # (Auto) 0.0 (0.0-0.2) X10*3/uL Abs Immat Gran (auto) 0.01 (0.00-0.03) X10*3/uL Absolute Neuts (auto) 3.5 (2.0-8.3) X10*3/uL Absolute Nucleated RBC 0.000 (0.0-0.012) X10*3/uL Nucleated RBC % (auto) 0.0 (0.0-0.2) /100WBC PT 22.7 H (9.9-13.0) SEC INR 2.0 H (0.9-1.1) APTT 41.9 H (24.1-38.0) SEC Sodium (135-145) mmol/L Potassium (3.3-5.1) mmol/L Chloride (96-108) mmol/L Carbon Dioxide (22-29) mmol/L Anion Gap (12-20) BUN (9-16) mg/dL Creatinine (0.5-1.4) mg/dL Estim Creat Clear Calc Estimated GFR Random Glucose (60-115) mg/dL Calcium (8.4-10.2) mg/dL Total Bilirubin (0.0-1.0) mg/dL AST (5-37) U/L ALT (0-40) U/L Alkaline Phosphatase (39-117) U/L Ammonia 115 H (13-55) umol/L B-Natriuretic Peptide (<100) pg/mL Total Protein (6.5-8.0) g/dL Albumin (3.5-5.0) g/dL Lipase (8-78) U/L COVID-19 (JACKY) (Negative) COVID-19 Clin Com 01/01/21 Range/Units 13:42 WBC (4.8-10.8) X10*3/uL RBC (4.60-5.80) X10*6/uL Hgb (14.0-18.0) g/dl Hct (42-52) % MCV (80-98) fL MCH (27.0-33.0) pg MCHC (31.0-36.0) g/dl RDW (11.0-16.0) % Plt Count (160-400) X10*3/uL MPV (9.4-12.4) fL Immature Gran % (Auto) (0.0-0.4) % Neut % (Auto) (45-73) % Lymph % (Auto) (20-40) % [place] % (Auto) (2-11) % Eos % (Auto) (0-4) % Baso % (Auto) (0-2) % Lymph # (Auto) (1.2-4.9) X10*3/uL [place] # (Auto) (0.1-1.2) X10*3/uL Eos # (Auto) (0.0-0.4) X10*3/uL Baso # (Auto) (0.0-0.2) X10*3/uL Abs Immat Gran (auto) (0.00-0.03) X10*3/uL Absolute Neuts (auto) (2.0-8.3) X10*3/uL Absolute Nucleated RBC (0.0-0.012) X10*3/uL Nucleated RBC % (auto) (0.0-0.2) /100WBC PT (9.9-13.0) SEC INR (0.9-1.1) APTT (24.1-38.0) SEC Sodium (135-145) mmol/L Potassium (3.3-5.1) mmol/L Chloride (96-108) mmol/L Carbon Dioxide (22-29) mmol/L Anion Gap (12-20) BUN (9-16) mg/dL Creatinine (0.5-1.4) mg/dL Estim Creat Clear Calc Estimated GFR Random Glucose (60-115) mg/dL Calcium (8.4-10.2) mg/dL Total Bilirubin (0.0-1.0) mg/dL AST (5-37) U/L ALT (0-40) U/L Alkaline Phosphatase (39-117) U/L Ammonia (13-55) umol/L B-Natriuretic Peptide (<100) pg/mL Total Protein (6.5-8.0) g/dL Albumin (3.5-5.0) g/dL Lipase (8-78) U/L COVID-19 (JACKY) Negative (Negative) COVID-19 Clin Com See Note ECG Data Attestation: I personally reviewed and interpreted this ECG as follows: Interpretation: Atrial fibrillation heart rate 61 beats per minute nonspecific T-wave changes no acute ischemic changes Discharge Plan Discharge Clinical Impression: Encephalopathy, hepatic Cirrhosis of liver with ascites Qualifiers: Hepatic cirrhosis type: alcoholic cirrhosis Qualified Code(s): K70.31 - Alcoholic cirrhosis of liver with ascites Patient Disposition: Xfer LTC Transfer Details: [facility] Instructions: Cirrhosis (ED), Ascites (ED) Additional Instructions: Continue medications as prescribed by [facility], continue lactulose report to the ER/to PCP if increased confusion Follow-up with experimental electronics developer at [facility] Prescriptions: No Action (DME) FreeStyle Lite Strips Strip See Rx Instructions .ROUTE .MEDSUPPLY Qty: 100 RF: 11 (DME) blood-glucose meter [FreeStyle Lite Meter] Kit See Rx Instructions .ROUTE .MEDSUPPLY Qty: 1 RF: 0 omeprazole 20 mg capsule,delayed release(DR/EC) 20 mg PO BID Qty: 180 RF: 1 bumetanide 1 mg tablet 2 mg PO BID Qty: 60 RF: 0 folic acid 1 mg tablet 1 mg PO DAILY Qty: 30 RF: 0 Xifaxan 550 mg tablet 550 mg PO BID Qty: 60 RF: 3 (DME) lift recliner chair 0 .Route .MEDSUPPLY Qty: 1 RF: 0 empagliflozin 25 mg tablet 25 mg PO QAM 90 Days Qty: 90 RF: 0 liraglutide [Victoza 3-Gordo] 0.6 mg/0.1 mL (18 mg/3 mL) pen injector 1.8 mg subcut DAILY 30 Days Qty: 9 RF: 0 thiamine HCl (vitamin B1) 100 mg tablet 100 mg PO DAILY Qty: 90 RF: 2 cholecalciferol (vitamin D3) 1,250 mcg (50,000 unit) capsule 2,000 unit PO DAILY RF: 0 Tresiba FlexTouch U-200 200 unit/mL (3 mL) insulin pen 30 unit subcut DAILY RF: 0 lactulose 10 gram/15 mL solution 15 ml PO DAILY PRN (Reason: Constipation) RF: 0 nystatin 100,000 unit/gram powder 1 appl topical BID Qty: 60 RF: 4 (DME) pen needle, diabetic [BD Ultra-Fine Tracee Pen Needle] 32 gauge x / needle See Rx Instructions .ROUTE .MEDSUPPLY Qty: 125 RF: 11 (DME) lancets [FreeStyle Lancets] 28 gauge misc See Rx Instructions .ROUTE .MEDSUPPLY Qty: 100 RF: 11 penicillin V potassium 250 mg tablet 250 mg PO BID 90 Days Qty: 180 RF: 3 (DME) pen needle, diabetic 31 gauge x 3/16 needle See Rx Instructions ea subcut QID Qty: 50 RF: 0 magnesium oxide 400 mg (241.3 mg magnesium) tablet 400 mg PO BEDTIME RF: 0
--- NOTE | 2021-01-01 12:49 | ECG_ITS ---
Test Reason : LIVER FAILURE Blood Pressure : / mmHG Vent. Rate : 061 BPM Atrial Rate : 241 BPM P-R Int : 000 ms QRS Dur : 100 ms QT Int : 472 ms P-R-T Axes : 000 010 -15 degrees QTc Int : 475 ms Atrial fibrillation T wave abnormality, consider anterior ischemia Abnormal ECG When compared with ECG of 15-OCT-2020 00:31, Nonspecific T wave abnormality, worse in Inferior leads T wave inversion now evident in Anterior leads Referred By: Freedom Hawkins Electronically Signed By:ZAIDA APARICIO
[2021-01-01 13:46] VITALS: BP 110/58; PULSE 63; RESP 16; O2SAT 98
[2021-01-01] MEDS: Furosemide 40 MG/4 ML VIAL IVPUSH (13:46)
[2021-01-01 13:51] LABS: MANUAL DIFF FLAG NO
[2021-01-01 13:54] LABS: Basophils Percent Auto 0.8 % (0-2); Eosinophils Absolute Auto 0.3 X10*3/uL (0.0-0.4); Eosinophils Percent Auto 6.6 % (0-4); Hematocrit 25.8 % (42-52); Hemoglobin 8.5 g/dl (14.0-18.0); Imm Gran Abs Auto 0.01 X10*3/uL (0.00-0.03); Imm Gran Pct Auto 0.2 % (0.0-0.4); Lymphocytes Absolute Auto 0.5 X10*3/uL (1.2-4.9); Lymphocytes Percent Auto 10.3 % (20-40); Mean Corpuscular HGB Conc 32.9 g/dl (31.0-36.0); Mean Platelet Volume 10.1 fL (9.4-12.4); Monocytes Absolute Auto 0.5 X10*3/uL (0.1-1.2); Monocytes Percent Auto 10.9 % (2-11); Neutrophils Absolute Auto 3.5 X10*3/uL (2.0-8.3); Neutrophils Percent Auto 71.2 % (45-73); Red Blood Count 2.66 X10*6/uL (4.60-5.80); Red Cell Distribution Width 19.3 % (11.0-16.0); White Blood Count 4.9 X10*3/uL (4.8-10.8)
[2021-01-01 13:58] LABS: Platelet Count 60 X10*3/uL (160-400)
[2021-01-01 14:05] LABS: Prothrombin Time 22.7 SEC (9.9-13.0)
[2021-01-01 14:08] LABS: Partial Thromboplastin Time 41.9 SEC (24.1-38.0)
[2021-01-01 14:09] LABS: COVID-19 Test Negative (Negative); IDNOW Serial# 9DD0AD1C
[2021-01-01 14:12] LABS: Ammonia 115 umol/L (13-55)
[2021-01-01 14:17] VITALS: BP 120/51; PULSE 63; RESP 18; O2SAT 99
[2021-01-01 14:22] LABS: Alanine Aminotransferase 30 U/L (0-40); Alkaline Phosphatase 103 U/L (39-117); Anion Gap 10 (12-20); Aspartate Amino Transferase 41 U/L (5-37); Bilirubin Total 5.8 mg/dL (0.0-1.0); Blood Urea Nitrogen 55 mg/dL (9-16); Calcium 8.6 mg/dL (8.4-10.2); Carbon Dioxide 32 mmol/L (22-29); Chloride 101 mmol/L (96-108); Creatinine Clr Calc Pharmacy 65.3; Estimated Glomerular Filt Rate 45; Glucose Random 148 mg/dL (60-115); Lipase 28 U/L (8-78); Potassium 3.5 mmol/L (3.3-5.1); Sodium 139 mmol/L (135-145); Total Protein 5.3 g/dL (6.5-8.0)
[2021-01-01 14:24] LABS: B Type Natriuretic Peptide 978 pg/mL (<100)
[2021-01-01] MEDS: Lactulose 20 GM/30 ML SOLUTION 30 GM PO (15:55)
== END 2021-01-01 16:39 ==
PROVIDERS: Emergency Provider Internal Medicine; PCP Internal Medicine
DX: K70.40 Alcoholic hepatic failure without coma (principal); K70.31 Alcoholic cirrhosis of liver with ascites; Z20.822 Contact with and (suspected) exposure to COVID-19; E11.22 Type 2 diabetes mellitus with diabetic chronic kidney disease; I12.9 Hypertensive chronic kidney disease with stage 1 through stage 4 chronic kidney disease, or unspecified chronic kidney disease; N18.9 Chronic kidney disease, unspecified; I48.91 Unspecified atrial fibrillation; Z96.0 Presence of urogenital implants; Z79.4 Long term (current) use of insulin; Z79.899 Other long term (current) drug therapy
CPT/HCPCS: 36415; 71045; 80053; 82140; 83690; 83880; 85025; 85610; 85730; 87635; 93005; 96374; 99284; J1940

== ENCOUNTER 2021-01-04 10:03 | Inpatient (IN) | payer MEDICARE, MEDICAID, SELFPAY ==
--- NOTE | ~2021-01-04 | CT_ITS ---
EXAMINATION: CT CHEST WITHOUT CONTRAST CLINICAL INFORMATION: Chills. Right upper lobe opacity. COMPARISON: Chest 08/04/2020. TECHNIQUE: Multidetector volumetric CT imaging of the chest was done. Axial MIP volume rendering provided. Sagittal and coronal reformatted images were obtained. This CT examination was performed using dose optimization techniques as appropriate, variously including the following: *Automated exposure control *Adjustment of mA and/or kV according to patient size (this includes techniques or standardized protocols for targeted exams where dose is matched to indication/reason for exam; i.e. 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 LUNGS: The lungs are well expanded with patchy ground-glass opacities seen in right upper lobe, both lower lobes superior segment and posterior basal segment, and right middle lobe. MEDIASTINUM: The heart size is mildly enlarged. Central trachea and the bronchi widely patent. There is no abnormal mediastinal or hilar lymph nodes seen. There is atrioventricular and coronary artery calcifications present. PLEURA: There are small bilateral pleural effusions. AXILLA: No abnormal axillary lymph nodes seen. However there is mild chest wall haziness, likely edema. UPPER ABDOMEN: There is diffuse ascites. There is a large right hepatic lobe 7.2 cm x 7.2 cm cyst. Numerous radiopaque gallstones are visualized. OSSEOUS STRUCTURES: No lytic or sclerotic process seen. There is moderate ventral spondylosis mid and lower dorsal spine. CT/CT chest wo con IMPRESSION: Bilateral patchy ground-glass opacities in both upper lobes and lower lobes consistent with infiltrates. There are small bilateral pleural effusions. Ascites of the right hepatic lobe cyst. Cholelithiasis.
--- NOTE | ~2021-01-04 | XR_ITS ---
EXAMINATION: XR CHEST CLINICAL INFORMATION: Shortness of breath, rule out pneumonia. COMPARISON: 01/01/2021 portable chest. TECHNIQUE: Frontal view of the chest was obtained. FINDINGS: Lordotic positioning and low lung volumes limit evaluation. An infiltrate is seen inferiorly in the right upper lobe. The left lung is clear. The heart and mediastinal structures are unremarkable. XR/XR chest 1V IMPRESSION: Right upper lobe infiltrate, similar if not minimally improved compared to the previous study.
--- NOTE | ~2021-01-04 | US_ITS ---
EXAMINATION: ULTRASOUND-GUIDED PARACENTESIS CLINICAL INFORMATION: Ascites COMPARISON: November 28, 2020 TECHNIQUE: Ultrasound-guided paracentesis FINDINGS: Informed consent was obtained from the patient prior to the procedure. During this process, the procedure and potential alternatives were explained, along with the intended outcome and benefits. The risks of the procedure, as well as the risk of not doing the procedure, were discussed. The patient was given the opportunity to ask questions regarding the procedure and appeared competent to make medical decisions. A signed consent form which documents this discussion was placed in the medical record. Using sterile technique and ultrasound guidance a 5 [place] Sarwat needle was directed into the right lower quadrant where the largest fluid collection was present. There is a small to moderate amount of ascites present with peristalsing bowel. Only a total of 2.3 L of clear yellow fluid were aspirated from the pocket before bowel encased the catheter limiting drainage. Since there was not a large amount of fluid within the abdomen a second needle stick into another area was not performed. There is edema about thickened abdominal wall to greater than 5 cm in diameter. US/US paracentesis abd w/image IMPRESSION: Paracentesis with removal of 2.3 L of clear yellow fluid.
--- NOTE | ~2021-01-04 | XR_ITS ---
EXAMINATION: XR CHEST CLINICAL INFORMATION: Pneumonia COMPARISON: Chest x-ray January 07, 2021 TECHNIQUE: Frontal view of the chest was obtained. FINDINGS: Similar cardiac enlargement. Hypoinflated lungs. Patchy airspace disease is again noted bilaterally although more prominent within the right hemithorax. The degree of airspace disease appears relatively similar to January 07 imaging. No pleural effusion or pneumothorax identified. XR/XR chest 1V IMPRESSION: Relatively similar prominence of bilateral airspace disease.
--- NOTE | ~2021-01-04 | XR_ITS ---
EXAMINATION: XR CHEST CLINICAL INFORMATION: Follow-up CHF versus pneumonia COMPARISON: Previous chest x-ray and chest CT 01/04/2021 TECHNIQUE: Frontal view of the chest was obtained. FINDINGS: The cardiac silhouette is slightly enlarged but stable. Hilar and mediastinal contours are unremarkable. The lung volumes are low. There are bilateral patchy areas of airspace disease, right greater than left. These do not appear appreciably changed and are more suggestive of pneumonia than pulmonary edema. There is no pleural effusion. There are degenerative changes of the spine. XR/XR chest 1V IMPRESSION: Low lung volumes. Bilateral airspace disease, right greater than left, more suggestive of pneumonia.
--- NOTE | ~2021-01-04 | CT_ITS ---
EXAMINATION: CT HEAD WITHOUT CONTRAST CLINICAL INFORMATION: Seizure COMPARISON: 10/03/2019 TECHNIQUE: Contiguous axial imaging was performed from the skull base to vertex without intravenous administration of contrast. This CT examination was performed using dose optimization techniques as appropriate, variously including the following: *Automated exposure control *Adjustment of mA and/or kV according to patient size (this includes techniques or standardized protocols for targeted exams where dose is matched to indication/reason for exam; i.e. extremities or head) *Use of iterative reconstruction technique DLP: 792 mGy-cm FINDINGS: There is no evidence of acute intracranial hemorrhage or territorial infarction. No abnormal mass effect or midline shift is seen. Cueto to white matter differentiation is well preserved. No extra-axial fluid collections are identified. The ventricles are normal in size. There is mild periventricular white matter hypoattenuation consistent with chronic small vessel ischemic disease. The osseous structures and soft tissues are normal. The mastoid air cells and visualized portions of the paranasal sinuses are well aerated. CT/CT head/brain wo con IMPRESSION: No acute intracranial pathology.
--- NOTE | ~2021-01-04 | XR_ITS ---
EXAMINATION: XR CHEST CLINICAL INFORMATION: Central venous line placement COMPARISON: 01/02/2021 TECHNIQUE: Frontal view of the chest was obtained. FINDINGS: Interval placement of a left subclavian approach central venous catheter with tip at the brachiocephalic confluence. Cardia mediastinal silhouette is mildly enlarged, stable. Low lung volumes. Patchy bilateral airspace opacities without significant change from the prior exam. There is no pneumothorax. No large effusion. XR/XR chest 1V IMPRESSION: Bilateral infiltrates. Low lung volumes. Left subclavian approach central venous catheter tip projects over the brachiocephalic confluence. No pneumothorax.
--- NOTE | 2021-01-04 10:10 | ED_ITS ---
HPI - Weakness General Chief complaint: General Medical Stated complaint: low blood sugar Time Seen by Provider: 01/04/21 10:10 Source: patient and EMS Mode of arrival: EMS Limitations: no limitations History of Present Illness MD Complaint: generalized weakness (blood sugar in 20s) Onset (ago): hour(s) (3) Duration: improved (EMS gave glucagon and Dextrose with sig improvement ) Location: generalized Migration: none Severity: moderate Relieving factors: other (EMS treatments) Exacerbating factors: other (states since he has been at [facility] he has a terr ible appetitie) Associated symptoms: loss of appetite Related Data Home Medications Medication Instructions Recorded Confirmed lactulose 10 gram/15 mL oral 15 ml PO DAILY PRN 04/04/20 11/27/20 solution pen needle, diabetic 31 gauge x #50 ea 07/07/20 11/27/20/16 magnesium oxide 400 mg (241.3 mg 400 mg PO BEDTIME 10/09/20 11/27/20 magnesium) tablet cholecalciferol (vitamin D3) 1,250 2,000 unit PO DAILY 10/15/20 11/27/20 mcg (50,000 unit) capsule insulin degludec 200 unit/mL (3 30 unit SUBCUT DAILY 10/15/20 11/27/20 mL) subcutaneous pen (Tresiba FlexTouch U-200 insulin) Previous Rx's Medication Instructions Recorded penicillin V potassium 250 mg 250 mg PO BID 90 Days #180 tab 05/26/20 tablet blood sugar diagnostic (FreeStyle #100 ea 05/29/20 Lite Strips) lancets 28 gauge (FreeStyle #100 ea 05/29/20 Lancets) pen needle, diabetic 32 gauge x #125 ea 05/29/20 (BD Ultra-Fine Tracee Pen Needle) blood-glucose meter (FreeStyle #1 ea 06/04/20 Lite Meter) omeprazole 20 mg capsule,delayed 20 mg PO BID #180 cap 07/15/20 release bumetanide 1 mg tablet 2 mg PO BID #60 tab 08/05/20 folic acid 1 mg tablet 1 mg PO DAILY #30 tab 08/05/20 rifaximin 550 mg tablet (Xifaxan) 550 mg PO BID #60 tab 09/18/20 nystatin 100,000 unit/gram topical 1 appl TOPICAL BID #60 g 11/14/20 powder lift recliner chair #1 ea 11/26/20 empagliflozin 25 mg tablet 25 mg PO QAM 90 Days #90 tab 12/01/20 liraglutide 0.6 mg/0.1 mL (18 mg/3 1.8 mg SUBCUT DAILY 30 Days #9 ml 12/03/20 mL) subcutaneous pen injector (Bookeentoza 3-Gordo) thiamine HCl (vitamin B1) 100 mg 100 mg PO DAILY #90 tab 01/01/21 tablet Allergies Allergy/AdvReac Type Severity Reaction Status Date / Time No Known Allergies Allergy Verified 11/27/20 14:38 Review of Systems Review of Systems: Constitutional : No Weight loss, No Fever, No Chills, No Fatigue, No Malaise ENT/Mouth : No sore throat, No Rhinorrhea Eyes: No Eye Pain, No Swelling, No Redness Cardiovascular : No Chest Pain, No SOB, No Dyspnea on Exertion, No Orthopnea, pos Edema, No Palpitations Respiratory : No Cough, No Sputum, No Wheezing Gastrointestinal : No Nausea, No Vomiting, No Diarrhea, No Constipation, No abdominal Pain, No Hematochezia, No Melena Genitourinary : No Dysuria, No Urinary Frequency, No Hematuria, Musculoskeletal : No joint pain, No Myalgias, No Joint Swelling Skin : No Skin Lesions, No rash Neuro : pos Weakness prior to EMS correction of low blood sugar, No Numbness, No Dizziness, No Headache, Psych : No Anxiety/Panic, No Depression Heme/Lymph: No Bruising, No Bleeding,No Lymphadenopathy Endocrine : No Polyuria, No Polydipsia All other systems reviewed and are negative [facility] Past Medical History Attestation statement: The following information was validated with the patient. Medical History Acid reflux Acute hepatic encephalopathy Acute on chronic kidney failure LINETTE (acute kidney injury) Alcohol induced liver disorder Anasarca Anemia Annual physical exam Aortic stenosis Ascites due to alcoholic cirrhosis Atrial fibrillation Cellulitis CHF (congestive heart failure) Chronic edema Cirrhosis CKD (chronic kidney disease) stage 3, GFR 30-59 ml/min Diabetes Dyslipidemia Elevated brain natriuretic peptide (BNP) level Encephalopathy Esophageal varix Essential hypertension GAVE (gastric antral vascular ectasia) Hepatic encephalopathy HTN (hypertension) Hyperammonemia Hyponatremia Lipodermatosclerosis Liver cirrhosis Low serum vitamin D Lower extremity edema Obesity Obesity (BMI 30-39.9) BARTOLOME (obstructive sleep apnea) Osteoarthritis Portal hypertension syndrome Portal hypertensive gastropathy Recurrent cellulitis of lower extremity Tongue ulcer Type 2 diabetes mellitus with chronic kidney disease Type 2 diabetes mellitus with hyperglycemia, with long-term current use of insulin Surgical History H/O colonoscopy History of esophagogastroduodenoscopy (EGD) History of tonsillectomy Family History Family History Brother Diabetes Father No problems noted. Social History Social History Household Members: Spouse Housing: House Do you presently have visiting nurse or other home services: No Alcohol intake: never Patient Tobacco Use Status: Never used Tobacco e-Cigarette/Vaping Use: Never Used Second Hand Smoke Exposure: No Use of substances other than those prescribed or required for medical reasons: No Advance Directives: No Advance Directives Information Provided: No service: No Current occupational status: retired Physical Exam Vital Signs: Vital Signs: Last Vital Signs Temp 98.8 F 01/04/21 10:21 Pulse 68 01/04/21 10:21 Resp 18 01/04/21 10:21 BP 113/43 L 01/04/21 10:21 Pulse Ox 100 01/04/21 10:21 Body Mass Index 48.7 Appearance: Alert. Oriented X3. No acute distress. Eyes: Pupils equal, round and reactive to light. Glassy appearance ENT: Pharynx normal. Neck: Normal inspection. Neck supple. CVS: Normal heart rate and rhythm. Pulses normal. Respiratory: No respiratory distress. Breath sounds normal. Abdomen: Soft and nontender but with moderate ascited noted Skin: Skin warm and dry. pale/yellow skin color. Normal skin turgor. Extremities: pos bilateral 3+ pitting lower extremity edema. No calf ttp Neuro: Oriented X 3. No motor deficit. No sensory deficit. Course Course Course Narrative: CBC baseline, INR baseline Glucose dropped again to 50 currently eating will monitor, likely lack of glycogen stores ammonia level lower than baseline RUL infiltrate noted on CXR was present on 01/01 no abx started at this time, will treat for HCAP and admit possible cause of low blood sugar MDM - Weakness MDM Narrative Medical decision making narrative: 70 yo male with hx of cirrhosis with ascites, CKD, DM on insulin, HLD, HTN, LE swelling here with low blood sugars reportedly down to the 20s - patient felt confused, EMS was called treated with glucagon and dextrose with sig improvement at this time symptoms could be related to infection vs poor PO intake that he reports. Labs, CXR, UA ordered, will need observation in ED to make sure he maintains his BS. Lab Data Result diagrams: 01/04/21 10:48 01/04/21 10:48 Labs: Lab Results 01/04/21 01/04/21 01/04/21 Range/Units 10:48 10:48 10:48 WBC 4.7 L (4.8-10.8) X10*3/uL RBC 2.73 L (4.60-5.80) X10*6/uL Hgb 8.9 L (14.0-18.0) g/dl Hct 26.5 L (42-52) % MCV 97.1 (80-98) fL MCH 32.6 (27.0-33.0) pg MCHC 33.6 (31.0-36.0) g/dl RDW 19.2 H (11.0-16.0) % Plt Count 57 L (160-400) X10*3/uL MPV 10.0 (9.4-12.4) fL Immature Gran % (Auto) 0.4 (0.0-0.4) % Neut % (Auto) 76.7 H (45-73) % Lymph % (Auto) 10.7 L (20-40) % [place] % (Auto) 9.0 (2-11) % Eos % (Auto) 2.6 (0-4) % Baso % (Auto) 0.6 (0-2) % Lymph # (Auto) 0.5 L (1.2-4.9) X10*3/uL [place] # (Auto) 0.4 (0.1-1.2) X10*3/uL Eos # (Auto) 0.1 (0.0-0.4) X10*3/uL Baso # (Auto) 0.0 (0.0-0.2) X10*3/uL Abs Immat Gran (auto) 0.02 (0.00-0.03) X10*3/uL Absolute Neuts (auto) 3.6 (2.0-8.3) X10*3/uL Absolute Nucleated RBC 0.000 (0.0-0.012) X10*3/uL Nucleated RBC % (auto) 0.0 (0.0-0.2) /100WBC PT 21.2 H (9.9-13.0) SEC INR 1.8 H (0.9-1.1) APTT 46.6 H (24.1-38.0) SEC Sodium 138 (135-145) mmol/L Potassium 3.3 (3.3-5.1) mmol/L Chloride 103 (96-108) mmol/L Carbon Dioxide 26 (22-29) mmol/L Anion Gap 12 (12-20) BUN 53 H (9-16) mg/dL Creatinine 1.48 H (0.5-1.4) mg/dL Estim Creat Clear Calc 68.1 Estimated GFR 47 POC Glucose (60-115) mg/dL Random Glucose 54 L* (60-115) mg/dL Lactic Acid (0.5-2.0) mmol/L Calcium 8.5 (8.4-10.2) mg/dL Magnesium 2.2 (1.6-2.6) mg/dL Total Bilirubin 4.9 H (0.0-1.0) mg/dL Direct Bilirubin 1.9 H (0.0-0.5) mg/dL AST 48 H (5-37) U/L ALT 31 (0-40) U/L Alkaline Phosphatase 99 (39-117) U/L Ammonia (13-55) umol/L B-Natriuretic Peptide (<100) pg/mL Total Protein 5.2 L (6.5-8.0) g/dL Albumin 2.9 L (3.5-5.0) g/dL Lipase 29 (8-78) U/L COVID-19 (JACKY) (Negative) COVID-19 Clin Com 01/04/21 01/04/21 01/04/21 Range/Units 10:48 10:48 10:48 WBC (4.8-10.8) X10*3/uL RBC (4.60-5.80) X10*6/uL Hgb (14.0-18.0) g/dl Hct (42-52) % MCV (80-98) fL MCH (27.0-33.0) pg MCHC (31.0-36.0) g/dl RDW (11.0-16.0) % Plt Count (160-400) X10*3/uL MPV (9.4-12.4) fL Immature Gran % (Auto) (0.0-0.4) % Neut % (Auto) (45-73) % Lymph % (Auto) (20-40) % [place] % (Auto) (2-11) % Eos % (Auto) (0-4) % Baso % (Auto) (0-2) % Lymph # (Auto) (1.2-4.9) X10*3/uL [place] # (Auto) (0.1-1.2) X10*3/uL Eos # (Auto) (0.0-0.4) X10*3/uL Baso # (Auto) (0.0-0.2) X10*3/uL Abs Immat Gran (auto) (0.00-0.03) X10*3/uL Absolute Neuts (auto) (2.0-8.3) X10*3/uL Absolute Nucleated RBC (0.0-0.012) X10*3/uL Nucleated RBC % (auto) (0.0-0.2) /100WBC PT (9.9-13.0) SEC INR (0.9-1.1) APTT (24.1-38.0) SEC Sodium (135-145) mmol/L Potassium (3.3-5.1) mmol/L Chloride (96-108) mmol/L Carbon Dioxide (22-29) mmol/L Anion Gap (12-20) BUN (9-16) mg/dL Creatinine (0.5-1.4) mg/dL Estim Creat Clear Calc Estimated GFR POC Glucose (60-115) mg/dL Random Glucose (60-115) mg/dL Lactic Acid 1.3 (0.5-2.0) mmol/L Calcium (8.4-10.2) mg/dL Magnesium (1.6-2.6) mg/dL Total Bilirubin (0.0-1.0) mg/dL Direct Bilirubin (0.0-0.5) mg/dL AST (5-37) U/L ALT (0-40) U/L Alkaline Phosphatase (39-117) U/L Ammonia 84 H (13-55) umol/L B-Natriuretic Peptide 776 H (<100) pg/mL Total Protein (6.5-8.0) g/dL Albumin (3.5-5.0) g/dL Lipase (8-78) U/L COVID-19 (JACKY) (Negative) COVID-19 Clin Com 01/04/21 01/04/21 01/04/21 Range/Units 10:49 11:02 11:40 WBC (4.8-10.8) X10*3/uL RBC (4.60-5.80) X10*6/uL Hgb (14.0-18.0) g/dl Hct (42-52) % MCV (80-98) fL MCH (27.0-33.0) pg MCHC (31.0-36.0) g/dl RDW (11.0-16.0) % Plt Count (160-400) X10*3/uL MPV (9.4-12.4) fL Immature Gran % (Auto) (0.0-0.4) % Neut % (Auto) (45-73) % Lymph % (Auto) (20-40) % [place] % (Auto) (2-11) % Eos % (Auto) (0-4) % Baso % (Auto) (0-2) % Lymph # (Auto) (1.2-4.9) X10*3/uL [place] # (Auto) (0.1-1.2) X10*3/uL Eos # (Auto) (0.0-0.4) X10*3/uL Baso # (Auto) (0.0-0.2) X10*3/uL Abs Immat Gran (auto) (0.00-0.03) X10*3/uL Absolute Neuts (auto) (2.0-8.3) X10*3/uL Absolute Nucleated RBC (0.0-0.012) X10*3/uL Nucleated RBC % (auto) (0.0-0.2) /100WBC PT (9.9-13.0) SEC INR (0.9-1.1) APTT (24.1-38.0) SEC Sodium (135-145) mmol/L Potassium (3.3-5.1) mmol/L Chloride (96-108) mmol/L Carbon Dioxide (22-29) mmol/L Anion Gap (12-20) BUN (9-16) mg/dL Creatinine (0.5-1.4) mg/dL Estim Creat Clear Calc Estimated GFR POC Glucose 50 L* 90 (60-115) mg/dL Random Glucose (60-115) mg/dL Lactic Acid (0.5-2.0) mmol/L Calcium (8.4-10.2) mg/dL Magnesium (1.6-2.6) mg/dL Total Bilirubin (0.0-1.0) mg/dL Direct Bilirubin (0.0-0.5) mg/dL AST (5-37) U/L ALT (0-40) U/L Alkaline Phosphatase (39-117) U/L Ammonia (13-55) umol/L B-Natriuretic Peptide (<100) pg/mL Total Protein (6.5-8.0) g/dL Albumin (3.5-5.0) g/dL Lipase (8-78) U/L COVID-19 (JACKY) Negative (Negative) COVID-19 Clin Com See Note ECG Data Attestation: I personally reviewed and interpreted this ECG as follows: ECG interpretation date: 01/04/21 ECG interpretation time: 10:47 Interpretation: Rate: 61 Rhythm: afib [place]: normal Normal P waves. Normal AMADA. Normal QRS complex. ST T wave : no YVETTE, flat t waves diffusely, inverted V1-V3 qTC: normal prior studies: no change from priors no sig ischemia The study has been interpreted contemporaneously by me. . Discharge Plan Discharge Clinical Impression: Hypoglycemia, Cirrhosis, Pneumonia Patient Disposition: Admitted As Inpatient Prescriptions: No Action (DME) FreeStyle Lite Strips Strip See Rx Instructions .ROUTE .MEDSUPPLY Qty: 100 RF: 11 (DME) blood-glucose meter [FreeStyle Lite Meter] Kit See Rx Instructions .ROUTE .MEDSUPPLY Qty: 1 RF: 0 omeprazole 20 mg capsule,delayed release(DR/EC) 20 mg PO BID Qty: 180 RF: 1 bumetanide 1 mg tablet 2 mg PO BID Qty: 60 RF: 0 folic acid 1 mg tablet 1 mg PO DAILY Qty: 30 RF: 0 Xifaxan 550 mg tablet 550 mg PO BID Qty: 60 RF: 3 (DME) lift recliner chair 0 .Route .MEDSUPPLY Qty: 1 RF: 0 empagliflozin 25 mg tablet 25 mg PO QAM 90 Days Qty: 90 RF: 0 liraglutide [Victoza 3-Gordo] 0.6 mg/0.1 mL (18 mg/3 mL) pen injector 1.8 mg subcut DAILY 30 Days Qty: 9 RF: 0 thiamine HCl (vitamin B1) 100 mg tablet 100 mg PO DAILY Qty: 90 RF: 2 cholecalciferol (vitamin D3) 1,250 mcg (50,000 unit) capsule 2,000 unit PO DAILY RF: 0 Tresiba FlexTouch U-200 200 unit/mL (3 mL) insulin pen 30 unit subcut DAILY RF: 0 lactulose 10 gram/15 mL solution 15 ml PO DAILY PRN (Reason: Constipation) RF: 0 nystatin 100,000 unit/gram powder 1 appl topical BID Qty: 60 RF: 4 (DME) pen needle, diabetic [BD Ultra-Fine Tracee Pen Needle] 32 gauge x 5/32 needle See Rx Instructions .ROUTE .MEDSUPPLY Qty: 125 RF: 11 (DME) lancets [FreeStyle Lancets] 28 gauge misc See Rx Instructions .ROUTE .MEDSUPPLY Qty: 100 RF: 11 penicillin V potassium 250 mg tablet 250 mg PO BID 90 Days Qty: 180 RF: 3 (DME) pen needle, diabetic 31 gauge x 3/16 needle See Rx Instructions ea subcut QID Qty: 50 RF: 0 magnesium oxide 400 mg (241.3 mg magnesium) tablet 400 mg PO BEDTIME RF: 0
--- NOTE | 2021-01-04 10:20 | ECG_ITS ---
Test Reason : WEAKNESS Blood Pressure : / mmHG Vent. Rate : 061 BPM Atrial Rate : 081 BPM P-R Int : 000 ms QRS Dur : 106 ms QT Int : 470 ms P-R-T Axes : 000 004 -13 degrees QTc Int : 473 ms Atrial fibrillation Nonspecific T wave abnormality Abnormal ECG When compared with ECG of 01-JAN-2021 13:05, No significant change was found Referred By: Erica Ferrell Electronically Signed By:ZAIDA APARICIO
[2021-01-04 10:21] VITALS: BP 113/43; BP 130/80; PULSE 60; PULSE 68; RESP 18; TEMP 37.1; O2SAT 100; BMI 48.7
[2021-01-04 10:55] LABS: MANUAL DIFF FLAG NO
[2021-01-04 10:59] LABS: Basophils Percent Auto 0.6 % (0-2); Eosinophils Absolute Auto 0.1 X10*3/uL (0.0-0.4); Eosinophils Percent Auto 2.6 % (0-4); Hematocrit 26.5 % (42-52); Hemoglobin 8.9 g/dl (14.0-18.0); Imm Gran Abs Auto 0.02 X10*3/uL (0.00-0.03); Imm Gran Pct Auto 0.4 % (0.0-0.4); Lymphocytes Absolute Auto 0.5 X10*3/uL (1.2-4.9); Lymphocytes Percent Auto 10.7 % (20-40); Mean Corpuscular HGB Conc 33.6 g/dl (31.0-36.0); Mean Corpuscular Hemoglobin 32.6 pg (27.0-33.0); Mean Corpuscular Volume 97.1 fL (80-98); Monocytes Absolute Auto 0.4 X10*3/uL (0.1-1.2); Neutrophils Absolute Auto 3.6 X10*3/uL (2.0-8.3); Neutrophils Percent Auto 76.7 % (45-73); Red Blood Count 2.73 X10*6/uL (4.60-5.80); Red Cell Distribution Width 19.2 % (11.0-16.0); White Blood Count 4.7 X10*3/uL (4.8-10.8)
[2021-01-04 11:00] LABS: Platelet Count 57 X10*3/uL (160-400)
[2021-01-04 11:07] LABS: INTERNATIONAL NORM RATIO 1.8 (0.9-1.1); Prothrombin Time 21.2 SEC (9.9-13.0)
[2021-01-04 11:09] LABS: Partial Thromboplastin Time 46.6 SEC (24.1-38.0)
[2021-01-04 11:12] LABS: COVID-19 Test Negative (Negative); IDNOW Serial# 9DD0AD1C
[2021-01-04 11:14] LABS: Ammonia 84 umol/L (13-55)
[2021-01-04 11:17] LABS: Lactic Acid 1.3 mmol/L (0.5-2.0)
[2021-01-04 11:28] LABS: Alanine Aminotransferase 31 U/L (0-40); Albumin Level 2.9 g/dL (3.5-5.0); Alkaline Phosphatase 99 U/L (39-117); Anion Gap 12 (12-20); Aspartate Amino Transferase 48 U/L (5-37); Bilirubin Direct 1.9 mg/dL (0.0-0.5); Bilirubin Total 4.9 mg/dL (0.0-1.0); Blood Urea Nitrogen 53 mg/dL (9-16); Calcium 8.5 mg/dL (8.4-10.2); Carbon Dioxide 26 mmol/L (22-29); Chloride 103 mmol/L (96-108); Creatinine Clr Calc Pharmacy 68.1; Estimated Glomerular Filt Rate 47; Glucose Random 54 mg/dL (60-115); Lipase 29 U/L (8-78); Magnesium 2.2 mg/dL (1.6-2.6); Potassium 3.3 mmol/L (3.3-5.1); Sodium 138 mmol/L (135-145); Total Protein 5.2 g/dL (6.5-8.0)
[2021-01-04 11:29] LABS: B Type Natriuretic Peptide 776 pg/mL (<100)
[2021-01-04 11:45] LABS: Glucose, Whole Blood 90 mg/dL (60-115)
[2021-01-04 11:45] LABS: Glucose, Whole Blood 50 mg/dL (60-115)
--- NOTE | 2021-01-04 11:54 | PC.NURSE ---
marcelo johnson and called about pt glasses and belongings.
[2021-01-04] MEDS: cefEPime HCl 2 GM in 0.9 % Sodium Chloride 50 ML IV (12:24)
--- NOTE | 2021-01-04 13:02 | P.HPHOSP_ITS ---
History of Present Illness Date of Service: 01/04/21 Chief Complaint: hypoglycemia 70M sent from [place] for hypoglycemia., patient is poor historian, was sent from [place] by EMS for hypoglycemia down to 20s, with AMS, given glucagon and dextrose, reported decreased appetite and no change in insulin dosage. noted to have RUL opacity on CXR concerning for pneumonia. Review of Systems Review of Systems: Constitutional: Chills Eyes: denies blurry vision ENT: denies sore throat CVS: denies chest pain Respiratory: Denies dyspnea GI: no abdominal pain : denies dysuria MSK: denies neck pain Skin: denies rash Neuro: denies specific motor weakness Psych: denies suicidal ideation Endocrine: denies heat/cold intolerance Hematologic: denies easy bleeding Allergy: denies hives [facility] Medical History Acid reflux Acute hepatic encephalopathy Acute on chronic kidney failure LINETTE (acute kidney injury) Alcohol induced liver disorder Anasarca Anemia Annual physical exam Aortic stenosis Ascites due to alcoholic cirrhosis Atrial fibrillation Cellulitis CHF (congestive heart failure) Chronic edema Cirrhosis CKD (chronic kidney disease) stage 3, GFR 30-59 ml/min Diabetes Dyslipidemia Elevated brain natriuretic peptide (BNP) level Encephalopathy Esophageal varix Essential hypertension GAVE (gastric antral vascular ectasia) Hepatic encephalopathy HTN (hypertension) Hyperammonemia Hyponatremia Lipodermatosclerosis Liver cirrhosis Low serum vitamin D Lower extremity edema Obesity Obesity (BMI 30-39.9) BARTOLOME (obstructive sleep apnea) Osteoarthritis Portal hypertension syndrome Portal hypertensive gastropathy Recurrent cellulitis of lower extremity Tongue ulcer Type 2 diabetes mellitus with chronic kidney disease Type 2 diabetes mellitus with hyperglycemia, with long-term current use of insulin Family History Brother Diabetes Father No problems noted. Family history: reviewed and not pertinent Surgical History H/O colonoscopy History of esophagogastroduodenoscopy (EGD) History of tonsillectomy Social History Household Members: Spouse Housing: House Do you presently have visiting nurse or other home services: No Alcohol intake: never Patient Tobacco Use Status: Never used Tobacco e-Cigarette/Vaping Use: Never Used Second Hand Smoke Exposure: No Use of substances other than those prescribed or required for medical reasons: No Advance Directives: No Advance Directives Information Provided: No service: No Current occupational status: retired Meds Allergies Allergy/AdvReac Type Severity Reaction Status Date / Time No Known Allergies Allergy Verified 11/27/20 14:38 Active Medications: Current Medications Generic Name Dose Route Start Last Admin Trade Name Freq PRN Reason Stop Dose Admin Dextrose 25 gm 01/04/21 12:58 Dextrose 50 % 25 Gm/50 Ml Vial IVPUSH Q15M PRN per Hypoglycemia Standing Ord. Protocol Glucose 15 gm 01/04/21 12:58 Glucose Gel 15 Gm Gel..Gram. PO Q15M PRN per Hypoglycemia Standing Ord. Protocol Vancomycin HCl 1,500 mg/ 500 mls @ 333.333 mls/hr 01/04/21 12:14 Sodium Chloride IV 01/04/21 13:43 ONCE ONE Ceftriaxone Sodium 1 gm/ 50 mls @ 100 mls/hr 01/05/21 08:00 Sodium Chloride IV Q24H [facility] Doxycycline Hyclate 100 mg/ 250 mls @ 166.67 mls/hr 01/04/21 13:00 Sodium Chloride IV Q12H [facility] Insulin Human Lispro 0 unit 01/04/21 16:30 Insulin Lispro 100 Unit/Ml 3 Ml Vial SUBCUT [facility] Protocol Pharmacy Consult 1 each 01/04/21 12:14 Consult Rx Vancomycin Dosing MISCELLANE DAILY PRN Consult order Home Medications Medication Instructions Recorded Confirmed Last Taken Type cholecalciferol (vitamin D3) 50 50 mcg PO DAILY 01/04/21 01/04/21 Unknown History mcg (2,000 unit) capsule (Vitamin D3) empagliflozin 25 mg tablet 25 mg PO DAILY 01/04/21 01/04/21 Unknown History (Jardiance) folic acid 1 mg tablet 1 mg PO DAILY 01/04/21 01/04/21 Unknown History insulin degludec 200 unit/mL (3 100 unit SUBCUT DAILY 01/04/21 01/04/21 Unknown History mL) subcutaneous pen (Tresiba FlexTouch U-200 insulin) insulin lispro 100 unit/mL 0 unit SUBCUT TID 01/04/21 01/04/21 Unknown History subcutaneous pen (Humalog KwikPen (U-100) Insulin) lactulose 10 gram/15 mL oral syrup 20 g PO TID 01/04/21 01/04/21 Unknown History levothyroxine 50 mcg tablet 50 mcg PO DAILY 01/04/21 01/04/21 Unknown History liraglutide 0.6 mg/0.1 mL (18 mg/3 0.6 mg SUBCUT DAILY 01/04/21 01/04/21 Unknown History mL) subcutaneous pen injector ([employer] 2-Gordo) metoprolol tartrate 25 mg tablet 25 mg PO DAILY 01/04/21 01/04/21 Unknown Hi story omeprazole 20 mg capsule,delayed 20 mg PO BID 01/04/21 01/04/21 Unknown History release penicillin V potassium 250 mg 250 mg PO BID 01/04/21 01/04/21 Unknown History tablet rifaximin 550 mg tablet (Xifaxan) 550 mg PO BID 01/04/21 01/04/21 Unknown History tamsulosin 0.4 mg capsule (Flomax) 0.4 mg PO BEDTIME 01/04/21 01/04/21 Unknown History thiamine HCl (vitamin B1) 100 mg 100 mg PO BID 01/04/21 01/04/21 Unknown History tablet torsemide 20 mg tablet 40 mg PO BID 01/04/21 01/04/21 Unknown History Physical Exam Vital Signs and Narrative: Vital Signs: Last Vital Signs Temp 98.8 F 01/04/21 10:21 Pulse 68 01/04/21 10:21 Resp 18 01/04/21 10:21 BP 113/43 L 01/04/21 10:21 Pulse Ox 100 01/04/21 10:21 Body Mass Index 48.7 General: no acute distress HEENT: atraumatic Neck: normal to visual inspection CVS: S1, S2, RRR Resp: CTA bilateral Chest: non tender GI: soft, non tender, non distended : no CVA tenderness Skin: no rashes Extremities: 3-4+ edema, chronic skin changes Neuro: Oriented X3 but seems mentally sluggish Psych: cooperative Results Labs CBC and Chem 7: 01/04/21 10:48 01/04/21 10:48 Labs: Laboratory Results - last 24 hr 01/04/21 01/04/21 01/04/21 10:48 10:48 10:48 MCV 97.1 MCH 32.6 MCHC 33.6 RDW 19.2 H Plt Count 57 L MPV 10.0 Immature Gran % (Auto) 0.4 Neut % (Auto) 76.7 H Lymph % (Auto) 10.7 L [place] % (Auto) 9.0 Eos % (Auto) 2.6 Baso % (Auto) 0.6 Lymph # (Auto) 0.5 L [place] # (Auto) 0.4 Eos # (Auto) 0.1 Baso # (Auto) 0.0 Abs Immat Gran (auto) 0.02 Absolute Neuts (auto) 3.6 Absolute Nucleated RBC 0.000 Nucleated RBC % (auto) 0.0 PT 21.2 H INR 1.8 H APTT 46.6 H Anion Gap 12 Estim Creat Clear Calc 68.1 Estimated GFR 47 POC Glucose Random Glucose 54 L* Lactic Acid Calcium 8.5 Magnesium 2.2 Total Bilirubin 4.9 H Direct Bilirubin 1.9 H AST 48 H ALT 31 Alkaline Phosphatase 99 Ammonia B-Natriuretic Peptide Total Protein 5.2 L Albumin 2.9 L Lipase 29 COVID-19 (JACKY) COVID-19 [employer] 01/04/21 01/04/21 01/04/21 10:48 10:48 10:48 MCV MCH MCHC RDW Plt Count MPV Immature Gran % (Auto) Neut % (Auto) Lymph % (Auto) [place] % (Auto) Eos % (Auto) Baso % (Auto) Lymph # (Auto) [place] # (Auto) Eos # (Auto) Baso # (Auto) Abs Immat Gran (auto) Absolute Neuts (auto) Absolute Nucleated RBC Nucleated RBC % (auto) PT INR APTT Anion Gap Estim Creat Clear Calc Estimated GFR POC Glucose Random Glucose Lactic Acid 1.3 Calcium Magnesium Total Bilirubin Direct Bilirubin AST ALT Alkaline Phosphatase Ammonia 84 H B-Natriuretic Peptide 776 H Total Protein Albumin Lipase COVID-19 (JACKY) COVID-19 [employer] 01/04/21 01/04/21 01/04/21 10:49 11:02 11:40 MCV MCH MCHC RDW Plt Count MPV Immature Gran % (Auto) Neut % (Auto) Lymph % (Auto) [place] % (Auto) Eos % (Auto) Baso % (Auto) Lymph # (Auto) [place] # (Auto) Eos # (Auto) Baso # (Auto) Abs Immat Gran (auto) Absolute Neuts (auto) Absolute Nucleated RBC Nucleated RBC % (auto) PT INR APTT Anion Gap Estim Creat Clear Calc Estimated GFR POC Glucose 50 L* 90 Random Glucose Lactic Acid Calcium Magnesium Total Bilirubin Direct Bilirubin AST ALT Alkaline Phosphatase Ammonia B-Natriuretic Peptide Total Protein Albumin Lipase COVID-19 (JACKY) Negative COVID-19 Clin Com See Note Imaging Radiologist's Impressions: Impressions Chest X-Ray 01/04/21 10:20 IMPRESSION: Right upper lobe infiltrate, similar if not minimally improved compared to the previous study. Assessment and Plan (1) Pneumonia: Qualifiers: Laterality: right Lung location: upper lobe of lung Pneumonia type: due to unspecified organism Qualified Code(s): J18.9 - Pneumonia, unspecified organism Status: Acute 70M presented with hypoglycemia and ams found to have pneumonia DM with hypoglycemia complicated by metabolic encephalopathy resolved will hold home insulin, just sliding scale for now, monitor pneumonia rocpehin, azithro check CT chest alcohol liver cirrhosis continue rifaximin, lactulose follow with umass CKD III stable LE edema due to liver disease mechanical compression vte prophylaxis - mechanical due to thrombocytopenia Quality Stroke Does the patient have a stroke diagnosis?: No VTE Prior VTE?: No VTE Risk Level:: Medical - moderate - high VTE Device Contraindication: N/A - Device Ordered VTE Drug Contraindication: Treatment Not Indicated
[2021-01-04] MEDS: vancomycin HCL 1,500 MG in 0.9 % Sodium Chloride 500 ML 333.33 MG IV (13:13)
[2021-01-04 13:17] VITALS: BP 123/71; PULSE 78; RESP 18; O2SAT 100
--- NOTE | 2021-01-04 13:52 | PC.NURSE ---
med rec completed
[2021-01-04 14:05] LABS: Glucose, Whole Blood 125 mg/dL (60-115)
[2021-01-04] MEDS: Doxycycline Hyclate 100 MG in 0.9 % Sodium Chloride 250 ML 166.67 MG IV (15:02)
[2021-01-04] MEDS: Lactulose 20 GM/30 ML SOLUTION PO ×2 (15:02→20:41)
[2021-01-04 15:38] VITALS: BP 147/57; PULSE 82; RESP 18; TEMP 36.4; O2SAT 97
[2021-01-04 15:45] LABS: Glucose Urine UA NEG (NEG); Leukocyte Esterase Urine 3+ (NEG); Nitrite Urine NEG (NEG); Specific Gravity - Urine 1.015 (1.005-1.025); UACC Culture Trigger YES; Urine Blood 3+ (NEG); Urine Ketones NEG (NEG); Urine Protein 2+ MG/DL (NEG-TRACE)
[2021-01-04 15:46] LABS: Appearance Urine CLOUDY; Color Urine YELLOW
[2021-01-04 15:55] LABS: Bacteria Urine 1+ /LPF; WBC Urine 50-75 /HPF (0-4)
--- NOTE | 2021-01-04 17:40 | PC.NURSE ---
pt pulled out ems iv. new 22g r hand placed.
[2021-01-04 17:41] LABS: Glucose, Whole Blood 106 mg/dL (60-115)
--- NOTE | 2021-01-04 17:58 | PC.NURSE ---
exp wheeze noted. verbal for karina arce. rt at bedside
[2021-01-04] MEDS: Albuterol/Iprat 2.5/0.5MG 3 ML AMPUL.NEB INHALE ×2 (18:06→23:31)
[2021-01-04 18:08] VITALS: PULSE 90; O2SAT 100
[2021-01-04] MEDS: Omeprazole 20 MG CAPSULE.DR PO (18:35)
[2021-01-04 19:24] VITALS: BP 146/80; PULSE 76; RESP 20
[2021-01-04 20:35] LABS: Glucose, Whole Blood 152 mg/dL (60-115)
[2021-01-04] MEDS: Tamsulosin HCL 0.4 MG CAPSULE PO (20:41)
[2021-01-04] MEDS: Thiamine HCL 100 MG TABLET PO (20:41)
[2021-01-04] MEDS: Insulin Lispro 100 UNIT/ML 3 ML VIAL SUBCUT (20:41)
--- NOTE | 2021-01-04 20:52 | PC.NURSE ---
Pharm contacted regarding 2100 medication not stocked in pyxis.
[2021-01-04] MEDS: rifAXIMin 550 MG TABLET PO (21:01)
--- NOTE | 2021-01-04 23:18 | PC.NURSE ---
RT called for PRN nebulizer.
[2021-01-04 23:33] VITALS: PULSE 79; O2SAT 99
--- NOTE | 2021-01-04 23:50 | PC.NURSE ---
RT at bedside for PRN updraft.
[2021-01-05] VITALS (8 sets, daily range): BP systolic 142–176; BP diastolic 63–80; PULSE 62–124; RESP 18–20; TEMP 36.7–37; O2SAT 90–97
[2021-01-05] MEDS: 0.9 % Sodium Chloride Flush 3 ML SYRINGE IVFLUSH ×3 (00:46→16:08)
[2021-01-05] MEDS: Doxycycline Hyclate 100 MG in 0.9 % Sodium Chloride 250 ML 166.67 MG IV ×2 (01:54→13:16)
--- NOTE | 2021-01-05 02:27 | PC.NURSE ---
Pt provided with magi care and a complete bed change. Pt noted to be leaking around haas catheter however haas draining without difficulty. Pt repositioned into POC. Continue to monitor.
[2021-01-05] MEDS: Omeprazole 20 MG CAPSULE.DR PO ×2 (06:04→16:03)
[2021-01-05] MEDS: Levothyroxine Sodium 50 MCG TABLET PO (06:04)
[2021-01-05] MEDS: cefTRIAXone sodium 1 GM in 0.9 % Sodium Chloride 50 ML IV (07:05)
[2021-01-05 07:12] LABS: Hematocrit 24.7 % (42-52); Hemoglobin 8.2 g/dl (14.0-18.0); Mean Corpuscular HGB Conc 33.2 g/dl (31.0-36.0); Mean Corpuscular Volume 96.5 fL (80-98); Mean Platelet Volume 9.9 fL (9.4-12.4); Red Blood Count 2.56 X10*6/uL (4.60-5.80); Red Cell Distribution Width 19.1 % (11.0-16.0); White Blood Count 4.7 X10*3/uL (4.8-10.8)
[2021-01-05 07:20] LABS: Platelet Count 57 X10*3/uL (160-400)
[2021-01-05 07:25] LABS: Anion Gap 12 (12-20); Blood Urea Nitrogen 51 mg/dL (9-16); Calcium 8.2 mg/dL (8.4-10.2); Carbon Dioxide 27 mmol/L (22-29); Chloride 103 mmol/L (96-108); Creatinine Clr Calc Pharmacy 67.2; Estimated Glomerular Filt Rate 46; Glucose Fasting 97 mg/dL (60-99); Potassium 3.7 mmol/L (3.3-5.1); Sodium 138 mmol/L (135-145)
--- NOTE | 2021-01-05 08:23 | P.CDIC_ITS ---
CDI Concurrent Query Service Date: 01/05/21 Documentation Clarification: Please clarify if you are treating a proba ble/suspected/likely or confirmed: Encephalopathy, present on admission - Metabolic - Septic - Toxic - Toxic metabolic - Hypertensive - Anoxic - Alcoholic - Hepatic (reported as hepatic failure and needs further specificity as to acute, subacute, or chronic) - Due to a specified condition (such as UTI, hyponatremia, CVA, etc.) - Other (please specify): - Unable to determine No Encephalopathy Use of terms such as suspected, likely, concern for, or probable (associated with a specific diagnosis that is being evaluated, monitored, or treated as if it exists) are acceptable and can be coded in the inpatient setting, when documented at the time of discharge. Provider Response: Other Other Diagnosis: please see my H and p from yesterday PLEASE DO NOT DELETE/MODIFY EXISTING CONTENT Additional information is needed in order to code to the highest accuracy and appropriate Severity of Illness (SOI). Please clarify the information noted below in your progress notes and discharge summary. Risk Factors/Clinical Indicators/Treatments Admit with weakness, low blood sugar, 20's, confused. Ammonia 84 CXR: RUL opacity concerning for pneumonia Treated with Glucagon, Dextrose, IV antibiotic Per H&P: Oriented x3 but seems mentally sluggish PMH: DM, Acute Hepatic Encephalopathy Cirrhosis CDS: Anna Hill RN Contact Number: [phone] Please Review the information above and exercise your independent professional judgment in responding to the query. If you concur, pleas document in the PROGRESS NOTES and DISCHARGE SUMMARY. If you do not agree with the query, pl ease document in the query above. THIS QUERY IS PART OF THE PERMANENT MEDICAL RECORD
[2021-01-05] MEDS: rifAXIMin 550 MG TABLET PO ×2 (08:31→21:40)
[2021-01-05] MEDS: Lactulose 20 GM/30 ML SOLUTION PO ×3 (08:32→21:40)
[2021-01-05] MEDS: Thiamine HCL 100 MG TABLET PO ×2 (08:32→21:40)
[2021-01-05] MEDS: Folic Acid 1 MG TABLET PO (08:32)
[2021-01-05] MEDS: Metoprolol Tartrate 25 MG TABLET PO (08:32)
[2021-01-05 08:48] LABS: Glucose, Whole Blood 96 mg/dL (60-115)
[2021-01-05] MEDS: Furosemide 40 MG/4 ML VIAL IVPUSH ×2 (09:17→19:08)
--- NOTE | 2021-01-05 11:28 | PC.NURSE ---
report given to imc rn
[2021-01-05 12:04] LABS: Glucose, Whole Blood 45 mg/dL (60-115)
--- NOTE | 2021-01-05 12:18 | HO.PM.IMPN ---
Subjective Subjective Date of Service: 01/05/21 Interval History: lethargic Cardiovascular Cardiovascular: Reports no additional cardiovascular complaints Respiratory Respiratory: Reports no additional respiratory complaints Physical Exam Vital Signs: Vital Signs: Last Vital Signs Temp 97.6 F 01/04/21 15:38 Pulse 62 01/05/21 12:00 Resp 18 01/05/21 12:00 BP 142/63 H 01/05/21 12:00 Pulse Ox 97 01/05/21 12:00 Body Mass Index 48.7 General: lethargic, ill appearing Resp: Crackles CVS: S1,S2,RRR GI: soft, non tender, distended Neuro: motor grossly intact Psych: appropriate affect Objective Data Current Medications Generic Name Dose Route Start Last Admin Trade Name Freq PRN Reason Stop Dose Admin Albuterol/Ipratropium 3 ml 01/04/21 17:56 01/04/21 23:31 Albuterol/Iprat 2.5/0.5mg 3 Ml Ampul.Neb INHALE 3 ml RQ4H PRN Administration Dyspnea Dextrose 25 gm 01/04/21 12:58 Dextrose 50 % 25 Gm/50 Ml Vial IVPUSH Q15M PRN per Hypoglycemia Standing Ord. Protocol Folic Acid 1 mg 01/05/21 09:00 01/05/21 08:32 Folic Acid 1 Mg Tablet PO 1 mg DAILY GEOFF Administration Furosemide 40 mg 01/05/21 09:00 01/05/21 09:17 Furosemide 40 Mg/4 Ml Vial IVPUSH 40 mg BID@0900,1800 GEOFF Administration Protocol Glucose 15 gm 01/04/21 12:58 Glucose Gel 15 Gm Gel..Gram. PO Q15M PRN per Hypoglycemia Standing Ord. Protocol Ceftriaxone Sodium 1 gm/ 50 mls @ 100 mls/hr 01/05/21 08:00 01/05/21 11:30 Sodium Chloride IV Infused Q24H GEOFF Infusion Doxycycline Hyclate 100 mg/ 250 mls @ 166.67 mls/hr 01/04/21 14:00 01/05/21 03:36 Sodium Chloride IV Infused Q12H GEOFF Infusion Insulin Human Lispro 0 unit 01/04/21 16:30 01/05/21 11:59 Insulin Lispro 100 Unit/Ml 3 Ml Vial SUBCUT Not Given QIDACHS [facility] Protocol Lactulose 20 gm 01/04/21 15:00 01/05/21 08:32 Lactulose 20 Gm/30 Ml Solution PO 20 gm TID GEOFF Administration Levothyroxine Sodium 50 mcg 01/05/21 06:00 01/05/21 06:04 Levothyroxine Sodium 50 Mcg Tablet PO 50 mcg DAILY@0600 GEOFF Administration Metoprolol Tartrate 25 mg 01/05/21 09:00 01/05/21 08:32 Metoprolol Tartrate 25 Mg Tablet PO 25 mg DAILY GEOFF Administration Protocol Omeprazole 20 mg 01/04/21 16:30 01/05/21 06:04 Omeprazole 20 Mg Capsule.Dr PO 20 mg BID@0630,1630 GEOFF Administration Rifaximin 550 mg 01/04/21 21:00 01/05/21 08:31 Rifaximin 550 Mg Tablet PO 550 mg BID GEOFF Administration Sodium Chloride 3 ml 01/04/21 16:00 01/05/21 08:33 0.9 % Sodium Chloride Flush 3 Ml Syringe IVFLUSH 3 ml QSHIFT GEOFF Administration Tamsulosin HCl 0.4 mg 01/04/21 21:00 01/04/21 20:41 Tamsulosin Hcl 0.4 Mg Capsule PO 0.4 mg BEDTIME GEOFF Administration Thiamine HCl 100 mg 01/04/21 21:00 01/05/21 08:32 Thiamine Hcl 100 Mg Tablet PO 100 mg BID GEOFF Administration Labs CBC & Chem 7: 01/05/21 06:38 01/05/21 06:38 Labs: Laboratory Results - last 24 hr 01/04/21 01/04/21 01/04/21 14:01 15:39 17:39 MCV MCH MCHC RDW Plt Count MPV Absolute Nucleated RBC Nucleated RBC % (auto) Anion Gap Estim Creat Clear Calc Estimated GFR POC Glucose 125 H 106 Fasting Glucose Calcium Urine Color YELLOW Urine Appearance CLOUDY Urine pH 6.0 Ur Specific [place] 1.015 Urine Protein 2+ H Urine Glucose (UA) NEG Urine Ketones NEG Urine Blood 3+ H Urine Nitrite NEG Ur Leukocyte Esterase 3+ H Urine RBC 15-29 H Urine WBC 50-75 H Ur Squamous Epith Cells NONE Urine Bacteria 1+ Urine Yeast 3+ 01/04/21 01/05/21 01/05/21 20:32 06:38 06:38 MCV 96.5 MCH 32.0 MCHC 33.2 RDW 19.1 H Plt Count 57 L MPV 9.9 Absolute Nucleated RBC 0.000 Nucleated RBC % (auto) 0.0 Anion Gap 12 Estim Creat Clear Calc 67.2 Estimated GFR 46 POC Glucose 152 H Fasting Glucose 97 Calcium 8.2 L Urine Color Urine Appearance Urine pH Ur Specific [place] Urine Protein Urine Glucose (UA) Urine Ketones Urine Blood Urine Nitrite Ur Leukocyte Esterase Urine RBC Urine WBC Ur Squamous Epith Cells Urine Bacteria Urine Yeast 01/05/21 01/05/21 07:07 11:55 MCV MCH MCHC RDW Plt Count MPV Absolute Nucleated RBC Nucleated RBC % (auto) Anion Gap Estim Creat Clear Calc Estimated GFR POC Glucose 96 45 L* Fasting Glucose Calcium Urine Color Urine Appearance Urine pH Ur Specific [place] Urine Protein Urine Glucose (UA) Urine Ketones Urine Blood Urine Nitrite Ur Leukocyte Esterase Urine RBC Urine WBC Ur Squamous Epith Cells Urine Bacteria Urine Yeast Microbiology Microbiology Results: Microbiology 01/04/21 15:49 Urine Culture - Final Urine clean catch - Urine raygoza top No growth. Assessment and Plan (1) Hypoglycemia: Status: Acute Assessment and Plan: 70M presented with hypoglycemia and ams found to have pneumonia DM with hypoglycemia complicated by metabolic encephalopathy related to liver cirrhosis, decreased appetite holding home insulin, just sliding scale for now, monitor pneumonia vs pulm edema rocephin, azithro 24 iv lasix, then check repeat cxr alcohol liver cirrhosis continue rifaximin, lactulose follows with umass CKD III stable LE edema due to liver disease mechanical compression vte prophylaxis - mechanical due to thrombocytopenia Quality Stroke Does the patient have a stroke diagnosis?: No VTE Prior VTE?: No VTE Risk Level:: Medical - moderate - high VTE Device Contraindication: N/A - Device Ordered VTE Drug Contraindication: Treatment Not Indicated
[2021-01-05 13:01] LABS: Glucose, Whole Blood 82 mg/dL (60-115)
[2021-01-05 15:52] LABS: Glucose, Whole Blood 89 mg/dL (60-115)
[2021-01-05 20:16] LABS: Glucose, Whole Blood 84 mg/dL (60-115)
[2021-01-05] MEDS: Tamsulosin HCL 0.4 MG CAPSULE PO (21:40)
[2021-01-06] VITALS (7 sets, daily range): BP systolic 129–185; BP diastolic 64–86; PULSE 70–90; RESP 18–22; TEMP 36–37.2; O2SAT 96–100; BMI 48.7
[2021-01-06] MEDS: 0.9 % Sodium Chloride Flush 3 ML SYRINGE IVFLUSH ×3 (00:45→21:49)
[2021-01-06] MEDS: Doxycycline Hyclate 100 MG in 0.9 % Sodium Chloride 250 ML 166.67 MG IV ×2 (03:59→15:19)
[2021-01-06] MEDS: Omeprazole 20 MG CAPSULE.DR PO ×2 (05:40→17:17)
[2021-01-06] MEDS: Levothyroxine Sodium 50 MCG TABLET PO (05:40)
[2021-01-06 07:09] LABS: Glucose, Whole Blood 54 mg/dL (60-115)
[2021-01-06 07:18] LABS: Hematocrit 26.1 % (42-52); Hemoglobin 8.5 g/dl (14.0-18.0); Mean Corpuscular HGB Conc 32.6 g/dl (31.0-36.0); Mean Corpuscular Hemoglobin 31.7 pg (27.0-33.0); Mean Corpuscular Volume 97.4 fL (80-98); Mean Platelet Volume 10.4 fL (9.4-12.4); Red Blood Count 2.68 X10*6/uL (4.60-5.80); Red Cell Distribution Width 19.3 % (11.0-16.0); White Blood Count 4.2 X10*3/uL (4.8-10.8)
[2021-01-06 07:20] LABS: Platelet Count 60 X10*3/uL (160-400)
[2021-01-06 07:54] LABS: Anion Gap 12 (12-20); Blood Urea Nitrogen 47 mg/dL (9-16); Calcium 8.3 mg/dL (8.4-10.2); Carbon Dioxide 28 mmol/L (22-29); Chloride 102 mmol/L (96-108); Creatinine Clr Calc Pharmacy 74.7; Estimated Glomerular Filt Rate 52; Glucose Fasting 50 mg/dL (60-99); Magnesium 2.1 mg/dL (1.6-2.6); Potassium 3.9 mmol/L (3.3-5.1); Sodium 138 mmol/L (135-145)
--- NOTE | 2021-01-06 09:22 | MHC.CM.PN ---
Patient is described as a poor Historian; CM spoke with /HCP/Edna @ [phone] and addressed IMM with her, mailing the original to her via certified mail and placing a copy on the chart. Patient typically lives in a house with his and required no services and no DME. Patient now comes to us from [facility] and the goal is for him to return there to complete his STR, prior to returning home. CM has initiated and will follow for dc planning. Patient is on the Liver Transplant Waiting List at [facility].PCP is Dr. Selena Stewart.
[2021-01-06] MEDS: cefTRIAXone sodium 1 GM in 0.9 % Sodium Chloride 50 ML IV (09:37)
[2021-01-06] MEDS: Metoprolol Tartrate 25 MG TABLET PO (09:39)
[2021-01-06] MEDS: Folic Acid 1 MG TABLET PO (09:39)
[2021-01-06] MEDS: rifAXIMin 550 MG TABLET PO ×2 (09:39→21:49)
[2021-01-06] MEDS: Furosemide 40 MG/4 ML VIAL IVPUSH ×2 (09:39→17:17)
[2021-01-06] MEDS: Thiamine HCL 100 MG TABLET PO ×2 (09:39→21:49)
[2021-01-06] MEDS: Lactulose 20 GM/30 ML SOLUTION PO ×3 (09:39→21:49)
--- NOTE | 2021-01-06 10:48 | HO.PM.IMPN ---
Subjective Subjective Date of Service: 01/06/21 Interval History: lethargic, low appetite Cardiovascular Cardiovascular: Reports no additional cardiovascular complaints Respiratory Respiratory: Reports no additional respiratory complaints Physical Exam Vital Signs: Vital Signs: Last Vital Signs Temp 98 F 01/06/21 07:11 Pulse 90 01/06/21 09:39 Resp 20 01/06/21 07:11 BP 143/64 H 01/06/21 09:39 Pulse Ox 98 01/06/21 07:11 Body Mass Index 48.7 General: lethargic, ill appearing Resp:? Crackles CVS: S1,S2,RRR GI: soft, non tender, distended Neuro:? motor grossly intact Psych: appropriate affect Objective Data Current Medications Generic Name Dose Route Start Last Admin Trade Name Freq PRN Reason Stop Dose Admin Albuterol/Ipratropium 3 ml 01/04/21 17:56 01/04/21 23:31 Albuterol/Iprat 2.5/0.5mg 3 Ml Ampul.Neb INHALE 3 ml RQ4H PRN Administration Dyspnea Dextrose 25 gm 01/04/21 12:58 Dextrose 50 % 25 Gm/50 Ml Vial IVPUSH Q15M PRN per Hypoglycemia Standing Ord. Protocol Folic Acid 1 mg 01/05/21 09:00 01/06/21 09:39 Folic Acid 1 Mg Tablet PO 1 mg DAILY GEOFF Administration Furosemide 40 mg 01/05/21 09:00 01/06/21 09:39 Furosemide 40 Mg/4 Ml Vial IVPUSH 40 mg BID@0900,1800 GEOFF Administration Protocol Glucose 15 gm 01/04/21 12:58 Glucose Gel 15 Gm Gel..Gram. PO Q15M PRN per Hypoglycemia Standing Ord. Protocol Ceftriaxone Sodium 1 gm/ 50 mls @ 100 mls/hr 01/05/21 08:00 01/06/21 10:24 Sodium Chloride IV Infused Q24H GEOFF Infusion Doxycycline Hyclate 100 mg/ 250 mls @ 166.67 mls/hr 01/04/21 14:00 01/06/21 05:40 Sodium Chloride IV Infused Q12H GEOFF Infusion Insulin Human Lispro 0 unit 01/04/21 16:30 01/06/21 07:09 Insulin Lispro 100 Unit/Ml 3 Ml Vial SUBCUT Not Given QIDACHS [facility] Protocol Lactulose 20 gm 01/04/21 15:00 01/06/21 09:39 Lactulose 20 Gm/30 Ml Solution PO 20 gm TID GEOFF Administration Levothyroxine Sodium 50 mcg 01/05/21 06:00 01/06/21 05:40 Levothyroxine Sodium 50 Mcg Tablet PO 50 mcg DAILY@0600 GEOFF Administration Metoprolol Tartrate 25 mg 01/05/21 09:00 01/06/21 09:39 Metoprolol Tartrate 25 Mg Tablet PO 25 mg DAILY GEOFF Administration Protocol Omeprazole 20 mg 01/04/21 16:30 01/06/21 05:40 Omeprazole 20 Mg Capsule.Dr PO 20 mg BID@0630,1630 GEOFF Administration Rifaximin 550 mg 01/04/21 21:00 01/06/21 09:39 Rifaximin 550 Mg Tablet PO 550 mg BID GEOFF Administration Sodium Chloride 3 ml 01/04/21 16:00 01/06/21 09:37 0.9 % Sodium Chloride Flush 3 Ml Syringe IVFLUSH 3 ml QSHIFT GEOFF Administration Tamsulosin HCl 0.4 mg 01/04/21 21:00 01/05/21 21:40 Tamsulosin Hcl 0.4 Mg Capsule PO 0.4 mg BEDTIME GEOFF Administration Thiamine HCl 100 mg 01/04/21 21:00 01/06/21 09:39 Thiamine Hcl 100 Mg Tablet PO 100 mg BID GEOFF Administration Labs CBC & Chem 7: 01/06/21 05:54 01/06/21 05:54 Labs: Laboratory Results - last 24 hr 01/05/21 01/05/21 01/05/21 11:55 12:53 15:48 MCV MCH MCHC RDW Plt Count MPV Absolute Nucleated RBC Nucleated RBC % (auto) Anion Gap Estim Creat Clear Calc Estimated GFR POC Glucose 45 L* 82 89 Fasting Glucose Calcium Magnesium 01/05/21 01/06/21 01/06/21 20:01 05:54 05:54 MCV 97.4 MCH 31.7 MCHC 32.6 RDW 19.3 H Plt Count 60 L MPV 10.4 Absolute Nucleated RBC 0.000 Nucleated RBC % (auto) 0.0 Anion Gap 12 Estim Creat Clear Calc 74.7 Estimated GFR 52 POC Glucose 84 Fasting Glucose 50 L* Calcium 8.3 L Magnesium 2.1 01/06/21 07:05 MCV MCH MCHC RDW Plt Count MPV Absolute Nucleated RBC Nucleated RBC % (auto) Anion Gap Estim Creat Clear Calc Estimated GFR POC Glucose 54 L* Fasting Glucose Calcium Magnesium Microbiology Microbiology Results: Microbiology 01/04/21 11:03 Blood Culture - Preliminary Blood - Venous No growth after 24 hours. 01/04/21 10:48 Blood Culture - Preliminary Blood - Venous No growth after 24 hours. 01/04/21 15:49 Urine Culture - Final Urine clean catch - Urine raygoza top No growth. Assessment and Plan (1) Hypoglycemia: Status: Acute Assessment and Plan: 70M presented with hypoglycemia and ams found to have pneumonia DM with hypoglycemia complicated by metabolic encephalopathy related to liver cirrhosis, decreased appetite holding home insulin, just sliding scale for now, monitor pneumonia vs pulm edema fili buitrago will do another 24hr iv lasix and then check cxr alcohol liver cirrhosis continue rifaximin, lactulose follows with umass CKD III stable LE edema due to liver disease mechanical compression vte prophylaxis - mechanical due to thrombocytopenia Quality Stroke Does the patient have a stroke diagnosis?: No VTE Prior VTE?: No VTE Risk Level:: Medical - moderate - high VTE Device Contraindication: N/A - Device Ordered VTE Drug Contraindication: Treatment Not Indicated
[2021-01-06 11:35] LABS: Glucose, Whole Blood 141 mg/dL (60-115)
[2021-01-06 16:17] LABS: Glucose, Whole Blood 113 mg/dL (60-115)
--- NOTE | 2021-01-06 17:54 | PC.NURSE ---
Patient remains on IMC. Tele showing NSR throughout the day. Confused this AM, with combativeness. Dr. Sutton aware. POC 50 at the time. Lucas juice and breakfast tray given. Mental status improved throughout the day, with all subsequent blood sugars wnLs, not requiring Insulin cov'g. Mild intermittent forgetfulness though, continues on Lactulose for cirrhosis. Ambulates with walker and standby assist. Lee draining cloudy yellow urine. Edema throughout, weeping in some areas. Skin tear noted to posterior Right calf this AM. Serosanguinous drainage noted. Xeroform + sterile gauze applied. Wrapped with Roll eyad and HAMZAH wrap. in to visit from 11am to present.
[2021-01-06 20:30] LABS: Glucose, Whole Blood 134 mg/dL (60-115)
[2021-01-06] MEDS: Tamsulosin HCL 0.4 MG CAPSULE PO (21:49)
[2021-01-07] MEDS: Doxycycline Hyclate 100 MG in 0.9 % Sodium Chloride 250 ML 166.67 MG IV ×2 (01:26→15:34)
--- NOTE | 2021-01-07 05:36 | PC.NURSE ---
Patient confused and uncooperative overnight at times, needing assistance from security X2. Pt refusing to allow any staff to check POC or blood draws this morning. Pt given PARKER and sharon king. Pt standing in front of chair. Sitter in room. Will continue to monitor.
[2021-01-07] MEDS: Omeprazole 20 MG CAPSULE.DR PO ×2 (06:37→17:25)
[2021-01-07] MEDS: Levothyroxine Sodium 50 MCG TABLET PO (06:37)
[2021-01-07 07:08] VITALS: BP 157/89; PULSE 73; RESP 19; TEMP 36.4; O2SAT 99
[2021-01-07 07:42] LABS: Glucose, Whole Blood 180 mg/dL (60-115)
[2021-01-07 08:47] VITALS: BP 157/89; PULSE 73
[2021-01-07] MEDS: Metoprolol Tartrate 25 MG TABLET PO (08:47)
[2021-01-07] MEDS: Folic Acid 1 MG TABLET PO (08:47)
[2021-01-07] MEDS: Thiamine HCL 100 MG TABLET PO ×2 (08:47→21:12)
[2021-01-07] MEDS: rifAXIMin 550 MG TABLET PO ×2 (08:47→21:12)
[2021-01-07] MEDS: cefTRIAXone sodium 1 GM in 0.9 % Sodium Chloride 50 ML IV (08:48)
[2021-01-07] MEDS: Furosemide 40 MG/4 ML VIAL IVPUSH (08:48)
[2021-01-07] MEDS: Lactulose 20 GM/30 ML SOLUTION PO ×3 (08:48→21:12)
[2021-01-07] MEDS: 0.9 % Sodium Chloride Flush 3 ML SYRINGE IVFLUSH ×2 (08:48→21:12)
[2021-01-07 09:18] LABS: Hematocrit 28.6 % (42-52); Hemoglobin 9.4 g/dl (14.0-18.0); Mean Corpuscular HGB Conc 32.9 g/dl (31.0-36.0); Mean Corpuscular Volume 97.3 fL (80-98); Mean Platelet Volume 10.5 fL (9.4-12.4); Red Blood Count 2.94 X10*6/uL (4.60-5.80); Red Cell Distribution Width 18.8 % (11.0-16.0); White Blood Count 4.9 X10*3/uL (4.8-10.8)
[2021-01-07 09:20] LABS: Platelet Count 73 X10*3/uL (160-400)
--- NOTE | 2021-01-07 09:40 | MHC.CM.PN ---
Patient has not yet been medically cleared for dc (Sitter/Behavioral at [facility] and Security assisted, 2 IV ABT, IV Lasix).Returning to [facility] [place] is the goal for dc and CM will continue to follow for possible need to adjust the dc plan.
[2021-01-07 09:47] LABS: Ammonia 54 umol/L (13-55)
[2021-01-07 10:02] LABS: Anion Gap 12 (12-20); Blood Urea Nitrogen 46 mg/dL (9-16); Calcium 8.6 mg/dL (8.4-10.2); Carbon Dioxide 27 mmol/L (22-29); Chloride 98 mmol/L (96-108); Creatinine Clr Calc Pharmacy 65.9; Estimated Glomerular Filt Rate 45; Glucose Fasting 229 mg/dL (60-99); Potassium 3.7 mmol/L (3.3-5.1); Sodium 133 mmol/L (135-145)
--- NOTE | 2021-01-07 10:51 | P.PNIM_ITS ---
Subjective Subjective Date of Service: 01/07/21 Interval History: lethargic Cardiovascular Cardiovascular: Reports no additional cardiovascular complaints Respiratory Respiratory: Reports no additional respiratory complaints Physical Exam Vital Signs: Vital Signs: Last Vital Signs Temp 97.6 F 01/07/21 07:08 Pulse 73 01/07/21 08:47 Resp 19 01/07/21 07:08 BP 157/89 H 01/07/21 08:47 Pulse Ox 99 01/07/21 07:08 Body Mass Index 48.7 General: lethargic, ill appearing Resp:? Crackles CVS: S1,S2,RRR GI: soft, non tender, distended Neuro:? motor grossly intact Psych: appropriate affect ext: bilateral lymphedema Objective Data Current Medications Generic Name Dose Route Start Last Admin Trade Name Freq PRN Reason Stop Dose Admin Albuterol/Ipratropium 3 ml 01/04/21 17:56 01/04/21 23:31 Albuterol/Iprat 2.5/0.5mg 3 Ml Ampul.Neb INHALE 3 ml RQ4H PRN Administration Dyspnea Dextrose 25 gm 01/04/21 12:58 Dextrose 50 % 25 Gm/50 Ml Vial IVPUSH Q15M PRN per Hypoglycemia Standing Ord. Protocol Folic Acid 1 mg 01/05/21 09:00 01/07/21 08:47 Folic Acid 1 Mg Tablet PO 1 mg DAILY GEOFF Administration Furosemide 40 mg 01/07/21 18:00 Furosemide 40 Mg Tablet PO BID@0900,1800 [facility] Protocol Glucose 15 gm 01/04/21 12:58 Glucose Gel 15 Gm Gel..Gram. PO Q15M PRN per Hypoglycemia Standing Ord. Protocol Ceftriaxone Sodium 1 gm/ 50 mls @ 100 mls/hr 01/05/21 08:00 01/07/21 09:20 Sodium Chloride IV Infused Q24H GEOFF Infusion Doxycycline Hyclate 100 mg/ 250 mls @ 166.67 mls/hr 01/04/21 14:00 01/07/21 03:10 Sodium Chloride IV Infused Q12H GEOFF Infusion Insulin Human Lispro 0 unit 01/04/21 16:30 01/07/21 08:48 Insulin Lispro 100 Unit/Ml 3 Ml Vial SUBCUT Not Given QIDACHS [facility] Protocol Lactulose 20 gm 01/04/21 15:00 01/07/21 08:48 Lactulose 20 Gm/30 Ml Solution PO 20 gm TID GEOFF Administration Levothyroxine Sodium 50 mcg 01/05/21 06:00 01/07/21 06:37 Levothyroxine Sodium 50 Mcg Tablet PO 50 mcg DAILY@0600 GEOFF Administration Metoprolol Tartrate 25 mg 01/05/21 09:00 01/07/21 08:47 Metoprolol Tartrate 25 Mg Tablet PO 25 mg DAILY GEOFF Administration Protocol Omeprazole 20 mg 01/04/21 16:30 01/07/21 06:37 Omeprazole 20 Mg Capsule.Dr PO 20 mg BID@0630,1630 GEOFF Administration Rifaximin 550 mg 01/04/21 21:00 01/07/21 08:47 Rifaximin 550 Mg Tablet PO 550 mg BID GEOFF Administration Sodium Chloride 3 ml 01/04/21 16:00 01/07/21 08:48 0.9 % Sodium Chloride Flush 3 Ml Syringe IVFLUSH 3 ml QSHIFT GEOFF Administration Tamsulosin HCl 0.4 mg 01/04/21 21:00 01/06/21 21:49 Tamsulosin Hcl 0.4 Mg Capsule PO 0.4 mg BEDTIME GEOFF Administration Thiamine HCl 100 mg 01/04/21 21:00 01/07/21 08:47 Thiamine Hcl 100 Mg Tablet PO 100 mg BID GEOFF Administration Labs CBC & Chem 7: 01/07/21 08:48 01/07/21 08:48 Labs: Laboratory Results - last 24 hr 01/06/21 01/06/21 01/06/21 11:31 16:13 20:27 MCV MCH MCHC RDW Plt Count MPV Absolute Nucleated RBC Nucleated RBC % (auto) Anion Gap Estim Creat Clear Calc Estimated GFR POC Glucose 141 H 113 134 H Fasting Glucose Calcium Ammonia 01/07/21 01/07/21 01/07/21 07:39 08:48 08:48 MCV 97.3 MCH 32.0 MCHC 32.9 RDW 18.8 H Plt Count 73 L MPV 10.5 Absolute Nucleated RBC 0.000 Nucleated RBC % (auto) 0.0 Anion Gap 12 Estim Creat Clear Calc 65.9 Estimated GFR 45 POC Glucose 180 H Fasting Glucose 229 H D Calcium 8.6 Ammonia 01/07/21 08:48 MCV MCH MCHC RDW Plt Count MPV Absolute Nucleated RBC Nucleated RBC % (auto) Anion Gap Estim Creat Clear Calc Estimated GFR POC Glucose Fasting Glucose Calcium Ammonia 54 Microbiology Microbiology Results: Microbiology 01/04/21 11:03 Blood Culture - Preliminary Blood - Venous No growth after 48 hours. 01/04/21 10:48 Blood Culture - Preliminary Blood - Venous No growth after 48 hours. Assessment and Plan (1) Hypoglycemia: Status: Acute Assessment and Plan: 70M presented with hypoglycemia and ams found to have pneumonia DM with hypoglycemia complicated by metabolic encephalopathy related to liver cirrhosis, decreased appetite holding home insulin, just sliding scale for now, monitor last low sugar was AM of 01/06, continue to monitor pneumonia rocephin, azithro cxr unchanged after 48hrs of diuresis, pulm edema less likely will change back to oral lasix alcohol liver cirrhosis continue rifaximin, lactulose follows with umass CKD III stable LE edema due to liver disease mechanical compression vte prophylaxis - mechanical due to thrombocytopenia Quality Stroke Does the patient have a stroke diagnosis?: No VTE Prior VTE?: No VTE Risk Level:: Medical - moderate - high VTE Device Contraindication: N/A - Device Ordered VTE Drug Contraindication: Treatment Not Indicated
[2021-01-07 12:00] VITALS: BP 150/62; PULSE 70; RESP 20; TEMP 36.6; O2SAT 99
[2021-01-07 12:00] LABS: Glucose, Whole Blood 189 mg/dL (60-115)
[2021-01-07] MEDS: Insulin Lispro 100 UNIT/ML 3 ML VIAL SUBCUT ×2 (12:36→17:25)
[2021-01-07 15:28] VITALS: BP 136/67; PULSE 67; RESP 17; TEMP 36.8; O2SAT 97
[2021-01-07 16:08] LABS: Glucose, Whole Blood 167 mg/dL (60-115)
[2021-01-07] MEDS: Furosemide 40 MG TABLET PO (17:25)
[2021-01-07 19:13] VITALS: BP 134/62; PULSE 86; RESP 18; TEMP 36.2; O2SAT 97
[2021-01-07 20:27] LABS: Glucose, Whole Blood 151 mg/dL (60-115)
[2021-01-07] MEDS: Tamsulosin HCL 0.4 MG CAPSULE PO (21:12)
[2021-01-07 23:14] VITALS: BP 160/76; PULSE 69; RESP 19; TEMP 36.3; O2SAT 96
[2021-01-08] VITALS (7 sets, daily range): BP systolic 121–146; BP diastolic 56–80; PULSE 66–77; RESP 18–21; TEMP 36.1–36.6; O2SAT 95–100
[2021-01-08] MEDS: Doxycycline Hyclate 100 MG in 0.9 % Sodium Chloride 250 ML 166.67 MG IV ×2 (01:50→15:18)
[2021-01-08 04:12] LABS: Glucose, Whole Blood 138 mg/dL (60-115)
[2021-01-08 04:32] LABS: Hematocrit 26.8 % (42-52); Hemoglobin 9.2 g/dl (14.0-18.0); Mean Corpuscular HGB Conc 34.3 g/dl (31.0-36.0); Mean Corpuscular Volume 96.1 fL (80-98); Mean Platelet Volume 9.6 fL (9.4-12.4); Red Blood Count 2.79 X10*6/uL (4.60-5.80); Red Cell Distribution Width 18.5 % (11.0-16.0); White Blood Count 4.5 X10*3/uL (4.8-10.8)
[2021-01-08 04:37] LABS: Platelet Count 65 X10*3/uL (160-400)
[2021-01-08 05:02] LABS: Anion Gap 9 (12-20); Blood Urea Nitrogen 46 mg/dL (9-16); Calcium 8.4 mg/dL (8.4-10.2); Carbon Dioxide 28 mmol/L (22-29); Chloride 99 mmol/L (96-108); Creatinine Clr Calc Pharmacy 67.7; Estimated Glomerular Filt Rate 47; Glucose Fasting 145 mg/dL (60-99); Potassium 3.8 mmol/L (3.3-5.1); Sodium 132 mmol/L (135-145)
[2021-01-08] MEDS: Omeprazole 20 MG CAPSULE.DR PO ×2 (06:10→15:20)
[2021-01-08] MEDS: Levothyroxine Sodium 50 MCG TABLET PO (06:10)
[2021-01-08 07:39] LABS: Glucose, Whole Blood 135 mg/dL (60-115)
[2021-01-08] MEDS: cefTRIAXone sodium 1 GM in 0.9 % Sodium Chloride 50 ML IV (07:56)
[2021-01-08] MEDS: Lactulose 20 GM/30 ML SOLUTION PO ×3 (07:56→20:30)
[2021-01-08] MEDS: rifAXIMin 550 MG TABLET PO ×2 (07:56→20:30)
[2021-01-08] MEDS: Thiamine HCL 100 MG TABLET PO ×2 (07:56→20:30)
[2021-01-08] MEDS: Metoprolol Tartrate 25 MG TABLET PO (07:56)
[2021-01-08] MEDS: Furosemide 40 MG TABLET PO ×2 (07:56→17:17)
[2021-01-08] MEDS: Folic Acid 1 MG TABLET PO (07:56)
[2021-01-08] MEDS: 0.9 % Sodium Chloride Flush 3 ML SYRINGE IVFLUSH ×3 (07:57→20:31)
[2021-01-08 11:24] LABS: Glucose, Whole Blood 150 mg/dL (60-115)
--- NOTE | 2021-01-08 13:40 | MHC.CLN ---
F/U EATING 100% AT MEALS. CONTINUE DIABETIC 1800 KCAL DIET; GLUCERNA 240 ML BID (474 KCAL/20 G PROTEIN) FOR WOUND HEALING.
[2021-01-08] MEDS: Lidocaine HCl 1 % MPF 5 ML VIAL SUBCUT (13:44)
--- NOTE | 2021-01-08 13:45 | P.PNIM_ITS ---
Subjective Subjective Date of Service: 01/08/21 Interval History: F/u on hypoglycemia, hepatic encephalopaty, ascietes Review of Systems Gen: no fever Resp: no sob, no cough CV: no chest, no RODRIGUEZ, + leg edema GI: No n/v, no abd pain Neuro: some confusion Physical Exam Vital Signs: Vital Signs: Last Vital Signs Temp 97.8 F 01/08/21 11:06 Pulse 70 01/08/21 11:06 Resp 18 01/08/21 11:06 BP 140/80 H 01/08/21 11:06 Pulse Ox 95 01/08/21 11:06 Body Mass Index 48.7 General: lethargic, ill appearing Resp:? Crackles CVS: S1,S2,RRR GI: soft, non tender, distended Neuro:? motor grossly intact Psych: appropriate affect ext: bilateral lymphedema Objective Data Current Medications Generic Name Dose Route Start Last Admin Trade Name Freq PRN Reason Stop Dose Admin Albuterol/Ipratropium 3 ml 01/04/21 17:56 01/04/21 23:31 Albuterol/Iprat 2.5/0.5mg 3 Ml Ampul.Neb INHALE 3 ml RQ4H PRN Administration Dyspnea Dextrose 25 gm 01/04/21 12:58 Dextrose 50 % 25 Gm/50 Ml Vial IVPUSH Q15M PRN per Hypoglycemia Standing Ord. Protocol Folic Acid 1 mg 01/05/21 09:00 01/08/21 07:56 Folic Acid 1 Mg Tablet PO 1 mg DAILY GEOFF Administration Furosemide 40 mg 01/07/21 18:00 01/08/21 07:56 Furosemide 40 Mg Tablet PO 40 mg BID@0900,1800 GEOFF Administration Protocol Glucose 15 gm 01/04/21 12:58 Glucose Gel 15 Gm Gel..Gram. PO Q15M PRN per Hypoglycemia Standing Ord. Protocol Ceftriaxone Sodium 1 gm/ 50 mls @ 100 mls/hr 01/05/21 08:00 01/08/21 08:44 Sodium Chloride IV Infused Q24H GEOFF Infusion Doxycycline Hyclate 100 mg/ 250 mls @ 166.67 mls/hr 01/04/21 14:00 01/08/21 03:24 Sodium Chloride IV Infused Q12H GEOFF Infusion Insulin Human Lispro 0 unit 01/04/21 16:30 01/08/21 12:10 Insulin Lispro 100 Unit/Ml 3 Ml Vial SUBCUT Not Given QIDACHS [facility] Protocol Lactulose 20 gm 01/04/21 15:00 01/08/21 07:56 Lactulose 20 Gm/30 Ml Solution PO 20 gm TID GEOFF Administration Levothyroxine Sodium 50 mcg 01/05/21 06:00 01/08/21 06:10 Levothyroxine Sodium 50 Mcg Tablet PO 50 mcg DAILY@0600 GEOFF Administration Lidocaine HCl 5 ml 01/08/21 13:43 01/08/21 13:44 Lidocaine Hcl 1 % Mpf 5 Ml Vial SUBCUT 01/08/21 13:44 5 ml ONCE ONE Administration Metoprolol Tartrate 25 mg 01/05/21 09:00 01/08/21 07:56 Metoprolol Tartrate 25 Mg Tablet PO 25 mg DAILY [facility] Administration Protocol Omeprazole 20 mg 01/04/21 16:30 01/08/21 06:10 Omeprazole 20 Mg Capsule.Dr PO 20 mg BID@0630,1630 GEOFF Administration Rifaximin 550 mg 01/04/21 21:00 01/08/21 07:56 Rifaximin 550 Mg Tablet PO 550 mg BID GEOFF Administration Sodium Chloride 3 ml 01/04/21 16:00 01/08/21 07:57 0.9 % Sodium Chloride Flush 3 Ml Syringe IVFLUSH 3 ml QSHIFT [facility] Administration Tamsulosin HCl 0.4 mg 01/04/21 21:00 01/07/21 21:12 Tamsulosin Hcl 0.4 Mg Capsule PO 0.4 mg BEDTIME GEOFF Administration Thiamine HCl 100 mg 01/04/21 21:00 01/08/21 07:56 Thiamine Hcl 100 Mg Tablet PO 100 mg BID GEOFF Administration Labs CBC & Chem 7: 01/08/21 04:24 01/08/21 04:24 Labs: Laboratory Results - last 24 hr 01/07/21 01/07/21 01/08/21 16:05 20:23 04:07 MCV MCH MCHC RDW Plt Count MPV Absolute Nucleated RBC Nucleated RBC % (auto) Anion Gap Estim Creat Clear Calc Estimated GFR POC Glucose 167 H 151 H 138 H Fasting Glucose Calcium 01/08/21 01/08/21 01/08/21 04:24 04:24 07:36 MCV 96.1 MCH 33.0 MCHC 34.3 RDW 18.5 H Plt Count 65 L MPV 9.6 Absolute Nucleated RBC 0.000 Nucleated RBC % (auto) 0.0 Anion Gap 9 L Estim Creat Clear Calc 67.7 Estimated GFR 47 POC Glucose 135 H Fasting Glucose 145 H D Calcium 8.4 01/08/21 11:09 MCV MCH MCHC RDW Plt Count MPV Absolute Nucleated RBC Nucleated RBC % (auto) Anion Gap Estim Creat Clear Calc Estimated GFR POC Glucose 150 H Fasting Glucose Calcium Assessment and Plan (1) Hypoglycemia: Status: Acute Assessment and Plan: 70/m with cirrhosis of liver related to alcohol, CKD3 chronic lymphadema presented with hypoglycemia, AMS and found to have PNA, and hepatic encephalopathy HyPoglycemia in setting of type 2 Diabetes in setting of alcoholic liver cirrhosis, this has resolved. Avoid long acting insulin, SSI insulin pneumonia--clinically doing better, continue Azithro and Rocephin Hepatic Encephalopathy--ammoia has come down to normal and reportedly his mental status has improved and yet he still seem confused, will check ammonia level, continue lactulose and titrate up to 3 to 4 bowel movment a day. Continue Rifaximin alcohol liver cirrhosis continue rifaximin, lactulose Umass is monitoring and if deteliorate and it appear to need transplant then will need to be transfer CKD III stable LE edema Chronicl leg edema--continue leg Lasix due to liver disease mechanical compression, Lasix Ascietes--Paracentesis today vte prophylaxis - mechanical due to thrombocytopenia Quality Stroke Does the patient have a stroke diagnosis?: No VTE Prior VTE?: No VTE Risk Level:: Medical - moderate - high VTE Device Contraindication: N/A - Device Ordered VTE Drug Contraindication: Treatment Not Indicated
[2021-01-08 15:37] LABS: Glucose, Whole Blood 157 mg/dL (60-115)
[2021-01-08 15:37] LABS: Ammonia 77 umol/L (13-55)
[2021-01-08 19:54] LABS: Glucose, Whole Blood 186 mg/dL (60-115)
[2021-01-08] MEDS: Insulin Lispro 100 UNIT/ML 3 ML VIAL SUBCUT (20:31)
[2021-01-08] MEDS: traZODone HCL 50 MG TABLET PO (20:31)
[2021-01-08] MEDS: Melatonin 3 MG TABLET 6 MG PO (20:31)
[2021-01-08] MEDS: Tamsulosin HCL 0.4 MG CAPSULE PO (20:31)
[2021-01-08 23:10] LABS: Glucose, Whole Blood 149 mg/dL (60-115)
--- NOTE | 2021-01-08 23:52 | P.EN_ITS ---
Event Note Date of Service: 01/09/21 Event Note: a rapid response was called on the pt for seizure witnessed by pancho sheldon. pt postictal. bit his tongue and has some bleeding. Case discussed with our own resident GI who recommended no contraindication against giving a small dose of Ativan in case of a recurrent seizure. Spoke to [facility] rug setter at [facility], felt that given patient is hemodynamically stable and is not in status with low MEDDRY score (used INR for calculation) patient does not need immediate transfer. Patient had another to [id number] episodes of seizures, given 1 mg of Ativan. Another call was placed for [facility]minster rug setter at [facility], of 4:30 a.m. still awaiting call back. Patient also had hypothermia with a temperature of 95.5?, lactic acid of 2.6, patient started on IV antibiotics, blood cultures were drawn, head CT without IV contrast ordered, CMP, PT INR, and CBC.
[2021-01-09] VITALS (7 sets, daily range): BP systolic 114–148; BP diastolic 58–72; PULSE 62–69; RESP 18–20; TEMP 35.8–36.7; O2SAT 98–100
[2021-01-09] MEDS: LORazepam 2 MG/ML VIAL 1 MG IVPUSH (00:55)
[2021-01-09] MEDS: Doxycycline Hyclate 100 MG in 0.9 % Sodium Chloride 250 ML 166.67 MG IV (01:20)
[2021-01-09 02:03] LABS: Prothrombin Time 23.4 SEC (9.9-13.0)
[2021-01-09 02:09] LABS: Alanine Aminotransferase 38 U/L (0-40); Albumin Level 2.7 g/dL (3.5-5.0); Alkaline Phosphatase 153 U/L (39-117); Anion Gap 14 (12-20); Aspartate Amino Transferase 60 U/L (5-37); Bilirubin Total 3.9 mg/dL (0.0-1.0); Blood Urea Nitrogen 50 mg/dL (9-16); Calcium 8.3 mg/dL (8.4-10.2); Carbon Dioxide 23 mmol/L (22-29); Chloride 99 mmol/L (96-108); Creatinine Clr Calc Pharmacy 55.4; Estimated Glomerular Filt Rate 37; Glucose Random 159 mg/dL (60-115); Potassium 3.9 mmol/L (3.3-5.1); Sodium 132 mmol/L (135-145)
[2021-01-09 02:13] LABS: Lactic Acid 2.6 mmol/L (0.5-2.0)
[2021-01-09] MEDS: cefEPime HCl 1 GM in 0.9 % Sodium Chloride 50 ML IV (03:32)
[2021-01-09 03:39] LABS: Reflex Lactate? Lactic Acid Added
[2021-01-09] MEDS: Lactated Ringers 1,000 ML 80 ML IVCONT (04:10)
[2021-01-09] MEDS: vancomycin HCL 1,500 MG in 0.9 % Sodium Chloride 500 ML 333.33 MG IV (04:11)
[2021-01-09 04:21] LABS: ~Lactic Acid-LAB USE ONLY 1.9 mmol/L (0.5-2.0)
[2021-01-09 05:09] LABS: MANUAL DIFF FLAG NO
[2021-01-09 05:14] LABS: Basophils Percent Auto 0.5 % (0-2); Eosinophils Absolute Auto 0.3 X10*3/uL (0.0-0.4); Eosinophils Percent Auto 7.1 % (0-4); Hematocrit 22.2 % (42-52); Hemoglobin 7.6 g/dl (14.0-18.0); Imm Gran Abs Auto 0.02 X10*3/uL (0.00-0.03); Imm Gran Pct Auto 0.5 % (0.0-0.4); Lymphocytes Absolute Auto 0.5 X10*3/uL (1.2-4.9); Lymphocytes Percent Auto 14.3 % (20-40); Mean Corpuscular HGB Conc 34.2 g/dl (31.0-36.0); Mean Corpuscular Volume 96.5 fL (80-98); Mean Platelet Volume 10.5 fL (9.4-12.4); Monocytes Absolute Auto 0.4 X10*3/uL (0.1-1.2); Monocytes Percent Auto 10.6 % (2-11); Neutrophils Absolute Auto 2.5 X10*3/uL (2.0-8.3); Platelet Count 57 X10*3/uL (160-400); Red Cell Distribution Width 18.9 % (11.0-16.0); White Blood Count 3.8 X10*3/uL (4.8-10.8)
--- NOTE | 2021-01-09 07:45 | PC.NURSE ---
Patient noted to be having a seizure on camera around 2255. Staff responded, rapid response called. Seizure lasted approx. 90 seconds, pt alert but not responding to most questions. Pt bleeding from mouth after seizure. 1mg IV ativan ordered but then held by MD. Pt transferred into bed. Vitals taken, POC 149, oxygen on. ?? if pt needs tele monitor, LEO kyle ativan. This RN at bedside around [address] new IV. At 0038 pt noted to be having another seizure lasting about 2 minutes, MD notified, order for 1mg ativan - administered at 0052. Pt had a third seizure at 0055. Vitals repeated at this time, rectal temp noted to be 95.5 - MD notified. Blood work and warming blanket ordered. Pt lactic acid 2.6, IVF and abx ordered and administered. PT is arousable to name but remains drowsy. Pt down to CT at 0600, waiting on results.
[2021-01-09 07:48] LABS: Glucose, Whole Blood 133 mg/dL (60-115)
[2021-01-09] MEDS: levETIRAcetam in NaCl (iso-os) 1,500 MG/100 ML PIGGYBACK 400 MG IV (08:26)
[2021-01-09] MEDS: Piperacillin Sodium/Tazobactam 3.375 GM in 0.9 % Sodium Chloride 50 ML IV ×3 (08:43→20:12)
[2021-01-09] MEDS: 0.9 % Sodium Chloride Flush 3 ML SYRINGE IVFLUSH (08:44)
[2021-01-09 09:03] LABS: ABG Base Excess 1.4 mmol/L; ABG HCO3 25 mmol/L (22-26); ABG pCO2 39 mmHg (32-45); ABG pCO2 TC 38 mmHg (32-45); ABG pH 7.41 (7.35-7.45); ABG pH TC 7.43 (7.35-7.45); ABG pO2 132 mmHg (83-108); ABG pO2 TC 126 (83-108)
[2021-01-09 09:10] LABS: Hematocrit 23.8 % (42-52)
[2021-01-09 09:21] LABS: Ammonia 73 umol/L (13-55)
[2021-01-09 09:33] LABS: Anion Gap 11 (12-20); Blood Urea Nitrogen 51 mg/dL (9-16); Calcium 8.5 mg/dL (8.4-10.2); Carbon Dioxide 25 mmol/L (22-29); Chloride 101 mmol/L (96-108); Creatinine Clr Calc Pharmacy 54.5; Estimated Glomerular Filt Rate 36; Glucose Random 116 mg/dL (60-115); Magnesium 2.2 mg/dL (1.6-2.6); Potassium 3.7 mmol/L (3.3-5.1); Sodium 133 mmol/L (135-145)
[2021-01-09 09:53] LABS: Procalcitonin 0.37 ng/mL
[2021-01-09] MEDS: Albumin Human 25 % 100 ML IV ×3 (11:10→23:20)
[2021-01-09 11:28] LABS: Glucose, Whole Blood 105 mg/dL (60-115)
--- NOTE | 2021-01-09 11:31 | PM.NEUROCN ---
History of Present Illness Data of Consult Service Date: 01/09/21 HPI Reason for consult: Seizures 70 years old man with underlying history of alcoholic liver cirrhosis and liver failure who was recently put on transplant list, obesity, who was initially admitted hospital with complications of hypoglycemia. Last night he was reported to have multiple convulsions and this consultation was requested. He was not known to have any seizures. Around the time of convulsions as blood sugar was not low. He was treated with lorazepam and later Keppra was given. At this time he was not responsive. Family stated that usually he was talkative and able to walk around and comprehend. [facility] Past Medical History Medical History Acid reflux Acute hepatic encephalopathy Acute on chronic kidney failure LINETTE (acute kidney injury) Alcohol induced liver disorder Anasarca Anemia Annual physical exam Aortic stenosis Ascites due to alcoholic cirrhosis Atrial fibrillation Cellulitis CHF (congestive heart failure) Chronic edema Cirrhosis CKD (chronic kidney disease) stage 3, GFR 30-59 ml/min Diabetes Dyslipidemia Elevated brain natriuretic peptide (BNP) level Encephalopathy Esophageal varix Essential hypertension GAVE (gastric antral vascular ectasia) Hepatic encephalopathy HTN (hypertension) Hyperammonemia Hyponatremia Lipodermatosclerosis Liver cirrhosis Low serum vitamin D Lower extremity edema Obesity Obesity (BMI 30-39.9) BARTOLOME (obstructive sleep apnea) Osteoarthritis Portal hypertension syndrome Portal hypertensive gastropathy Recurrent cellulitis of lower extremity Tongue ulcer Type 2 diabetes mellitus with chronic kidney disease Type 2 diabetes mellitus with hyperglycemia, with long-term current use of insulin Family History Family History Brother Diabetes Father No problems noted. Family history: reviewed and not pertinent Surgical History Surgical History H/O colonoscopy History of esophagogastroduodenoscopy (EGD) History of tonsillectomy Social History Social History Household Members: Spouse Housing: House Do you presently have visiting nurse or other home services: No Alcohol intake: never Patient Tobacco Use Status: Never used Tobacco e-Cigarette/Vaping Use: Never Used Second Hand Smoke Exposure: No service: No Current occupational status: retired Meds Allergies Allergy/AdvReac Type Severity Reaction Status Date / Time No Known Allergies Allergy Verified 11/27/20 14:38 Active Medications: Current Medications Generic Name Dose Route Start Last Admin Trade Name Freq PRN Reason Stop Dose Admin Albuterol/Ipratropium 3 ml 01/04/21 17:56 01/04/21 23:31 Albuterol/Iprat 2.5/0.5mg 3 Ml Ampul.Neb INHALE 3 ml RQ4H PRN Administration Dyspnea Dextrose 25 gm 01/04/21 12:58 Dextrose 50 % 25 Gm/50 Ml Vial IVPUSH Q15M PRN per Hypoglycemia Standing Ord. Protocol Folic Acid 1 mg 01/05/21 09:00 01/09/21 08:50 Folic Acid 1 Mg Tablet PO Not Given DAILY GEOFF Glucose 15 gm 01/04/21 12:58 Glucose Gel 15 Gm Gel..Gram. PO Q15M PRN per Hypoglycemia Standing Ord. Protocol Lactated Ringer's 1,000 mls @ 80 mls/hr 01/09/21 02:45 01/09/21 04:10 Lr IVCONT 80 mls/hr .[id number] GEOFF Administration Vancomycin HCl 1,500 mg/ 500 mls @ 333.333 mls/hr 01/09/21 04:00 01/09/21 05:44 Sodium Chloride IV Infused Q24H GEOFF Infusion Piperacillin Sod/Tazobactam 50 mls @ 100 mls/hr 01/09/21 09:00 01/09/21 09:19 Sod 3.375 gm/ Sodium Chloride IV Infused Q6H GEOFF Infusion Levetiracetam 1,000 mg in 100 mls @ 400 mls/hr 01/09/21 20:00 Keppra IV Q12H GEOFF Albumin Human 100 mls @ 100 mls/hr 01/09/21 10:45 01/09/21 11:10 Kedbumin 25 % IV 01/10/21 05:44 100 mls/hr Q6H GEOFF Administration Insulin Human Lispro 0 unit 01/04/21 16:30 01/09/21 08:25 Insulin Lispro 100 Unit/Ml 3 Ml Vial SUBCUT Not Given QIDACHS GEOFF Protocol Lactulose 20 gm 01/04/21 15:00 01/09/21 08:50 Lactulose 20 Gm/30 Ml Solution PO Not Given TID GEOFF Levothyroxine Sodium 50 mcg 01/05/21 06:00 01/09/21 05:22 Levothyroxine Sodium 50 Mcg Tablet PO Not Given DAILY@0600 [facility] Melatonin 6 mg 01/08/21 21:00 01/08/21 20:31 Melatonin 3 Mg Tablet PO 6 mg BEDTIME [facility] Administration Metoprolol Tartrate 25 mg 01/05/21 09:00 01/09/21 08:50 Metoprolol Tartrate 25 Mg Tablet PO Not Given DAILY [facility] Protocol Omeprazole 20 mg 01/04/21 16:30 01/09/21 05:22 Omeprazole 20 Mg Capsule.Dr PO Not Given BID@0630,1630 [facility] Pharmacy Consult 1 each 01/09/21 02:40 Consult Rx Vancomycin Dosing MISCELLANE DAILY PRN Consult order Rifaximin 550 mg 01/04/21 21:00 01/09/21 08:50 Rifaximin 550 Mg Tablet PO Not Given BID [facility] Sodium Chloride 3 ml 01/04/21 16:00 01/09/21 08:44 0.9 % Sodium Chloride Flush 3 Ml Syringe IVFLUSH 3 ml QSHIFT [facility] Administration Tamsulosin HCl 0.4 mg 01/04/21 21:00 01/08/21 20:31 Tamsulosin Hcl 0.4 Mg Capsule PO 0.4 mg BEDTIME [facility] Administration Thiamine HCl 100 mg 01/04/21 21:00 01/09/21 08:50 Thiamine Hcl 100 Mg Tablet PO Not Given BID [facility] Home Medications Medication Instructions Recorded Confirmed Last Taken Type cholecalciferol (vitamin D3) 50 50 mcg PO DAILY 01/04/21 01/04/21 Unknown History mcg (2,000 unit) capsule (Vitamin D3) empagliflozin 25 mg tablet 25 mg PO DAILY 01/04/21 01/04/21 Unknown History (Jardiance) folic acid 1 mg tablet 1 mg PO DAILY 01/04/21 01/04/21 Unknown History insulin degludec 200 unit/mL (3 100 unit SUBCUT DAILY 01/04/21 01/04/21 Unknown History mL) subcutaneous pen (Tresiba FlexTouch U-200 insulin) insulin lispro 100 unit/mL 0 unit SUBCUT TID 01/04/21 01/04/21 Unknown History subcutaneous pen (Humalog KwikPen (U-100) Insulin) lactulose 10 gram/15 mL oral syrup 20 g PO TID 01/04/21 01/04/21 Unknown History levothyroxine 50 mcg tablet 50 mcg PO DAILY 01/04/21 01/04/21 Unknown History liraglutide 0.6 mg/0.1 mL (18 mg/3 0.6 mg SUBCUT DAILY 01/04/21 01/04/21 Unknown History mL) subcutaneous pen injector ([employer]za 2-Gordo) metoprolol tartrate 25 mg tablet 25 mg PO DAILY 01/04/21 01/04/21 Unknown History omeprazole 20 mg capsule,delayed 20 mg PO BID 01/04/21 01/04/21 Unknown History release penicillin V potassium 250 mg 250 mg PO BID 01/04/21 01/04/21 Unknown History tablet rifaximin 550 mg tablet (Xifaxan) 550 mg PO BID 01/04/21 01/04/21 Unknown History tamsulosin 0.4 mg capsule (Flomax) 0.4 mg PO BEDTIME 01/04/21 01/04/21 Unknown History thiamine HCl (vitamin B1) 100 mg 100 mg PO BID 01/04/21 01/04/21 Unknown History tablet torsemide 20 mg tablet 40 mg PO BID 01/04/21 01/04/21 Unknown History Physical Exam Vital Signs: Vital Signs: Last Vital Signs Temp 96.9 F 01/09/21 10:58 Pulse 62 01/09/21 10:58 Resp 18 01/09/21 10:58 BP 114/58 L 01/09/21 10:58 Pulse Ox 99 01/09/21 10:58 Body Mass Index 48.7 Neuro: Other: He was responsive to pain but did not respond to verbal stimuli. I was able to open his eyes and there was no nystagmus or jerking. Minor roving eye motions were noted. Face was symmetrical. There was no obvious convulsion or jerking or muscle spasms. Deep tendon reflexes were absent with bilateral extensor plantars. Results Labs CBC & Chem 7: 01/09/21 08:35 01/09/21 08:35 Labs: Short CBC 01/04/21 01/09/21 01/09/21 Range/Units 10:48 01:36 04:54 WBC 3.8 L (4.8-10.8) X10*3/uL Hgb 7.6 L (14.0-18.0) g/dl Hct 22.2 L (42-52) % Plt Count 57 L (160-400) X10*3/uL Random Glucose 54 L* 159 H D (60-115) mg/dL 01/09/21 01/09/21 Range/Units 08:35 08:35 WBC (4.8-10.8) X10*3/uL Hgb 8.0 L (14.0-18.0) g/dl Hct 23.8 L (42-52) % Plt Count (160-400) X10*3/uL Random Glucose 116 H (60-115) mg/dL BMP 01/09/21 01/09/21 01:36 08:35 Sodium 132 L 133 L Potassium 3.9 3.7 Chloride 99 101 Carbon Dioxide 23 25 BUN 50 H 51 H Creatinine 1.82 H 1.85 H Calcium 8.3 L 8.5 Liver Function 01/09/21 Range/Units 01:36 Total Bilirubin 3.9 H (0.0-1.0) mg/dL AST 60 H (5-37) U/L ALT 38 (0-40) U/L Alkaline Phosphatase 153 H D (39-117) U/L Albumin 2.7 L (3.5-5.0) g/dL Head CT did not reveal any significant abnormality. Microbiology Microbiology Results: Microbiology 01/04/21 11:03 Blood - Venous Blood Culture - Preliminary No growth after 48 hours. 01/04/21 10:48 Blood - Venous Blood Culture - Preliminary No growth after 48 hours. 01/04/21 15:49 Urine clean catch - Urine raygoza top Urine Culture - Final No growth. Assessment and Plan (1) Seizures: Status: Acute 70 years old man with baseline morbid obesity, history of alcohol abuse, apparently alcohol-induced liver cirrhosis and failure, recently put on transplant list, not known to have any seizure disorder in the past, initially admitted hospital with hypoglycemia but not seizures, was noted to have multiple seizure-like episode last night. His glucose is around that time was not too low. He was afebrile. Examination was suggestive of diffuse encephalopathy and head CT did not reveal any significant abnormality. Encephalopathy was likely multifactorial but more recently from multiple seizures and the medicines used to treat seizures. Recommendation at this time is to obtain an EEG to rule out any active seizures. Otherwise I would recommend Keppra g and half IV x1 and then 1 g twice a day. I would recommend checking Keppra level in about 3 days. If any further seizure is noted, he might have to be intubated and moved to intensive care unit and might also have to be moved to an ICU with neurological expertise. If that happened, it might be better to transfer him to [facility] where he was being considered for liver transplant. Procedures Date of Service Date of Service: 01/09/21
[2021-01-09 12:44] LABS: Sodium Urine Random < 20.0 mmol/L
--- NOTE | 2021-01-09 13:09 | MHC.CM.PN ---
Per ROUNDS discussion, Patient is not yet medically cleared for dc (Seizure/IV Keppra, IV Vanco & IV Zosyn). Returning to [facility] at [facility] remains the goal for dc and CM will continue to follow for possible need to adjust the dc plan.
[2021-01-09 13:58] LABS: ABG Refer to POC result
--- NOTE | 2021-01-09 14:13 | MHC.CLN ---
F/U SEIZURE X 2 ON 01/09. ATE 100% AT DINNER MEAL 01/08. CONTINUE DIABETIC 1800 KCAL DIET WITH GLUCERNA BID (474 KCAL, 20 G PROTEIN). FOLLOWING.
[2021-01-09 14:54] LABS: Hematocrit 22.2 % (42-52); Hemoglobin 7.3 g/dl (14.0-18.0)
[2021-01-09] MEDS: Octreotide Acetate 100 MCG/ML AMPUL SUBCUT (15:02)
--- NOTE | 2021-01-09 15:08 | P.PNIM_ITS ---
Subjective Subjective Date of Service: 01/09/21 Interval History: Had 4 sz overnight. Bit tongue, postictal. Given 1 mg lorazepam after 1st sz, but then had 2 subsequent generalized sz. This am upon my examination, he had 2 short (<30 sec) complex partial sz involving the R side of his face. Now lethargic, postictal but protecting his airway. Loaded with levetiracetam. called and came in; updated at bedside. [facility] Transplant vendor management specialist Dr Valentine accepted the pt for transfer; awaiting ICU bed there. Unable to obtain ROS due to pt's mental status. Review of Systems Review of Systems: Yes Unobtainable due to mental status Physical Exam Vital Signs: Vital Signs: Last Vital Signs Temp 98.0 F 01/09/21 14:50 Pulse 69 01/09/21 14:50 Resp 20 01/09/21 14:50 BP 137/60 01/09/21 14:50 Pulse Ox 99 01/09/21 14:50 Body Mass Index 48.7 Gen: lethargic HEENT: sclera icteric Neck: supple Lungs: diminished bilaterally Heart: regular rate and rhythm, no murmurs Abd: morbidly obese, non-tense ascites Ext: 3+ lower extremity edema Skin: multiple spider angiomata Neuro: lethargic Objective Data Current Medications Generic Name Dose Route Start Last Admin Trade Name Freq PRN Reason Stop Dose Admin Albuterol/Ipratropium 3 ml 01/04/21 17:56 01/04/21 23:31 Albuterol/Iprat 2.5/0.5mg 3 Ml Ampul.Neb INHALE 3 ml RQ4H PRN Administration Dyspnea Dextrose 25 gm 01/04/21 12:58 Dextrose 50 % 25 Gm/50 Ml Vial IVPUSH Q15M PRN per Hypoglycemia Standing Ord. Protocol Folic Acid 1 mg 01/05/21 09:00 01/09/21 08:50 Folic Acid 1 Mg Tablet PO Not Given DAILY GEOFF Glucose 15 gm 01/04/21 12:58 Glucose Gel 15 Gm Gel..Gram. PO Q15M PRN per Hypoglycemia Standing Ord. Protocol Vancomycin HCl 1,500 mg/ 500 mls @ 333.333 mls/hr 01/09/21 04:00 01/09/21 05:44 Sodium Chloride IV Infused Q24H GEOFF Infusion Piperacillin Sod/Tazobactam 50 mls @ 100 mls/hr 01/09/21 09:00 01/09/21 15:02 Sod 3.375 gm/ Sodium Chloride IV 100 mls/hr Q6H [facility] Administration Levetiracetam 1,000 mg in 100 mls @ 400 mls/hr 01/09/21 20:00 Keppra IV Q12H [facility] Albumin Human 100 mls @ 100 mls/hr 01/09/21 10:45 01/09/21 12:11 Kedbumin 25 % IV 01/10/21 05:44 Infused Q6H [facility] Infusion Insulin Human Lispro 0 unit 01/04/21 16:30 01/09/21 12:09 Insulin Lispro 100 Unit/Ml 3 Ml Vial SUBCUT Not Given QIDACHS [facility] Protocol Lactulose 20 gm 01/04/21 15:00 01/09/21 08:50 Lactulose 20 Gm/30 Ml Solution PO Not Given TID [facility] Levothyroxine Sodium 50 mcg 01/05/21 06:00 01/09/21 05:22 Levothyroxine Sodium 50 Mcg Tablet PO Not Given DAILY@0600 [facility] Melatonin 6 mg 01/08/21 21:00 01/08/21 20:31 Melatonin 3 Mg Tablet PO 6 mg BEDTIME [facility] Administration Metoprolol Tartrate 25 mg 01/05/21 09:00 01/09/21 08:50 Metoprolol Tartrate 25 Mg Tablet PO Not Given DAILY [facility] Protocol Midodrine 5 mg 01/09/21 15:00 Midodrine Hcl 5 Mg Tablet PO TID [facility] Octreotide Acetate 100 mcg 01/09/21 14:45 01/09/21 15:02 Octreotide Acetate 100 Mcg/Ml Ampul SUBCUT 100 mcg Q8H [facility] Administration Omeprazole 20 mg 01/04/21 16:30 01/09/21 05:22 Omeprazole 20 Mg Capsule.Dr PO Not Given BID@0630,1630 [facility] Pharmacy Consult 1 each 01/09/21 02:40 Consult Rx Vancomycin Dosing MISCELLANE DAILY PRN Consult order Rifaximin 550 mg 01/04/21 21:00 01/09/21 08:50 Rifaximin 550 Mg Tablet PO Not Given BID [facility] Sodium Chloride 3 ml 01/04/21 16:00 01/09/21 08:44 0.9 % Sodium Chloride Flush 3 Ml Syringe IVFLUSH 3 ml QSHIFT [facility] Administration Tamsulosin HCl 0.4 mg 01/04/21 21:00 01/08/21 20:31 Tamsulosin Hcl 0.4 Mg Capsule PO 0.4 mg BEDTIME [facility] Administration Thiamine HCl 100 mg 01/04/21 21:00 01/09/21 08:50 Thiamine Hcl 100 Mg Tablet PO Not Given BID [facility] Labs CBC & Chem 7: 01/09/21 14:46 01/09/21 08:35 Labs: Laboratory Results - last 24 hr 01/08/21 01/08/21 01/08/21 15:11 15:33 19:50 MCV MCH MCHC RDW Plt Count MPV Immature Gran % (Auto) Neut % (Auto) Lymph % (Auto) Nobles % (Auto) Eos % (Auto) Baso % (Auto) Lymph # (Auto) Nobles # (Auto) Eos # (Auto) Baso # (Auto) Abs Immat Gran (auto) Absolute Neuts (auto) Absolute Nucleated RBC Nucleated RBC % (auto) PT INR O2 Saturation ABG pH at Pt Temp ABG pH (Temp Correct) ABG pCO2 at Pt Temp ABG pCO2 (Temp Corrct ABG pO2 at Pt Temp ABG pO2 (Temp Correct ABG HCO3 ABG Base Excess (Actual) Anion Gap Estim Creat Clear Calc Estimated GFR POC Glucose 157 H 186 H Random Glucose Lactic Acid Lactic Acid Fup @ 2Hr Calcium Magnesium Total Bilirubin AST ALT Alkaline Phosphatase Ammonia 77 H Total Protein Albumin Procalcitonin Ur Random Sodium 01/08/21 01/09/21 01/09/21 22:57 01:36 01:36 MCV MCH MCHC RDW Plt Count MPV Immature Gran % (Auto) Neut % (Auto) Lymph % (Auto) Nobles % (Auto) Eos % (Auto) Baso % (Auto) Lymph # (Auto) Nobles # (Auto) Eos # (Auto) Baso # (Auto) Abs Immat Gran (auto) Absolute Neuts (auto) Absolute Nucleated RBC Nucleated RBC % (auto) PT 23.4 H INR 2.0 H O2 Saturation ABG pH at Pt Temp ABG pH (Temp Correct) ABG pCO2 at Pt Temp ABG pCO2 (Temp Corrct ABG pO2 at Pt Temp ABG pO2 (Temp Correct ABG HCO3 ABG Base Excess (Actual) Anion Gap 14 Estim Creat Clear Calc 55.4 Estimated GFR 37 POC Glucose 149 H Random Glucose 159 H D Lactic Acid Lactic Acid Fup @ 2Hr Calcium 8.3 L Magnesium Total Bilirubin 3.9 H AST 60 H ALT 38 Alkaline Phosphatase 153 H D Ammonia Total Protein 5.0 L Albumin 2.7 L Procalcitonin Ur Random Sodium 01/09/21 01/09/21 01/09/21 01:36 03:56 04:54 MCV 96.5 MCH 33.0 MCHC 34.2 RDW 18.9 H Plt Count 57 L MPV 10.5 Immature Gran % (Auto) 0.5 H Neut % (Auto) 67.0 Lymph % (Auto) 14.3 L Nobles % (Auto) 10.6 Eos % (Auto) 7.1 H Baso % (Auto) 0.5 Lymph # (Auto) 0.5 L Nobles # (Auto) 0.4 Eos # (Auto) 0.3 Baso # (Auto) 0.0 Abs Immat Gran (auto) 0.02 Absolute Neuts (auto) 2.5 Absolute Nucleated RBC 0.000 Nucleated RBC % (auto) 0.0 PT INR O2 Saturation ABG pH at Pt Temp ABG pH (Temp Correct) ABG pCO2 at Pt Temp ABG pCO2 (Temp Corrct ABG pO2 at Pt Temp ABG pO2 (Temp Correct ABG HCO3 ABG Base Excess (Actual) Anion Gap Estim Creat Clear Calc Estimated GFR POC Glucose Random Glucose Lactic Acid 2.6 H* Lactic Acid Fup @ 2Hr 1.9 Calcium Magnesium Total Bilirubin AST ALT Alkaline Phosphatase Ammonia Total Protein Albumin Procalcitonin Ur Random Sodium 01/09/21 01/09/21 01/09/21 07:37 08:35 08:35 MCV MCH MCHC RDW Plt Count MPV Immature Gran % (Auto) Neut % (Auto) Lymph % (Auto) Nobles % (Auto) Eos % (Auto) Baso % (Auto) Lymph # (Auto) Nobles # (Auto) Eos # (Auto) Baso # (Auto) Abs Immat Gran (auto) Absolute Neuts (auto) Absolute Nucleated RBC Nucleated RBC % (auto) PT INR O2 Saturation ABG pH at Pt Temp ABG pH (Temp Correct) ABG pCO2 at Pt Temp ABG pCO2 (Temp Corrct ABG pO2 at Pt Temp ABG pO2 (Temp Correct ABG HCO3 ABG Base Excess (Actual) Anion Gap 11 L Estim Creat Clear Calc 54.5 Estimated GFR 36 POC Glucose 133 H Random Glucose 116 H Lactic Acid Lactic Acid Fup @ 2Hr Calcium 8.5 Magnesium 2.2 Total Bilirubin AST ALT Alkaline Phosphatase Ammonia 73 H Total Protein Albumin Procalcitonin Ur Random Sodium 01/09/21 01/09/21 01/09/21 08:35 08:55 11:11 MCV MCH MCHC RDW Plt Count MPV Immature Gran % (Auto) Neut % (Auto) Lymph % (Auto) Nobles % (Auto) Eos % (Auto) Baso % (Auto) Lymph # (Auto) Nobles # (Auto) Eos # (Auto) Baso # (Auto) Abs Immat Gran (auto) Absolute Neuts (auto) Absolute Nucleated RBC Nucleated RBC % (auto) PT INR O2 Saturation 100.0 ABG pH at Pt Temp 7.41 ABG pH (Temp Correct) 7.43 ABG pCO2 at Pt Temp 39 ABG pCO2 (Temp Corrct 38 ABG pO2 at Pt Temp 132 H ABG pO2 (Temp Correct 126 H ABG HCO3 25 ABG Base Excess (Actual) 1.4 Anion Gap Estim Creat Clear Calc Estimated GFR POC Glucose 105 Random Glucose Lactic Acid Lactic Acid Fup @ 2Hr Calcium Magnesium Total Bilirubin AST ALT Alkaline Phosphatase Ammonia Total Protein Albumin Procalcitonin 0.37 Ur Random Sodium 01/09/21 11:58 MCV MCH MCHC RDW Plt Count MPV Immature Gran % (Auto) Neut % (Auto) Lymph % (Auto) Nobles % (Auto) Eos % (Auto) Baso % (Auto) Lymph # (Auto) Nobles # (Auto) Eos # (Auto) Baso # (Auto) Abs Immat Gran (auto) Absolute Neuts (auto) Absolute Nucleated RBC Nucleated RBC % (auto) PT INR O2 Saturation ABG pH at Pt Temp ABG pH (Temp Correct) ABG pCO2 at Pt Temp ABG pCO2 (Temp Corrct ABG pO2 at Pt Temp ABG pO2 (Temp Correct ABG HCO3 ABG Base Excess (Actual) Anion Gap Estim Creat Clear Calc Estimated GFR POC Glucose Random Glucose Lactic Acid Lactic Acid Fup @ 2Hr Calcium Magnesium Total Bilirubin AST ALT Alkaline Phosphatase Ammonia Total Protein Albumin Procalcitonin Ur Random Sodium < 20.0 Impressions Paracentesis Ultrasound 01/08/21 13:35 IMPRESSION: Paracentesis with removal of 2.3 L of clear yellow fluid. Head CT 01/09/21 06:32 IMPRESSION: No acute intracranial pathology. Microbiology Microbiology Results: Microbiology 01/04/21 11:03 Blood Culture - Final Blood - Venous No growth after 5 days. 01/04/21 10:48 Blood Culture - Final Blood - Venous No growth after 5 days. Assessment and Plan (1) Hypoglycemia: Status: Acute Assessment and Plan: hospital d#6 70yo M with decompensated EtOH cirrhosis with hx esophageal varix/GAVE/portal gastropathy, CKD3, chronic lymphedema, DM2 sent in from SNF with hypoglycemia with encephalopathy found to have pneumonia + also treating for hepatic encephalopathy developed new-onset seizures 01/08/21 # new-onset sz - Neurology consult. Loaded with levetiracetam- 1.5g, then 1g q12h maintenance. EEG. if seizes again needs continuous EEG/neuro ICU/transfer to tertiary care # pneumonia - was on ceftriaxone + doxycycline d#5, broaded overnight to vancomycin + cefepime [will change latter to pip/radha given sz] # DM2 with hypoglycemia - hypoglycemia resolved; correction-dose lispro for hyperglycemia # LINETTE/CKD3 - Earline <20, concern for hepatorenal syndrome. will give albumin, midodrine [when taking PO], octreotide # hepatic encephalopathy - lactulose + rifaximin # cirrhosis with ascites - s/p paracentesis 2.3L 01/08/21 - on transplant list at [facility] # pancytopenia - plt + WBC count stable; monitor - Hb drifting down; will T+S, check FOBT, change PPI to IV, and consult GI - last EGD 10/16/[address] Rudolph: Esophagus: GE junction at 40? cm, diaphragm hiatus at 40 cm, x 1 grade II varix noted, no red winter Stomach: Patchy gastric erythema especially around the antrum compatible with GAVE. Grade 2 flap valve on retroflexed examination of the cardia. No gastric varices seen. After retroflexion he kept bleeding and wouldn;t stop so hemospray used with good effect. I held on APC for the GAVE due to this. Mosaic pattern consistent with portal hypertensive gastropathy also noted # dispo - accepted at [facility] ICU but no bed availability at this point # VTE ppx - SCDs Quality Stroke Does the patient have a stroke diagnosis?: No VTE Prior VTE?: No VTE Risk Level:: Medical - moderate - high VTE Device Contraindication: N/A - Device Ordered VTE Drug Contraindication: Treatment Not Indicated
--- NOTE | 2021-01-09 15:32 | P.DS_ITS ---
DS: Providers Provider Date of Service: 01/09/21 Date of admission: 01/04/21 13:57 Primary care physician: Selena Stewart MD Consults: 01/09/21 07:44 Consult to Neurology Routine Consulting Provider: [facility] Reason for consultation: recurrent seizures, cirrhosis 01/09/21 08:10 Consult to Gastroenterology Routine Consulting Provider[place] [facility] Reason for consultation: decompensated cirrhosis, hepatic encephalopathy, seizures 01/09/21 10:38 Consult to Nephrology Routine Consulting Provider: [facility] Reason for consultation: Linette/CKD, cirrhosis ?hepatorenal DS: Transfer Hospital Acceptance Reason for Transfer: Tertiary Care Name of Facility: [facility] Accepting Provider: Tiffani Valentine [transplant hepatology] and Jie [critical care] DS: Diagnosis Discharge Diagnosis (1) Hypoglycemia: Status: Acute (2) New onset seizure: Status: Acute (3) Pneumonia: Status: Acute (4) Cirrhosis of liver with ascites: Status: Acute (5) Portal hypertensive gastropathy: Status: Acute (6) Esophageal varix: Status: Acute (7) GAVE (gastric antral vascular ectasia): Status: Acute (8) Acute on chronic kidney failure: Status: Acute (9) Type 2 diabetes mellitus with chronic kidney disease: Status: Acute DS: Summary Hospital Course Hospital Course: From admission H+P by hospitalist Silas Sutton MD, 01/04/21: 70[place]., patient is poor historian, [place] for hypoglycemia down to 20s, with AMS, given glucagon and dextrose, reported decreased appetite and no change in insulin dosage. noted to have RUL opacity on CXR concerning for pneumonia. This 70yo male with decompensated EtOH cirrhosis with hx esophageal varix/GAVE/portal gastropathy on the [facility] liver transplant list, CKD3, chronic lymphedema, DM2 was sent in from SNF with hypoglycemia with encephalopathy, was found to have pneumonia + was also treated for hepatic encephalopathy. He developed new-onset seizures on the night of 01/08-01/09/21 of unknown etiology. He was loaded with levetiracetam and the [facility] transplant team was contacted. The patient was accepted for transfer to their ICU pending bed availability. This discharge summary covers events from 01/04-01/09/21, at which point I went off service By problem: 1. new-onset seizures Loaded with levetiracetam- 1.5g, then 1g q12h maintenance.? EEG.? Neurology following. If seizes again needs continuous EEG/neuro ICU @ tertiary care center 2. pneumonia Was on ceftriaxone + doxycycline for 5 days; broadened overnight to vancomycin + cefepime; latter changed to piperacillin/tazobactam due to seizures. 3. DM2 with hypoglycemia Hypoglycemia resolved; correction-dose lispro for hyperglycemia; long-acting insulin and oral hypoglycemics held. 4. LINETTE/CKD3 Earline <20, concern for impending hepatorenal syndrome.? On 01/09, started albumin, midodrine [give when taking PO], and octreotide 5. hepatic encephalopathy Treating with actulose + rifaximin. 6. cirrhosis with ascites Had therapeutic paracentesis 2.3L 01/08/21 7. pancytopenia Platelet + WBC count stable. H+H drifting down; will T+S, check FOBT, change PPI to IV, and consult GI. Last EGD 10/16/[address] Rudolph: Esophagus: GE junction at 40? cm, diaphragm hiatus at 40 cm, x 1 grade II varix noted, no red winter Stomach: Patchy gastric erythema especially around the antrum compatible with GAVE. Grade 2 flap valve on retroflexed examination of the cardia. No gastric varices seen. After retroflexion he kept bleeding and wouldn;t stop so hemospray used with good effect. I held on APC for the GAVE due to this. Mosaic pattern consistent with portal hypertensive gastropathy also noted Time Spent with Patient Time attestation: Total time spent providing and/or coordinating discharge services: Discharge coordination time: Greater than 30 minutes Quality: Stroke Does the patient have a stroke diagnosis?: No Physical Exam Vital Signs: Vital Signs: Last Vital Signs Temp 98.0 F 01/09/21 14:50 Pulse 69 01/09/21 14:50 Resp 20 01/09/21 14:50 BP 137/60 01/09/21 14:50 Pulse Ox 99 01/09/21 14:50 Body Mass Index 48.7 Gen: lethargic HEENT: sclera icteric Neck: supple Lungs: diminished bilaterally Heart: regular rate and rhythm, no murmurs Abd: morbidly obese, non-tense ascites Ext: extensive lower extremity lymphedema Skin: multiple spider angiomata Neuro: lethargic DS: Data Data Completed and Pending Completed studies during hospitalization [Text1]: Laboratory Results WBC 3.8 X10*3/uL (4.8-10.8) L 01/09/21 04:54 RBC 2.30 X10*6/uL (4.60-5.80) L 01/09/21 04:54 Hgb 7.3 g/dl (14.0-18.0) L 01/09/21 14:46 Hct 22.2 % (42-52) L 01/09/21 14:46 MCV 96.5 fL (80-98) 01/09/21 04:54 MCH 33.0 pg (27.0-33.0) 01/09/21 04:54 MCHC 34.2 g/dl (31.0-36.0) 01/09/21 04:54 RDW 18.9 % (11.0-16.0) H 01/09/21 04:54 Plt Count 57 X10*3/uL (160-400) L 01/09/21 04:54 MPV 10.5 fL (9.4-12.4) 01/09/21 04:54 Immature Gran % (Auto) 0.5 % (0.0-0.4) H 01/09/21 04:54 Neut % (Auto) 67.0 % (45-73) 01/09/21 04:54 Lymph % (Auto) 14.3 % (20-40) L 01/09/21 04:54 [place] % (Auto) 10.6 % (2-11) 01/09/21 04:54 Eos % (Auto) 7.1 % (0-4) H 01/09/21 04:54 Baso % (Auto) 0.5 % (0-2) 01/09/21 04:54 Lymph # (Auto) 0.5 X10*3/uL (1.2-4.9) L 01/09/21 04:54 [place] # (Auto) 0.4 X10*3/uL (0.1-1.2) 01/09/21 04:54 Eos # (Auto) 0.3 X10*3/uL (0.0-0.4) 01/09/21 04:54 Baso # (Auto) 0.0 X10*3/uL (0.0-0.2) 01/09/21 04:54 Abs Immat Gran (auto) 0.02 X10*3/uL (0.00-0.03) 01/09/21 04:54 Absolute Neuts (auto) 2.5 X10*3/uL (2.0-8.3) 01/09/21 04:54 Absolute Nucleated RBC 0.000 X10*3/uL (0.0-0.012) 01/09/21 04:54 Nucleated RBC % (auto) 0.0 /100WBC (0.0-0.2) 01/09/21 04:54 PT 23.4 SEC (9.9-13.0) H 01/09/21 01:36 INR 2.0 (0.9-1.1) H 01/09/21 01:36 APTT 46.6 SEC (24.1-38.0) H 01/04/21 10:48 O2 Saturation 100.0 % 01/09/21 08:55 ABG pH at Pt Temp 7.41 (7.35-7.45) 01/09/21 08:55 ABG pH (Temp Correct) 7.43 (7.35-7.45) 01/09/21 08:55 ABG pCO2 at Pt Temp 39 mmHg (32-45) 01/09/21 08:55 ABG pCO2 (Temp Corrct 38 mmHg (32-45) 01/09/21 08:55 ABG pO2 at Pt Temp 132 mmHg (83-108) H 01/09/21 08:55 ABG pO2 (Temp Correct 126 (83-108) H 01/09/21 08:55 ABG HCO3 25 mmol/L (22-26) 01/09/21 08:55 ABG Base Excess (Actual) 1.4 mmol/L 01/09/21 08:55 Sodium 133 mmol/L (135-145) L 01/09/21 08:35 Potassium 3.7 mmol/L (3.3-5.1) 01/09/21 08:35 Chloride 101 mmol/L (96-108) 01/09/21 08:35 Carbon Dioxide 25 mmol/L (22-29) 01/09/21 08:35 Anion Gap 11 (12-20) L 01/09/21 08:35 BUN 51 mg/dL (9-16) H 01/09/21 08:35 Creatinine 1.85 mg/dL (0.5-1.4) H 01/09/21 08:35 Estim Creat Clear Calc 54.5 01/09/21 08:35 Estimated GFR 36 01/09/21 08:35 POC Glucose 105 mg/dL (60-115) 01/09/21 11:11 Random Glucose 116 mg/dL (60-115) H 01/09/21 08:35 Fasting Glucose 145 mg/dL (60-99) H D 01/08/21 04:24 Lactic Acid 2.6 mmol/L (0.5-2.0) H* 01/09/21 01:36 Lactic Acid Fup @ 2Hr 1.9 mmol/L (0.5-2.0) 01/09/21 03:56 Calcium 8.5 mg/dL (8.4-10.2) 01/09/21 08:35 Magnesium 2.2 mg/dL (1.6-2.6) 01/09/21 08:35 Total Bilirubin 3.9 mg/dL (0.0-1.0) H 01/09/21 01:36 Direct Bilirubin 1.9 mg/dL (0.0-0.5) H 01/04/21 10:48 AST 60 U/L (5-37) H 01/09/21 01:36 ALT 38 U/L (0-40) 01/09/21 01:36 Alkaline Phosphatase 153 U/L (39-117) H D 01/09/21 01:36 Ammonia 73 umol/L (13-55) H 01/09/21 08:35 B-Natriuretic Peptide 776 pg/mL (<100) H 01/04/21 10:48 Total Protein 5.0 g/dL (6.5-8.0) L 01/09/21 01:36 Albumin 2.7 g/dL (3.5-5.0) L 01/09/21 01:36 Lipase 29 U/L (8-78) 01/04/21 10:48 Procalcitonin 0.37 ng/mL 01/09/21 08:35 Urine Color YELLOW 01/04/21 15:39 Urine Appearance CLOUDY 01/04/21 15:39 Urine pH 6.0 (5.0-8.0) 01/04/21 15:39 Ur Specific Currie 1.015 (1.005-1.025) 01/04/21 15:39 Urine Protein 2+ MG/DL (NEG-TRACE) H 01/04/21 15:39 Urine Glucose (UA) NEG MG/DL (NEG) 01/04/21 15:39 Urine Ketones NEG MG/DL (NEG) 01/04/21 15:39 Urine Blood 3+ (NEG) H 01/04/21 15:39 Urine Nitrite NEG (NEG) 01/04/21 15:39 Ur Leukocyte Esterase 3+ (NEG) H 01/04/21 15:39 Urine RBC 15-29 /HPF (0) H 01/04/21 15:39 Urine WBC 50-75 /HPF (0-4) H 01/04/21 15:39 Ur Squamous Epith Cells NONE /LPF 01/04/21 15:39 Urine Bacteria 1+ /LPF 01/04/21 15:39 Urine Yeast 3+ /HPF 01/04/21 15:39 Ur Random Sodium < 20.0 mmol/L 01/09/21 11:58 COVID-19 (JACKY) Negative (Negative) 01/04/21 10:49 COVID-19 Clin Com See Note 01/04/21 10:[address] 01/04/21 14:29 IMPRESSION: Bilateral patchy ground-glass opacities in both upper lobes and lower lobes consistent with infiltrates. There are small bilateral pleural effusions. Ascites of the right hepatic lobe cyst. Cholelithiasis. Chest X-Ray 01/07/21 09:08 IMPRESSION: Low lung volumes. Bilateral airspace disease, right greater than left, more suggestive of pneumonia. Paracentesis Ultrasound 01/08/21 13:35 IMPRESSION: Paracentesis with removal of 2.3 L of clear yellow fluid. Head CT 01/09/21 06:32 IMPRESSION: No acute intracranial pathology. Labs on day of discharge: Laboratory Results - last 24 hr 01/08/21 01/08/21 01/08/21 15:11 15:33 19:50 WBC RBC Hgb Hct MCV MCH MCHC RDW Plt Count MPV Immature Gran % (Auto) Neut % (Auto) Lymph % (Auto) [place] % (Auto) Eos % (Auto) Baso % (Auto) Lymph # (Auto) [place] # (Auto) Eos # (Auto) Baso # (Auto) Abs Immat Gran (auto) Absolute Neuts (auto) Absolute Nucleated RBC Nucleated RBC % (auto) PT INR O2 Saturation ABG pH at Pt Temp ABG pH (Temp Correct) ABG pCO2 at Pt Temp ABG pCO2 (Temp Corrct ABG pO2 at Pt Temp ABG pO2 (Temp Correct ABG HCO3 ABG Base Excess (Actual) Sodium Potassium Chloride Carbon Dioxide Anion Gap BUN Creatinine Estim Creat Clear Calc Estimated GFR POC Glucose 157 H 186 H Random Glucose Lactic Acid Lactic Acid Fup @ 2Hr Calcium Magnesium Total Bilirubin AST ALT Alkaline Phosphatase Ammonia 77 H Total Protein Albumin Procalcitonin Ur Random Sodium 01/08/21 01/09/21 01/09/21 22:57 01:36 01:36 WBC RBC Hgb Hct MCV MCH MCHC RDW Plt Count MPV Immature Gran % (Auto) Neut % (Auto) Lymph % (Auto) [place] % (Auto) Eos % (Auto) Baso % (Auto) Lymph # (Auto) [place] # (Auto) Eos # (Auto) Baso # (Auto) Abs Immat Gran (auto) Absolute Neuts (auto) Absolute Nucleated RBC Nucleated RBC % (auto) PT 23.4 H INR 2.0 H O2 Saturation ABG pH at Pt Temp ABG pH (Temp Correct) ABG pCO2 at Pt Temp ABG pCO2 (Temp Corrct ABG pO2 at Pt Temp ABG pO2 (Temp Correct ABG HCO3 ABG Base Excess (Actual) Sodium 132 L Potassium 3.9 Chloride 99 Carbon Dioxide 23 Anion Gap 14 BUN 50 H Creatinine 1.82 H Estim Creat Clear Calc 55.4 Estimated GFR 37 POC Glucose 149 H Random Glucose 159 H D Lactic Acid Lactic Acid Fup @ 2Hr Calcium 8.3 L Magnesium Total Bilirubin 3.9 H AST 60 H ALT 38 Alkaline Phosphatase 153 H D Ammonia Total Protein 5.0 L Albumin 2.7 L Procalcitonin Ur Random Sodium 01/09/21 01/09/21 01/09/21 01:36 03:56 04:54 WBC 3.8 L RBC 2.30 L Hgb 7.6 L Hct 22.2 L MCV 96.5 MCH 33.0 MCHC 34.2 RDW 18.9 H Plt Count 57 L MPV 10.5 Immature Gran % (Auto) 0.5 H Neut % (Auto) 67.0 Lymph % (Auto) 14.3 L [place] % (Auto) 10.6 Eos % (Auto) 7.1 H Baso % (Auto) 0.5 Lymph # (Auto) 0.5 L [place] # (Auto) 0.4 Eos # (Auto) 0.3 Baso # (Auto) 0.0 Abs Immat Gran (auto) 0.02 Absolute Neuts (auto) 2.5 Absolute Nucleated RBC 0.000 Nucleated RBC % (auto) 0.0 PT INR O2 Saturation ABG pH at Pt Temp ABG pH (Temp Correct) ABG pCO2 at Pt Temp ABG pCO2 (Temp Corrct ABG pO2 at Pt Temp ABG pO2 (Temp Correct ABG HCO3 ABG Base Excess (Actual) Sodium Potassium Chloride Carbon Dioxide Anion Gap BUN Creatinine Estim Creat Clear Calc Estimated GFR POC Glucose Random Glucose Lactic Acid 2.6 H* Lactic Acid Fup @ 2Hr 1.9 Calcium Magnesium Total Bilirubin AST ALT Alkaline Phosphatase Ammonia Total Protein Albumin Procalcitonin Ur Random Sodium 01/09/21 01/09/21 01/09/21 07:37 08:35 08:35 WBC RBC Hgb Hct MCV MCH MCHC RDW Plt Count MPV Immature Gran % (Auto) Neut % (Auto) Lymph % (Auto) [place] % (Auto) Eos % (Auto) Baso % (Auto) Lymph # (Auto) [place] # (Auto) Eos # (Auto) Baso # (Auto) Abs Immat Gran (auto) Absolute Neuts (auto) Absolute Nucleated RBC Nucleated RBC % (auto) PT INR O2 Saturation ABG pH at Pt Temp ABG pH (Temp Correct) ABG pCO2 at Pt Temp ABG pCO2 (Temp Corrct ABG pO2 at Pt Temp ABG pO2 (Temp Correct ABG HCO3 ABG Base Excess (Actual) Sodium 133 L Potassium 3.7 Chloride 101 Carbon Dioxide 25 Anion Gap 11 L BUN 51 H Creatinine 1.85 H Estim Creat Clear Calc 54.5 Estimated GFR 36 POC Glucose 133 H Random Glucose 116 H Lactic Acid Lactic Acid Fup @ 2Hr Calcium 8.5 Magnesium 2.2 Total Bilirubin AST ALT Alkaline Phosphatase Ammonia 73 H Total Protein Albumin Procalcitonin Ur Random Sodium 01/09/21 01/09/21 01/09/21 08:35 08:35 08:55 WBC RBC Hgb 8.0 L Hct 23.8 L MCV MCH MCHC RDW Plt Count MPV Immature Gran % (Auto) Neut % (Auto) Lymph % (Auto) [place] % (Auto) Eos % (Auto) Baso % (Auto) Lymph # (Auto) [place] # (Auto) Eos # (Auto) Baso # (Auto) Abs Immat Gran (auto) Absolute Neuts (auto) Absolute Nucleated RBC Nucleated RBC % (auto) PT INR O2 Saturation 100.0 ABG pH at Pt Temp 7.41 ABG pH (Temp Correct) 7.43 ABG pCO2 at Pt Temp 39 ABG pCO2 (Temp Corrct 38 ABG pO2 at Pt Temp 132 H ABG pO2 (Temp Correct 126 H ABG HCO3 25 ABG Base Excess (Actual) 1.4 Sodium Potassium Chloride Carbon Dioxide Anion Gap BUN Creatinine Estim Creat Clear Calc Estimated GFR POC Glucose Random Glucose Lactic Acid Lactic Acid Fup @ 2Hr Calcium Magnesium Total Bilirubin AST ALT Alkaline Phosphatase Ammonia Total Protein Albumin Procalcitonin 0.37 Ur Random Sodium 01/09/21 01/09/21 01/09/21 11:11 11:58 14:46 WBC RBC Hgb 7.3 L Hct 22.2 L MCV MCH MCHC RDW Plt Count MPV Immature Gran % (Auto) Neut % (Auto) Lymph % (Auto) [place] % (Auto) Eos % (Auto) Baso % (Auto) Lymph # (Auto) [place] # (Auto) Eos # (Auto) Baso # (Auto) Abs Immat Gran (auto) Absolute Neuts (auto) Absolute Nucleated RBC Nucleated RBC % (auto) PT INR O2 Saturation ABG pH at Pt Temp ABG pH (Temp Correct) ABG pCO2 at Pt Temp ABG pCO2 (Temp Corrct ABG pO2 at Pt Temp ABG pO2 (Temp Correct ABG HCO3 ABG Base Excess (Actual) Sodium Potassium Chloride Carbon Dioxide Anion Gap BUN Creatinine Estim Creat Clear Calc Estimated GFR POC Glucose 105 Random Glucose Lactic Acid Lactic Acid Fup @ 2Hr Calcium Magnesium Total Bilirubin AST ALT Alkaline Phosphatase Ammonia Total Protein Albumin Procalcitonin Ur Random Sodium < 20.0 Discharge Plan Discharge Patient Disposition: Xfer Critical Access Hosp Discharge Diagnosis: new-onset seizures, hepatic encephalopathy, pneumonia, decompensated cirrhosis, hypoglycemia Referrals: Spike Valentine MD [Physician] - 2 Weeks Selena Stewart MD [Primary Care Provider] - 1 Week Discharge Medications: New piperacillin-tazobactam 3.375 gram Recon Soln 3.375 g IV Q6H Qty: 1 RF: 0 ipratropium-albuterol 0.5 mg-3 mg(2.5 mg base)/3 mL Solution For Nebulization 3 ml inhalation RQ4H PRN (Reason: Dyspnea) Qty: 1 RF: 0 midodrine 5 mg Tablet 5 mg PO TID Qty: 1 RF: 0 levetiracetam in NaCl (iso-os) 1,000 mg/100 mL Piggyback 1,000 mg IV Q12H Qty: 1 RF: 0 dextrose [Glutose-15] 40 % Gel 15 g PO Q15M PRN (Reason: Per Hypoglycemia Standing Ord.) Qty: 1 RF: 0 pantoprazole [Protonix] 40 mg Recon Soln 40 mg IVPUSH BID@0630,1630 Qty: 1 RF: 0 dextrose 50 % in water (D50W) Parenteral Solution 25 g IVPUSH Q15M PRN (Reason: Per Hypoglycemia Standing Ord.) Qty: 1 RF: 0 insulin lispro [Humalog U-100 Insulin] 100 unit/mL Solution See Protocol unit subcut QIDACHS Qty: 10 RF: 0 octreotide acetate 100 mcg/mL Solution 100 mcg subcut Q8H Qty: 1 RF: 0 Continued lactulose 10 gram/15 mL Syrup 20 g PO TID RF: 0 thiamine HCl (vitamin B1) 100 mg Tablet 100 mg PO BID RF: 0 tamsulosin [Flomax] 0.4 mg Capsule 0.4 mg PO BEDTIME RF: 0 levothyroxine 50 mcg Tablet 50 mcg PO DAILY RF: 0 folic acid 1 mg Tablet 1 mg PO DAILY RF: 0 metoprolol tartrate 25 mg Tablet 25 mg PO DAILY RF: 0 cholecalciferol (vitamin D3) [Vitamin D3] 50 mcg (2,000 unit) Capsule 50 mcg PO DAILY RF: 0 Discontinued penicillin V potassium 250 mg Tablet 250 mg PO BID RF: 0 torsemide 20 mg Tablet 40 mg PO BID RF: 0 omeprazole [Prilosec] 20 mg Capsule,Delayed Release(Dr/Ec) 20 mg PO BID RF: 0 insulin lispro [Humalog KwikPen Insulin] 100 unit/mL Insulin Pen 0 unit SUBCUT TID RF: 0 Victoza 2-Gordo 0.6 mg/0.1 mL (18 mg/3 mL) Pen Injector 0.6 mg SUBCUT DAILY RF: 0 Tresiba FlexTouch U-200 200 unit/mL (3 mL) Insulin Pen 100 unit SUBCUT DAILY RF: 0 Jardiance 25 mg Tablet 25 mg PO DAILY RF: 0 No Action Tresiba FlexTouch U-200 200 unit/mL (3 mL) insulin pen 30 unit subcut DAILY Qty: 9 RF: 0 Xifaxan 550 mg tablet 550 mg PO BID Qty: 60 RF: 3 Discharge Orders: Discharge Order (Routine); Ordered 01/12/21 Ordered By: Leo Irizarry Diet: other Activity on Discharge: As tolerated Stand Alone Forms: Patient Portal Discharge page Care Plan Goals: diagnosis and management of seizures liver health Health Concerns: new-onset seizures cirrhosis, decompensated Plan of Treatment: transfer to [facility] Liver Transplant Service/ICU Assessment: as above Patient Instructions: Levetiracetam (By injection), New-Onset Seizure in Adults (ED) Discharge Date/Time: 01/12/21 20:30
--- NOTE | 2021-01-09 15:51 | PM.GICN ---
History of Present Illness Data of Consult Service Date: 01/09/21 Requesting physician: Donis Tucker Primary Care Provider: Selena Stewart MD HPI Reason for consult: Decompensated cirrhosis, hepatic encephalopathy, seizures 70 YM with ESLD complicated by ascites and worsening generalized anasarca. Pt was discharged on 12/27/20 from [facility] after a 3 week stay and transferred to SNF in [place]. He was admitted to [facility] on 01/04/21 with hypoglycemia and pneumonia. Had 4 sz overnight.? Bit tongue, postictal.? Given 1 mg lorazepam after 1st sz, but then had 2 subsequent generalized sz.? This am upon my examination, he had 2 short (<30 sec) complex partial sz involving the R side of his face.? Now lethargic, postictal but protecting his airway. Loaded with levetiracetam. called and came in; updated at bedside. [facility] Transplant resource recovery specialist Dr Valentine accepted the pt for transfer; awaiting ICU bed there. IMAGING STUDIES:? 08/19/[address] SCAN SHOWED: Portal hypertension with cirrhotic liver containing large cyst and with heterogeneous coarsened parenchymal appearance. Question occlusion of the left portal vein with small right portal vein. Prominent portal vein varices with spontaneous left splenorenal shunt. Cholelithiasis without evidence of acute cholecystitis. Splenomegaly. 09/2018 ABD MRI SCAN SHOWED: Cirrhotic appearing liver.? A 4.4 x 5.3 cm slightly complex cyst in the right lobe. No definite liver mass appreciated. The main and right portal veins appear very thin with circumferential wall thickening, suggestive of changes from old thrombus. No acute appearing portal vein thrombosis/filling defect is seen. The left portal vein is difficult to visualize. Splenomegaly.? Enlarged splenic vein, left upper quadrant varices and probable spontaneous splenorenal shunt. Gallstones. Small right renal cyst. ENDOSCOPIC STUDIES: 10/16/20 EGD was performed by Dr Rudolph: Esophagus: GE junction at 40? cm, diaphragm hiatus at 40 cm, x 1 grade II varix noted, no red winter Stomach: Patchy gastric erythema especially around the antrum compatible with GAVE. Grade 2 flap valve on retroflexed examination of the cardia. No gastric varices seen. After retroflexion he kept bleeding and wouldn;t stop so hemospray used with good effect. I held on APC for the GAVE due to this. Mosaic pattern consistent with portal hypertensive gastropathy also noted Duodenum: Congestion of mucosa with mild duodenitis noted. Intervention: hemospray Impression/Findings: portal hypertensive gastropathy duodenitis varix, esophageal GAVE PLAN:? consider 5 d course of doptelet and bring back for APC to GAVE and esophageal banding, will discuss risks/benefits with patient meantime should be on PPI BID and carafate (carafate may help the diarrhea) 12/2017 EGD AND COLONOSCOPY WERE PREFORMED BY DR JUDGE AND SHOWED: Portal hypertensive gastropathy with 0-1 esophageal varices. Colonoscopy showed internal hemorrhoids and no polyps were detected.? Repeat colon was advised in 5 yrs. Review of Systems Review of Systems: Not obtainable since pt is non-repsonsive due to sedatives PMFSH Past Medical History Medical History Acid reflux Acute hepatic encephalopathy Acute on chronic kidney failure LINETTE (acute kidney injury) Alcohol induced liver disorder Anasarca Anemia Annual physical exam Aortic stenosis Ascites due to alcoholic cirrhosis Atrial fibrillation Cellulitis CHF (congestive heart failure) Chronic edema Cirrhosis CKD (chronic kidney disease) stage 3, GFR 30-59 ml/min Diabetes Dyslipidemia Elevated brain natriuretic peptide (BNP) level Encephalopathy Esophageal varix Essential hypertension GAVE (gastric antral vascular ectasia) Hepatic encephalopathy HTN (hypertension) Hyperammonemia Hyponatremia Lipodermatosclerosis Liver cirrhosis Low serum vitamin D Lower extremity edema Obesity Obesity (BMI 30-39.9) BARTOLOME (obstructive sleep apnea) Osteoarthritis Portal hypertension syndrome Portal hypertensive gastropathy Recurrent cellulitis of lower extremity Tongue ulcer Type 2 diabetes mellitus with chronic kidney disease Type 2 diabetes mellitus with hyperglycemia, with long-term current use of insulin Family History Family History Brother Diabetes Father No problems noted. Family history: reviewed and not pertinent Surgical History Surgical History H/O colonoscopy History of esophagogastroduodenoscopy (EGD) History of tonsillectomy Social History Social History Household Members: Spouse Housing: House Do you presently have visiting nurse or other home services: No Alcohol intake: never Patient Tobacco Use Status: Never used Tobacco e-Cigarette/Vaping Use: Never Used Second Hand Smoke Exposure: No service: No Current occupational status: retired Meds Allergies Allergy/AdvReac Type Severity Reaction Status Date / Time No Known Allergies Allergy Verified 11/27/20 14:38 Active Medications: Current Medications Generic Name Dose Route Start Last Admin Trade Name Freq PRN Reason Stop Dose Admin Albuterol/Ipratropium 3 ml 01/04/21 17:56 01/04/21 23:31 Albuterol/Iprat 2.5/0.5mg 3 Ml Ampul.Neb INHALE 3 ml RQ4H PRN Administration Dyspnea Dextrose 25 gm 01/04/21 12:58 Dextrose 50 % 25 Gm/50 Ml Vial IVPUSH Q15M PRN per Hypoglycemia Standing Ord. Protocol Folic Acid 1 mg 01/05/21 09:00 01/09/21 08:50 Folic Acid 1 Mg Tablet PO Not Given DAILY GEOFF Glucose 15 gm 01/04/21 12:58 Glucose Gel 15 Gm Gel..Gram. PO Q15M PRN per Hypoglycemia Standing Ord. Protocol Vancomycin HCl 1,500 mg/ 500 mls @ 333.333 mls/hr 01/09/21 04:00 01/09/21 05:44 Sodium Chloride IV Infused Q24H GEOFF Infusion Piperacillin Sod/Tazobactam 50 mls @ 100 mls/hr 01/09/21 09:00 01/09/21 15:02 Sod 3.375 gm/ Sodium Chloride IV 100 mls/hr Q6H GEOFF Administration Levetiracetam 1,000 mg in 100 mls @ 400 mls/hr 01/09/21 20:00 Keppra IV Q12H GEOFF Albumin Human 100 mls @ 100 mls/hr 01/09/21 10:45 01/09/21 12:11 Kedbumin 25 % IV 01/10/21 05:44 Infused Q6H GEOFF Infusion Insulin Human Lispro 0 unit 01/04/21 16:30 01/09/21 12:09 Insulin Lispro 100 Unit/Ml 3 Ml Vial SUBCUT Not Given QIDACHS GEOFF Protocol Lactulose 20 gm 01/04/21 15:00 01/09/21 15:15 Lactulose 20 Gm/30 Ml Solution PO Not Given TID GEOFF Levothyroxine Sodium 50 mcg 01/05/21 06:00 01/09/21 05:22 Levothyroxine Sodium 50 Mcg Tablet PO Not Given DAILY@0600 [facility] Melatonin 6 mg 01/08/21 21:00 01/08/21 20:31 Melatonin 3 Mg Tablet PO 6 mg BEDTIME [facility] Administration Metoprolol Tartrate 25 mg 01/05/21 09:00 01/09/21 08:50 Metoprolol Tartrate 25 Mg Tablet PO Not Given DAILY [facility] Protocol Midodrine 5 mg 01/09/21 15:00 Midodrine Hcl 5 Mg Tablet PO TID [facility] Octreotide Acetate 100 mcg 01/09/21 14:45 01/09/21 15:02 Octreotide Acetate 100 Mcg/Ml Ampul SUBCUT 100 mcg Q8H [facility] Administration Pantoprazole Sodium 40 mg 01/09/21 16:30 Pantoprazole Sodium 40 Mg/10 Ml Vial IVPUSH BID@0630,1630 [facility] Pharmacy Consult 1 each 01/09/21 02:40 Consult Rx Vancomycin Dosing MISCELLANE DAILY PRN Consult order Rifaximin 550 mg 01/04/21 21:00 01/09/21 08:50 Rifaximin 550 Mg Tablet PO Not Given BID [facility] Sodium Chloride 3 ml 01/04/21 16:00 01/09/21 08:44 0.9 % Sodium Chloride Flush 3 Ml Syringe IVFLUSH 3 ml QSHIFT [facility] Administration Tamsulosin HCl 0.4 mg 01/04/21 21:00 01/08/21 20:31 Tamsulosin Hcl 0.4 Mg Capsule PO 0.4 mg BEDTIME [facility] Administration Thiamine HCl 100 mg 01/04/21 21:00 01/09/21 08:50 Thiamine Hcl 100 Mg Tablet PO Not Given BID [facility] Home Medications Medication Instructions Recorded Confirmed Last Taken Type cholecalciferol (vitamin D3) 50 50 mcg PO DAILY 01/04/21 01/04/21 Unknown History mcg (2,000 unit) capsule (Vitamin D3) folic acid 1 mg tablet 1 mg PO DAILY 01/04/21 01/04/21 Unknown History lactulose 10 gram/15 mL oral syrup 20 g PO TID 01/04/21 01/04/21 Unknown History levothyroxine 50 mcg tablet 50 mcg PO DAILY 01/04/21 01/04/21 Unknown History metoprolol tartrate 25 mg tablet 25 mg PO DAILY 01/04/21 01/04/21 Unknown History rifaximin 550 mg tablet (Xifaxan) 550 mg PO BID 01/04/21 01/04/21 Unknown History tamsulosin 0.4 mg capsule (Flomax) 0.4 mg PO BEDTIME 01/04/21 01/04/21 Unknown History thiamine HCl (vitamin B1) 100 mg 100 mg PO BID 01/04/21 01/04/21 Unknown History tablet Physical Exam Vital Signs: Vital Signs: Last Vital Signs Temp 98.0 F 01/09/21 14:50 Pulse 69 01/09/21 14:50 Resp 20 01/09/21 14:50 BP 137/60 01/09/21 14:50 Pulse Ox 99 01/09/21 14:50 Body Mass Index 48.7 Const: General: ill appearing and patient obtunded Nutritional Appearance: obese Orientation/consciousness: patient oriented x3 and patient obtunded Limitations: no limitations HENMT: Head: Yes normal to inspection Ears: hearing grossly normal bilaterally Mouth: Normal oral and palatal mucosa present Eyes: Sclerae: sclerae normal Pupils: Equal, round and reactive pupils present Neck: Neck: Yes normal visual inspection Chest: Chest palpation & inspection: normal inspection of the chest Resp: Effort & Inspection: normal respiratory effort Auscultation: clear to auscultation bilaterally Cardio: Palpation: normal PMI Rate: regular rate Rhythm: regular rhythm Heart sounds: S1 normal heart sound present, S2 normal heart sound present and no murmurs GI: Inspection: Yes distended Palpation (GI): Soft to palpation, nontender and No hepatosplenomegaly present Auscultation: normal bowel sounds Rectal Exam - Male: Yes deferred Skin: General skin exam: no rashes or lesions noted Neuro: General: patient oriented x3, gait normal, moves all extremities and patient obtunded Cranial nerves: Yes Equal, round and reactive pupils present Extrem: General: Yes edema (3-4+ edema both lower extermities with changes of stasis dermatitis) Psych: Appearance: grossly normal Mental Status: mental status grossly normal Results Labs CBC & Chem 7: 01/12/21 05:41 01/12/21 19:36 Labs: Short CBC 01/09/21 01/09/21 01/09/21 Range/Units 04:54 08:35 14:46 WBC 3.8 L (4.8-10.8) X10*3/uL Hgb 7.6 L 8.0 L 7.3 L (14.0-18.0) g/dl Hct 22.2 L 23.8 L 22.2 L (42-52) % Plt Count 57 L (160-400) X10*3/uL BMP 01/09/21 01/09/21 01:36 08:35 Sodium 132 L 133 L Potassium 3.9 3.7 Chloride 99 101 Carbon Dioxide 23 25 BUN 50 H 51 H Creatinine 1.82 H 1.85 H Calcium 8.3 L 8.5 Liver Function 01/09/21 Range/Units 01:36 Total Bilirubin 3.9 H (0.0-1.0) mg/dL AST 60 H (5-37) U/L ALT 38 (0-40) U/L Alkaline Phosphatase 153 H D (39-117) U/L Albumin 2.7 L (3.5-5.0) g/dL Microbiology Microbiology Results: Microbiology 01/04/21 11:03 Blood - Venous Blood Culture - Final No growth after 5 days. 01/04/21 10:48 Blood - Venous Blood Culture - Final No growth after 5 days. 01/04/21 15:49 Urine clean catch - Urine raygoza top Urine Culture - Final No growth. Assessment and Plan (1) Hyponatremia: Status: Resolved (2) Portal hypertensive gastropathy: Status: Acute (3) Cirrhosis: Status: Acute (4) GAVE (gastric antral vascular ectasia): Status: Acute 70 YM with DM & morbid obesity with ESLD likely due to JEWELL and past alcohol abuse (none to minimal for the past 5 yrs) admitted with hypoglycemia and pneumonia. Cirrhosis is complicated by portal hypertension, splenomegaly, thrombocytopenia and hepatic encephalopathy. Hepatitis serologies were negative except positive hepatitis C antibody with negative viral load. Genetic screen for hemochromatosis was negative. MELD score is 25 Etiology for seizures is unclear ? related to HE or sepsis. Head CT was negative ESOPHAGEAL VARICES:? EGD on 10/16/20 showed portal hypertensive gastropathy with? Patchy gastric erythema especially around the antrum compatible with GAVE, 1 grade II varix noted, no red winter. Patien had repeat upper endoscopy and treatment of GAVE with APC and possible band ligation of esophageal varices. ASCITES:? Pt had LVP yesterday with removal of 2.3 L of clear yellow fluid were aspirated? HEPATIC ENCEPHALOPATHY:? Follow-up ammonia levels - improved from 84 on admission to 73 today.? Continue lactulose and rifaximin Procedures Date of Service Date of Service: 01/09/21
--- NOTE | 2021-01-09 16:11 | P.PNNP_ITS ---
Subjective Subjective Date of Service: 01/09/21 Interval history: Had 4 sz overnight. Bit tongue, postictal. Given 1 mg lorazepam after 1st sz, but then had 2 subsequent generalized sz. This am upon my examination, he had 2 short (<30 sec) complex partial sz involving the R side of his face. Now lethargic, postictal but protecting his airway. Loaded with levetiracetam. called and came in; updated at bedside. [facility] Transplant duty engineer Dr Valentine accepted the pt for transfer; awaiting ICU bed there. Unable to obtain ROS due to pt's mental status. Physical Exam Vital Signs: Vital Signs: Last Vital Signs Temp 98.0 F 01/09/21 14:50 Pulse 69 01/09/21 14:50 Resp 20 01/09/21 14:50 BP 137/60 01/09/21 14:50 Pulse Ox 99 01/09/21 14:50 Body Mass Index 48.7 Objective Data Labs CBC & Chem 7: 01/09/21 14:46 01/09/21 08:35 Labs: Laboratory Results - last 24 hr 01/08/21 01/08/21 01/09/21 19:50 22:57 01:36 WBC RBC Hgb Hct MCV MCH MCHC RDW Plt Count MPV Immature Gran % (Auto) Neut % (Auto) Lymph % (Auto) [place] % (Auto) Eos % (Auto) Baso % (Auto) Lymph # (Auto) [place] # (Auto) Eos # (Auto) Baso # (Auto) Abs Immat Gran (auto) Absolute Neuts (auto) Absolute Nucleated RBC Nucleated RBC % (auto) PT 23.4 H INR 2.0 H O2 Saturation ABG pH at Pt Temp ABG pH (Temp Correct) ABG pCO2 at Pt Temp ABG pCO2 (Temp Corrct ABG pO2 at Pt Temp ABG pO2 (Temp Correct ABG HCO3 ABG Base Excess (Actual) Sodium Potassium Chloride Carbon Dioxide Anion Gap BUN Creatinine Estim Creat Clear Calc Estimated GFR POC Glucose 186 H 149 H Random Glucose Lactic Acid Lactic Acid Fup @ 2Hr Calcium Magnesium Total Bilirubin AST ALT Alkaline Phosphatase Ammonia Total Protein Albumin Procalcitonin Ur Random Sodium Blood Type 01/09/21 01/09/21 01/09/21 01:36 01:36 03:56 WBC RBC Hgb Hct MCV MCH MCHC RDW Plt Count MPV Immature Gran % (Auto) Neut % (Auto) Lymph % (Auto) [place] % (Auto) Eos % (Auto) Baso % (Auto) Lymph # (Auto) [place] # (Auto) Eos # (Auto) Baso # (Auto) Abs Immat Gran (auto) Absolute Neuts (auto) Absolute Nucleated RBC Nucleated RBC % (auto) PT INR O2 Saturation ABG pH at Pt Temp ABG pH (Temp Correct) ABG pCO2 at Pt Temp ABG pCO2 (Temp Corrct ABG pO2 at Pt Temp ABG pO2 (Temp Correct ABG HCO3 ABG Base Excess (Actual) Sodium 132 L Potassium 3.9 Chloride 99 Carbon Dioxide 23 Anion Gap 14 BUN 50 H Creatinine 1.82 H Estim Creat Clear Calc 55.4 Estimated GFR 37 POC Glucose Random Glucose 159 H D Lactic Acid 2.6 H* Lactic Acid Fup @ 2Hr 1.9 Calcium 8.3 L Magnesium Total Bilirubin 3.9 H AST 60 H ALT 38 Alkaline Phosphatase 153 H D Ammonia Total Protein 5.0 L Albumin 2.7 L Procalcitonin Ur Random Sodium Blood Type 01/09/21 01/09/21 01/09/21 04:54 07:37 08:35 WBC 3.8 L RBC 2.30 L Hgb 7.6 L Hct 22.2 L MCV 96.5 MCH 33.0 MCHC 34.2 RDW 18.9 H Plt Count 57 L MPV 10.5 Immature Gran % (Auto) 0.5 H Neut % (Auto) 67.0 Lymph % (Auto) 14.3 L [place] % (Auto) 10.6 Eos % (Auto) 7.1 H Baso % (Auto) 0.5 Lymph # (Auto) 0.5 L [place] # (Auto) 0.4 Eos # (Auto) 0.3 Baso # (Auto) 0.0 Abs Immat Gran (auto) 0.02 Absolute Neuts (auto) 2.5 Absolute Nucleated RBC 0.000 Nucleated RBC % (auto) 0.0 PT INR O2 Saturation ABG pH at Pt Temp ABG pH (Temp Correct) ABG pCO2 at Pt Temp ABG pCO2 (Temp Corrct ABG pO2 at Pt Temp ABG pO2 (Temp Correct ABG HCO3 ABG Base Excess (Actual) Sodium Potassium Chloride Carbon Dioxide Anion Gap BUN Creatinine Estim Creat Clear Calc Estimated GFR POC Glucose 133 H Random Glucose Lactic Acid Lactic Acid Fup @ 2Hr Calcium Magnesium Total Bilirubin AST ALT Alkaline Phosphatase Ammonia 73 H Total Protein Albumin Procalcitonin Ur Random Sodium Blood Type 01/09/21 01/09/21 01/09/21 08:35 08:35 08:35 WBC RBC Hgb 8.0 L Hct 23.8 L MCV MCH MCHC RDW Plt Count MPV Immature Gran % (Auto) Neut % (Auto) Lymph % (Auto) [place] % (Auto) Eos % (Auto) Baso % (Auto) Lymph # (Auto) [place] # (Auto) Eos # (Auto) Baso # (Auto) Abs Immat Gran (auto) Absolute Neuts (auto) Absolute Nucleated RBC Nucleated RBC % (auto) PT INR O2 Saturation ABG pH at Pt Temp ABG pH (Temp Correct) ABG pCO2 at Pt Temp ABG pCO2 (Temp Corrct ABG pO2 at Pt Temp ABG pO2 (Temp Correct ABG HCO3 ABG Base Excess (Actual) Sodium 133 L Potassium 3.7 Chloride 101 Carbon Dioxide 25 Anion Gap 11 L BUN 51 H Creatinine 1.85 H Estim Creat Clear Calc 54.5 Estimated GFR 36 POC Glucose Random Glucose 116 H Lactic Acid Lactic Acid Fup @ 2Hr Calcium 8.5 Magnesium 2.2 Total Bilirubin AST ALT Alkaline Phosphatase Ammonia Total Protein Albumin Procalcitonin 0.37 Ur Random Sodium Blood Type 01/09/21 01/09/21 01/09/21 08:55 11:11 11:58 WBC RBC Hgb Hct MCV MCH MCHC RDW Plt Count MPV Immature Gran % (Auto) Neut % (Auto) Lymph % (Auto) [place] % (Auto) Eos % (Auto) Baso % (Auto) Lymph # (Auto) [place] # (Auto) Eos # (Auto) Baso # (Auto) Abs Immat Gran (auto) Absolute Neuts (auto) Absolute Nucleated RBC Nucleated RBC % (auto) PT INR O2 Saturation 100.0 ABG pH at Pt Temp 7.41 ABG pH (Temp Correct) 7.43 ABG pCO2 at Pt Temp 39 ABG pCO2 (Temp Corrct 38 ABG pO2 at Pt Temp 132 H ABG pO2 (Temp Correct 126 H ABG HCO3 25 ABG Base Excess (Actual) 1.4 Sodium Potassium Chloride Carbon Dioxide Anion Gap BUN Creatinine Estim Creat Clear Calc Estimated GFR POC Glucose 105 Random Glucose Lactic Acid Lactic Acid Fup @ 2Hr Calcium Magnesium Total Bilirubin AST ALT Alkaline Phosphatase Ammonia Total Protein Albumin Procalcitonin Ur Random Sodium < 20.0 Blood Type 01/09/21 01/09/21 14:46 15:47 WBC RBC Hgb 7.3 L Hct 22.2 L MCV MCH MCHC RDW Plt Count MPV Immature Gran % (Auto) Neut % (Auto) Lymph % (Auto) [place] % (Auto) Eos % (Auto) Baso % (Auto) Lymph # (Auto) [place] # (Auto) Eos # (Auto) Baso # (Auto) Abs Immat Gran (auto) Absolute Neuts (auto) Absolute Nucleated RBC Nucleated RBC % (auto) PT INR O2 Saturation ABG pH at Pt Temp ABG pH (Temp Correct) ABG pCO2 at Pt Temp ABG pCO2 (Temp Corrct ABG pO2 at Pt Temp ABG pO2 (Temp Correct ABG HCO3 ABG Base Excess (Actual) Sodium Potassium Chloride Carbon Dioxide Anion Gap BUN Creatinine Estim Creat Clear Calc Estimated GFR POC Glucose Random Glucose Lactic Acid Lactic Acid Fup @ 2Hr Calcium Magnesium Total Bilirubin AST ALT Alkaline Phosphatase Ammonia Total Protein Albumin Procalcitonin Ur Random Sodium Blood Type O Positive Microbiology Microbiology Results: Microbiology 01/04/21 11:03 Blood - Venous Blood Culture - Final No growth after 5 days. 01/04/21 10:48 Blood - Venous Blood Culture - Final No growth after 5 days. 01/04/21 15:49 Urine clean catch - Urine raygoza top Urine Culture - Final No growth. Procedures Date of Service Date of Service: 01/09/21 Assessment & Plan Assessment and plan (1) Acute on chronic kidney failure: Status: Acute Assessment and Plan: LINETTE on CKD with hyponatremia in a setting of hepatic enchepalopathy Consult dictated Time Spent With Patient Time: Total time spent is greater than 50% in coordination of care (as documented) at patient's floor/unit and/or counseling patient: Progress Note: Quality Stroke Does the patient have a stroke diagnosis?: No
[2021-01-09 16:19] LABS: Glucose, Whole Blood 91 mg/dL (60-115)
[2021-01-09] MEDS: Pantoprazole Sodium 40 MG/10 ML VIAL IVPUSH (16:40)
[2021-01-09 19:59] LABS: Glucose, Whole Blood 72 mg/dL (60-115)
[2021-01-09] MEDS: levETIRAcetam in NaCl (iso-os) 1,000 MG/100 ML PIGGYBACK 400 MG IV (20:05)
[2021-01-09 20:30] LABS: Glucose, Whole Blood 107 mg/dL (60-115)
[2021-01-10] VITALS (7 sets, daily range): BP systolic 106–136; BP diastolic 44–75; PULSE 45–62; RESP 12–20; TEMP 36.1–36.6; O2SAT 92–100
[2021-01-10] MEDS: Octreotide Acetate 100 MCG/ML AMPUL SUBCUT ×4 (00:28→22:40)
[2021-01-10] MEDS: 0.9 % Sodium Chloride Flush 3 ML SYRINGE IVFLUSH ×3 (00:29→22:41)
[2021-01-10] MEDS: Piperacillin Sodium/Tazobactam 3.375 GM in 0.9 % Sodium Chloride 50 ML IV ×4 (03:12→20:27)
[2021-01-10] MEDS: vancomycin HCL 1,500 MG in 0.9 % Sodium Chloride 500 ML 333.33 MG IV (03:13)
[2021-01-10] MEDS: Albumin Human 25 % 100 ML IV ×4 (03:16→20:26)
[2021-01-10] MEDS: Pantoprazole Sodium 40 MG/10 ML VIAL IVPUSH ×2 (05:11→15:46)
[2021-01-10 07:09] LABS: Hematocrit 22.7 % (42-52); Hemoglobin 7.5 g/dl (14.0-18.0); INTERNATIONAL NORM RATIO 2.4 (0.9-1.1); Mean Corpuscular Hemoglobin 32.9 pg (27.0-33.0); Mean Corpuscular Volume 99.6 fL (80-98); Mean Platelet Volume 10.5 fL (9.4-12.4); Prothrombin Time 27.6 SEC (9.9-13.0); Red Blood Count 2.28 X10*6/uL (4.60-5.80); Red Cell Distribution Width 19.2 % (11.0-16.0); White Blood Count 2.9 X10*3/uL (4.8-10.8)
[2021-01-10 07:14] LABS: Platelet Count 52 X10*3/uL (160-400)
[2021-01-10 07:21] LABS: Glucose, Whole Blood 55 mg/dL (60-115)
[2021-01-10 07:45] LABS: Alanine Aminotransferase 25 U/L (0-40); Albumin Level 3.1 g/dL (3.5-5.0); Alkaline Phosphatase 86 U/L (39-117); Anion Gap 12 (12-20); Aspartate Amino Transferase 36 U/L (5-37); Bilirubin Total 3.8 mg/dL (0.0-1.0); Blood Urea Nitrogen 52 mg/dL (9-16); Calcium 8.5 mg/dL (8.4-10.2); Carbon Dioxide 26 mmol/L (22-29); Chloride 100 mmol/L (96-108); Creatinine Clr Calc Pharmacy 42.2; Estimated Glomerular Filt Rate 27; Glucose Random 56 mg/dL (60-115); Potassium 3.7 mmol/L (3.3-5.1); Sodium 134 mmol/L (135-145); Total Protein 4.8 g/dL (6.5-8.0)
[2021-01-10] MEDS: levETIRAcetam in NaCl (iso-os) 1,000 MG/100 ML PIGGYBACK 400 MG IV ×2 (07:56→20:25)
[2021-01-10 10:36] LABS: Glucose, Whole Blood 91 mg/dL (60-115)
--- NOTE | 2021-01-10 11:26 | P.PNIM_ITS ---
Subjective Subjective Date of Service: 01/10/21 Interval History: More awake yesterday evening, now lethargic again Hypoglycemic- resolved after D50 No further seizure activity No fever No hematemesis/hematochezia/melena Review of Systems Review of Systems: Yes all other systems are reviewed and are negative Physical Exam Vital Signs: Vital Signs: Last Vital Signs Temp 97.8 F 01/10/21 04:14 Pulse 55 01/10/21 08:00 Resp 16 01/10/21 08:00 BP 129/61 01/10/21 08:00 Pulse Ox 98 01/10/21 08:00 Body Mass Index 48.7 Gen: lethargic, ill-appearing HEENT: sclera icteric Neck: supple Lungs: diminished bilaterally Heart: regular rate and rhythm, no murmurs Abd: morbidly obese, non-tense ascites Ext: extensive lower extremity lymphedema Skin: multiple spider angiomata Neuro: lethargic Objective Data Current Medications Generic Name Dose Route Start Last Admin Trade Name Freq PRN Reason Stop Dose Admin Albuterol/Ipratropium 3 ml 01/04/21 17:56 01/04/21 23:31 Albuterol/Iprat 2.5/0.5mg 3 Ml Ampul.Neb INHALE 3 ml RQ4H PRN Administration Dyspnea Dextrose 25 gm 01/04/21 12:58 01/10/21 07:35 Dextrose 50 % 25 Gm/50 Ml Vial IVPUSH 25 gm Q15M PRN Administration per Hypoglycemia Standing Ord. Protocol Folic Acid 1 mg 01/05/21 09:00 01/10/21 09:40 Folic Acid 1 Mg Tablet PO Not Given DAILY GEOFF Glucose 15 gm 01/04/21 12:58 Glucose Gel 15 Gm Gel..Gram. PO Q15M PRN per Hypoglycemia Standing Ord. Protocol Vancomycin HCl 1,500 mg/ 500 mls @ 333.333 mls/hr 01/09/21 04:00 01/10/21 05:02 Sodium Chloride IV Infused Q24H GEOFF Infusion Piperacillin Sod/Tazobactam 50 mls @ 100 mls/hr 01/09/21 09:00 01/10/21 10:23 Sod 3.375 gm/ Sodium Chloride IV Infused Q6H [facility] Infusion Levetiracetam 1,000 mg in 100 mls @ 400 mls/hr 01/09/21 20:00 01/10/21 08:27 Keppra IV Infused Q12H [facility] Infusion Albumin Human 100 mls @ 100 mls/hr 01/10/21 08:45 01/10/21 10:27 Kedbumin 25 % IV 01/11/21 03:44 Infused Q6H [facility] Infusion Insulin Human Lispro 0 unit 01/04/21 16:30 01/10/21 08:00 Insulin Lispro 100 Unit/Ml 3 Ml Vial SUBCUT Not Given QIDACHS [facility] Protocol Lactulose 20 gm 01/04/21 15:00 01/10/21 09:40 Lactulose 20 Gm/30 Ml Solution PO Not Given TID [facility] Levothyroxine Sodium 50 mcg 01/05/21 06:00 01/10/21 05:04 Levothyroxine Sodium 50 Mcg Tablet PO Not Given DAILY@0600 [facility] Melatonin 6 mg 01/08/21 21:00 01/09/21 22:53 Melatonin 3 Mg Tablet PO Not Given BEDTIME [facility] Metoprolol Tartrate 25 mg 01/05/21 09:00 01/10/21 09:40 Metoprolol Tartrate 25 Mg Tablet PO Not Given DAILY [facility] Protocol Midodrine 5 mg 01/09/21 15:00 01/10/21 09:40 Midodrine Hcl 5 Mg Tablet PO Not Given TID [facility] Octreotide Acetate 100 mcg 01/09/21 14:45 01/10/21 05:11 Octreotide Acetate 100 Mcg/Ml Ampul SUBCUT 100 mcg Q8H [facility] Administration Pantoprazole Sodium 40 mg 01/09/21 16:30 01/10/21 05:11 Pantoprazole Sodium 40 Mg/10 Ml Vial IVPUSH 40 mg BID@0630,1630 [facility] Administration Pharmacy Consult 1 each 01/09/21 02:40 Consult Rx Vancomycin Dosing MISCELLANE DAILY PRN Consult order Rifaximin 550 mg 01/04/21 21:00 01/10/21 09:40 Rifaximin 550 Mg Tablet PO Not Given BID [facility] Sodium Chloride 3 ml 01/04/21 16:00 01/10/21 08:01 0.9 % Sodium Chloride Flush 3 Ml Syringe IVFLUSH 3 ml QSHIFT [facility] Administration Tamsulosin HCl 0.4 mg 01/04/21 21:00 01/09/21 22:54 Tamsulosin Hcl 0.4 Mg Capsule PO Not Given BEDTIME GEOFF Thiamine HCl 100 mg 01/04/21 21:00 01/10/21 09:40 Thiamine Hcl 100 Mg Tablet PO Not Given BID GEOFF Labs CBC & Chem 7: 01/10/21 06:00 01/10/21 06:00 Labs: Laboratory Results - last 24 hr 01/09/21 01/09/21 01/09/21 11:11 11:58 15:47 MCV MCH MCHC RDW Plt Count MPV Absolute Nucleated RBC Nucleated RBC % (auto) PT INR Anion Gap Estim Creat Clear Calc Estimated GFR POC Glucose 105 Random Glucose Calcium Magnesium Total Bilirubin AST ALT Alkaline Phosphatase Total Protein Albumin Ur Random Sodium < 20.0 Blood Type O Positive Antibody Screen NEGATIVE 01/09/21 01/09/21 01/09/21 16:05 19:43 20:26 MCV MCH MCHC RDW Plt Count MPV Absolute Nucleated RBC Nucleated RBC % (auto) PT INR Anion Gap Estim Creat Clear Calc Estimated GFR POC Glucose 91 72 107 Random Glucose Calcium Magnesium Total Bilirubin AST ALT Alkaline Phosphatase Total Protein Albumin Ur Random Sodium Blood Type Antibody Screen 01/10/21 01/10/21 01/10/21 06:00 06:00 06:00 MCV 99.6 H MCH 32.9 MCHC 33.0 RDW 19.2 H Plt Count 52 L MPV 10.5 Absolute Nucleated RBC 0.000 Nucleated RBC % (auto) 0.0 PT 27.6 H INR 2.4 H Anion Gap 12 Estim Creat Clear Calc 42.2 Estimated GFR 27 POC Glucose Random Glucose 56 L* Calcium 8.5 Magnesium 2.0 Total Bilirubin 3.8 H AST 36 ALT 25 Alkaline Phosphatase 86 D Total Protein 4.8 L Albumin 3.1 L Ur Random Sodium Blood Type Antibody Screen 01/10/21 01/10/21 07:14 08:06 MCV MCH MCHC RDW Plt Count MPV Absolute Nucleated RBC Nucleated RBC % (auto) PT INR Anion Gap Estim Creat Clear Calc Estimated GFR POC Glucose 55 L* 91 Random Glucose Calcium Magnesium Total Bilirubin AST ALT Alkaline Phosphatase Total Protein Albumin Ur Random Sodium Blood Type Antibody Screen Microbiology Microbiology Results: Microbiology 01/09/21 01:36 Blood Culture - Preliminary Blood - Venous No growth after 24 hours. 01/09/21 01:36 Blood Culture - Preliminary Blood - Venous No growth after 24 hours. 01/04/21 11:03 Blood Culture - Final Blood - Venous No growth after 5 days. 01/04/21 10:48 Blood Culture - Final Blood - Venous No growth after 5 days. Assessment and Plan (1) Hypoglycemia: Status: Acute Assessment and Plan: hospital d#7 70yo M with decompensated EtOH cirrhosis with hx esophageal varices/GAVE/portal gastropathy, CKD3, chronic lymphedema, DM2 sent in from SNF with hypoglycemia with encephalopathy found to have pneumonia + also treating for hepatic encephalopathy developed new-onset seizures 01/08/21 # new-onset sz - Neurology consulted; loaded with levetiracetam- 1.5g, then 1g q12h maintenance; check level 01/12/21. EEG pending. if seizes again needs continuous EEG/neuro ICU/transfer to tertiary care # pneumonia - was on ceftriaxone + doxycycline d#5, broaded 01/09/21 to vancomycin + pip/radha; CXR today # DM2 with hypoglycemia - likely exacerbated by liver failure; D50 as needed; will started LR; correction-dose lispro for hyperglycemia # LINETTE/CKD3 - Earline <20, concern for hepatorenal syndrome. SCr worsening; continue albumin, midodrine [when taking PO], octreotide # hepatic encephalopathy - lactulose + rifaximin # cirrhosis with ascites - s/p paracentesis 2.3L 01/08/21 - on transplant list at [facility] # pancytopenia - plt + WBC count stable; monitor - T+S active; on IV PPI; GI consulted - last EGD 10/16/[address] Rudolph: Esophagus: GE junction at 40? cm, diaphragm hiatus at 40 cm, x 1 grade II varix noted, no red winter Stomach: Patchy gastric erythema especially around the antrum compatible with GAVE. Grade 2 flap valve on retroflexed examination of the cardia. No gastric varices seen. After retroflexion he kept bleeding and wouldn;t stop so hemospray used with good effect. I held on APC for the GAVE due to this. Mosaic pattern consistent with portal hypertensive gastropathy also noted # dispo - accepted at [facility] ICU but no bed availability at this point # VTE ppx - SCDs Quality Stroke Does the patient have a stroke diagnosis?: No VTE Prior VTE?: No VTE Risk Level:: Medical - moderate - high VTE Device Contraindication: N/A - Device Ordered VTE Drug Contraindication: Treatment Not Indicated
[2021-01-10 11:40] LABS: Glucose, Whole Blood 68 mg/dL (60-115)
[2021-01-10] MEDS: Dextrose 5 % and 0.9 % NaCl 1,000 ML 50 ML IVCONT (12:04)
[2021-01-10 16:06] LABS: Glucose, Whole Blood 79 mg/dL (60-115)
[2021-01-10 20:51] LABS: Glucose, Whole Blood 86 mg/dL (60-115)
--- NOTE | 2021-01-10 21:16 | P.PNNP_ITS ---
Subjective Subjective Date of Service: 01/10/21 Interval history: lethargic this afternoon at bedside Hypotensive Earline <20 LINETTE Decompensated cirrhosis with hypervolemia Overall type1 HRS awaiting transfuer to [facility] Physical Exam Vital Signs: Vital Signs: Last Vital Signs Temp 97 F 01/10/21 19:25 Pulse 53 01/10/21 19:25 Resp 18 01/10/21 19:25 BP 106/54 L 01/10/21 19:25 Pulse Ox 100 01/10/21 19:25 Body Mass Index 48.7 Const: General: ill appearing and patient obtunded Orientation/consciousness: patient obtunded Resp: Effort & Inspection: normal respiratory effort Auscultation: clear to auscultation bilaterally Cardio: Rate: regular rate Rhythm: regular rhythm Heart sounds: no murmurs GI: Inspection: Yes distended Palpation (GI): nontender Skin: General skin exam: no rashes or lesions noted Neuro: General: patient obtunded Extrem: General: Yes edema (3-4+ edema both lower extermities with changes of stasis dermatitis) Objective Data Labs CBC & Chem 7: 01/10/21 06:00 01/10/21 06:00 Labs: Laboratory Results - last 24 hr 01/10/21 01/10/21 01/10/21 06:00 06:00 06:00 WBC 2.9 L RBC 2.28 L Hgb 7.5 L Hct 22.7 L MCV 99.6 H MCH 32.9 MCHC 33.0 RDW 19.2 H Plt Count 52 L MPV 10.5 Absolute Nucleated RBC 0.000 Nucleated RBC % (auto) 0.0 PT 27.6 H INR 2.4 H Sodium 134 L Potassium 3.7 Chloride 100 Carbon Dioxide 26 Anion Gap 12 BUN 52 H Creatinine 2.39 H Estim Creat Clear Calc 42.2 Estimated GFR 27 POC Glucose Random Glucose 56 L* Calcium 8.5 Magnesium 2.0 Total Bilirubin 3.8 H AST 36 ALT 25 Alkaline Phosphatase 86 D Total Protein 4.8 L Albumin 3.1 L 01/10/21 01/10/21 01/10/21 07:14 08:06 11:32 WBC RBC Hgb Hct MCV MCH MCHC RDW Plt Count MPV Absolute Nucleated RBC Nucleated RBC % (auto) PT INR Sodium Potassium Chloride Carbon Dioxide Anion Gap BUN Creatinine Estim Creat Clear Calc Estimated GFR POC Glucose 55 L* 91 68 Random Glucose Calcium Magnesium Total Bilirubin AST ALT Alkaline Phosphatase Total Protein Albumin 01/10/21 01/10/21 16:02 20:41 WBC RBC Hgb Hct MCV MCH MCHC RDW Plt Count MPV Absolute Nucleated RBC Nucleated RBC % (auto) PT INR Sodium Potassium Chloride Carbon Dioxide Anion Gap BUN Creatinine Estim Creat Clear Calc Estimated GFR POC Glucose 79 86 Random Glucose Calcium Magnesium Total Bilirubin AST ALT Alkaline Phosphatase Total Protein Albumin Microbiology Microbiology Results: Microbiology 01/09/21 01:36 Blood - Venous Blood Culture - Preliminary No growth after 24 hours. 01/09/21 01:36 Blood - Venous Blood Culture - Preliminary No growth after 24 hours. 01/04/21 11:03 Blood - Venous Blood Culture - Final No growth after 5 days. 01/04/21 10:48 Blood - Venous Blood Culture - Final No growth after 5 days. 01/04/21 15:49 Urine clean catch - Urine raygoza top Urine Culture - Final No growth. Procedures Date of Service Date of Service: 01/10/21 Assessment & Plan Assessment and plan (1) Hyponatremia: Status: Acute (2) Portal hypertensive gastropathy: Status: Acute (3) Cirrhosis: Status: Acute (4) GAVE (gastric antral vascular ectasia): Status: Acute Assessment and Plan: Mr. 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 plan: - c/w Albumin q6 hours - c/w octeotride q 8 hours - I increase midodrine to 15mg TID to help with MAP goals Time Spent With Patient Time: Total time spent is greater than 50% in coordination of care (as documented) at patient's floor/unit and/or counseling patient: Progress Note: Quality Stroke Does the patient have a stroke diagnosis?: No
[2021-01-11] VITALS (14 sets, daily range): BP systolic 117–172; BP diastolic 49–74; PULSE 34–93; RESP 17–20; TEMP 33.9–37.5; O2SAT 91–99
[2021-01-11] MEDS: Albumin Human 25 % 100 ML IV ×4 (02:04→20:44)
[2021-01-11] MEDS: Piperacillin Sodium/Tazobactam 3.375 GM in 0.9 % Sodium Chloride 50 ML IV ×4 (02:05→21:55)
[2021-01-11 03:12] LABS: Glucose, Whole Blood 84 mg/dL (60-115)
--- NOTE | 2021-01-11 03:14 | PC.NURSE ---
call to Dr. Restrepo to request pain med for renetta, npo. unable to order pain meds at this time due to liver failure - awaiting liver transplant @ [facility]. bed unavailable at this time. will continue to monitor & repo q2h. & oral care q2h. environmental diversion with tv. pt does track to voice & assists with turning with assist of 4 by holding on to rails, purposeful movement noted.
[2021-01-11 03:28] LABS: Vancomycin Trough 9.5 mcg/mL (10.0-20.0)
[2021-01-11] MEDS: vancomycin HCL 1,500 MG in 0.9 % Sodium Chloride 500 ML 333.33 MG IV (04:04)
--- NOTE | 2021-01-11 04:37 | PC.NURSE ---
pt noted to have moaning on expiration when alone. when spoken to he stops exertional moaning/mumbling, turns his head to voice, follows commands of stick tongue out, squeeze hands bilat (although weak). wiggles toes bilat. educated on care plan, needs reinforcement.
[2021-01-11] MEDS: Octreotide Acetate 100 MCG/ML AMPUL SUBCUT (05:57)
[2021-01-11] MEDS: Pantoprazole Sodium 40 MG/10 ML VIAL IVPUSH ×2 (05:57→17:18)
[2021-01-11 07:38] LABS: Hematocrit 24.4 % (42-52); Hemoglobin 7.8 g/dl (14.0-18.0); Mean Corpuscular Hemoglobin 32.1 pg (27.0-33.0); Mean Corpuscular Volume 100.4 fL (80-98); Mean Platelet Volume 10.7 fL (9.4-12.4); Red Blood Count 2.43 X10*6/uL (4.60-5.80); White Blood Count 3.2 X10*3/uL (4.8-10.8)
[2021-01-11 07:39] LABS: Platelet Count 50 X10*3/uL (160-400)
[2021-01-11 07:41] LABS: Glucose, Whole Blood 87 mg/dL (60-115)
[2021-01-11 08:12] LABS: Alanine Aminotransferase 21 U/L (0-40); Albumin Level 3.4 g/dL (3.5-5.0); Alkaline Phosphatase 69 U/L (39-117); Anion Gap 14 (12-20); Aspartate Amino Transferase 35 U/L (5-37); Bilirubin Total 4.2 mg/dL (0.0-1.0); Blood Urea Nitrogen 54 mg/dL (9-16); Calcium 8.6 mg/dL (8.4-10.2); Carbon Dioxide 24 mmol/L (22-29); Chloride 101 mmol/L (96-108); Creatinine Clr Calc Pharmacy 35.1; Estimated Glomerular Filt Rate 22; Glucose Random 86 mg/dL (60-115); Magnesium 2.1 mg/dL (1.6-2.6); Sodium 135 mmol/L (135-145)
[2021-01-11 08:15] LABS: INTERNATIONAL NORM RATIO 2.7 (0.9-1.1); Prothrombin Time 30.9 SEC (9.9-13.0)
[2021-01-11] MEDS: Dextrose 5 % and 0.9 % NaCl 1,000 ML 50 ML IVCONT (08:52)
[2021-01-11] MEDS: levETIRAcetam in NaCl (iso-os) 1,000 MG/100 ML PIGGYBACK 400 MG IV ×2 (08:54→19:27)
[2021-01-11 09:32] LABS: Glucose, Whole Blood 92 mg/dL (60-115)
[2021-01-11] MEDS: Lactulose 20 GM/30 ML SOLUTION 200 GM PR ×2 (10:57→15:36)
[2021-01-11 11:26] LABS: Glucose, Whole Blood 93 mg/dL (60-115)
--- NOTE | 2021-01-11 11:53 | P.PNIM_ITS ---
Subjective Subjective Date of Service: 01/11/21 Interval History: Hypothermic this morning Eyes open but whole body twitching; moving head Now more awake, answering questions Review of Systems Review of Systems: Yes all other systems are reviewed and are negative Physical Exam Vital Signs: Vital Signs: Last Vital Signs Temp 95.2 F L 01/11/21 11:14 Pulse 65 01/11/21 11:14 Resp 19 01/11/21 11:14 BP 117/49 L 01/11/21 11:14 Pulse Ox 91 L 01/11/21 11:14 Body Mass Index 48.7 Gen: ill-appearing HEENT: sclera icteric Neck: supple Lungs: diminished bilaterally Heart: regular rate and rhythm, no murmurs Abd: morbidly obese, non-tense ascites Ext: extensive lower extremity lymphedema Skin: multiple spider angiomata Neuro: confused, movements as above resolved Objective Data Current Medications Generic Name Dose Route Start Last Admin Trade Name Freq PRN Reason Stop Dose Admin Albuterol/Ipratropium 3 ml 01/04/21 17:56 01/04/21 23:31 Albuterol/Iprat 2.5/0.5mg 3 Ml Ampul.Neb INHALE 3 ml RQ4H PRN Administration Dyspnea Dextrose 25 gm 01/04/21 12:58 01/10/21 07:35 Dextrose 50 % 25 Gm/50 Ml Vial IVPUSH 25 gm Q15M PRN Administration per Hypoglycemia Standing Ord. Protocol Folic Acid 1 mg 01/05/21 09:00 01/11/21 09:59 Folic Acid 1 Mg Tablet PO Not Given DAILY GEOFF Glucose 15 gm 01/04/21 12:58 Glucose Gel 15 Gm Gel..Gram. PO Q15M PRN per Hypoglycemia Standing Ord. Protocol Piperacillin Sod/Tazobactam 50 mls @ 100 mls/hr 01/09/21 09:00 01/11/21 10:57 Sod 3.375 gm/ Sodium Chloride IV Infused Q6H [facility] Infusion Levetiracetam 1,000 mg in 100 mls @ 400 mls/hr 01/09/21 20:00 01/11/21 10:01 Keppra IV Infused Q12H [facility] Infusion Dextrose/Sodium Chloride 1,000 mls @ 50 mls/hr 01/10/21 11:45 01/11/21 11:00 D5ns IVCONT 50 mls/hr .Q20H [facility] Infusion Vancomycin HCl 1,250 mg/ 250 mls @ 166.667 mls/hr 01/12/21 04:00 Sodium Chloride IV Q24H GEOFF Albumin Human 100 mls @ 100 mls/hr 01/11/21 08:30 01/11/21 10:00 Kedbumin 25 % IV 01/12/21 03:29 Infused Q6H [facility] Infusion Insulin Human Lispro 0 unit 01/04/21 16:30 01/11/21 11:14 Insulin Lispro 100 Unit/Ml 3 Ml Vial SUBCUT Not Given QIDACHS [facility] Protocol Lactulose 20 gm 01/04/21 15:00 01/11/21 10:00 Lactulose 20 Gm/30 Ml Solution PO Not Given TID [facility] Lactulose 200 gm 01/11/21 10:30 01/11/21 10:57 Lactulose 20 Gm/30 Ml Solution AR 200 gm Q6H [facility] Administration Levothyroxine Sodium 50 mcg 01/05/21 06:00 01/11/21 04:19 Levothyroxine Sodium 50 Mcg Tablet PO Not Given DAILY@0600 [facility] Melatonin 6 mg 01/08/21 21:00 01/10/21 21:49 Melatonin 3 Mg Tablet PO Not Given BEDTIME [facility] Metoprolol Tartrate 25 mg 01/05/21 09:00 01/11/21 10:00 Metoprolol Tartrate 25 Mg Tablet PO Not Given DAILY [facility] Protocol Midodrine 15 mg 01/11/21 08:00 01/11/21 11:16 Midodrine Hcl 5 Mg Tablet PO Not Given TIDWM [facility] Octreotide Acetate 200 mcg 01/11/21 14:00 Octreotide Acetate 100 Mcg/Ml Ampul SUBCUT Q8H [facility] Pantoprazole Sodium 40 mg 01/09/21 16:30 01/11/21 05:57 Pantoprazole Sodium 40 Mg/10 Ml Vial IVPUSH 40 mg BID@0630,1630 [facility] Administration Pharmacy Consult 1 each 01/09/21 02:40 Consult Rx Vancomycin Dosing MISCELLANE DAILY PRN Consult order Rifaximin 550 mg 01/04/21 21:00 01/11/21 10:00 Rifaximin 550 Mg Tablet PO Not Given BID [facility] Sodium Chloride 3 ml 01/04/21 16:00 01/11/21 09:30 0.9 % Sodium Chloride Flush 3 Ml Syringe IVFLUSH Not Given QSHIFT [facility] Tamsulosin HCl 0.4 mg 01/04/21 21:00 01/10/21 21:49 Tamsulosin Hcl 0.4 Mg Capsule PO Not Given BEDTIME [facility] Thiamine HCl 100 mg 01/04/21 21:00 01/11/21 10:00 Thiamine Hcl 100 Mg Tablet PO Not Given BID [facility] Labs CBC & Chem 7: 01/11/21 06:20 01/11/21 06:20 Labs: Laboratory Results - last 24 hr 01/10/21 01/10/21 01/11/21 16:02 20:41 02:49 MCV MCH MCHC RDW Plt Count MPV Absolute Nucleated RBC Nucleated RBC % (auto) PT INR Anion Gap Estim Creat Clear Calc Estimated GFR POC Glucose 79 86 Random Glucose Calcium Magnesium Total Bilirubin AST ALT Alkaline Phosphatase Total Protein Albumin Procalcitonin Vancomycin Trough 9.5 L 01/11/21 01/11/21 01/11/21 03:08 06:20 06:20 MCV 100.4 H MCH 32.1 MCHC 32.0 RDW 19.0 H Plt Count 50 L MPV 10.7 Absolute Nucleated RBC 0.000 Nucleated RBC % (auto) 0.0 PT 30.9 H INR 2.7 H Anion Gap Estim Creat Clear Calc Estimated GFR POC Glucose 84 Random Glucose Calcium Magnesium Total Bilirubin AST ALT Alkaline Phosphatase Total Protein Albumin Procalcitonin Vancomycin Trough 01/11/21 01/11/21 01/11/21 06:20 06:20 07:21 MCV MCH MCHC RDW Plt Count MPV Absolute Nucleated RBC Nucleated RBC % (auto) PT INR Anion Gap 14 Estim Creat Clear Calc 35.1 Estimated GFR 22 POC Glucose 87 Random Glucose 86 D Calcium 8.6 Magnesium 2.1 Total Bilirubin 4.2 H AST 35 ALT 21 Alkaline Phosphatase 69 Total Protein 5.0 L Albumin 3.4 L Procalcitonin 0.30 Vancomycin Trough 01/11/21 01/11/21 09:28 11:17 MCV MCH MCHC RDW Plt Count MPV Absolute Nucleated RBC Nucleated RBC % (auto) PT INR Anion Gap Estim Creat Clear Calc Estimated GFR POC Glucose 92 93 Random Glucose Calcium Magnesium Total Bilirubin AST ALT Alkaline Phosphatase Total Protein Albumin Procalcitonin Vancomycin Trough ITS Impressions Chest X-Ray 01/04/21 10:20 IMPRESSION: Right upper lobe infiltrate, similar if not minimally improved compared to the previous study. Chest CT 01/04/21 14:29 IMPRESSION: Bilateral patchy ground-glass opacities in both upper lobes and lower lobes consistent with infiltrates. There are small bilateral pleural effusions. Ascites of the right hepatic lobe cyst. Cholelithiasis. Chest X-Ray 01/07/21 09:08 IMPRESSION: Low lung volumes. Bilateral airspace disease, right greater than left, more suggestive of pneumonia. Paracentesis Ultrasound 01/08/21 13:35 IMPRESSION: Paracentesis with removal of 2.3 L of clear yellow fluid. Head CT 01/09/21 06:32 IMPRESSION: No acute intracranial pathology. Chest X-Ray 01/10/21 09:00 IMPRESSION: Relatively similar prominence of bilateral airspace disease. Microbiology Microbiology Results: Microbiology 01/09/21 01:36 Blood Culture - Preliminary Blood - Venous No growth after 48 hours. 01/09/21 01:36 Blood Culture - Preliminary Blood - Venous No growth after 48 hours. Assessment and Plan (1) Hypoglycemia: Status: Acute Assessment and Plan: hospital d#8 70yo M with decompensated EtOH cirrhosis with hx esophageal varices/GAVE/portal gastropathy, CKD3, chronic lymphedema, DM2 sent in from SNF with hypoglycemia with encephalopathy found to have pneumonia + also treating for hepatic encephalopathy developed new-onset seizures 01/08/21 now LINETTE, suspect hepatorenal syndrome # LINETTE/CKD3 # hepatorenal syndrome - Earline <20, Cr worsening, UOP only 300 mL/24h; continue albumin, midodrine [when taking PO], octreotide [increase dose] # hepatic encephalopathy - if taking PO, give lactulose + rifaximin PO; otherwise, lactulose retention enema 200g q6h # new-onset sz - Neurology consulted; loaded with levetiracetam- 1.5g, then 1g q12h maintenance; check level 01/12/21. EEG pending. if seizes again needs continuous EEG/neuro ICU/transfer to tertiary care # pneumonia - was on ceftriaxone + doxycycline x5d, broaded 01/09/21 to vancomycin + pip/radha; CXR stable yesterday # DM2 with hypoglycemia - likely exacerbated by liver failure; D50 as needed; correction-dose lispro for hyperglycemia not currently needed # cirrhosis with ascites - s/p paracentesis 2.3L 8/26/21 - on transplant list at [facility] # pancytopenia - plt + WBC count stable; monitor - T+S active; on IV PPI; GI consulted - last EGD 10/16/[address] Rudolph: Esophagus: GE junction at 40? cm, diaphragm hiatus at 40 cm, x 1 grade II varix noted, no red winter Stomach: Patchy gastric erythema especially around the antrum compatible with G AVE. Grade 2 flap valve on retroflexed examination of the cardia. No gastric varices seen. After retroflexion he kept bleeding and wouldn;t stop so hemospray used with good effect. I held on APC for the GAVE due to this. Mosaic pattern consistent with portal hypertensive gastropathy also noted # dispo - accepted at [facility] ICU but no bed availability at this point. Updated oil lease broker Dr Spike Valentine today; awaiting bed # VTE ppx - SCDs Quality Stroke Does the patient have a stroke diagnosis?: No VTE Prior VTE?: No VTE Risk Level:: Medical - moderate - high VTE Device Contraindication: N/A - Device Ordered VTE Drug Contraindication: Treatment Not Indicated
[2021-01-11] MEDS: Midodrine HCl 5 MG TABLET 15 MG PO (13:03)
[2021-01-11] MEDS: rifAXIMin 550 MG TABLET PO (13:04)
[2021-01-11] MEDS: Octreotide Acetate 100 MCG/ML AMPUL 200 MCG SUBCUT ×2 (13:04→21:56)
[2021-01-11 16:24] LABS: Glucose, Whole Blood 100 mg/dL (60-115)
--- NOTE | 2021-01-11 16:53 | P.PNNP_ITS ---
Subjective Subjective Date of Service: 01/11/21 Interval history: renal function getting worse Low maps, cannot take PO, so not on midodrine Physical Exam Vital Signs: Vital Signs: Last Vital Signs Temp 94.9 F L 01/11/21 13:13 Pulse 70 01/11/21 15:34 Resp 18 01/11/21 15:34 BP 135/61 01/11/21 15:34 Pulse Ox 92 01/11/21 15:34 Body Mass Index 48.7 Const: General: ill appearing and patient obtunded Nutritional Appearance: obese Orientation/consciousness: patient obtunded Chest: Chest palpation & inspection: normal inspection of the chest Resp: Effort & Inspection: normal respiratory effort Auscultation: clear to auscultation bilaterally Cardio: Palpation: normal PMI Rate: regular rate Rhythm: regular rhythm GI: Inspection: Yes distended Palpation (GI): nontender and No hepatosplenomegaly present Neuro: General: patient obtunded Extrem: General: Yes edema (3-4+ edema both lower extermities with changes of stasis dermatitis) Objective Data Labs CBC & Chem 7: 01/11/21 06:20 01/11/21 06:20 Labs: Laboratory Results - last 24 hr 01/10/21 01/11/21 01/11/21 20:41 02:49 03:08 WBC RBC Hgb Hct MCV MCH MCHC RDW Plt Count MPV Absolute Nucleated RBC Nucleated RBC % (auto) PT INR Sodium Potassium Chloride Carbon Dioxide Anion Gap BUN Creatinine Estim Creat Clear Calc Estimated GFR POC Glucose 86 84 Random Glucose Calcium Magnesium Total Bilirubin AST ALT Alkaline Phosphatase Total Protein Albumin Procalcitonin Vancomycin Trough 9.5 L 01/11/21 01/11/21 01/11/21 06:20 06:20 06:20 WBC 3.2 L RBC 2.43 L Hgb 7.8 L Hct 24.4 L MCV 100.4 H MCH 32.1 MCHC 32.0 RDW 19.0 H Plt Count 50 L MPV 10.7 Absolute Nucleated RBC 0.000 Nucleated RBC % (auto) 0.0 PT 30.9 H INR 2.7 H Sodium 135 Potassium 4.0 Chloride 101 Carbon Dioxide 24 Anion Gap 14 BUN 54 H Creatinine 2.87 H Estim Creat Clear Calc 35.1 Estimated GFR 22 POC Glucose Random Glucose 86 D Calcium 8.6 Magnesium 2.1 Total Bilirubin 4.2 H AST 35 ALT 21 Alkaline Phosphatase 69 Total Protein 5.0 L Albumin 3.4 L Procalcitonin Vancomycin Trough 01/11/21 01/11/21 01/11/21 06:20 07:21 09:28 WBC RBC Hgb Hct MCV MCH MCHC RDW Plt Count MPV Absolute Nucleated RBC Nucleated RBC % (auto) PT INR Sodium Potassium Chloride Carbon Dioxide Anion Gap BUN Creatinine Estim Creat Clear Calc Estimated GFR POC Glucose 87 92 Random Glucose Calcium Magnesium Total Bilirubin AST ALT Alkaline Phosphatase Total Protein Albumin Procalcitonin 0.30 Vancomycin Trough 01/11/21 01/11/21 11:17 16:15 WBC RBC Hgb Hct MCV MCH MCHC RDW Plt Count MPV Absolute Nucleated RBC Nucleated RBC % (auto) PT INR Sodium Potassium Chloride Carbon Dioxide Anion Gap BUN Creatinine Estim Creat Clear Calc Estimated GFR POC Glucose 93 100 Random Glucose Calcium Magnesium Total Bilirubin AST ALT Alkaline Phosphatase Total Protein Albumin Procalcitonin Vancomycin Trough Microbiology Microbiology Results: Microbiology 01/09/21 01:36 Blood - Venous Blood Culture - Preliminary No growth after 48 hours. 01/09/21 01:36 Blood - Venous Blood Culture - Preliminary No growth after 48 hours. 01/04/21 11:03 Blood - Venous Blood Culture - Final No growth after 5 days. 01/04/21 10:48 Blood - Venous Blood Culture - Final No growth after 5 days. 01/04/21 15:49 Urine clean catch - Urine raygoza top Urine Culture - Final No growth. Procedures Date of Service Date of Service: 01/11/21 Assessment & Plan Assessment and plan (1) Hyponatremia: Status: Acute (2) Portal hypertensive gastropathy: Status: Acute (3) Cirrhosis: Status: Acute (4) GAVE (gastric antral vascular ectasia): Status: Acute Assessment and Plan: Mr. 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 plan: - c/w Albumin q6 hours - c/w octeotride q 8 hours - midodrine 15 TID when able to take PO - may benefit from ICU consult for Vasopressin - awaiting transfer to [facility] - no indication for PATENT PROSECUTION ATTORNEY yet Time Spent With Patient Time: Total time spent is greater than 50% in coordination of care (as d ocumented) at patient's floor/unit and/or counseling patient: Progress Note: Quality Stroke Does the patient have a stroke diagnosis?: No
[2021-01-11 20:40] LABS: Glucose, Whole Blood 99 mg/dL (60-115)
[2021-01-12] VITALS (27 sets, daily range): BP systolic 113–146; BP diastolic 55–76; PULSE 60–662; RESP 12–21; TEMP 35.6–36.6; O2SAT 91–100
[2021-01-12 00:49] LABS: OBS Int Ctl Valid YES; OBS1 NEGATIVE (NEGATIVE)
[2021-01-12] MEDS: LORazepam 2 MG/ML VIAL 0.5 MG IVPUSH (00:58)
[2021-01-12] MEDS: Albumin Human 25 % 100 ML IV (01:37)
[2021-01-12] MEDS: Piperacillin Sodium/Tazobactam 3.375 GM in 0.9 % Sodium Chloride 50 ML IV ×3 (03:17→14:30)
--- NOTE | 2021-01-12 03:53 | PC.NURSE ---
Hospitalist notified of pt becoming increasingly disoriented and seizure-like activity Q4-5 min. reported pt able to answer questions during day. Pt turns head to right, staring, and moaning. Does not respond to verbal commands during these episodes. Pt presents as aphasic. Admin Ativan 0.5 mg IVP ONCE per order w/ positive effect AEB pt napping without seizure-like activity. RR 16. 03:30: RR 16 O2: 85 % on RA. Pt placed on 2L O2 NC w/ positive effect at 94%. Hospitalist notified.
[2021-01-12 04:23] LABS: Glucose, Whole Blood 98 mg/dL (60-115)
[2021-01-12] MEDS: LORazepam 2 MG/ML VIAL 1 MG IVPUSH (04:45)
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
[2021-01-12] MEDS: vancomycin HCL 1,250 MG in 0.9 % Sodium Chloride 250 ML 166.67 MG IV (05:06)
[2021-01-12] MEDS: Pantoprazole Sodium 40 MG/10 ML VIAL IVPUSH (05:21)
[2021-01-12] MEDS: Octreotide Acetate 100 MCG/ML AMPUL 200 MCG SUBCUT ×2 (05:21→14:30)
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
[2021-01-12 06:17] LABS: Hematocrit 22.6 % (42-52); Hemoglobin 7.4 g/dl (14.0-18.0); Mean Corpuscular HGB Conc 32.7 g/dl (31.0-36.0); Mean Corpuscular Volume 100.9 fL (80-98); Mean Platelet Volume 10.9 fL (9.4-12.4); Red Blood Count 2.24 X10*6/uL (4.60-5.80); Red Cell Distribution Width 19.6 % (11.0-16.0); White Blood Count 3.7 X10*3/uL (4.8-10.8)
[2021-01-12 06:21] LABS: Platelet Count 46 X10*3/uL (160-400)
[2021-01-12 06:45] LABS: Alanine Aminotransferase 19 U/L (0-40); Albumin Level 3.6 g/dL (3.5-5.0); Alkaline Phosphatase 58 U/L (39-117); Anion Gap 19 (12-20); Aspartate Amino Transferase 30 U/L (5-37); Bilirubin Direct 1.8 mg/dL (0.0-0.5); Bilirubin Total 4.3 mg/dL (0.0-1.0); Blood Urea Nitrogen 56 mg/dL (9-16); Calcium 8.8 mg/dL (8.4-10.2); Carbon Dioxide 19 mmol/L (22-29); Chloride 102 mmol/L (96-108); Creatinine Clr Calc Pharmacy 28.7; Estimated Glomerular Filt Rate 17; Glucose Random 98 mg/dL (60-115); Sodium 136 mmol/L (135-145); Total Protein 5.2 g/dL (6.5-8.0)
[2021-01-12 06:49] LABS: Prothrombin Time > 320.0 SEC (9.9-13.0)
[2021-01-12 06:50] LABS: INTERNATIONAL NORM RATIO > 26.0 (0.9-1.1)
[2021-01-12 08:09] LABS: Glucose, Whole Blood 92 mg/dL (60-115)
--- NOTE | 2021-01-12 09:43 | MHC.CM.PN ---
Patient is not yet medically cleared for dc (multiple Seizures/Agitation/Combative/soft restraints & IV Ativan required). Returning to [facility] is the goal and CM will continue to follow for possible need to adjust the dc plan.
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
--- NOTE | 2021-01-12 10:16 | MHC.CM.PN ---
Patient transfered to ICU r/t continued SZ activity. [facility] via [facility]. CM will follow.
[2021-01-12 10:17] LABS: VBG Base Excess -4.4 mmol/L; VBG HCO3 20 mmol/L (22-26); VBG pCO2 34 mmHg; VBG pH 7.37 (7.32-7.43); VBG pO2 171 mmHg
[2021-01-12 10:17] LABS: Venous Blood Gas Refer to POC result
[2021-01-12] MEDS: Dextrose 5 % and 0.9 % NaCl 1,000 ML 50 ML IVCONT (10:27)
[2021-01-12] MEDS: 0.9 % Sodium Chloride Flush 3 ML SYRINGE IVFLUSH ×2 (10:28→15:38)
[2021-01-12] MEDS: levETIRAcetam in NaCl (iso-os) 1,000 MG/100 ML PIGGYBACK 400 MG IV (10:28)
[2021-01-12 10:36] LABS: Lactate Dehydrogenase 260 U/L (118-273)
[2021-01-12 10:43] LABS: Ammonia 89 umol/L (13-55)
[2021-01-12 10:44] LABS: D Dimer 1511 NG/ML
--- NOTE | 2021-01-12 10:52 | CONS_ITS ---
DATE OF SERVICE: 01/09/2021 REASON FOR CONSULTATION: I was called to see this patient to assist in the management of acute kidney injury and hyponatremia. HISTORY OF PRESENT ILLNESS: To summarize, Shadi is well-known to us. He is a 70-year-old man with a history of hepatic cirrhosis, chronic hyponatremia and chronic kidney disease. He was admitted on January 04 because of hypoglycemia. At the time of admission, the serum creatinine was 1.48 mg/dL, which was close to his baseline. However, during the course of the stay, he developed seizures today. His creatinine had bumped up to 1.8 and this consultation is requested for management of acute kidney injury. His ammonia level was in the 70s, he has been getting lactulose up until yesterday. PAST MEDICAL HISTORY: Ongoing medical problems include history of hepatic cirrhosis and encephalopathy, history of chronic kidney disease stage 3, history of recurrent episodes of acute kidney injury, chronic hyponatremia, anasarca, anemia, history aortic stenosis, diabetes mellitus, history of gastric antral vascular ectasia, portal hypertensive gastropathy and diabetes mellitus. FAMILY HISTORY: Not significant for his admission. SURGICAL HISTORY: Includes tonsillectomy, EGD and colonoscopy. SOCIAL HISTORY: At present, he has no history of any alcohol abuse or drug abuse. MEDICATIONS: All the home medications are reviewed. The current medications included ceftriaxone, doxycycline vancomycin on January 04. REVIEW OF SYSTEMS: Not obtainable from the patient due to his mentation. Family was at the bedside. All the information obtained from the chart and from the team. PHYSICAL EXAMINATION: GENERAL: Shadi is somnolent, responding to pain. No involuntary movements. NECK: Supple. HEENT: Mucosa is moist. LUNGS: Bilateral rhonchi. HEART: S1, S2 heard. No gallop. ABDOMEN: Obese, soft, nontender. EXTREMITIES: 2-3+ edema. No new rash. No clubbing. VITAL SIGNS: Blood pressure was 138/78, he is afebrile with temperature of 98.0. LABORATORY DATA: Hemoglobin 7.6, platelets 57,000, WBC 3.8. Sodium 133, potassium , BUN 51, creatinine 1.85, ammonia 73. IMAGING: Head CT done earlier this morning did not show any acute pathology. IMPRESSION: A 70-year-old man with hepatic cirrhosis, encephalopathy, and chronic kidney disease, has new onset seizures. Shadi has acute kidney injury superimposed on chronic kidney disease. Differential diagnosis would include hypoperfusion, however, hepatorenal syndrome is a possibility. There is no evidence of any obstruction at this time. There is no reason to believe he has reactive glomerular interstitial disease as well. mild hyponatremia which is multifactorial. The serum sodium has been stable all along until the last few days. My recommendation is to obtain a spot urine for sodium creatine osmolality and check serum osmolality. We will continue to treat hepatic encephalopathy, continue with lactulose. We should increase and thereby correct hyponatremia. At this point, the etiology of procedure is to be determined. Although he has a history of encephalopathy, the ammonia level has been stable around renal function has been close to baseline, which does not explain the seizures. Further workup will be based on the above investigations and we will follow him closely with the team. MD VALENTIN Silva/MODL / [id number]
[2021-01-12 11:03] LABS: Glucose, Whole Blood 96 mg/dL (60-115)
--- NOTE | 2021-01-12 11:15 | P.PNNP_ITS ---
Subjective Subjective Date of Service: 01/14/21 Interval history: Events noted Lethargic Physical Exam Vital Signs: Vital Signs: Last Vital Signs Temp 97.8 F 01/12/21 08:00 Pulse 70 01/12/21 10:37 Resp 18 01/12/21 08:00 BP 113/58 L 01/12/21 10:37 Pulse Ox 100 01/12/21 08:00 Body Mass Index 48.7 Const: General: ill appearing and patient obtunded Nutritional Appearance: obese Orientation/consciousness: patient obtunded Resp: Effort & Inspection: normal respiratory effort Auscultation: clear to auscultation bilaterally Cardio: Palpation: normal PMI Rate: regular rate Heart sounds: no murmurs GI: Inspection: Yes distended Palpation (GI): nontender and No hepatosplenomegaly present Skin: General skin exam: no rashes or lesions noted Neuro: General: patient obtunded Extrem: General: Yes edema (3-4+ edema both lower extermities with changes of stasis dermatitis) Objective Data Labs CBC & Chem 7: 01/12/21 05:41 01/12/21 19:36 Labs: Laboratory Results - last 24 hr 01/11/21 01/11/21 01/11/21 11:17 16:15 20:32 WBC RBC Hgb Hct MCV MCH MCHC RDW Plt Count MPV Absolute Nucleated RBC Nucleated RBC % (auto) PT INR D-Dimer VBG pH VBG pCO2 VBG pO2 VBG HCO3 VBG O2 Saturation VBG Base Excess Sodium Potassium Chloride Carbon Dioxide Anion Gap BUN Creatinine Estim Creat Clear Calc Estimated GFR POC Glucose 93 100 99 Random Glucose Calcium Total Bilirubin Direct Bilirubin AST ALT Alkaline Phosphatase Ammonia Lactate Dehydrogenase Total Protein Albumin Stool Occult Blood 01/12/21 01/12/21 01/12/21 00:27 04:19 05:41 WBC 3.7 L RBC 2.24 L Hgb 7.4 L Hct 22.6 L MCV 100.9 H MCH 33.0 MCHC 32.7 RDW 19.6 H Plt Count 46 L MPV 10.9 Absolute Nucleated RBC 0.000 Nucleated RBC % (auto) 0.0 PT INR D-Dimer VBG pH VBG pCO2 VBG pO2 VBG HCO3 VBG O2 Saturation VBG Base Excess Sodium Potassium Chloride Carbon Dioxide Anion Gap BUN Creatinine Estim Creat Clear Calc Estimated GFR POC Glucose 98 Random Glucose Calcium Total Bilirubin Direct Bilirubin AST ALT Alkaline Phosphatase Ammonia Lactate Dehydrogenase Total Protein Albumin Stool Occult Blood NEGATIVE 01/12/21 01/12/21 01/12/21 05:41 05:41 08:02 WBC RBC Hgb Hct MCV MCH MCHC RDW Plt Count MPV Absolute Nucleated RBC Nucleated RBC % (auto) PT > 320.0 H D Cancelled INR > 26.0 H* D Cancelled D-Dimer VBG pH VBG pCO2 VBG pO2 VBG HCO3 VBG O2 Saturation VBG Base Excess Sodium 136 Potassium 4.0 Chloride 102 Carbon Dioxide 19 L Anion Gap 19 BUN 56 H Creatinine 3.51 H Estim Creat Clear Calc 28.7 Estimated GFR 17 POC Glucose Random Glucose 98 Calcium 8.8 Total Bilirubin 4.3 H Direct Bilirubin 1.8 H AST 30 ALT 19 Alkaline Phosphatase 58 Ammonia Lactate Dehydrogenase Total Protein 5.2 L Albumin 3.6 Stool Occult Blood 01/12/21 01/12/21 01/12/21 08:05 10:06 10:06 WBC RBC Hgb Hct MCV MCH MCHC RDW Plt Count MPV Absolute Nucleated RBC Nucleated RBC % (auto) PT INR D-Dimer VBG pH VBG pCO2 VBG pO2 VBG HCO3 VBG O2 Saturation VBG Base Excess Sodium Potassium Chloride Carbon Dioxide Anion Gap BUN Creatinine Estim Creat Clear Calc Estimated GFR POC Glucose 92 Random Glucose Calcium Total Bilirubin Direct Bilirubin AST ALT Alkaline Phosphatase Ammonia 89 H Lactate Dehydrogenase 260 Total Protein Albumin Stool Occult Blood 01/12/21 01/12/21 01/12/21 10:06 10:13 10:58 WBC RBC Hgb Hct MCV MCH MCHC RDW Plt Count MPV Absolute Nucleated RBC Nucleated RBC % (auto) PT INR D-Dimer 1511 VBG pH 7.37 VBG pCO2 34 VBG pO2 171 VBG HCO3 20 L VBG O2 Saturation 99.0 VBG Base Excess -4.4 Sodium Potassium Chloride Carbon Dioxide Anion Gap BUN Creatinine Estim Creat Clear Calc Estimated GFR POC Glucose 96 Random Glucose Calcium Total Bilirubin Direct Bilirubin AST ALT Alkaline Phosphatase Ammonia Lactate Dehydrogenase Total Protein Albumin Stool Occult Blood Microbiology Microbiology Results: Microbiology 01/09/21 01:36 Blood - Venous Blood Culture - Preliminary No growth after 48 hours. 01/09/21 01:36 Blood - Venous Blood Culture - Preliminary No growth after 48 hours. 01/04/21 11:03 Blood - Venous Blood Culture - Final No growth after 5 days. 01/04/21 10:48 Blood - Venous Blood Culture - Final No growth after 5 days. 01/04/21 15:49 Urine clean catch - Urine raygoza top Urine Culture - Final No growth. Procedures Date of Service Date of Service: 01/12/21 Assessment & Plan Assessment and plan (1) Hyponatremia: Status: Acute (2) Portal hypertensive gastropathy: Status: Acute (3) Cirrhosis: Status: Acute (4) GAVE (gastric antral vascular ectasia): Status: Acute Assessment and Plan: Mr. 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 plan: - c/w Albumin q6 hours - c/w octeotride q 8 hours - midodrine 15 TID when able to take PO - - awaiting transfer to [facility] - no indication for UNIVERSAL GRINDER TOOL yet Overall prognosis is guarded Time Spent With Patient Time: Total time spent is greater than 50% in coordination of care (as documented) at patient's floor/unit and/or counseling patient: Time with patient: 15 - 24 minutes Progress Note: Quality Stroke Does the patient have a stroke diagnosis?: No
[2021-01-12] MEDS: Phytonadione (Vit K1) 10 MG in 0.9 % Sodium Chloride 50 ML 51 MG IV ×2 (12:19→15:38)
[2021-01-12] MEDS: Lactulose 20 GM/30 ML SOLUTION PO (12:19)
[2021-01-12 17:16] LABS: Glucose, Whole Blood 102 mg/dL (60-115)
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
--- NOTE | 2021-01-12 17:22 | W.PM.CCHP ---
Procedures Date of Service Date of Service: 01/12/21 Central Line Placement Left SC: Central Line Comments: PROCEDURE:? Insertion left subclavian central venous line. INDICATION:? IV access; blood draws; resp monitoring. ANESTHESIA:? Local 1% lidoc.. PROCEDURE:? The patient had very large superficial venous distension in both necks and the left supraclavicular area.? Vascular ultrasound was used to examine the left subclavian area.? A large, broad, compressible, and easily accessible vein was noted superior to the SCL artery. This was chosen for the cannulation approach. The left subclavian area was widely prepped and draped in full sterile fashion.?? The infraclavic subclavian vein was located by US.? Local anesthesia was applied to the entrance site with the US probe oriented longitudinally.? The infraclavic left subclavian vein was cannulated on the 1st pass of the 18 gauge thin wall under direct US guidance.? The wire was threaded without incident.? A 7 [place] by 20 cm triple-lumen catheter was advanced into the vein up to the hub via the Seldinger technique without incident.? There was good blood return x3.? The catheter was sutured x3 and a Biopatch and dry sterile dressing were applied. Postop chest x-ray showed the line in adequate position with no pneumothorax.? The patient tolerated the procedure well w no complications.
[2021-01-12 19:41] LABS: VBG Base Excess -1.5 mmol/L; VBG HCO3 25 mmol/L (22-26); VBG pCO2 53 mmHg; VBG pH 7.27 (7.32-7.43); VBG pO2 57 mmHg
[2021-01-12 20:00] LABS: Lactic Acid 1.8 mmol/L (0.5-2.0)
[2021-01-12 20:05] LABS: Anion Gap 18 (12-20); Blood Urea Nitrogen 59 mg/dL (9-16); Calcium 9.1 mg/dL (8.4-10.2); Carbon Dioxide 22 mmol/L (22-29); Chloride 101 mmol/L (96-108); Creatinine Clr Calc Pharmacy 25.7; Estimated Glomerular Filt Rate 15; Glucose Random 101 mg/dL (60-115); Magnesium 2.3 mg/dL (1.6-2.6); Phosphorus 6.1 mg/dL (2.7-4.5); Sodium 137 mmol/L (135-145)
[2021-01-12 20:11] LABS: Fibrinogen 123 MG/DL (259-690); INTERNATIONAL NORM RATIO 1.8 (0.9-1.1); Prothrombin Time 20.4 SEC (9.9-13.0)
[2021-01-12 20:14] LABS: Partial Thromboplastin Time 48.9 SEC (24.1-38.0)
[2021-01-12 20:19] LABS: Venous Blood Gas Refer to POC result
[2021-01-16 11:17] LABS: Levetiracetam Keppra 45.7 mcg/mL (12.0-46.0)
== END 2021-01-12 20:30 | disposition short-term general hospital (02) | DRG 432 ==
LOC: HO.ED 12:17 → HO.EDOVER 14:11 → HO.IMC 01-05 10:53 → HO.S3 01-06 17:02 → HO.IMC 01-06 17:03 → HO.ICU 01-12 09:54
PROVIDERS: Family Medicine; Internal Medicine; Radiology Diagnostic Radiology; Admitting Provider Internal Medicine; Emergency Provider Emergency Medicine; PCP Internal Medicine; Visit Provider Anesthesiology
PROC: 0W9G3ZZ Drainage of Peritoneal Cavity, Percutaneous Approach (ICD-10-PCS; principal; 2021-01-08 12:00)
DX: K70.31 Alcoholic cirrhosis of liver with ascites (principal); G93.41 Metabolic encephalopathy; K76.7 Hepatorenal syndrome; Z68.42 Body mass index [BMI] 45.0-49.9, adult; D61.818 Other pancytopenia; E87.1 Hypo-osmolality and hyponatremia; K76.6 Portal hypertension; N17.9 Acute kidney failure, unspecified; K72.90 Hepatic failure, unspecified without coma; E11.649 Type 2 diabetes mellitus with hypoglycemia without coma; R56.9 Unspecified convulsions; K31.819 Angiodysplasia of stomach and duodenum without bleeding; E66.01 Morbid (severe) obesity due to excess calories; E11.22 Type 2 diabetes mellitus with diabetic chronic kidney disease; K31.89 Other diseases of stomach and duodenum; N18.30 Chronic kidney disease, stage 3 unspecified; I95.9 Hypotension, unspecified; Z20.822 Contact with and (suspected) exposure to COVID-19; Z79.4 Long term (current) use of insulin; Z79.890 Hormone replacement therapy; Z79.899 Other long term (current) drug therapy
CPT/HCPCS: 36415; 36600; 49083; 70450; 71045; 71250; 80048; 80053; 80076; 80177; 80202; 81001; 82140; 82272; 82803; 82947; 83605; 83615; 83690; 83735; 83880; 84100; 84145; 84300; 85014; 85018; 85025; 85027; 85379; 85384; 85610; 85730; 86850; 86900; 86901; 87040; 87086; 87635; 93005; 94640; 96365; 96375; 99284; 99285; J0692; J0696; J1940; J1953; J2060; J2354; J2543; J3370; J3430; P9017; P9047; P9073

== ENCOUNTER 2021-01-07 10:03 | Outpatient (REF) | payer MEDICARE, MEDICAID, SELFPAY ==
--- NOTE | 2021-01-07 10:10 | MHC.AU.P13 ---
Hearing Instrument Maintenance Date of Visit: 01/07/21 Right Ear: Cage Loader: Phonak Model: Audeo M 70-13T Serial Number: [id number] Repair Warranty: 03/02/2023 Battery Size: 13 Color: Graphite Cueto Management Internship: #2 Medium Type of Dome: Medium Vented Type of Wax Guard: CeruShield Disk Dispensed By: [facility] Date of Fittin12/17/2019 Left Ear: Cage Loader: Phonak Model: Audeo M 70-13T Serial Number: [id number] Repair Warranty: 03/02/2023 Battery Size: 13 Color: Graphite Cueto Management Internship: #1 Medium Type of Dome: Medium Vented Type of Wax Guard: CeruShield Disk Dispensed By: [facility] Date of Fittin12/17/2019 Follow-Up Summary: Hearing aids brought in for cleaning. Both aids cleaned, wax guards and medium vented domes replaced, both amplifying clearly. Recommendations: Recommendations: Hearing instrument follow-up or maintenance as needed. Signature: Provider: RUSLAN Baez
== END 2021-01-07 10:04 | disposition home or self-care (01) ==
LOC: HO.HAP 10:03
PROVIDERS: Visit Provider Internal Medicine
DX: Z13.89 Encounter for screening for other disorder (principal)

== ENCOUNTER 2021-02-20 13:19 | Outpatient (REF) | payer MEDICARE, MEDICAID, SELFPAY ==
--- NOTE | ~2021-02-20 | CT_ITS ---
EXAMINATION: CT CHEST WITHOUT CONTRAST CLINICAL INFORMATION: Pneumonia COMPARISON: Previous chest x-ray most recent December [address] December 2020 TECHNIQUE: Multidetector volumetric CT imaging of the chest was done. Axial MIP volume rendering provided. Sagittal and coronal reformatted images were obtained. This CT examination was performed using dose optimization techniques as appropriate, variously including the following: *Automated exposure control *Adjustment of mA and/or kV according to patient size (this includes techniques or standardized protocols for targeted exams where dose is matched to indication/reason for exam; i.e. extremities or head) *Use of iterative reconstruction technique DLP: 217 mGy-cm FINDINGS: LUNGS: There are bilateral peripheral infiltrates and nodular opacities. Infiltrates appear smaller and less dense compared to previous exam from December 2020 exam. No new infiltrate is seen. No endobronchial or endotracheal lesion is seen. MEDIASTINUM: The heart is enlarged. There is coronary artery and aortic valve calcification. There is no pericardial effusion. The aorta is slightly dilated, ascending thoracic aorta measuring 4.3 cm. The pulmonary arteries are dilated, main pulmonary artery measuring 3.9 cm. There is a new right jugular dialysis catheter with tip projecting over the SVC. There are no enlarged mediastinal lymph nodes. PLEURA: There are new small bilateral pleural effusions. AXILLA: No lymphadenopathy. UPPER ABDOMEN: The liver is cirrhotic. There is a large 6 x 7 cm cyst high in the dome of the liver. The spleen is enlarged. There may be upper abdominal varices. There is a moderate amount of ascites. OSSEOUS STRUCTURES: There are degenerative changes of the spine. CT/CT chest wo con IMPRESSION: Persistent bilateral infiltrates slightly improved from December 2020 exam. New small bilateral pleural effusions. Cirrhotic-appearing liver. Ascites.
== END 2021-02-20 13:20 | disposition home or self-care (01) ==
LOC: HO.CT 13:19
PROVIDERS: PCP Internal Medicine; Visit Provider Internal Medicine Gastroenterology
DX: J18.9 Pneumonia, unspecified organism (principal); K70.31 Alcoholic cirrhosis of liver with ascites
CPT/HCPCS: 71250

== ENCOUNTER 2021-02-26 19:41 | Inpatient (IN) | payer MEDICARE, MEDICAID, SELFPAY ==
--- NOTE | ~2021-02-26 | US_ITS ---
EXAMINATION: US ABDOMEN LIMITED CLINICAL INFORMATION: Check for ascites. COMPARISON: Ultrasound-guided paracentesis 01/08/2021 and 11/28/2020. CT abdomen and pelvis 08/19/2020. MRI abdomen 10/03/2018. TECHNIQUE: Real-time imaging of all 4 quadrants. FINDINGS: Moderate ascites, similar when compared to the prior ultrasound. US/US abdomen limited IMPRESSION: Moderate ascites.
--- NOTE | ~2021-02-26 | CT_ITS ---
EXAMINATION: CT BRAIN AND CT CHEST WITHOUT CONTRAST. CLINICAL INFORMATION: AMS COMPARISON: None TECHNIQUE: 5 mm thin axial and reformatted 2 mm thin sagittal and coronal images of brain were obtained. Subsequently 5 mm thin axial and reformatted 3 mm thin sagittal and coronal images of chest were obtained without contrast. DLP [id number] FINDINGS: Brain: There is no acute intra-axial, extra-axial bleed, masses or midline shift. There is no acute infarction in evolution. There is no edema. Both lateral ventricles are symmetrical in size and configuration. No calvarial abnormality. No scalp soft tissue abnormality seen. There is a small external occipital horn noted. CHEST: There is breathing artifact throughout the exam. There are patchy airspace opacities in both upper lobes, lower lobes, right middle lobe and lingula consistent with panlobular infiltrate. The thyroid lobes are symmetric and normal. The central trachea and the bronchi widely patent. The heart size and the great vessels are normal caliber. No abnormal-sized images lymph nodes seen. There are coronary artery calcifications present. Small bilateral pleural effusions are noted. No pleural plaques or thickening. The axilla and the chest wall appears normal. Imaging to the upper abdomen reveals diffuse ascites, splenomegaly multiple gallstones without wall thickening. There is a large right hepatic lobe 7 cm cyst the liver is lobulated and heterogeneous. Bone windows reveal no calvarial. CT/CT head/brain wo con IMPRESSION: Multilobar infiltrate , ? Covid disease. Small bilateral pleural effusions and ascites. Right hepatic lobe cyst, lobulated liver ?cirrhosis. Cholelithiasis. Splenomegaly. No acute intracranial process seen.
--- NOTE | ~2021-02-26 | US_ITS ---
EXAMINATION: US-GUIDED PARACENTESIS CLINICAL INFORMATION: Ascites. COMPARISON: None TECHNIQUE: Following explaining ultrasound-guided paracentesis procedure, benefits and risk to patient and patient's , a written consent was obtained from the (health proxy). Patient was placed supine on ultrasound table, and preliminary ultrasound imaging was obtained through the abdomen. An optimal site was selected and optimal site was marked along the left lower quadrant. The marked site was cleaned and draped in the usual sterile manner. 1% lidocaine was injected at puncture site. Through a small skin incision, a 4-[place] Mesitis catheter was advanced into the peritoneal space. After observing fluid return, stylet was withdrawn and catheter connected to the vacuum bottle via a connecting cannula. After obtaining all fluid and observing normal fluid return, the catheter was withdrawn and complete hemostasis achieved at puncture site. Sterile dressing applied postprocedure. Patient tolerated the procedure well without immediate complications. FINDINGS: On preliminary ultrasound imaging, there is a [id number] amount of free fluid in the pelvis. Approximately 4.5 mL of fluid was removed and sent to lab. Postprocedure, the patient tolerated the procedure extremely well. US/US paracentesis abd w/image IMPRESSION: Successful diagnostic and therapeutic ultrasound-guided paracentesis performed without immediate complications.
[2021-02-26 19:52] VITALS: BP 120/80; BP 136/65; PULSE 74; RESP 18; TEMP 37.2; O2SAT 98; O2SAT 99; BMI 33.0
--- NOTE | 2021-02-26 20:00 | ECG_ITS ---
Test Reason : FTT Blood Pressure : / mmHG Vent. Rate : 075 BPM Atrial Rate : 000 BPM P-R Int : 000 ms QRS Dur : 100 ms QT Int : 416 ms P-R-T Axes : 000 -03 -01 degrees QTc Int : 464 ms Atrial fibrillation Intra-ventricular conduction delay Abnormal ECG No significant changes seen Referred By: Erica Ferrell Electronically Signed By:KENTRELL VAZQUEZ MD
--- NOTE | 2021-02-26 20:01 | ED.AMS ---
HPI - Altered Mental Status General Chief Complaint: Altered Mental Status Stated Complaint: AMS DIALYSIS PT Time Seen by Provider: 02/26/21 19:58 Source: patient, family, EMS and old records reviewed Mode of arrival: EMS Limitations: altered mental status History of Present Illness HPI narrative: 70 yo male with cirrhosis on [facility] transplant list, afib, seizure, pneumonia was just admitted to [facility] from December until February 16 for issues with Na per spouse. They recommended STR but patient went home. At this time spouse notes that he became more altered today but took his lactulose. He did not fall. He has not had HD since Tuesday he was trying to switch his schedule and had to miss some days. MD complaint: altered mental status, confusion and weakness Onset (ago): day(s) (started early this AM) Timing confirmed by: family member Severity: moderate Consistency of symptoms: getting Worse Context: liver disease and seizure disorder Associated symptoms: loss of appetite, weakness, difficulty walking and diarrhea Treatments prior to arrival: other (has been on augmentin per spouse for pneumonia) Related Data Home Medications Medication Instructions Recorded Confirmed cholecalciferol (vitamin D3) 50 50 mcg PO DAILY 01/04/21 02/26/21 mcg (2,000 unit) capsule (Vitamin D3) folic acid 1 mg tablet 1 mg PO DAILY 01/04/21 02/26/21 tamsulosin 0.4 mg capsule (Flomax) 0.4 mg PO BEDTIME 01/04/21 02/26/21 levetiracetam 500 mg tablet 1,000 mg PO DAILY 02/18/21 02/26/21 levothyroxine 150 mcg tablet 150 mcg PO DAILY@0630 02/18/21 02/26/21 liraglutide 0.6 mg/0.1 mL (18 mg/3 0.6 mg SUBCUT DAILY 02/18/21 02/26/21 mL) subcutaneous pen injector (Properstoza 3-Gordo) omeprazole 20 mg capsule,delayed 20 mg PO BID@0630,1630 02/18/21 02/26/21 release pen needle, diabetic 31 gauge x #1200 ea 02/18/21 02/18/21/16 (BD Ultra-Fine Short Pen Needle) penicillin V potassium 250 mg 250 mg PO DAILY 02/18/21 02/26/21 tablet thiamine HCl (vitamin B1) 100 mg 100 mg PO BID 02/18/21 02/26/21 tablet insulin degludec 200 unit/mL (3 100 unit SUBCUT DAILY 02/26/21 02/26/21 mL) subcutaneous pen (Tresiba FlexTouch U-200 insulin) lactulose 10 gram/15 mL oral 20 g PO TID 02/26/21 02/26/21 solution levetiracetam 250 mg tablet 250 mg PO MOWEFR@1645 02/26/21 02/26/21 magnesium hydroxide 400 mg/5 mL 800 mg PO DAILY PRN 02/26/21 02/26/21 oral suspension (Milk of Magnesia) rifaximin 550 mg tablet 550 mg PO BID 02/26/21 02/26/21 Allergies Allergy/AdvReac Type Severity Reaction Status Date / Time No Known Allergies Allergy Verified 02/18/21 09:08 Review of Systems Review of Systems: ROS unable to be obtained due to altered mental status PMFSH Past Medical History Source: old records reviewed Medical History Acid reflux Acute hepatic encephalopathy Acute on chronic kidney failure LINETTE (acute kidney injury) Alcohol induced liver disorder Anasarca Anemia Annual physical exam Aortic stenosis Ascites due to alcoholic cirrhosis Atrial fibrillation Cellulitis CHF (congestive heart failure) Chronic edema Cirrhosis CKD (chronic kidney disease) stage 3, GFR 30-59 ml/min Diabetes Dyslipidemia Elevated brain natriuretic peptide (BNP) level Encephalopathy Esophageal varix Essential hypertension GAVE (gastric antral vascular ectasia) Hearing loss Hepatic encephalopathy HTN (hypertension) Hyperammonemia Hyponatremia Lipodermatosclerosis Liver cirrhosis Low serum vitamin D Lower extremity edema Obesity Obesity (BMI 30-39.9) BARTOLOME (obstructive sleep apnea) Osteoarthritis Portal hypertension syndrome Portal hypertensive gastropathy Recurrent cellulitis of lower extremity Tongue ulcer Type 2 diabetes mellitus with chronic kidney disease Type 2 diabetes mellitus with hyperglycemia, with long-term current use of insulin Surgical History H/O colonoscopy History of esophagogastroduodenoscopy (EGD) History of tonsillectomy Family History Family History Brother Diabetes Father No problems noted. Social History Social History Household Members: Spouse Housing: House Do you presently have visiting nurse or other home services: No Alcohol intake: never Patient Tobacco Use Status: Never used Tobacco e-Cigarette/Vaping Use: Never Used Second Hand Smoke Exposure: No Advance Directives: No Advance Directives Information Provided: Yes service: No Current occupational status: retired Physical Exam Vital Signs: Vital Signs: Last Vital Signs Temp 97.5 F 02/26/21 22:00 Pulse 71 02/26/21 22:00 Resp 16 02/26/21 22:00 BP 147/70 H 02/26/21 22:00 Pulse Ox 100 02/26/21 22:00 Body Mass Index 33.0 Appearance: Alert. Oriented X1. Mild acute distress. Delerious picking at the air talking to his mother (who is not present) Eyes: Pupils equal, round and reactive to light. scleral icterus ENT: Pharynx normal. Neck: Normal inspection. Neck supple. CVS: irregular heart rate and rhythm. Pulses normal. Respiratory: No respiratory distress. Breath sounds diminished at the bases Abdomen: Soft and non-tender. Skin: Skin warm and dry. Normal skin color. Normal skin turgor. Extremities: 2 to 3+ bilateral pitting edema. Neuro: Oriented X 1. No motor deficit. No sensory deficit. Course Course Course Narrative: ammonia 215 - lactulose ordered NS 250 bolus albumin ordered spouse now notes he has been doing his own medications recently other than today - so she is not sure he is actually compliant treated with cefepime / vancomycin for multifocal pneumonia, negative for COVID, call to [facility] 1027pm [facility] made aware of case including transplant patient and states they are closed to all transfers tonight, could try in AM, discussed with patient's spouse she is aware of the multifocal pneumonia - states he would not be a candidate for transplant at this time due to persistent infection. She also states she wants him to be a DNI but to perform CPR. Her name is Edna mckeon # [phone] home # [phone] MDM - Altered Mental Status MDM Narrative Medical decision making narrative: 70 yo male with cirrhosis on [facility] transplant list, afib, seizure, pneumonia was just admitted to [facility] from December until February 16 for issues with Na per spouse. They recommended STR but patient went home. At this time spouse notes that he became more altered today but took his lactulose. He did not fall. He has not had HD since Tuesday he was trying to switch his schedule and had to miss some days. At this time will need labs, ammonia level, cultures, CT head/chest for ICH and pneumonia, start empiric cefepime since he is on augmentin already. Did not take his nighttime keppra will IV dose here to prevent seizures. Dispo per results and findings. Lab Data Result diagrams: 02/26/21 20:27 02/26/21 20: Labs: Lab Results 02/26/21 02/26/21 02/26/21 Range/Units 20:27 20:27 20:27 WBC 4.1 L (4.8-10.8) X10*3/uL RBC 2.18 L (4.60-5.80) X10*6/uL Hgb 7.6 L (14.0-18.0) g/dl Hct 21.4 L (42-52) % MCV 98.2 H (80-98) fL MCH 34.9 H (27.0-33.0) pg MCHC 35.5 (31.0-36.0) g/dl RDW 15.4 (11.0-16.0) % Plt Count 57 L (160-400) X10*3/uL MPV 10.4 (9.4-12.4) fL Immature Gran % (Auto) 0.2 (0.0-0.4) % Neut % (Auto) 72.6 (45-73) % Lymph % (Auto) 15.8 L (20-40) % [place] % (Auto) 8.9 (2-11) % Eos % (Auto) 2.0 (0-4) % Baso % (Auto) 0.5 (0-2) % Lymph # (Auto) 0.6 L (1.2-4.9) X10*3/uL [place] # (Auto) 0.4 (0.1-1.2) X10*3/uL Eos # (Auto) 0.1 (0.0-0.4) X10*3/uL Baso # (Auto) 0.0 (0.0-0.2) X10*3/uL Abs Immat Gran (auto) 0.01 (0.00-0.03) X10*3/uL Absolute Neuts (auto) 3.0 (2.0-8.3) X10*3/uL Absolute Nucleated RBC 0.000 (0.0-0.012) X10*3/uL Nucleated RBC % (auto) 0.0 (0.0-0.2) /100WBC PT (9.9-13.0) SEC INR (0.9-1.1) APTT (24.1-38.0) SEC VBG pH (7.32-7.43) VBG pCO2 mmHg VBG pO2 mmHg VBG HCO3 (22-26) mmol/L VBG O2 Saturation % VBG Base Excess mmol/L Sodium 128 L (135-145) mmol/L Potassium 4.3 (3.3-5.1) mmol/L Chloride 95 L (96-108) mmol/L Carbon Dioxide 22 (22-29) mmol/L Anion Gap 15 (12-20) BUN 39 H (9-16) mg/dL Creatinine 5.07 H* (0.5-1.4) mg/dL Estim Creat Clear Calc 16.6 Estimated GFR 11 Random Glucose 151 H D (60-115) mg/dL Lactic Acid (0.5-2.0) mmol/L Calcium 7.9 L D (8.4-10.2) mg/dL Magnesium 2.1 (1.6-2.6) mg/dL Total Bilirubin 3.3 H (0.0-1.0) mg/dL Direct Bilirubin 2.2 H (0.0-0.5) mg/dL AST 55 H (5-37) U/L ALT 34 (0-40) U/L Alkaline Phosphatase 232 H D (39-117) U/L Ammonia 215 H (13-55) umol/L Troponin I High Sens (<3.5-35.0) ng/L Total Protein 6.2 L (6.5-8.0) g/dL Albumin 2.7 L D (3.5-5.0) g/dL Lipase 54 (8-78) U/L TSH (0.32-4.0) uIU/mL Free T4 (0.71-1.85) ng/dL COVID-19 (JACKY) (Negative) COVID-19 Clin Com 02/26/21 02/26/21 02/26/21 Range/Units 20:27 20:27 20:27 WBC (4.8-10.8) X10*3/uL RBC (4.60-5.80) X10*6/uL Hgb (14.0-18.0) g/dl Hct (42-52) % MCV (80-98) fL MCH (27.0-33.0) pg MCHC (31.0-36.0) g/dl RDW (11.0-16.0) % Plt Count (160-400) X10*3/uL MPV (9.4-12.4) fL Immature Gran % (Auto) (0.0-0.4) % Neut % (Auto) (45-73) % Lymph % (Auto) (20-40) % [place] % (Auto) (2-11) % Eos % (Auto) (0-4) % Baso % (Auto) (0-2) % Lymph # (Auto) (1.2-4.9) X10*3/uL [place] # (Auto) (0.1-1.2) X10*3/uL Eos # (Auto) (0.0-0.4) X10*3/uL Baso # (Auto) (0.0-0.2) X10*3/uL Abs Immat Gran (auto) (0.00-0.03) X10*3/uL Absolute Neuts (auto) (2.0-8.3) X10*3/uL Absolute Nucleated RBC (0.0-0.012) X10*3/uL Nucleated RBC % (auto) (0.0-0.2) /100WBC PT 20.6 H (9.9-13.0) SEC INR 1.8 H (0.9-1.1) APTT 39.1 H D (24.1-38.0) SEC VBG pH (7.32-7.43) VBG pCO2 mmHg VBG pO2 mmHg VBG HCO3 (22-26) mmol/L VBG O2 Saturation % VBG Base Excess mmol/L Sodium (135-145) mmol/L Potassium (3.3-5.1) mmol/L Chloride (96-108) mmol/L Carbon Dioxide (22-29) mmol/L Anion Gap (12-20) BUN (9-16) mg/dL Creatinine (0.5-1.4) mg/dL Estim Creat Clear Calc Estimated GFR Random Glucose (60-115) mg/dL Lactic Acid 2.3 H* (0.5-2.0) mmol/L Calcium (8.4-10.2) mg/dL Magnesium (1.6-2.6) mg/dL Total Bilirubin (0.0-1.0) mg/dL Direct Bilirubin (0.0-0.5) mg/dL AST (5-37) U/L ALT (0-40) U/L Alkaline Phosphatase (39-117) U/L Ammonia (13-55) umol/L Troponin I High Sens (<3.5-35.0) ng/L Total Protein (6.5-8.0) g/dL Albumin (3.5-5.0) g/dL Lipase (8-78) U/L TSH (0.32-4.0) uIU/mL Free T4 (0.71-1.85) ng/dL COVID-19 (JACKY) Negative (Negative) COVID-19 Clin Com See Note 02/26/21 02/26/21 02/26/21 Range/Units 20:27 20:27 21:11 WBC (4.8-10.8) X10*3/uL RBC (4.60-5.80) X10*6/uL Hgb (14.0-18.0) g/dl Hct (42-52) % MCV (80-98) fL MCH (27.0-33.0) pg MCHC (31.0-36.0) g/dl RDW (11.0-16.0) % Plt Count (160-400) X10*3/uL MPV (9.4-12.4) fL Immature Gran % (Auto) (0.0-0.4) % Neut % (Auto) (45-73) % Lymph % (Auto) (20-40) % [place] % (Auto) (2-11) % Eos % (Auto) (0-4) % Baso % (Auto) (0-2) % Lymph # (Auto) (1.2-4.9) X10*3/uL [place] # (Auto) (0.1-1.2) X10*3/uL Eos # (Auto) (0.0-0.4) X10*3/uL Baso # (Auto) (0.0-0.2) X10*3/uL Abs Immat Gran (auto) (0.00-0.03) X10*3/uL Absolute Neuts (auto) (2.0-8.3) X10*3/uL Absolute Nucleated RBC (0.0-0.012) X10*3/uL Nucleated RBC % (auto) (0.0-0.2) /100WBC PT (9.9-13.0) SEC INR (0.9-1.1) APTT (24.1-38.0) SEC VBG pH 7.50 H (7.32-7.43) VBG pCO2 28 mmHg VBG pO2 87 mmHg VBG HCO3 23 (22-26) mmol/L VBG O2 Saturation 97.0 % VBG Base Excess 0.6 mmol/L Sodium (135-145) mmol/L Potassium (3.3-5.1) mmol/L Chloride (96-108) mmol/L Carbon Dioxide (22-29) mmol/L Anion Gap (12-20) BUN (9-16) mg/dL Creatinine (0.5-1.4) mg/dL Estim Creat Clear Calc Estimated GFR Random Glucose (60-115) mg/dL Lactic Acid (0.5-2.0) mmol/L Calcium (8.4-10.2) mg/dL Magnesium (1.6-2.6) mg/dL Total Bilirubin (0.0-1.0) mg/dL Direct Bilirubin (0.0-0.5) mg/dL AST (5-37) U/L ALT (0-40) U/L Alkaline Phosphatase (39-117) U/L Ammonia (13-55) umol/L Troponin I High Sens 10.5 (<3.5-35.0) ng/L Total Protein (6.5-8.0) g/dL Albumin (3.5-5.0) g/dL Lipase (8-78) U/L TSH 33.70 H (0.32-4.0) uIU/mL Free T4 0.65 L (0.71-1.85) ng/dL COVID-19 (JACKY) (Negative) COVID-19 Clin Com ECG Data ECG #1: Attestation: I personally reviewed and interpreted this ECG as follows: ECG interpretation date: 02/26/21 ECG interpretation time: 20:39 Interpretation: Rate: 75 Rhythm: afib [place]onda: normal Normal QRS complex. ST T wave : artifact noted throughout but no YVETTE qTC: normal prior studies: no acute ischemia The study has been interpreted contemporaneously by me. . Critical Care Time Critical Care Time Critical Care Time: Yes Total Critical Care Time: 45 Attestation: family discussion, review of records, consult to tertiary center I attest to this time spent taking care of the patient Discharge Plan Discharge Clinical Impression: Acute hepatic encephalopathy, Acidosis, lactic, Multifocal pneumonia, Elevated LFTs Patient Disposition: Admitted As Inpatient
[2021-02-26 20:52] LABS: MANUAL DIFF FLAG NO
[2021-02-26 20:55] LABS: Basophils Percent Auto 0.5 % (0-2); Eosinophils Absolute Auto 0.1 X10*3/uL (0.0-0.4); Hematocrit 21.4 % (42-52); Hemoglobin 7.6 g/dl (14.0-18.0); Imm Gran Abs Auto 0.01 X10*3/uL (0.00-0.03); Imm Gran Pct Auto 0.2 % (0.0-0.4); Lymphocytes Absolute Auto 0.6 X10*3/uL (1.2-4.9); Lymphocytes Percent Auto 15.8 % (20-40); Mean Corpuscular HGB Conc 35.5 g/dl (31.0-36.0); Mean Corpuscular Hemoglobin 34.9 pg (27.0-33.0); Mean Corpuscular Volume 98.2 fL (80-98); Mean Platelet Volume 10.4 fL (9.4-12.4); Monocytes Absolute Auto 0.4 X10*3/uL (0.1-1.2); Monocytes Percent Auto 8.9 % (2-11); Neutrophils Percent Auto 72.6 % (45-73); Red Blood Count 2.18 X10*6/uL (4.60-5.80); Red Cell Distribution Width 15.4 % (11.0-16.0); White Blood Count 4.1 X10*3/uL (4.8-10.8)
[2021-02-26 20:56] LABS: Platelet Count 57 X10*3/uL (160-400)
[2021-02-26 21:00] LABS: INTERNATIONAL NORM RATIO 1.8 (0.9-1.1); Prothrombin Time 20.6 SEC (9.9-13.0)
[2021-02-26 21:03] LABS: Partial Thromboplastin Time 39.1 SEC (24.1-38.0)
[2021-02-26 21:07] LABS: Ammonia 215 umol/L (13-55)
[2021-02-26 21:09] LABS: COVID-19 Test Negative (Negative); IDNOW Serial# 9DD0AD1C; Lactic Acid 2.3 mmol/L (0.5-2.0)
[2021-02-26 21:14] LABS: Troponin-I High Sensitivity 10.5 ng/L (<3.5-35.0)
[2021-02-26 21:16] LABS: VBG Base Excess 0.6 mmol/L; VBG HCO3 23 mmol/L (22-26); VBG pCO2 28 mmHg; VBG pO2 87 mmHg
[2021-02-26 21:17] LABS: Venous Blood Gas Refer to POC result
[2021-02-26] MEDS: levETIRAcetam in NaCl (iso-os) 1,000 MG/100 ML PIGGYBACK 400 MG IV (21:17)
[2021-02-26] MEDS: cefEPime HCl 2 GM in 0.9 % Sodium Chloride 50 ML IV (21:17)
[2021-02-26 21:19] LABS: Alanine Aminotransferase 34 U/L (0-40); Albumin Level 2.7 g/dL (3.5-5.0); Alkaline Phosphatase 232 U/L (39-117); Anion Gap 15 (12-20); Aspartate Amino Transferase 55 U/L (5-37); Bilirubin Direct 2.2 mg/dL (0.0-0.5); Bilirubin Total 3.3 mg/dL (0.0-1.0); Blood Urea Nitrogen 39 mg/dL (9-16); Calcium 7.9 mg/dL (8.4-10.2); Carbon Dioxide 22 mmol/L (22-29); Chloride 95 mmol/L (96-108); Creatinine Clr Calc Pharmacy 16.6; Estimated Glomerular Filt Rate 11; Glucose Random 151 mg/dL (60-115); Lipase 54 U/L (8-78); Magnesium 2.1 mg/dL (1.6-2.6); Potassium 4.3 mmol/L (3.3-5.1); Sodium 128 mmol/L (135-145); Total Protein 6.2 g/dL (6.5-8.0)
[2021-02-26] MEDS: Albumin Human 25 % 100 ML IV (21:29)
[2021-02-26] MEDS: Lactulose 20 GM/30 ML SOLUTION PO (21:33)
--- NOTE | 2021-02-26 21:45 | PHA.MEDREC ---
Pharmacy Consult ? Medication Reconciliation Pharmacy has completed the medication reconciliation. Spoke with patients in ED and she had list of medications from [facility].
[2021-02-26 22:00] VITALS: BP 147/70; PULSE 71; RESP 16; TEMP 36.4; O2SAT 100
[2021-02-26 22:12] LABS: Free T4 (Free Thyroxine) 0.65 ng/dL (0.71-1.85)
[2021-02-26 22:48] LABS: Reflex Lactate? Lactic Acid Added
--- NOTE | 2021-02-26 22:58 | PM.IMHP ---
History of Present Illness Date of Service: 02/26/21 Chief Complaint: Confusion 70-year-old male with a past medical history of hypertension, hyperlipidemia, diabetes, history of seizures, history of liver cirrhosis, esophageal varices, ESRD on hemodialysis, had a very long admission at [facility]-recently discharged home; presented to the hospital today with a chief complaint of confusion. Patient is drowsy lethargic. Most of the history obtained from the patient's . Reportedly patient was discharged from the [facility] after he had a long admission about couple weeks ago; patient has been having recurrent pneumonia and was on Augmentin at home; finished course. pt has been complaint with home medications as per the patient's . Denies any falls or trauma. Denies patient complaining of any chest pain palpitations. Also reported that patient has missed last 2 hemodialysis sessions. per pt's pt has not had seizure recently. Review of all other systems is limited given patient is drowsy. ER course: Per ER team patient noted to be drowsy; but vitals are stable, saturating 100% on room air; on labs noted to have creatinine of 5.0, potassium within normal limits, ammonia in 200s; chest x-ray showed multifocal pneumonia. COVID-19 negative. Given vancomycin and cefepime. ER team mentioned that a try to transfer the patient to the [facility] back again but [facility] is not taking any new transfer currently. [facility] Medical History Acid reflux Acute hepatic encephalopathy Acute on chronic kidney failure LINETTE (acute kidney injury) Alcohol induced liver disorder Anasarca Anemia Annual physical exam Aortic stenosis Ascites due to alcoholic cirrhosis Atrial fibrillation Cellulitis CHF (congestive heart failure) Chronic edema Cirrhosis CKD (chronic kidney disease) stage 3, GFR 30-59 ml/min Diabetes Dyslipidemia Elevated brain natriuretic peptide (BNP) level Encephalopathy Esophageal varix Essential hypertension GAVE (gastric antral vascular ectasia) Hearing loss Hepatic encephalopathy HTN (hypertension) Hyperammonemia Hyponatremia Lipodermatosclerosis Liver cirrhosis Low serum vitamin D Lower extremity edema Obesity Obesity (BMI 30-39.9) BARTOLOME (obstructive sleep apnea) Osteoarthritis Portal hypertension syndrome Portal hypertensive gastropathy Recurrent cellulitis of lower extremity Tongue ulcer Type 2 diabetes mellitus with chronic kidney disease Type 2 diabetes mellitus with hyperglycemia, with long-term current use of insulin Family History Brother Diabetes Father No problems noted. Pertinent family history: as above will Surgical History H/O colonoscopy History of esophagogastroduodenoscopy (EGD) History of tonsillectomy Social History Household Members: Spouse Housing: House Do you presently have visiting nurse or other home services: No Alcohol intake: never Patient Tobacco Use Status: Never used Tobacco e-Cigarette/Vaping Use: Never Used Second Hand Smoke Exposure: No Advance Directives: No Advance Directives Information Provided: Yes service: No Current occupational status: retired [employer] Allergies Allergy/AdvReac Type Severity Reaction Status Date / Time No Known Allergies Allergy Verified 02/18/21 09:08 Active Medications: Current Medications Dextrose (Dextrose 50 % 25 Gm/50 Ml Vial) 25 gm IVPUSH Q15M PRN; Protocol PRN Reason: per Hypoglycemia Standing Ord. Folic Acid (Folic Acid 1 Mg Tablet) 1 mg PO DAILY [facility], [facility]1983 Glucose (Glucose Gel 15 Gm Gel..Gram.) 15 gm PO Q15M PRN; Protocol PRN Reason: per Hypoglycemia Standing Ord. Vancomycin HCl 1,250 mg/ (Sodium Chloride) 250 mls @ 166.667 mls/hr IV ONCE ONE Stop: 02/26/21 23:54 Levetiracetam (Keppra) 1,000 mg in 100 mls @ 400 mls/hr IV DAILY [facility], [facility]–1983 Dextrose/Sodium Chloride (D51/2ns) 1,000 mls @ 50 mls/hr IVCONT .Q20H FOR[facility], [facility]–1983 Insulin Human Lispro (Insulin Lispro 100 Unit/Ml 3 Ml Vial) 0 unit SUBCUT QIDACHS FOR[facility]LY [facility], 1928[facility]1983; Protocol Lactulose (Lactulose 20 Gm/30 Ml Solution) 20 gm PO TID [facility], [facility]1983 Levetiracetam (Levetiracetam 250 Mg Tablet) 250 mg PO MOWEFR@1645 FOR[facility], [facility]–1983 Levothyroxine Sodium (Levothyroxine Sodium 150 Mcg Tablet) 150 mcg PO DAILY@0630 FOR[facility], [facility]1983 Omeprazole (Omeprazole 20 Mg Capsule.) 20 mg PO BID@0630,1630 FOR[facility], [facility]–1983 Pharmacy Consult (Consult Rx Perform Med Rec) 1 each MISCELLANE ONCE PRN PRN Reason: Consult order Pharmacy Consult (Consult Rx Vancomycin Dosing) 1 each MISCELLANE DAILY PRN PRN Reason: Consult order Rifaximin (Rifaximin 550 Mg Tablet) 550 mg PO BID [facility]1983 Sodium Chloride (0.9 % Sodium Chloride Flush 3 Ml Syringe) 3 ml IVFLUSH QSHIFT GEOFF Tamsulosin HCl (Tamsulosin Hcl 0.4 Mg Capsule) 0.4 mg PO BEDTIME GEOFF Thiamine HCl (Thiamine Hcl 100 Mg Tablet) 100 mg PO BID [facility] Vitamin D (Cholecalciferol (Vitamin D3) 25 Mcg Tablet) 50 mcg PO DAILY FOR[facility] Home Medications Medication Instructions Recorded Confirmed Last Taken Type cholecalciferol (vitamin D3) 50 50 mcg PO DAILY 01/04/21 02/26/21 02/26/21 History mcg (2,000 unit) capsule (Vitamin D3) folic acid 1 mg tablet 1 mg PO DAILY 01/04/21 02/26/21 02/26/21 History tamsulosin 0.4 mg capsule (Flomax) 0.4 mg PO BEDTIME 01/04/21 02/26/21 02/25/21 History levetiracetam 500 mg tablet 1,000 mg PO DAILY 02/18/21 02/26/21 02/26/21 History levothyroxine 150 mcg tablet 150 mcg PO DAILY@0630 02/18/21 02/26/21 02/26/21 History liraglutide 0.6 mg/0.1 mL (18 mg/3 0.6 mg SUBCUT DAILY 02/18/21 02/26/21 02/26/21 History mL) subcutaneous pen injector (WonderHowTo 3-Gordo) omeprazole 20 mg capsule,delayed 20 mg PO BID@0630,1630 02/18/21 02/26/21 02/26/21 History release pen needle, diabetic 31 gauge x #1200 ea 02/18/21 02/18/21 Unknown History 09/28 (BD Ultra-Fine Short Pen Needle) penicillin V potassium 250 mg 250 mg PO DAILY 02/18/21 02/26/21 02/26/21 History tablet thiamine HCl (vitamin B1) 100 mg 100 mg PO BID 02/18/21 02/26/21 02/26/21 History tablet insulin degludec 200 unit/mL (3 100 unit SUBCUT DAILY 02/26/21 02/26/21 02/26/21 History mL) subcutaneous pen (Tresiba FlexTouch U-200 insulin) lactulose 10 gram/15 mL oral 20 g PO TID 02/26/21 02/26/21 02/26/21 History solution levetiracetam 250 mg tablet 250 mg PO MOWEFR@1645 02/26/21 02/26/21 02/25/21 History magnesium hydroxide 400 mg/5 mL 800 mg PO DAILY PRN 02/26/21 02/26/21 Unknown History oral suspension (Milk of Magnesia) rifaximin 550 mg tablet 550 mg PO BID 02/26/21 02/26/21 02/26/21 History Physical Exam Vital Signs and Narrative: Vital Signs: Last Vital Signs Temp 97.5 F 02/26/21 22:00 Pulse 71 02/26/21 22:00 Resp 16 02/26/21 22:00 BP 147/70 H 02/26/21 22:00 Pulse Ox 100 02/26/21 22:00 Body Mass Index 33.0 Gen: Appears be in no acute distress; breathing comfortably; saturating 100% HEENT: NCAT, Moist mucosa. Pulmonary: Mildly coarse breath sounds; noted Dialysis catheter on right side. site clean, no discharge noted CVS: Normal S1-S2 Abdomen: BS+, Soft, Nontender Extremities: Warm well perfused Neuro: Alert and awake. Results Labs CBC and Chem 7: 02/26/21 20:27 02/26/21 20:27 Labs: Laboratory Results - last 24 hr 02/26/21 02/26/21 02/26/21 20:27 20:27 20:27 MCV 98.2 H MCH 34.9 H MCHC 35.5 RDW 15.4 Plt Count 57 L MPV 10.4 Immature Gran % (Auto) 0.2 Neut % (Auto) 72.6 Lymph % (Auto) 15.8 L Harrison % (Auto) 8.9 Eos % (Auto) 2.0 Baso % (Auto) 0.5 Lymph # (Auto) 0.6 L Harrison # (Auto) 0.4 Eos # (Auto) 0.1 Baso # (Auto) 0.0 Abs Immat Gran (auto) 0.01 Absolute Neuts (auto) 3.0 Absolute Nucleated RBC 0.000 Nucleated RBC % (auto) 0.0 PT INR APTT VBG pH VBG pCO2 VBG pO2 VBG HCO3 VBG O2 Saturation VBG Base Excess Anion Gap 15 Estim Creat Clear Calc 16.6 Estimated GFR 11 Random Glucose 151 H D Lactic Acid Calcium 7.9 L D Magnesium 2.1 Total Bilirubin 3.3 H Direct Bilirubin 2.2 H AST 55 H ALT 34 Alkaline Phosphatase 232 H D Ammonia 215 H Troponin I High Sens Total Protein 6.2 L Albumin 2.7 L D Lipase 54 TSH Free T4 COVID-19 (JACKY) COVID-19 Clin Com 02/26/21 02/26/21 02/26/21 20:27 20:27 20:27 MCV MCH MCHC RDW Plt Count MPV Immature Gran % (Auto) Neut % (Auto) Lymph % (Auto) Harrison % (Auto) Eos % (Auto) Baso % (Auto) Lymph # (Auto) Harrison # (Auto) Eos # (Auto) Baso # (Auto) Abs Immat Gran (auto) Absolute Neuts (auto) Absolute Nucleated RBC Nucleated RBC % (auto) PT 20.6 H INR 1.8 H APTT 39.1 H D VBG pH VBG pCO2 VBG pO2 VBG HCO3 VBG O2 Saturation VBG Base Excess Anion Gap Estim Creat Clear Calc Estimated GFR Random Glucose Lactic Acid 2.3 H* Calcium Magnesium Total Bilirubin Direct Bilirubin AST ALT Alkaline Phosphatase Ammonia Troponin I High Sens Total Protein Albumin Lipase TSH Free T4 COVID-19 (JACKY) Negative COVID-19 Clin Com See Note 02/26/21 02/26/21 02/26/21 20:27 20:27 21:11 MCV MCH MCHC RDW Plt Count MPV Immature Gran % (Auto) Neut % (Auto) Lymph % (Auto) Harrison % (Auto) Eos % (Auto) Baso % (Auto) Lymph # (Auto) Harrison # (Auto) Eos # (Auto) Baso # (Auto) Abs Immat Gran (auto) Absolute Neuts (auto) Absolute Nucleated RBC Nucleated RBC % (auto) PT INR APTT VBG pH 7.50 H VBG pCO2 28 VBG pO2 87 VBG HCO3 23 VBG O2 Saturation 97.0 VBG Base Excess 0.6 Anion Gap Estim Creat Clear Calc Estimated GFR Random Glucose Lactic Acid Calcium Magnesium Total Bilirubin Direct Bilirubin AST ALT Alkaline Phosphatase Ammonia Troponin I High Sens 10.5 Total Protein Albumin Lipase TSH 33.70 H Free T4 0.65 L COVID-19 (JACKY) COVID-19 Clin Com Imaging Radiologist's Impressions: Impressions Chest CT 02/26/21 19:59 IMPRESSION: Multilobar infiltrate , ? Covid disease. Small bilateral pleural effusions and ascites. Right hepatic lobe cyst, lobulated liver ?cirrhosis. Cholelithiasis. Splenomegaly. No acute intracranial process seen. Head CT 02/26/21 19:59 IMPRESSION: Multilobar infiltrate , ? Covid disease. Small bilateral pleural effusions and ascites. Right hepatic lobe cyst, lobulated liver ?cirrhosis. Cholelithiasis. Splenomegaly. No acute intracranial process seen. Assessment and Plan (1) Acute hepatic encephalopathy: Status: Acute (2) Elevated LFTs: Status: Acute (3) Pneumonia: Qualifiers: Laterality: right Lung location: upper lobe of lung Pneumonia type: due to unspecified organism Qualified Code(s): J18.9 - Pneumonia, unspecified organism Status: Acute (4) Cirrhosis: Status: Acute (5) Type 2 diabetes mellitus with chronic kidney disease: Qualifiers: Chronic kidney disease stage: stage 3 (moderate) Chronic kidney disease stage 3 subtype: unspecified whether 3a or 3b Diabetes mellitus buttermaker continuous churn insulin use: with senior care use Qualified Code(s): E11.22 - Type 2 diabetes mellitus with diabetic chronic kidney disease; N18.30 - Chronic kidney disease, stage 3 unspecified; Z79.4 - skilled nursing (current) use of insulin Status: Acute (6) Seizures: Status: Acute (7) ESRD (end stage renal disease): Status: Acute 70-year-old male with a past medical history of hypertension, hyperlipidemia, diabetes, history of seizures, history of liver cirrhosis, esophageal varices, ESRD on hemodialysis, had a very long admission at [facility]-recently discharged home; presented to the hospital today with a chief complaint of confusion. Altered mental status: Hepatic encephalopathy/toxic metabolic encephalopathy. NPO. Supportive care. Gentle IV fluids. Speech and swallow eval once the patient is more alert and awake. Hepatic encephalopathy: Continue lactulose and rifaximin. Goal bowel movements 3-4 per day. Denied chest lactulose dose as needed. Gastroenterology consult pt is on transplant list; on penicillin prophylaxis. ESRD: Patient's BUN 39, creatinine 5.0, potassium 4.3, bicarb 22. Patient missed last 2 hemodialysis sessions. Nephrology consult Hyponatremia: Patient's sodium noted to be 128. repeat a blood chemistry. Hypothyroidism: Patient's TSH noted to be 33.7. Free T4 0.65. Patient on levothyroxine 150 mcg. levothyroxine was recently started per pt's Will defer to the a.m. team to obtain records from the [facility] and adjusted the doses are needed. Continue levothyroxine 150 mcg for now. Multifocal pneumonia: Patient had recurrent pneumonias. COVID-19 negative. Was on Augmentin as outpatient. Continue vancomycin and cefepime. Pharmacy to renally dose the antibiotics. Id consult for further recommendations diabetes: Insulin sliding scale History of seizures: Continue home Keppra. seizure precautions. DVT prophylaxis: SCD boots Code status: DNI only. Per patient's patient wants to be DNI only Quality Stroke Does the patient have a stroke diagnosis?: No VTE Prior VTE?: No VTE Risk Level:: Medical - moderate - high VTE Device Contraindication: N/A - Device Ordered VTE Drug Contraindication: Treatment Not Indicated
[2021-02-26] MEDS: vancomycin HCL 1,250 MG in 0.9 % Sodium Chloride 250 ML 166.67 MG IV (23:10)
[2021-02-27 00:03] LABS: ~Lactic Acid-LAB USE ONLY 2.1 mmol/L (0.5-2.0)
[2021-02-27] MEDS: 0.9 % Sodium Chloride Flush 3 ML SYRINGE IVFLUSH ×2 (00:59→23:36)
[2021-02-27 01:37] LABS: Reflex Lactate? 2 Y
[2021-02-27 02:04] LABS: ~Lactic Acid-LAB USE ONLY 1.9 mmol/L (0.5-2.0)
[2021-02-27] MEDS: Dextrose 5 % and 0.45 % NaCl 1,000 ML 50 ML IVCONT (03:54)
[2021-02-27 06:50] VITALS: BP 129/91; PULSE 67; RESP 18; O2SAT 100
[2021-02-27 07:15] VITALS: BP 147/69; PULSE 66; RESP 14; TEMP 36.6; O2SAT 100
[2021-02-27 07:23] LABS: Glucose, Whole Blood 104 mg/dL (60-115)
[2021-02-27 07:25] LABS: MANUAL DIFF FLAG NO
[2021-02-27 07:27] LABS: Eosinophils Absolute Auto 0.1 X10*3/uL (0.0-0.4); Eosinophils Percent Auto 3.1 % (0-4); Hematocrit 22.3 % (42-52); Hemoglobin 7.8 g/dl (14.0-18.0); Imm Gran Abs Auto 0.02 X10*3/uL (0.00-0.03); Imm Gran Pct Auto 0.5 % (0.0-0.4); Lymphocytes Absolute Auto 0.6 X10*3/uL (1.2-4.9); Lymphocytes Percent Auto 14.7 % (20-40); Mean Corpuscular Hemoglobin 33.9 pg (27.0-33.0); Mean Platelet Volume 10.1 fL (9.4-12.4); Monocytes Absolute Auto 0.4 X10*3/uL (0.1-1.2); Monocytes Percent Auto 8.7 % (2-11); Red Cell Distribution Width 15.4 % (11.0-16.0); White Blood Count 4.2 X10*3/uL (4.8-10.8)
[2021-02-27 07:34] LABS: Platelet Count 57 X10*3/uL (160-400)
--- NOTE | 2021-02-27 07:44 | PM.GICN ---
History of Present Illness Data of Consult Service Date: 02/27/21 Requesting physician: Abdifatah Kong Primary Care Provider: Unknown Physician HPI Reason for consult: AMS 70-year-old male with a past medical history of hypertension, hyperlipidemia, diabetes, history of seizures, cirrhosis, esophageal varices, ESRD on hemodialysis, who I am seeing for AMS Unable to get hx from patient as he is sleepy and lethargic. Per notes admitted with confusion and altered mental state. He had missed few dialysis sessions as well. He had recent d/c from [facility] after prolonged admission for seizures, encephalopathy, pneumonia and hepatorenal syndrome with kidney injury. Now admitted with similar picture. Apparently inspite of missing HD had been taking his meds. Has been started on ABX with vanc and cefepime due to multi focal pneumonia noted on CXR. Covid test negative. Review of Systems Review of Systems: Yes Unobtainable due to mental condition and Unobtainable due to mental status PMFSH Past Medical History Medical History Acid reflux Acute hepatic encephalopathy Acute on chronic kidney failure LINETTE (acute kidney injury) Alcohol induced liver disorder Anasarca Anemia Annual physical exam Aortic stenosis Ascites due to alcoholic cirrhosis Atrial fibrillation Cellulitis CHF (congestive heart failure) Chronic edema Cirrhosis CKD (chronic kidney disease) stage 3, GFR 30-59 ml/min Diabetes Dyslipidemia Elevated brain natriuretic peptide (BNP) level Encephalopathy Esophageal varix Essential hypertension GAVE (gastric antral vascular ectasia) Hearing loss Hepatic encephalopathy HTN (hypertension) Hyperammonemia Hyponatremia Lipodermatosclerosis Liver cirrhosis Low serum vitamin D Lower extremity edema Obesity Obesity (BMI 30-39.9) BARTOLOME (obstructive sleep apnea) Osteoarthritis Portal hypertension syndrome Portal hypertensive gastropathy Recurrent cellulitis of lower extremity Tongue ulcer Type 2 diabetes mellitus with chronic kidney disease Type 2 diabetes mellitus with hyperglycemia, with long-term current use of insulin Family History Family History Brother Diabetes Father No problems noted. Surgical History Surgical History H/O colonoscopy History of esophagogastroduodenoscopy (EGD) History of tonsillectomy Social History Social History Household Members: Spouse Housing: House Do you presently have visiting nurse or other home services: No Alcohol intake: never Patient Tobacco Use Status: Never used Tobacco e-Cigarette/Vaping Use: Never Used Second Hand Smoke Exposure: No Use of substances other than those prescribed or required for medical reasons: No Advance Directives: No Advance Directives Information Provided: Yes service: No Current occupational status: retired Meds Allergies Allergy/AdvReac Type Severity Reaction Status Date / Time No Known Allergies Allergy Verified 02/18/21 09:08 Active Medications: Current Medications Dextrose (Dextrose 50 % 25 Gm/50 Ml Vial) 25 gm IVPUSH Q15M PRN; Protocol PRN Reason: per Hypoglycemia Standing Ord. Folic Acid (Folic Acid 1 Mg Tablet) 1 mg PO DAILY GEOFF Glucose (Glucose Gel 15 Gm Gel..Gram.) 15 gm PO Q15M PRN; Protocol PRN Reason: per Hypoglycemia Standing Ord. Levetiracetam (Keppra) 1,000 mg in 100 mls @ 400 mls/hr IV DAILY [facility] Dextrose/Sodium Chloride (D51/2ns) 1,000 mls @ 50 mls/hr IVCONT .Q20H [facility] Last Admin: 02/27/21 03:54 Dose: 50 mls/hr Documented by: Cefepime HCl 1 gm/ Sodium (Chloride) 50 mls @ 100 mls/hr IV Q24H GEOFF Vancomycin HCl 500 mg/ Sodium (Chloride) 110 mls @ 110 mls/hr IV Q48H [facility] Insulin Human Lispro (Insulin Lispro 100 Unit/Ml 3 Ml Vial) 0 unit SUBCUT QIDACHS [facility]; Protocol Last Admin: 02/27/21 07:19 Dose: Not Given Documented by: Lactulose (Lactulose 20 Gm/30 Ml Solution) 20 gm PO TID [facility] Levetiracetam (Levetiracetam 250 Mg Tablet) 250 mg PO MOWEFR@1645 [facility] Levothyroxine Sodium (Levothyroxine Sodium 150 Mcg Tablet) 150 mcg PO DAILY@0630 [facility] Last Admin: 02/27/21 06:35 Dose: Not Given Documented by: Omeprazole (Omeprazole 20 Mg Capsule.) 20 mg PO BID@0630,1630 [facility] Last Admin: 02/27/21 06:35 Dose: Not Given Documented by: Pharmacy Consult (Consult Rx Perform Med Rec) 1 each MISCELLANE ONCE PRN PRN Reason: Consult order Pharmacy Consult (Consult Rx Vancomycin Dosing) 1 each MISCELLANE DAILY PRN PRN Reason: Consult order Pharmacy Consult (Consult Rx Vancomycin Dosing) 1 each MISCELLANE DAILY PRN PRN Reason: Consult order Rifaximin (Rifaximin 550 Mg Tablet) 550 mg PO BID [facility] Sodium Chloride (0.9 % Sodium Chloride Flush 3 Ml Syringe) 3 ml IVFLUSH QSHIFT [facility] Last Admin: 02/27/21 07:18 Dose: Not Given Documented by: Tamsulosin HCl (Tamsulosin Hcl 0.4 Mg Capsule) 0.4 mg PO BEDTIME GEOFF Thiamine HCl (Thiamine Hcl 100 Mg Tablet) 100 mg PO BID [facility] Vitamin D (Cholecalciferol (Vitamin D3) 25 Mcg Tablet) 50 mcg PO DAILY [facility] Home Medications Medication Instructions Recorded Confirmed Last Taken Type cholecalciferol (vitamin D3) 50 50 mcg PO DAILY 01/04/21 02/26/21 02/26/21 History mcg (2,000 unit) capsule (Vitamin D3) folic acid 1 mg tablet 1 mg PO DAILY 01/04/21 02/26/21 02/26/21 History tamsulosin 0.4 mg capsule (Flomax) 0.4 mg PO BEDTIME 01/04/21 02/26/21 02/25/21 History levetiracetam 500 mg tablet 1,000 mg PO DAILY 02/18/21 02/26/21 02/26/21 History levothyroxine 150 mcg tablet 150 mcg PO DAILY@0630 02/18/21 02/26/21 02/26/21 History liraglutide 0.6 mg/0.1 mL (18 mg/3 0.6 mg SUBCUT DAILY 02/18/21 02/26/21 02/26/21 History mL) subcutaneous pen injector (Victoza 3-Gordo) omeprazole 20 mg capsule,delayed 20 mg PO BID@0630,1630 02/18/21 02/26/21 02/26/21 History release pen needle, diabetic 31 gauge x #1200 ea 02/18/21 02/18/21 Unknown History 09/28 (BD Ultra-Fine Short Pen Needle) penicillin V potassium 250 mg 250 mg PO DAILY 02/18/21 02/26/21 02/26/21 History tablet thiamine HCl (vitamin B1) 100 mg 100 mg PO BID 02/18/21 02/26/21 02/26/21 History tablet insulin degludec 200 unit/mL (3 100 unit SUBCUT DAILY 02/26/21 02/26/21 02/26/21 History mL) subcutaneous pen (Tresiba FlexTouch U-200 insulin) lactulose 10 gram/15 mL oral 20 g PO TID 02/26/21 02/26/21 02/26/21 History solution levetiracetam 250 mg tablet 250 mg PO MOWEFR@1645 02/26/21 02/26/21 02/25/21 History magnesium hydroxide 400 mg/5 mL 800 mg PO DAILY PRN 02/26/21 02/26/21 Unknown History oral suspension (Milk of Magnesia) rifaximin 550 mg tablet 550 mg PO BID 02/26/21 02/26/21 02/26/21 History Physical Exam Vital Signs: Vital Signs: Last Vital Signs Temp 97.8 F 02/27/21 07:15 Pulse 66 02/27/21 07:15 Resp 14 02/27/21 07:15 BP 147/69 H 02/27/21 07:15 Pulse Ox 100 02/27/21 07:15 Body Mass Index 33.0 EXAM: GENERAL: The patient is jaundiced and somnolent, central line noted VITAL SIGNS:see workflow HEENT: Nonicteric sclerae, PERRLA, EOMI. Oropharynx clear. Moist mucous membranes. Conjunctivae appear well perfused. No thyroid mass. CHEST: Chest wall is nontender. HEART: Regular rate and rhythm without murmurs. LUNGS: Clear to auscultation bilaterally. ABDOMEN: Soft, positive bowel sounds, nontender, no organomegaly.no flank tenderness--distended shifting dullness SKIN: No rash, no excessive bruising, petechiae, or purpura. NEUROLOGIC: moved arms when I lifted his eye lids, BALWINDER Extremities: Legs swollen and edematous Psych: Appearance: disheveled Results Labs CBC & Chem 7: 02/27/21 07:08 02/27/21 07:08 Labs: Short CBC 02/26/21 02/27/21 Range/Units 20:27 07:08 WBC 4.1 L 4.2 L (4.8-10.8) X10*3/uL Hgb 7.6 L 7.8 L (14.0-18.0) g/dl Hct 21.4 L 22.3 L (42-52) % Plt Count 57 L 57 L (160-400) X10*3/uL BMP 02/26/21 20:27 Sodium 128 L Potassium 4.3 Chloride 95 L Carbon Dioxide 22 BUN 39 H Creatinine 5.07 H* Calcium 7.9 L D Liver Function 02/26/21 Range/Units 20:27 Total Bilirubin 3.3 H (0.0-1.0) mg/dL Direct Bilirubin 2.2 H (0.0-0.5) mg/dL AST 55 H (5-37) U/L ALT 34 (0-40) U/L Alkaline Phosphatase 232 H D (39-117) U/L Albumin 2.7 L D (3.5-5.0) g/dL Assessment and Plan (1) Acute hepatic encephalopathy: Status: Acute 1/ Altered mental state in setting of uremia, hepatic encephalopathy and multifocal pneumonia- health care associated. 2/ Chronic anemia, no evidence at this time of acute blood loss anemia due to anemia of chronic disease and malnutrition PLAN: 1/ Agree wt lactulose, can use enemas and if can take PO safely then rifaximin 2/ hopefully once he receives HD, and treatment for penumonia his mental state will improve. 3/ optimize lytes incl Mag, K and Na, Ca 4/ zin supplementation if can take PO 220 mg daily 5/ nutrition - 1.1 g/kg/ day 6/ watch for active GI bleeding , keep on low dose PPI 7/ avoid nsaids and sedatives 8/ if no improvement may need neuro eval and EEG to r/o non seizure epilepsy Procedures Date of Service Date of Service: 02/27/21
[2021-02-27 08:12] LABS: Anion Gap 14 (12-20); Blood Urea Nitrogen 41 mg/dL (9-16); Calcium 8.1 mg/dL (8.4-10.2); Carbon Dioxide 21 mmol/L (22-29); Chloride 98 mmol/L (96-108); Glucose Random 107 mg/dL (60-115); Potassium 4.3 mmol/L (3.3-5.1); Sodium 129 mmol/L (135-145)
[2021-02-27 08:14] LABS: Creatinine Clr Calc Pharmacy 16.9; Estimated Glomerular Filt Rate 12
[2021-02-27 09:13] LABS: Magnesium 2.1 mg/dL (1.6-2.6)
[2021-02-27 09:32] LABS: Procalcitonin 0.95 ng/mL
[2021-02-27 09:43] LABS: Glucose, Whole Blood 105 mg/dL (60-115)
[2021-02-27] MEDS: levETIRAcetam in NaCl (iso-os) 1,000 MG/100 ML PIGGYBACK 400 MG IV (09:57)
[2021-02-27 14:15] VITALS: BP 130/50; PULSE 78; RESP 19; O2SAT 100
[2021-02-27] MEDS: Lactulose 20 GM/30 ML SOLUTION PO (14:29)
[2021-02-27] MEDS: Lactulose 20 GM/30 ML SOLUTION 200 GM PR ×2 (14:30→22:37)
--- NOTE | 2021-02-27 15:49 | P.PNIM_ITS ---
Subjective Subjective Date of Service: 02/27/21 Interval History: Pt somnolent. Seen in HD. Due to mental status, I cannot obtain a reliable ROS. Per at bedside, pt last had HD Tuesday; was trying to change to [email or web address] schedule and was supposed to start yesterday but then became lethargic. Unsure about his adherence with medications. [facility] had recommended he go to SNF for STR but he declined. Review of Systems Review of Systems: Yes Unobtainable due to mental status Physical Exam Vital Signs: Vital Signs: Last Vital Signs Temp 97.8 F 02/27/21 07:15 Pulse 78 02/27/21 14:15 Resp 19 02/27/21 14:15 BP 130/50 L 02/27/21 14:15 Pulse Ox 100 02/27/21 14:15 Body Mass Index 33.0 Gen: chronically ill appearing, somnolent HEENT: mild scleral icterus moist mucus membranes, PERRL Neck: supple, R SC tunneled HD catheter without signs of infection or bleeding Lungs: diminished bilaterally Heart: regular rate and rhythm, no murmurs Abd: soft, non-tender, obese/distended Ext: 1+ edema Skin: warm/well-perfused, bruising, multiple stigmata of cirrhosis Neuro: somnolent Psych: impaired affect Objective Data Active Medications Dextrose (Dextrose 50 % 25 Gm/50 Ml Vial) 25 gm IVPUSH Q15M PRN; Protocol PRN Reason: per Hypoglycemia Standing Ord. Folic Acid (Folic Acid 1 Mg Tablet) 1 mg PO DAILY [facility] Last Admin: 02/27/21 09:01 Dose: Not Given Documented by: JORGE Non-Admin Reason: NPO Glucose (Glucose Gel 15 Gm Gel..Gram.) 15 gm PO Q15M PRN; Protocol PRN Reason: per Hypoglycemia Standing Ord. Levetiracetam (Keppra) 1,000 mg in 100 mls @ 400 mls/hr IV DAILY [facility] Last Infusion: 02/27/21 12:38 Dose: 0 mls/hr Documented by: MISAEL Dextrose/Sodium Chloride (D51/2ns) 1,000 mls @ 50 mls/hr IVCONT .Q20H [facility] Last Admin: 02/27/21 03:54 Dose: 50 mls/hr Documented by: PIPER Cefepime HCl 1 gm/ Sodium (Chloride) 50 mls @ 100 mls/hr IV Q24H [facility] Vancomycin HCl 500 mg/ Sodium (Chloride) 110 mls @ 110 mls/hr IV Q48H [facility] Insulin Human Lispro (Insulin Lispro 100 Unit/Ml 3 Ml Vial) 0 unit SUBCUT QIDACHS [facility]; Protocol Last Admin: 02/27/21 12:37 Dose: Not Given Documented by: MISAEL Non-Admin Reason: Off unit: Dialysis Lactulose (Lactulose 20 Gm/30 Ml Solution) 20 gm PO TID [facility] Last Admin: 02/27/21 14:29 Dose: 20 gm Documented by: MISAEL Lactulose (Lactulose 20 Gm/30 Ml Solution) 200 gm MN Q6H [facility] Last Admin: 02/27/21 14:30 Dose: 200 gm Documented by: MISAEL Levetiracetam (Levetiracetam 250 Mg Tablet) 250 mg PO MOWEFR@1645 [facility] Levothyroxine Sodium (Levothyroxine Sodium 150 Mcg Tablet) 150 mcg PO DAILY@0630 [facility] Last Admin: 02/27/21 06:35 Dose: Not Given Documented by: PIPER Non-Admin Reason: Patient Asleep Omeprazole (Omeprazole 20 Mg Capsule.) 20 mg PO BID@0630,1630 [facility] Last Admin: 02/27/21 06:35 Dose: Not Given Documented by: PIPER Non-Admin Reason: Patient Asleep Pharmacy Consult (Consult Rx Perform Med Rec) 1 each MISCELLANE ONCE PRN PRN Reason: Consult order Pharmacy Consult (Consult Rx Vancomycin Dosing) 1 each MISCELLANE DAILY PRN PRN Reason: Consult order Pharmacy Consult (Consult Rx Vancomycin Dosing) 1 each MISCELLANE DAILY PRN PRN Reason: Consult order Rifaximin (Rifaximin 550 Mg Tablet) 550 mg PO BID [facility] Last Admin: 02/27/21 09:01 Dose: Not Given Documented by: JORGE Non-Admin Reason: NPO Sodium Chloride (0.9 % Sodium Chloride Flush 3 Ml Syringe) 3 ml IVFLUSH QSHIFT [facility] Last Admin: 02/27/21 14:29 Dose: Not Given Documented by: MISAEL Non-Admin Reason: IV Running Tamsulosin HCl (Tamsulosin Hcl 0.4 Mg Capsule) 0.4 mg PO BEDTIME [facility] Thiamine HCl (Thiamine Hcl 100 Mg Tablet) 100 mg PO BID [facility] Last Admin: 02/27/21 09:01 Dose: Not Given Documented by: JORGE Non-Admin Reason: NPO Vitamin D (Cholecalciferol (Vitamin D3) 25 Mcg Tablet) 50 mcg PO DAILY [facility] Last Admin: 02/27/21 09:01 Dose: Not Given Documented by: JORGE Non-Admin Reason: NPO Labs CBC & Chem 7: 02/27/21 07:08 02/27/21 07:08 Labs: Laboratory Results - last 24 hr 02/26/21 02/26/21 02/26/21 20:27 20:27 20:27 MCV 98.2 H MCH 34.9 H MCHC 35.5 RDW 15.4 Plt Count 57 L MPV 10.4 Immature Gran % (Auto) 0.2 Neut % (Auto) 72.6 Lymph % (Auto) 15.8 L Crook % (Auto) 8.9 Eos % (Auto) 2.0 Baso % (Auto) 0.5 Lymph # (Auto) 0.6 L Crook # (Auto) 0.4 Eos # (Auto) 0.1 Baso # (Auto) 0.0 Abs Immat Gran (auto) 0.01 Absolute Neuts (auto) 3.0 Absolute Nucleated RBC 0.000 Nucleated RBC % (auto) 0.0 PT INR APTT VBG pH VBG pCO2 VBG pO2 VBG HCO3 VBG O2 Saturation VBG Base Excess Anion Gap 15 Estim Creat Clear Calc 16.6 Estimated GFR 11 POC Glucose Random Glucose 151 H D Lactic Acid Lactic Acid Fup @ 2Hr Lactic Acid Fup @ 4Hr Calcium 7.9 L D Magnesium 2.1 Total Bilirubin 3.3 H Direct Bilirubin 2.2 H AST 55 H ALT 34 Alkaline Phosphatase 232 H D Ammonia 215 H Troponin I High Sens Total Protein 6.2 L Albumin 2.7 L D Lipase 54 Procalcitonin TSH Free T4 COVID-19 (JACKY) COVID-19 Clin Com 02/26/21 02/26/21 02/26/21 20:27 20:27 20:27 MCV MCH MCHC RDW Plt Count MPV Immature Gran % (Auto) Neut % (Auto) Lymph % (Auto) Crook % (Auto) Eos % (Auto) Baso % (Auto) Lymph # (Auto) Crook # (Auto) Eos # (Auto) Baso # (Auto) Abs Immat Gran (auto) Absolute Neuts (auto) Absolute Nucleated RBC Nucleated RBC % (auto) PT 20.6 H INR 1.8 H APTT 39.1 H D VBG pH VBG pCO2 VBG pO2 VBG HCO3 VBG O2 Saturation VBG Base Excess Anion Gap Estim Creat Clear Calc Estimated GFR POC Glucose Random Glucose Lactic Acid 2.3 H* Lactic Acid Fup @ 2Hr Lactic Acid Fup @ 4Hr Calcium Magnesium Total Bilirubin Direct Bilirubin AST ALT Alkaline Phosphatase Ammonia Troponin I High Sens Total Protein Albumin Lipase Procalcitonin TSH Free T4 COVID-19 (JACKY) Negative COVID-19 [employer] Com See Note 02/26/21 02/26/21 02/26/21 20:27 20:27 21:11 MCV MCH MCHC RDW Plt Count MPV Immature Gran % (Auto) Neut % (Auto) Lymph % (Auto) Crook % (Auto) Eos % (Auto) Baso % (Auto) Lymph # (Auto) Crook # (Auto) Eos # (Auto) Baso # (Auto) Abs Immat Gran (auto) Absolute Neuts (auto) Absolute Nucleated RBC Nucleated RBC % (auto) PT INR APTT VBG pH 7.50 H VBG pCO2 28 VBG pO2 87 VBG HCO3 23 VBG O2 Saturation 97.0 VBG Base Excess 0.6 Anion Gap Estim Creat Clear Calc Estimated GFR POC Glucose Random Glucose Lactic Acid Lactic Acid Fup @ 2Hr Lactic Acid Fup @ 4Hr Calcium Magnesium Total Bilirubin Direct Bilirubin AST ALT Alkaline Phosphatase Ammonia Troponin I High Sens 10.5 Total Protein Albumin Lipase Procalcitonin TSH 33.70 H Free T4 0.65 L COVID-19 (JACKY) COVID-19 Visible Path 02/26/21 02/27/21 02/27/21 23:34 01:45 07:08 MCV 97.0 MCH 33.9 H MCHC 35.0 RDW 15.4 Plt Count 57 L MPV 10.1 Immature Gran % (Auto) 0.5 H Neut % (Auto) 72.0 Lymph % (Auto) 14.7 L Crook % (Auto) 8.7 Eos % (Auto) 3.1 Baso % (Auto) 1.0 Lymph # (Auto) 0.6 L Crook # (Auto) 0.4 Eos # (Auto) 0.1 Baso # (Auto) 0.0 Abs Immat Gran (auto) 0.02 Absolute Neuts (auto) 3.0 Absolute Nucleated RBC 0.000 Nucleated RBC % (auto) 0.0 PT INR APTT VBG pH VBG pCO2 VBG pO2 VBG HCO3 VBG O2 Saturation VBG Base Excess Anion Gap Estim Creat Clear Calc Estimated GFR POC Glucose Random Glucose Lactic Acid Lactic Acid Fup @ 2Hr 2.1 H* Lactic Acid Fup @ 4Hr 1.9 Calcium Magnesium Total Bilirubin Direct Bilirubin AST ALT Alkaline Phosphatase Ammonia Troponin I High Sens Total Protein Albumin Lipase Procalcitonin TSH Free T4 COVID-19 (JACKY) Mira Dx 02/27/21 02/27/21 02/27/21 07:08 07:19 08:43 MCV MCH MCHC RDW Plt Count MPV Immature Gran % (Auto) Neut % (Auto) Lymph % (Auto) Crook % (Auto) Eos % (Auto) Baso % (Auto) Lymph # (Auto) Crook # (Auto) Eos # (Auto) Baso # (Auto) Abs Immat Gran (auto) Absolute Neuts (auto) Absolute Nucleated RBC Nucleated RBC % (auto) PT INR APTT VBG pH VBG pCO2 VBG pO2 VBG HCO3 VBG O2 Saturation VBG Base Excess Anion Gap 14 Estim Creat Clear Calc 16.9 Estimated GFR 12 POC Glucose 104 Random Glucose 107 Lactic Acid Lactic Acid Fup @ 2Hr Lactic Acid Fup @ 4Hr Calcium 8.1 L Magnesium 2.1 Total Bilirubin Direct Bilirubin AST ALT Alkaline Phosphatase Ammonia Troponin I High Sens Total Protein Albumin Lipase Procalcitonin TSH Free T4 COVID-19 (JACKY) Mira Dx 02/27/21 02/27/21 08:43 09:40 MCV MCH MCHC RDW Plt Count MPV Immature Gran % (Auto) Neut % (Auto) Lymph % (Auto) Crook % (Auto) Eos % (Auto) Baso % (Auto) Lymph # (Auto) Crook # (Auto) Eos # (Auto) Baso # (Auto) Abs Immat Gran (auto) Absolute Neuts (auto) Absolute Nucleated RBC Nucleated RBC % (auto) PT INR APTT VBG pH VBG pCO2 VBG pO2 VBG HCO3 VBG O2 Saturation VBG Base Excess Anion Gap Estim Creat Clear Calc Estimated GFR POC Glucose 105 Random Glucose Lactic Acid Lactic Acid Fup @ 2Hr Lactic Acid Fup @ 4Hr Calcium Magnesium Total Bilirubin Direct Bilirubin AST ALT Alkaline Phosphatase Ammonia Troponin I High Sens Total Protein Albumin Lipase Procalcitonin 0.95 TSH Free T4 COVID-19 (JACKY) COVID-19 Clin Com ITS Impressions Chest CT 02/26/21 19:59 IMPRESSION: Multilobar infiltrate , ? Covid disease. Small bilateral pleural effusions and ascites. Right hepatic lobe cyst, lobulated liver ?cirrhosis. Cholelithiasis. Splenomegaly. No acute intracranial process seen. Head CT 02/26/21 19:59 IMPRESSION: Multilobar infiltrate , ? Covid disease. Small bilateral pleural effusions and ascites. Right hepatic lobe cyst, lobulated liver ?cirrhosis. Cholelithiasis. Splenomegaly. No acute intracranial process seen. Assessment and Plan (1) Elevated LFTs: Status: Acute (2) ESRD (end stage renal disease): Status: Acute (3) Acute hepatic encephalopathy: Status: Acute Assessment and Plan: hospital d#2 70yo M with decompensated cirrhosis with esophageal varices, ESRD on HD, seizure disorder recent admission to [facility] 01/12-02/16/21 after transfer from [facility] for hepatorenal syndrome, hypoglycemia, seizures, pneumonia, coagu lopathy; intubated 01/14-01/21 missed 1 HD session and presented with lethargy admitted for hepatic encephalopathy and multifocal pneumonia # hepatic encephalopathy - if unable to take PO will give MN lactulose 300g q6h as retention enema; continue rifaximin once more awake # healthcare-associated pneumonia - continue broad-spectrum coverage with vancomycin + cefepime check pneumococcal + Legionella urine antigens, follow BCx, trend PCT, ID consult pending # decompensated cirrhosis - GI consulted. check abd US to r/o ascites - on transplant list at [facility] but declined admission there due to lack of beds and pt's active infection # ESRD - HD today, Nephrology consulted # pancytopenia - chronic, due to cirrhosis; monitor # hyponatremia - likely chronic, due to cirrhosis # hypothyroidism - continue LT4 150 mcg daily # seizures - continue levetiracetam # DM2 - correction-dose lispro # VTE ppx - SCDs Quality Stroke Does the patient have a stroke diagnosis?: No VTE Prior VTE?: No VTE Risk Level:: Medical - moderate - high VTE Device Contraindication: N/A - Device Ordered VTE Drug Contraindication: Treatment Not Indicated
--- NOTE | 2021-02-27 17:11 | MHC.SLORD ---
Speech Language Pathology Order Status: Order received and chart reviewed. Upon arrival to pt's room in the ED, pt was not responsive to verbal or tactile stimuli. He was noted to open his eyes sporadically and look straight ahead at the ceiling before closing them again. Pt's was at his bedside and reported that this was the most alert he has been. Pt was recently discharged home on 02/16 following a total of a 6 week hospital stay at [facility]. Shadi's explained that he was admitted to [facility] for 3 weeks, was discharged, then had a 10 day ICU hospitalization at [facility], and then returned to [facility] for another 3 weeks. Per EMR, ST was not ordered while Shadi was in the ICU. Pt's prolonged hospitalization was secondary to seizures, encephalopathy, pneumonia, and hepatorenal syndrome with kidney injury. Pt was reportedly intubated and initially had an NGT. Shadi was reported to have had an MBSS while at [facility] which his reported as normal. Shadi was reported to have been consuming regular consistency solids and thin liquids during his [facility] hospitalization. However, his reported that he always coughs during PO intake and has had recurrent pneumonia. Chest CT 02/26 revealed multilobar infiltrates. Updated with pt's RN, Ayla, re: pt's inability to participate in a bedside swallow evaluation. MD notified via secure Rison text. Continued NPO is recommended at this time. RESTORATION TECHNICIAN will continue to follow pt.
[2021-02-27 20:00] VITALS: BP 157/71; PULSE 88; RESP 18; TEMP 36.6; O2SAT 98
[2021-02-27 20:04] LABS: Vancomycin Random 9.9 mcg/mL (15-20)
[2021-02-27 20:24] LABS: Glucose, Whole Blood 95 mg/dL (60-115)
--- NOTE | 2021-02-27 20:25 | CONS_ITS ---
DATE OF SERVICE: 02/27/2021 REASON FOR CONSULTATION: I was asked to see the patient to assist in evaluation and management of patient's dialysis needs in the setting of being an ESRD patient with end-stage liver disease as well. SUMMARY: He is a 70-year-old gentleman, complicated medical history including hypertension, diabetes, hyperlipidemia, seizure disorder, and severe liver cirrhosis with esophageal varices ESRD, now maintained on dialysis on a Ydpchvd-[id number]-[id number] schedule. He had a prolonged hospitalization at [facility] and then was discharged to rehab and now is at home. He is going to the [facility] 3 times a week Tuesday, , Tuesday. He missed his treatment yesterday. He presents to the hospital with drowsiness and lethargy. Information was obtained from electronic medical record as the patient is unable to provide any information. Most likely is that he has a recurrence of his hepatic encephalopathy. PAST MEDICAL HISTORY: Quite extensive and includes recurrent episodes of hepatic encephalopathy, end-stage renal disease. There is mention made that he has liver disorder, although it is not completely clear. Aortic stenosis, atrial fibrillation, cellulitis, esophageal varices. There is mention made of gastric antral vascular ectasias as well. MEDICATIONS: On admission were supposed to include folate, tamsulosin, Synthroid, Prilosec, penicillin, thiamine, insulin, lactulose, magnesium, and rifaximin. ALLERGIES: HE HAS NO KNOWN DRUG ALLERGIES. REVIEW OF SYSTEMS: Unobtainable. PHYSICAL EXAMINATION: GENERAL: Lethargic, barely arousable. VITAL SIGNS: Blood pressure 130/50 with heart rate in the 70s. HEAD: Atraumatic. Mucous membranes are moist. LUNGS: Breath sounds diminished at the bases. CARDIAC: Regular rate and rhythm. ABDOMEN: Soft, obese, question of ascites. EXTREMITIES: 2+ edema. LABORATORY DATA: Hemoglobin 7.8, hematocrit 22.3, white blood cell count 4.2, platelet count 57,000. Sodium 129, potassium 4.3, chloride 98, bicarb 21, BUN 41, creatinine 4.99, calcium 8.1. Ammonia level is 215 from last night. IMPRESSION: 70-year-old with end-stage liver disease, end-stage renal disease, admitted with altered mental status, and high ammonia levels, consistent with hepatic encephalopathy. 1. End-stage renal disease, we will dialyze him today and again tomorrow to get him back on his Tuesday, , Tuesday schedule and also to remove ammonia. 2. Encephalopathy. He needs to be on his lactulose ammonia level down, the dialysis will only help transiently. 3. Volume overload. fluids as tolerated. 4. Liver cirrhosis. Again, he has been evaluated at [facility]. SUGGESTIONS: At this time include dialysis today and again tomorrow. Continue with aggressive treatment of his elevated ammonia level with lactulose. Need to have discussion with the patient and family regarding goals of care given the severity of his chronic medical problems. MD ANTHONY Dyer/DINORA / [phone]
[2021-02-27] MEDS: cefEPime HCl 1 GM in 0.9 % Sodium Chloride 50 ML IV (21:19)
[2021-02-27] MEDS: vancomycin HCL 500 MG in 0.9 % Sodium Chloride 100 ML 110 MG IV (22:02)
[2021-02-28] VITALS: BP 146/73; PULSE 82; RESP 17; TEMP 36.2; O2SAT 100
[2021-02-28 03:57] VITALS: BP 153/73; PULSE 80; RESP 17; TEMP 36; O2SAT 100
[2021-02-28 04:48] LABS: Hematocrit 21.9 % (42-52); Hemoglobin 7.8 g/dl (14.0-18.0); Mean Corpuscular HGB Conc 35.6 g/dl (31.0-36.0); Mean Corpuscular Hemoglobin 34.5 pg (27.0-33.0); Mean Corpuscular Volume 96.9 fL (80-98); Mean Platelet Volume 10.2 fL (9.4-12.4); Platelet Count 54 X10*3/uL (160-400); Red Blood Count 2.26 X10*6/uL (4.60-5.80); Red Cell Distribution Width 14.8 % (11.0-16.0); White Blood Count 4.5 X10*3/uL (4.8-10.8)
[2021-02-28 04:54] LABS: Ammonia 49 umol/L (13-55)
[2021-02-28 05:15] LABS: Alanine Aminotransferase 24 U/L (0-40); Albumin Level 2.4 g/dL (3.5-5.0); Alkaline Phosphatase 173 U/L (39-117); Anion Gap 15 (12-20); Aspartate Amino Transferase 40 U/L (5-37); Blood Urea Nitrogen 29 mg/dL (9-16); Calcium 7.7 mg/dL (8.4-10.2); Carbon Dioxide 18 mmol/L (22-29); Chloride 101 mmol/L (96-108); Creatinine Clr Calc Pharmacy 22.5; Estimated Glomerular Filt Rate 16; Glucose Random 76 mg/dL (60-115); Magnesium 2.1 mg/dL (1.6-2.6); Sodium 130 mmol/L (135-145); Total Protein 5.4 g/dL (6.5-8.0)
[2021-02-28 05:26] LABS: INTERNATIONAL NORM RATIO 1.9 (0.9-1.1); Prothrombin Time 22.3 SEC (9.9-13.0)
--- NOTE | 2021-02-28 11:10 | MHC.CM.PN ---
IMM 02/28/2021, EMR REVIEWED, CM ATTEMPTED TO MEET W/PT AT 9:45AM, PT OFF UNIT AT DIALYSIS AND HAD NOT RETURNED, CM CONTACTED PT'S AT 10:50AM TO REVIEW IMM AND PT INFORMATION, PER PT WALKS INDEPENDENTLY, SHOWERS HIMSELF HOWEVER ASSIST W/DRYING OFF/DRESSING AND CLEANING PT UP D/T FREQUENT LOOSE STOOLS FROM LACTULOSE, PT DECLINES REFERRAL FOR [facility] AT THIS TIME, PT DOES HAVE A [facility] CARING FOR [facility] ONCE A WEEK AND FEELS HE COULD USE MORE FREQUENT VISITS, CM WILL LET [facility] KNOW ONCE REFERRAL SENT, PT HAS A WALKER, BEDSIDE COMMODE ADN HOME MODIFICATIONS, PCP IS LIZBETH PAYNE AND COPY OF HCP REQUESTED. D/C PLAN: HOME W/RESUMP OF [facility], FAMILY FOR TRANSPORT
[2021-02-28] MEDS: Zinc Sulfate 220 MG CAPSULE PO (11:20)
[2021-02-28] MEDS: Thiamine HCL 100 MG TABLET PO ×2 (11:20→22:04)
[2021-02-28] MEDS: Lactulose 20 GM/30 ML SOLUTION PO (11:21)
[2021-02-28] MEDS: Cholecalciferol (Vitamin D3) 25 MCG TABLET 50 MCG PO (11:22)
[2021-02-28] MEDS: 0.9 % Sodium Chloride Flush 3 ML SYRINGE IVFLUSH ×2 (11:22→16:01)
[2021-02-28] MEDS: Folic Acid 1 MG TABLET PO (11:22)
[2021-02-28] MEDS: levETIRAcetam in NaCl (iso-os) 1,000 MG/100 ML PIGGYBACK 400 MG IV (11:22)
[2021-02-28] MEDS: rifAXIMin 550 MG TABLET PO ×2 (11:22→22:03)
--- NOTE | 2021-02-28 11:26 | PM.PNNEP ---
Subjective Subjective Date of Service: 02/28/21 Interval history: seen and examined somnolent Physical Exam Vital Signs: Vital Signs: Last Vital Signs Temp 96.8 F 02/28/21 03:57 Pulse 80 02/28/21 03:57 Resp 17 02/28/21 03:57 BP 153/73 H 02/28/21 03:57 Pulse Ox 100 02/28/21 03:57 Body Mass Index 33.0 Const: General: no acute distress HENMT: Head: Yes normocephalic and Yes atraumatic Neck: Neck: Yes supple Resp: Auscultation: diminished lung sounds Cardio: Heart sounds: S1 normal heart sound present and S2 normal heart sound present GI: Palpation (GI): Soft to palpation and no guarding Objective Data Labs CBC & Chem 7: 02/28/21 04:34 02/28/21 04:34 Labs: Laboratory Results - last 24 hr 02/27/21 02/27/21 02/28/21 19:32 20:19 04:34 WBC RBC Hgb Hct MCV MCH MCHC RDW Plt Count MPV Absolute Nucleated RBC Nucleated RBC % (auto) PT INR Sodium Potassium Chloride Carbon Dioxide Anion Gap BUN Creatinine Estim Creat Clear Calc Estimated GFR POC Glucose 95 Random Glucose Calcium Magnesium Total Bilirubin AST ALT Alkaline Phosphatase Ammonia 49 Total Protein Albumin Random Vancomycin 9.9 L 02/28/21 02/28/21 02/28/21 04:34 04:34 04:34 WBC 4.5 L RBC 2.26 L Hgb 7.8 L Hct 21.9 L MCV 96.9 MCH 34.5 H MCHC 35.6 RDW 14.8 Plt Count 54 L MPV 10.2 Absolute Nucleated RBC 0.000 Nucleated RBC % (auto) 0.0 PT 22.3 H INR 1.9 H Sodium 130 L Potassium 4.0 Chloride 101 Carbon Dioxide 18 L Anion Gap 15 BUN 29 H Creatinine 3.74 H Estim Creat Clear Calc 22.5 Estimated GFR 16 POC Glucose Random Glucose 76 Calcium 7.7 L Magnesium 2.1 Total Bilirubin 5.0 H AST 40 H ALT 24 Alkaline Phosphatase 173 H D Ammonia Total Protein 5.4 L Albumin 2.4 L Random Vancomycin Microbiology Microbiology Results: Microbiology 02/26/21 22:47 Blood - Venous Blood Culture - Preliminary No growth after 24 hours. 02/26/21 22:47 Blood - Venous Blood Culture - Preliminary No growth after 24 hours. Procedures Date of Service Date of Service: 02/28/21 Assessment & Plan Assessment and plan (1) ESRD (end stage renal disease): Status: Acute (2) Cirrhosis: Status: Acute Assessment and Plan: HD today optimize volume status renal diet SIDDHARTH per protocol phosphate binders restrict free water intake Time Spent With Patient Time: Total time spent is greater than 50% in coordination of care (as documented) at patient's floor/unit and/or counseling patient: Progress Note: Quality Stroke Does the patient have a stroke diagnosis?: No
[2021-02-28 11:37] VITALS: BP 145/70; PULSE 78; RESP 18; TEMP 36.1; O2SAT 100
[2021-02-28 11:55] LABS: Glucose, Whole Blood 70 mg/dL (60-115)
--- NOTE | 2021-02-28 13:29 | HO.PM.IMPN ---
Subjective Subjective Date of Service: 02/28/21 Interval History: More awake and taking POs To HD again today Minimal cough; denies dyspnea Review of Systems Review of Systems: Yes all other systems are reviewed and are negative Physical Exam Vital Signs: Vital Signs: Last Vital Signs Temp 97 F 02/28/21 11:37 Pulse 78 02/28/21 11:37 Resp 18 02/28/21 11:37 BP 145/70 H 02/28/21 11:37 Pulse Ox 100 02/28/21 11:37 Body Mass Index 33.0 Gen: chronically ill appearing HEENT: mild scleral icterus moist mucus membranes, PERRL Neck: supple, R SC tunneled HD catheter without signs of infection or bleeding Lungs: diminished bilaterally Heart: regular rate and rhythm, no murmurs Abd: soft, non-tender,? obese/distended, ascites present Ext: chronic lymphedema of legs Skin: warm/well-perfused, bruising, multiple stigmata of cirrhosis Neuro: no focal deficit Psych: restricted affect Objective Data Active Medications Dextrose (Dextrose 50 % 25 Gm/50 Ml Vial) 25 gm IVPUSH Q15M PRN; Protocol PRN Reason: per Hypoglycemia Standing Ord. Folic Acid (Folic Acid 1 Mg Tablet) 1 mg PO DAILY [facility] Last Admin: 02/28/21 11:22 Dose: 1 mg Documented by: LAURENT Glucose (Glucose Gel 15 Gm Gel..Gram.) 15 gm PO Q15M PRN; Protocol PRN Reason: per Hypoglycemia Standing Ord. Levetiracetam (Keppra) 1,000 mg in 100 mls @ 400 mls/hr IV DAILY [facility] Last Infusion: 02/28/21 11:43 Dose: 0 mls/hr Documented by: LAURENT Cefepime HCl 1 gm/ Sodium (Chloride) 50 mls @ 100 mls/hr IV Q24H [facility] Last Infusion: 02/27/21 22:29 Dose: 0 mls/hr Documented by: TSERING Vancomycin HCl 500 mg/ Sodium (Chloride) 110 mls @ 110 mls/hr IV Q48H [facility] Last Infusion: 02/28/21 02:52 Dose: 110 mls/hr Documented by: HAVEN Insulin Human Lispro (Insulin Lispro 100 Unit/Ml 3 Ml Vial) 0 unit SUBCUT QIDACHS [facility]; Protocol Last Admin: 02/28/21 11:58 Dose: Not Given Documented by: LAURENT Non-Admin Reason: No Insulin Coverage Lactulose (Lactulose 20 Gm/30 Ml Solution) 200 gm AK Q4H PRN PRN Reason: if pt cant tolerate PO Lactulose (Lactulose 20 Gm/30 Ml Solution) 45 gm PO TID [facility] Levetiracetam (Levetiracetam 250 Mg Tablet) 250 mg PO MOWEFR@1645 [facility] Last Admin: 02/27/21 20:46 Dose: Not Given Documented by: TSERING Non-Admin Reason: Patient Condition Contraindication Levothyroxine Sodium (Levothyroxine Sodium 150 Mcg Tablet) 150 mcg PO DAILY@0630 [facility] Last Admin: 02/28/21 06:50 Dose: Not Given Documented by: RACHEAL Non-Admin Reason: not following directions, cannot sip H2O Omeprazole (Omeprazole 20 Mg Capsule.Dr) 20 mg PO BID@0630,1630 [facility] Last Admin: 02/28/21 06:52 Dose: Not Given Documented by: RACHEAL Non-Admin Reason: not following directions, cannot sip H2 Pharmacy Consult (Consult Rx Perform Med Rec) 1 each MISCELLANE ONCE PRN PRN Reason: Consult order Pharmacy Consult (Consult Rx Vancomycin Dosing) 1 each MISCELLANE DAILY PRN PRN Reason: Consult order Pharmacy Consult (Consult Rx Vancomycin Dosing) 1 each MISCELLANE DAILY PRN PRN Reason: Consult order Rifaximin (Rifaximin 550 Mg Tablet) 550 mg PO BID [facility] Last Admin: 02/28/21 11:22 Dose: 550 mg Documented by: LAURENT Sodium Chloride (0.9 % Sodium Chloride Flush 3 Ml Syringe) 3 ml IVFLUSH QSHIFT [facility] Last Admin: 02/28/21 11:22 Dose: 3 ml Documented by: LAURENT Tamsulosin HCl (Tamsulosin Hcl 0.4 Mg Capsule) 0.4 mg PO BEDTIME [facility] Last Admin: 02/27/21 21:19 Dose: Not Given Documented by: TSERING Non-Admin Reason: Patient Condition Contraindication Thiamine HCl (Thiamine Hcl 100 Mg Tablet) 100 mg PO BID [facility] Last Admin: 02/28/21 11:20 Dose: 100 mg Documented by: LAURENT Vitamin D (Cholecalciferol (Vitamin D3) 25 Mcg Tablet) 50 mcg PO DAILY [facility] Last Admin: 02/28/21 11:22 Dose: 50 mcg Documented by: LAURENT Zinc Sulfate (Zinc Sulfate 220 Mg Capsule) 220 mg PO DAILY [facility] Last Admin: 02/28/21 11:20 Dose: 220 mg Documented by: LAURENT Labs CBC & Chem 7: 02/28/21 04:34 02/28/21 04:34 Labs: Laboratory Results - last 24 hr 02/27/21 02/27/21 02/28/21 19:32 20:19 04:34 MCV MCH MCHC RDW Plt Count MPV Absolute Nucleated RBC Nucleated RBC % (auto) PT INR Anion Gap Estim Creat Clear Calc Estimated GFR POC Glucose 95 Random Glucose Calcium Magnesium Total Bilirubin AST ALT Alkaline Phosphatase Ammonia 49 Total Protein Albumin Random Vancomycin 9.9 L 02/28/21 02/28/21 02/28/21 04:34 04:34 04:34 MCV 96.9 MCH 34.5 H MCHC 35.6 RDW 14.8 Plt Count 54 L MPV 10.2 Absolute Nucleated RBC 0.000 Nucleated RBC % (auto) 0.0 PT 22.3 H INR 1.9 H Anion Gap 15 Estim Creat Clear Calc 22.5 Estimated GFR 16 POC Glucose Random Glucose 76 Calcium 7.7 L Magnesium 2.1 Total Bilirubin 5.0 H AST 40 H ALT 24 Alkaline Phosphatase 173 H D Ammonia Total Protein 5.4 L Albumin 2.4 L Random Vancomycin 02/28/21 11:33 MCV MCH MCHC RDW Plt Count MPV Absolute Nucleated RBC Nucleated RBC % (auto) PT INR Anion Gap Estim Creat Clear Calc Estimated GFR POC Glucose 70 Random Glucose Calcium Magnesium Total Bilirubin AST ALT Alkaline Phosphatase Ammonia Total Protein Albumin Random Vancomycin Microbiology Microbiology Results: Microbiology 02/26/21 22:47 Blood Culture - Preliminary Blood - Venous No growth after 24 hours. 02/26/21 22:47 Blood Culture - Preliminary Blood - Venous No growth after 24 hours. Assessment and Plan (1) Elevated LFTs: Status: Acute (2) ESRD (end stage renal disease): Status: Acute (3) Acute hepatic encephalopathy: Status: Acute Assessment and Plan: hospital d#3 70yo M with decompensated cirrhosis with esophageal varices, ESRD on HD, seizure disorder recent admission to [facility] 01/12-02/16/21 after transfer from [facility] for hepatorenal syndrome, hypoglycemia, seizures, pneumonia, coagulopathy; intubated 01/14-01/21 missed 1 HD session and presented with lethargy admitted for hepatic encephalopathy and multifocal pneumonia # hepatic encephalopathy - lactulose PO or AK PLUS rifaximin; improving # healthcare-associated pneumonia - continue broad-spectrum coverage with vancomycin + cefepime d#3 - check pneumococcal + Legionella urine antigens - BCx NGTD - trend PC - ID consult pending # decompensated cirrhosis with ascites - GI consulted - diagnostic paracentesis tomrrow to r/o SBP - on transplant list at [facility] but declined admission there due to lack of beds and pt's active infection # ESRD - HD today, Nephrology consulted # pancytopenia - chronic, due to cirrhosis; monitor # hyponatremia - mild and chronic, due to cirrhosis # hypothyroidism - continue LT4 150 mcg daily # seizures - continue levetiracetam # DM2 - correction-dose lispro # VTE ppx - SCDs Quality Stroke Does the patient have a stroke diagnosis?: No VTE Prior VTE?: No VTE Risk Level:: Medical - moderate - high VTE Device Contraindication: N/A - Device Ordered VTE Drug Contraindication: Treatment Not Indicated
[2021-02-28] MEDS: Lactulose 20 GM/30 ML SOLUTION 45 GM PO ×2 (13:34→15:56)
[2021-02-28 13:45] LABS: Vancomycin Random 9.7 mcg/mL (15-20)
--- NOTE | 2021-02-28 13:59 | HE.PHANOTE ---
Vancomycin Dosing Addendum Patients random post dialysis level 9.7. Giving extra 500 mg dose today. Will continue to monitor levels.
[2021-02-28 15:46] VITALS: BP 134/64; PULSE 74; RESP 16; TEMP 36.4; O2SAT 99
[2021-02-28] MEDS: vancomycin HCL 500 MG in 0.9 % Sodium Chloride 100 ML 110 MG IV (15:56)
[2021-02-28 16:22] LABS: Glucose, Whole Blood 149 mg/dL (60-115)
[2021-02-28] MEDS: Omeprazole 20 MG CAPSULE.DR PO (16:58)
[2021-02-28 19:50] VITALS: BP 140/67; PULSE 79; RESP 16; TEMP 36.9; O2SAT 99
[2021-02-28 20:30] LABS: Glucose, Whole Blood 155 mg/dL (60-115)
[2021-02-28] MEDS: Tamsulosin HCL 0.4 MG CAPSULE PO (22:03)
[2021-02-28] MEDS: cefEPime HCl 1 GM in 0.9 % Sodium Chloride 50 ML IV (22:03)
[2021-02-28] MEDS: Insulin Lispro 100 UNIT/ML 3 ML VIAL SUBCUT (22:04)
[2021-03-01] VITALS (12 sets, daily range): BP systolic 116–147; BP diastolic 56–78; PULSE 70–88; RESP 16–18; TEMP 36.2–37.1; O2SAT 98–100
[2021-03-01] MEDS: 0.9 % Sodium Chloride Flush 3 ML SYRINGE IVFLUSH ×4 (01:09→22:05)
[2021-03-01] MEDS: Levothyroxine Sodium 150 MCG TABLET PO (06:21)
[2021-03-01] MEDS: Omeprazole 20 MG CAPSULE.DR PO (06:21)
[2021-03-01 06:28] LABS: Mean Corpuscular HGB Conc 34.7 g/dl (31.0-36.0); Mean Corpuscular Hemoglobin 33.8 pg (27.0-33.0); Mean Corpuscular Volume 97.5 fL (80-98); Red Blood Count 2.01 X10*6/uL (4.60-5.80); Red Cell Distribution Width 14.7 % (11.0-16.0); White Blood Count 3.7 X10*3/uL (4.8-10.8)
[2021-03-01 06:31] LABS: Platelet Count 52 X10*3/uL (160-400)
[2021-03-01 06:34] LABS: Alanine Aminotransferase 23 U/L (0-40); Albumin Level 2.4 g/dL (3.5-5.0); Alkaline Phosphatase 180 U/L (39-117); Anion Gap 12 (12-20); Aspartate Amino Transferase 37 U/L (5-37); Blood Urea Nitrogen 24 mg/dL (9-16); Calcium 8.2 mg/dL (8.4-10.2); Carbon Dioxide 22 mmol/L (22-29); Chloride 102 mmol/L (96-108); Creatinine Clr Calc Pharmacy 25.7; Estimated Glomerular Filt Rate 19; Glucose Random 131 mg/dL (60-115); Potassium 3.9 mmol/L (3.3-5.1); Sodium 132 mmol/L (135-145); Total Protein 5.5 g/dL (6.5-8.0)
[2021-03-01 06:35] LABS: Hemoglobin 6.8 g/dl (14.0-18.0)
[2021-03-01 06:36] LABS: Hematocrit 19.6 % (42-52)
[2021-03-01 06:49] LABS: Procalcitonin 1.02 ng/mL
[2021-03-01 06:57] LABS: Prothrombin Time 22.8 SEC (9.9-13.0)
[2021-03-01 07:47] LABS: Glucose, Whole Blood 108 mg/dL (60-115)
--- NOTE | 2021-03-01 08:07 | PM.PNNEP ---
Subjective Subjective Date of Service: 03/01/21 Interval history: seen and examined had HD yesterday no complaints I feel better Physical Exam Vital Signs: Vital Signs: Last Vital Signs Temp 98 F 03/01/21 07:31 Pulse 81 03/01/21 07:31 Resp 16 03/01/21 07:31 BP 118/64 03/01/21 07:31 Pulse Ox 98 03/01/21 07:31 Body Mass Index 33.0 Const: General: no acute distress HENMT: Head: Yes normocephalic and Yes atraumatic Neck: Neck: Yes supple Resp: Auscultation: diminished lung sounds Cardio: Heart sounds: S1 normal heart sound present and S2 normal heart sound present GI: Palpation (GI): Soft to palpation and no guarding Objective Data Labs CBC & Chem 7: 03/01/21 05:56 03/01/21 05:56 Labs: Laboratory Results - last 24 hr 02/28/21 02/28/21 02/28/21 11:33 13:07 16:16 WBC RBC Hgb Hct MCV MCH MCHC RDW Plt Count MPV Absolute Nucleated RBC Nucleated RBC % (auto) PT INR Sodium Potassium Chloride Carbon Dioxide Anion Gap BUN Creatinine Estim Creat Clear Calc Estimated GFR POC Glucose 70 149 H Random Glucose Calcium Magnesium Total Bilirubin AST ALT Alkaline Phosphatase Total Protein Albumin Procalcitonin Random Vancomycin 9.7 L 02/28/21 03/01/21 03/01/21 20:23 05:56 05:56 WBC 3.7 L RBC 2.01 L Hgb 6.8 L* Hct 19.6 L* MCV 97.5 MCH 33.8 H MCHC 34.7 RDW 14.7 Plt Count 52 L MPV 10.0 Absolute Nucleated RBC 0.000 Nucleated RBC % (auto) 0.0 PT 22.8 H INR 2.0 H Sodium Potassium Chloride Carbon Dioxide Anion Gap BUN Creatinine Estim Creat Clear Calc Estimated GFR POC Glucose 155 H Random Glucose Calcium Magnesium Total Bilirubin AST ALT Alkaline Phosphatase Total Protein Albumin Procalcitonin Random Vancomycin 03/01/21 03/01/21 03/01/21 05:56 05:56 07:29 WBC RBC Hgb Hct MCV MCH MCHC RDW Plt Count MPV Absolute Nucleated RBC Nucleated RBC % (auto) PT INR Sodium 132 L Potassium 3.9 Chloride 102 Carbon Dioxide 22 Anion Gap 12 BUN 24 H Creatinine 3.28 H Estim Creat Clear Calc 25.7 Estimated GFR 19 POC Glucose 108 Random Glucose 131 H D Calcium 8.2 L D Magnesium 2.0 Total Bilirubin 4.0 H AST 37 ALT 23 Alkaline Phosphatase 180 H Total Protein 5.5 L Albumin 2.4 L Procalcitonin 1.02 Random Vancomycin Microbiology Microbiology Results: Microbiology 02/26/21 22:47 Blood - Venous Blood Culture - Preliminary No growth after 48 hours. 02/26/21 22:47 Blood - Venous Blood Culture - Preliminary No growth after 48 hours. Procedures Date of Service Date of Service: 03/01/21 Assessment & Plan Assessment and plan (1) ESRD (end stage renal disease): Status: Acute (2) Cirrhosis: Status: Acute (3) Hyponatremia: Status: Acute (4) Anemia: Status: Acute Assessment and Plan: ESKD due to underlying liver disease and hepato renal syndrome decompensated liver cirrhosis hyponatremia in the setting of ESLD and ESKD REC transfuse for Hb < 7 HD per schedule renal diet SIDDHARTH per protocol phosphate binders restrict free water intake Time Spent With Patient Time: Total time spent is greater than 50% in coordination of care (as documented) at patient's floor/unit and/or counseling patient: Progress Note: Quality Stroke Does the patient have a stroke diagnosis?: No
[2021-03-01] MEDS: Phytonadione (Vit K1) 5 MG in 0.9 % Sodium Chloride 50 ML 50.5 MG IV (08:30)
[2021-03-01] MEDS: Zinc Sulfate 220 MG CAPSULE PO (08:44)
[2021-03-01] MEDS: rifAXIMin 550 MG TABLET PO ×2 (08:44→22:04)
[2021-03-01] MEDS: Cholecalciferol (Vitamin D3) 25 MCG TABLET 50 MCG PO (08:44)
[2021-03-01] MEDS: Thiamine HCL 100 MG TABLET PO ×2 (08:44→22:04)
[2021-03-01] MEDS: Folic Acid 1 MG TABLET PO (08:44)
[2021-03-01] MEDS: Lactulose 20 GM/30 ML SOLUTION 45 GM PO ×2 (08:44→15:57)
[2021-03-01 09:16] LABS: Adenovirus PCR Not Detected (Not Detect.); Bordetella parapertussis PCR Not Detected (Not Detect.); Bordetella pertussis PCR Not Detected (Not Detect.); Chlamydia pneumoniae PCR Not Detected (Not Detect.); Coronavirus 229E PCR Not Detected (Not Detect.); Coronavirus HKU1 PCR Not Detected (Not Detect.); Coronavirus NL63 PCR Not Detected (Not Detect.); Coronavirus OC43 PCR Not Detected (Not Detect.); Human metapneumovirus PCR Not Detected (Not Detect.); Influenza A PCR Not Detected (Not Detect.); Influenza B PCR Not Detected (Not Detect.); Mycoplasma pneumoniae PCR Not Detected (Not Detect.); Parainfluenza 1 PCR Not Detected (Not Detect.); Parainfluenza 2 PCR Not Detected (Not Detect.); Parainfluenza 3 PCR Not Detected (Not Detect.); Parainfluenza 4 PCR Not Detected (Not Detect.); RSV PCR Not Detected (Not Detect.); Rhino/Enterovirus PCR Not Detected (Not Detect.); SARS-CoV-2 PCR Not Detected (Not Detect.)
[2021-03-01] MEDS: levETIRAcetam in NaCl (iso-os) 1,000 MG/100 ML PIGGYBACK 400 MG IV (09:42)
--- NOTE | 2021-03-01 10:28 | P.PNIM_ITS ---
Subjective Subjective Date of Service: 03/01/21 Interval History: more awake admits to non-adherence with lactulose but willing to take it now after counseling on its importance minimal cough; no dyspnea no fever abdominal distension no hematochezia or melena Review of Systems Review of Systems: Yes all other systems are reviewed and are negative Physical Exam Vital Signs: Vital Signs: Last Vital Signs Temp 98 F 03/01/21 07:31 Pulse 81 03/01/21 07:31 Resp 16 03/01/21 07:31 BP 118/64 03/01/21 07:31 Pulse Ox 98 03/01/21 07:31 Body Mass Index 33.0 Gen: chronically ill appearing, awake HEENT: mild scleral icterus, pale sclera, moist mucus membranes Neck: supple, R SC tunneled HD catheter without signs of infection or bleeding Lungs: diminished bilaterally Heart: regular rate and rhythm, no murmurs Abd: soft, non-tender,? obese/distended, ascites present Ext: chronic lymphedema of legs Skin: warm/well-perfused, bruising, multiple stigmata of cirrhosis Neuro: no focal deficit Psych: restricted affect Objective Data Active Medications Dextrose (Dextrose 50 % 25 Gm/50 Ml Vial) 25 gm IVPUSH Q15M PRN; Protocol PRN Reason: per Hypoglycemia Standing Ord. Folic Acid (Folic Acid 1 Mg Tablet) 1 mg PO DAILY [facility] Last Admin: 03/01/21 08:44 Dose: 1 mg Documented by: LAURENT Glucose (Glucose Gel 15 Gm Gel..Gram.) 15 gm PO Q15M PRN; Protocol PRN Reason: per Hypoglycemia Standing Ord. Levetiracetam (Keppra) 1,000 mg in 100 mls @ 400 mls/hr IV DAILY [facility] Last Infusion: 03/01/21 10:08 Dose: 0 mls/hr Documented by: LAURENT Cefepime HCl 1 gm/ Sodium (Chloride) 50 mls @ 100 mls/hr IV Q24H [facility] Last Infusion: 02/28/21 23:17 Dose: 0 mls/hr Documented by: TSERING Vancomycin HCl 500 mg/ Sodium (Chloride) 110 mls @ 110 mls/hr IV Q48H [facility] Insulin Human Lispro (Insulin Lispro 100 Unit/Ml 3 Ml Vial) 0 unit SUBCUT QIDACHS [facility]; Protocol Last Admin: 03/01/21 08:11 Dose: Not Given Documented by: LAURENT Non-Admin Reason: No Insulin Coverage Lactulose (Lactulose 20 Gm/30 Ml Solution) 200 gm [place] Q4H PRN PRN Reason: if pt cant tolerate PO Lactulose (Lactulose 20 Gm/30 Ml Solution) 45 gm PO TID [facility] Last Admin: 03/01/21 08:44 Dose: 45 gm Documented by: LAURENT Levetiracetam (Levetiracetam 250 Mg Tablet) 250 mg PO MOWEFR@1645 [facility] Last Admin: 02/27/21 20:46 Dose: Not Given Documented by: TSERING Non-Admin Reason: Patient Condition Contraindication Levothyroxine Sodium (Levothyroxine Sodium 150 Mcg Tablet) 150 mcg PO DAILY@0630 [facility] Last Admin: 03/01/21 06:21 Dose: 150 mcg Documented by: TSERING Omeprazole (Omeprazole 20 Mg Capsule.) 20 mg PO BID@0630,1630 [facility] Last Admin: 03/01/21 06:21 Dose: 20 mg Documented by: TSERING Pharmacy Consult (Consult Rx Perform Med Rec) 1 each MISCELLANE ONCE PRN PRN Reason: Consult order Pharmacy Consult (Consult Rx Vancomycin Dosing) 1 each MISCELLANE DAILY PRN PRN Reason: Consult order Pharmacy Consult (Consult Rx Vancomycin Dosing) 1 each MISCELLANE DAILY PRN PRN Reason: Consult order Rifaximin (Rifaximin 550 Mg Tablet) 550 mg PO BID [facility] Last Admin: 03/01/21 08:44 Dose: 550 mg Documented by: LAURENT Sodium Chloride (0.9 % Sodium Chloride Flush 3 Ml Syringe) 3 ml IVFLUSH QSHIFT [facility] Last Admin: 03/01/21 08:31 Dose: 3 ml Documented by: LAURENT Tamsulosin HCl (Tamsulosin Hcl 0.4 Mg Capsule) 0.4 mg PO BEDTIME [facility] Last Admin: 02/28/21 22:03 Dose: 0.4 mg Documented by: TSERING Thiamine HCl (Thiamine Hcl 100 Mg Tablet) 100 mg PO BID [facility] Last Admin: 03/01/21 08:44 Dose: 100 mg Documented by: LAURENT Vitamin D (Cholecalciferol (Vitamin D3) 25 Mcg Tablet) 50 mcg PO DAILY [facility] Last Admin: 03/01/21 08:44 Dose: 50 mcg Documented by: LAURENT Zinc Sulfate (Zinc Sulfate 220 Mg Capsule) 220 mg PO DAILY [facility] Last Admin: 03/01/21 08:44 Dose: 220 mg Documented by: LAURENT Labs CBC & Chem 7: 03/01/21 05:56 03/01/21 05:56 Labs: Laboratory Results - last 24 hr 02/28/21 02/28/21 02/28/21 11:33 13:07 16:16 MCV MCH MCHC RDW Plt Count MPV Absolute Nucleated RBC Nucleated RBC % (auto) PT INR Anion Gap Estim Creat Clear Calc Estimated GFR POC Glucose 70 149 H Random Glucose Calcium Magnesium Total Bilirubin AST ALT Alkaline Phosphatase Total Protein Albumin Procalcitonin Random Vancomycin 9.7 L Blood Type Antibody Screen Crossmatch 02/28/21 03/01/21 03/01/21 20:23 05:56 05:56 MCV 97.5 MCH 33.8 H MCHC 34.7 RDW 14.7 Plt Count 52 L MPV 10.0 Absolute Nucleated RBC 0.000 Nucleated RBC % (auto) 0.0 PT 22.8 H INR 2.0 H Anion Gap Estim Creat Clear Calc Estimated GFR POC Glucose 155 H Random Glucose Calcium Magnesium Total Bilirubin AST ALT Alkaline Phosphatase Total Protein Albumin Procalcitonin Random Vancomycin Blood Type Antibody Screen Crossmatch 03/01/21 03/01/21 03/01/21 05:56 05:56 07:29 MCV MCH MCHC RDW Plt Count MPV Absolute Nucleated RBC Nucleated RBC % (auto) PT INR Anion Gap 12 Estim Creat Clear Calc 25.7 Estimated GFR 19 POC Glucose 108 Random Glucose 131 H D Calcium 8.2 L D Magnesium 2.0 Total Bilirubin 4.0 H AST 37 ALT 23 Alkaline Phosphatase 180 H Total Protein 5.5 L Albumin 2.4 L Procalcitonin 1.02 Random Vancomycin Blood Type Antibody Screen Crossmatch 03/01/21 07:44 MCV MCH MCHC RDW Plt Count MPV Absolute Nucleated RBC Nucleated RBC % (auto) PT INR Anion Gap Estim Creat Clear Calc Estimated GFR POC Glucose Random Glucose Calcium Magnesium Total Bilirubin AST ALT Alkaline Phosphatase Total Protein Albumin Procalcitonin Random Vancomycin Blood Type O Positive Antibody Screen NEGATIVE Crossmatch See Detail Microbiology Microbiology Results: Microbiology 02/26/21 22:47 Blood Culture - Preliminary Blood - Venous No growth after 48 hours. 02/26/21 22:47 Blood Culture - Preliminary Blood - Venous No growth after 48 hours. Assessment and Plan (1) Elevated LFTs: Status: Acute (2) ESRD (end stage renal disease): Status: Acute (3) Acute hepatic encephalopathy: Status: Acute Assessment and Plan: hospital d#4 70yo M with decompensated cirrhosis with esophageal varices, ESRD on HD, seizure disorder recent admission to [facility] 01/12-02/16/21 after transfer from [facility] [place] for hepatorenal syndrome, hypoglycemia, seizures, pneumonia, coagulopathy; intubated 01/14-01/21 missed 1 HD session during HD schedule change, also not fully adherent with lactulose; presented with lethargy; admitted for hepatic encephalopathy and multifocal pneumonia # hepatic encephalopathy - improved; lactulose PO and if cannot take it should get it [facility]; rifaximin # healthcare-associated pneumonia - continue broad-spectrum coverage with vancomycin + cefepime d#4 - if produces any urine, send pneumococcal + Legionella urine antigens - BCx NGTD - trend PCT - ID consult pending # anemia - will transfuse 2u pRBCs; check FOBT # thrombocytopenia - due to cirrhosis; count stable # decompensated cirrhosis with ascites - GI following - diagnostic paracentesis tomrrow to r/o SBP - on transplant list at [facility] but declined admission there due to lack of beds and pt's active infection # ESRD - HD today, Nephrology consulted # hyponatremia - mild and chronic, due to cirrhosis # hypothyroidism - continue LT4 150 mcg daily; repeat TSH in 4 wk # seizures - continue levetiracetam # DM2 - correction-dose lispro # VTE ppx - SCDs due to bleeding risk, thrombocytopenia Quality Stroke Does the patient have a stroke diagnosis?: No VTE Prior VTE?: No VTE Risk Level:: Medical - moderate - high VTE Device Contraindication: N/A - Device Ordered VTE Drug Contraindication: Treatment Not Indicated
[2021-03-01 12:25] LABS: Glucose, Whole Blood 180 mg/dL (60-115)
[2021-03-01] MEDS: Insulin Lispro 100 UNIT/ML 3 ML VIAL SUBCUT ×2 (12:31→22:04)
[2021-03-01 16:18] LABS: Glucose, Whole Blood 172 mg/dL (60-115)
[2021-03-01 18:01] LABS: Hematocrit 23.9 % (42-52); Hemoglobin 8.3 g/dl (14.0-18.0)
[2021-03-01 18:31] LABS: Vancomycin Random 12.3 mcg/mL (15-20)
--- NOTE | 2021-03-01 19:01 | HE.PHANOTE ---
Sheldon huddleston Spoke to Dr. Tucker since pt had a random level, though no dialysis. Dr. Tucker said to wait until Tuesday to redose and draw level post dialysis. Louise MilliganD
[2021-03-01 20:39] LABS: Glucose, Whole Blood 185 mg/dL (60-115)
[2021-03-01] MEDS: cefEPime HCl 1 GM in 0.9 % Sodium Chloride 50 ML IV (22:03)
[2021-03-01] MEDS: Tamsulosin HCL 0.4 MG CAPSULE PO (22:08)
[2021-03-02] VITALS (7 sets, daily range): BP systolic 118–169; BP diastolic 60–77; PULSE 70–81; RESP 18; TEMP 36.2–36.6; O2SAT 96–100; BMI 33.0
[2021-03-02 06:05] LABS: Hematocrit 24.2 % (42-52); Hemoglobin 8.5 g/dl (14.0-18.0); Mean Corpuscular HGB Conc 35.1 g/dl (31.0-36.0); Mean Corpuscular Hemoglobin 33.5 pg (27.0-33.0); Mean Corpuscular Volume 95.3 fL (80-98); Mean Platelet Volume 9.3 fL (9.4-12.4); Red Blood Count 2.54 X10*6/uL (4.60-5.80); Red Cell Distribution Width 16.1 % (11.0-16.0); White Blood Count 4.1 X10*3/uL (4.8-10.8)
[2021-03-02 06:10] LABS: INTERNATIONAL NORM RATIO 1.7 (0.9-1.1)
[2021-03-02 06:11] LABS: Platelet Count 49 X10*3/uL (160-400)
[2021-03-02] MEDS: Levothyroxine Sodium 150 MCG TABLET PO (06:24)
[2021-03-02] MEDS: Omeprazole 20 MG CAPSULE.DR PO ×2 (06:24→16:07)
[2021-03-02 06:30] LABS: Alanine Aminotransferase 24 U/L (0-40); Albumin Level 2.6 g/dL (3.5-5.0); Alkaline Phosphatase 207 U/L (39-117); Anion Gap 14 (12-20); Aspartate Amino Transferase 36 U/L (5-37); Bilirubin Total 5.5 mg/dL (0.0-1.0); Blood Urea Nitrogen 31 mg/dL (9-16); Calcium 8.4 mg/dL (8.4-10.2); Carbon Dioxide 21 mmol/L (22-29); Chloride 101 mmol/L (96-108); Glucose Random 167 mg/dL (60-115); Potassium 4.3 mmol/L (3.3-5.1); Sodium 132 mmol/L (135-145); Total Protein 6.1 g/dL (6.5-8.0)
[2021-03-02 06:39] LABS: Creatinine Clr Calc Pharmacy 20.8; Estimated Glomerular Filt Rate 15
[2021-03-02 08:12] LABS: Glucose, Whole Blood 180 mg/dL (60-115)
[2021-03-02] MEDS: Insulin Lispro 100 UNIT/ML 3 ML VIAL SUBCUT ×2 (08:33→12:42)
[2021-03-02] MEDS: 0.9 % Sodium Chloride Flush 3 ML SYRINGE IVFLUSH ×3 (08:33→19:56)
--- NOTE | 2021-03-02 09:00 | PM.PNNEP ---
Subjective Subjective Date of Service: 03/02/21 Interval history: Events noted Feeling better today. No nausea/vomiting Physical Exam Vital Signs: Vital Signs: Last Vital Signs Temp 97.5 F 03/02/21 07:59 Pulse 77 03/02/21 08:13 Resp 18 03/02/21 07:59 BP 133/60 03/02/21 08:13 Pulse Ox 100 03/02/21 08:13 Body Mass Index 33.0 Const: General: cooperative and comfortable Nutritional Appearance: obese Orientation/consciousness: oriented to person Neck: Neck: Yes supple and Yes no JVD Resp: Effort & Inspection: no cough Auscultation: diminished lung sounds Cardio: Jugular venous distension: no JVD Palpation: no palpable S3 Rate: not tachycardic Heart sounds: no gallops and no rubs GI: Inspection: Yes obesity Palpation (GI): Soft to palpation, nontender, Ascites present and No Rebound tenderness present Auscultation: normal bowel sounds Neuro: General: oriented to person Motor exam (neuro): No Asterixis during motor activity present Extrem: General: No cyanosis and Yes pedal edema Objective Data Labs CBC & Chem 7: 03/02/21 05:37 03/02/21 05:37 Labs: Laboratory Results - last 24 hr 03/01/21 03/01/21 03/01/21 07:44 09:02 11:59 WBC RBC Hgb Hct MCV MCH MCHC RDW Plt Count MPV Absolute Nucleated RBC Nucleated RBC % (auto) PT INR Sodium Potassium Chloride Carbon Dioxide Anion Gap BUN Creatinine Estim Creat Clear Calc Estimated GFR POC Glucose 180 H Random Glucose Calcium Total Bilirubin AST ALT Alkaline Phosphatase Total Protein Albumin Random Vancomycin Respiratory Panel Shannon See Note Adenovirus (Rapid PCR) Not Detected B.pert (TEM-PCR) Not Detected B.parapertussis DNA PCR Not Detected C. pneumoniae DNA (PCR) Not Detected Coronavirus OC43 (PCR) Not Detected Coronavirus HKU1 (PCR) Not Detected Coronavirus 229E (PCR) Not Detected Coronavirus NL63 (PCR) Not Detected Human Metapneumovir PCR Not Detected Influenza A (RT-PCR) Not Detected Influenza B (RT-PCR) Not Detected M. pneumoniae (PCR) Not Detected Parainfluenza 1 (PCR) Not Detected Parainfluenza 2 (PCR) Not Detected Parainfluenza 3 (PCR) Not Detected Parainfluenza 4 (PCR) Not Detected RSV (PCR) Not Detected Entero/Rhino (PCR) Not Detected SARS-CoV-2 RNA (RT-PCR) Not Detected Ur Strep pneumoniae Ag Blood Type O Positive Antibody Screen NEGATIVE Crossmatch See Detail 03/01/21 03/01/21 03/01/21 16:08 17:54 17:54 WBC RBC Hgb 8.3 L D Hct 23.9 L D MCV MCH MCHC RDW Plt Count MPV Absolute Nucleated RBC Nucleated RBC % (auto) PT INR Sodium Potassium Chloride Carbon Dioxide Anion Gap BUN Creatinine Estim Creat Clear Calc Estimated GFR POC Glucose 172 H Random Glucose Calcium Total Bilirubin AST ALT Alkaline Phosphatase Total Protein Albumin Random Vancomycin 12.3 L Respiratory Panel Shannon Adenovirus (Rapid PCR) B.pert (TEM-PCR) B.parapertussis DNA PCR C. pneumoniae DNA (PCR) Coronavirus OC43 (PCR) Coronavirus HKU1 (PCR) Coronavirus 229E (PCR) Coronavirus NL63 (PCR) Human Metapneumovir PCR Influenza A (RT-PCR) Influenza B (RT-PCR) M. pneumoniae (PCR) Parainfluenza 1 (PCR) Parainfluenza 2 (PCR) Parainfluenza 3 (PCR) Parainfluenza 4 (PCR) RSV (PCR) Entero/Rhino (PCR) SARS-CoV-2 RNA (RT-PCR) Ur Strep pneumoniae Ag Blood Type Antibody Screen Crossmatch 03/01/21 03/01/21 03/02/21 18:11 20:30 05:37 WBC 4.1 L RBC 2.54 L D Hgb 8.5 L Hct 24.2 L MCV 95.3 MCH 33.5 H MCHC 35.1 RDW 16.1 H Plt Count 49 L MPV 9.3 L Absolute Nucleated RBC 0.000 Nucleated RBC % (auto) 0.0 PT INR Sodium Potassium Chloride Carbon Dioxide Anion Gap BUN Creatinine Estim Creat Clear Calc Estimated GFR POC Glucose 185 H Random Glucose Calcium Total Bilirubin AST ALT Alkaline Phosphatase Total Protein Albumin Random Vancomycin Respiratory Panel Shannon Adenovirus (Rapid PCR) B.pert (TEM-PCR) B.parapertussis DNA PCR C. pneumoniae DNA (PCR) Coronavirus OC43 (PCR) Coronavirus HKU1 (PCR) Coronavirus 229E (PCR) Coronavirus NL63 (PCR) Human Metapneumovir PCR Influenza A (RT-PCR) Influenza B (RT-PCR) M. pneumoniae (PCR) Parainfluenza 1 (PCR) Parainfluenza 2 (PCR) Parainfluenza 3 (PCR) Parainfluenza 4 (PCR) RSV (PCR) Entero/Rhino (PCR) SARS-CoV-2 RNA (RT-PCR) Ur Strep pneumoniae Ag Cancelled Blood Type Antibody Screen Crossmatch 03/02/21 03/02/21 03/02/21 05:37 05:37 07:58 WBC RBC Hgb Hct MCV MCH MCHC RDW Plt Count MPV Absolute Nucleated RBC Nucleated RBC % (auto) PT 20.0 H INR 1.7 H Sodium 132 L Potassium 4.3 Chloride 101 Carbon Dioxide 21 L Anion Gap 14 BUN 31 H Creatinine 4.05 H* Estim Creat Clear Calc 20.8 Estimated GFR 15 POC Glucose 180 H Random Glucose 167 H Calcium 8.4 Total Bilirubin 5.5 H AST 36 ALT 24 Alkaline Phosphatase 207 H Total Protein 6.1 L Albumin 2.6 L Random Vancomycin Respiratory Panel Shannon Adenovirus (Rapid PCR) B.pert (TEM-PCR) B.parapertussis DNA PCR C. pneumoniae DNA (PCR) Coronavirus OC43 (PCR) Coronavirus HKU1 (PCR) Coronavirus 229E (PCR) Coronavirus NL63 (PCR) Human Metapneumovir PCR Influenza A (RT-PCR) Influenza B (RT-PCR) M. pneumoniae (PCR) Parainfluenza 1 (PCR) Parainfluenza 2 (PCR) Parainfluenza 3 (PCR) Parainfluenza 4 (PCR) RSV (PCR) Entero/Rhino (PCR) SARS-CoV-2 RNA (RT-PCR) Ur Strep pneumoniae Ag Blood Type Antibody Screen Crossmatch Microbiology Microbiology Results: Microbiology 02/26/21 22:47 Blood - Venous Blood Culture - Preliminary No growth after 48 hours. 02/26/21 22:47 Blood - Venous Blood Culture - Preliminary No growth after 48 hours. Procedures Date of Service Date of Service: 03/02/21 Assessment & Plan Assessment and plan (1) Anemia: Status: Acute (2) Cirrhosis of liver with ascites: Status: Acute (3) ESRD (end stage renal disease): Status: Acute Assessment and Plan: HD on TTS schedule No s/s of uremia Out Pt Hd arranged at [facility] TTS -2 shift Assessment and Plan: Paracenthesis today Start Epogen for anemia Time Spent With Patient Time: Total time spent is greater than 50% in coordination of care (as documented) at patient's floor/unit and/or counseling patient: Time with patient: 15 - 24 minutes Progress Note: Quality Stroke Does the patient have a stroke diagnosis?: No
[2021-03-02] MEDS: Thiamine HCL 100 MG TABLET PO ×2 (09:48→19:54)
[2021-03-02] MEDS: Zinc Sulfate 220 MG CAPSULE PO (09:48)
[2021-03-02] MEDS: Folic Acid 1 MG TABLET PO (09:48)
[2021-03-02] MEDS: Lactulose 20 GM/30 ML SOLUTION 45 GM PO ×3 (09:48→19:54)
[2021-03-02] MEDS: Cholecalciferol (Vitamin D3) 25 MCG TABLET 50 MCG PO (09:48)
[2021-03-02 12:25] LABS: MN% 80.6 %; PMN% 19.4 %; RBC Peritoneal Fluid < 0.002 X10*6/uL; WBC Peritoneal Fluid 0.185 X10*3/uL
--- NOTE | 2021-03-02 12:29 | MHC.CLN ---
NUTRITION DIET CHANGED TO DIABETIC 2200 KCAL, 2 GRAM SODIUM, LOW POTASSIUM, LOW PHOSPHOROUS. DISCONTINUED ENSURE BID. DISCUSSED WITH THAT NEPRO NOT AVAILABLE AND ONLY WANTED NEPRO. SHE WILL BRING FROM HOME NEPRO BID. NURSE AWARE.
--- NOTE | 2021-03-02 12:31 | P.PNIM_ITS ---
Subjective Subjective Date of Service: 03/02/21 Interval History: More awake Minimal cough Very weak Needs 06/12 care Review of Systems Review of Systems: Yes all other systems are reviewed and are negative Physical Exam Vital Signs: Vital Signs: Last Vital Signs Temp 97.5 F 03/02/21 07:59 Pulse 77 03/02/21 08:13 Resp 18 03/02/21 07:59 BP 133/60 03/02/21 08:13 Pulse Ox 100 03/02/21 08:13 Body Mass Index 33.0 Gen: chronically ill appearing, awake HEENT: mild scleral icterus, pale sclera, moist mucus membranes Neck: supple, R SC tunneled HD catheter without signs of infection or bleeding Lungs: diminished bilaterally Heart: regular rate and rhythm, no murmurs Abd: soft, non-tender,? obese/distended, ascites present Ext: chronic lymphedema of legs Skin: warm/well-perfused, bruising, multiple stigmata of cirrhosis Neuro: no focal deficit, no asterixis Psych: restricted affect Objective Data Active Medications Dextrose (Dextrose 50 % 25 Gm/50 Ml Vial) 25 gm IVPUSH Q15M PRN; Protocol PRN Reason: per Hypoglycemia Standing Ord. Epoetin Julito (Epoetin Julito 10,000 Unit/Ml Vial) 10,000 unit SUBCUT MoWeFr@1645 [facility] Folic Acid (Folic Acid 1 Mg Tablet) 1 mg PO DAILY [facility] Last Admin: 03/02/21 09:48 Dose: 1 mg Documented by: VALERY Glucose (Glucose Gel 15 Gm Gel..Gram.) 15 gm PO Q15M PRN; Protocol PRN Reason: per Hypoglycemia Standing Ord. Levetiracetam (Keppra) 1,000 mg in 100 mls @ 400 mls/hr IV DAILY [facility] Last Infusion: 03/01/21 10:08 Dose: 0 mls/hr Documented by: LAURENT Cefepime HCl 1 gm/ Sodium (Chloride) 50 mls @ 100 mls/hr IV Q24H [facility] Last Infusion: 03/01/21 23:36 Dose: 0 mls/hr Documented by: LAKHWINDER Vancomycin HCl 500 mg/ Sodium (Chloride) 110 mls @ 110 mls/hr IV Q48H [facility] Insulin Human Lispro (Insulin Lispro 100 Unit/Ml 3 Ml Vial) 0 unit SUBCUT QIDACHS [facility]; Protocol Last Admin: 03/02/21 08:33 Dose: 2 unit Documented by: VALERY Lactulose (Lactulose 20 Gm/30 Ml Solution) 200 gm [place] Q4H PRN PRN Reason: if pt cant tolerate PO Lactulose (Lactulose 20 Gm/30 Ml Solution) 45 gm PO TID [facility] Last Admin: 03/02/21 09:48 Dose: 45 gm Documented by: VALERY Levetiracetam (Levetiracetam 250 Mg Tablet) 250 mg PO MOWEFR@1645 [facility] Last Admin: 02/27/21 20:46 Dose: Not Given Documented by: TSERING Non-Admin Reason: Patient Condition Contraindication Levothyroxine Sodium (Levothyroxine Sodium 150 Mcg Tablet) 150 mcg PO DAILY@0630 [facility] Last Admin: 03/02/21 06:24 Dose: 150 mcg Documented by: LAKHWINDER Omeprazole (Omeprazole 20 Mg Capsule.) 20 mg PO BID@0630,1630 [facility] Last Admin: 03/02/21 06:24 Dose: 20 mg Documented by: LAKHWINDER Pharmacy Consult (Consult Rx Perform Med Rec) 1 each MISCELLANE ONCE PRN PRN Reason: Consult order Pharmacy Consult (Consult Rx Vancomycin Dosing) 1 each MISCELLANE DAILY PRN PRN Reason: Consult order Pharmacy Consult (Consult Rx Vancomycin Dosing) 1 each MISCELLANE DAILY PRN PRN Reason: Consult order Rifaximin (Rifaximin 550 Mg Tablet) 550 mg PO BID [facility] Last Admin: 03/01/21 22:04 Dose: 550 mg Documented by: LAURENT Sodium Chloride (0.9 % Sodium Chloride Flush 3 Ml Syringe) 3 ml IVFLUSH QSHIFT [facility] Last Admin: 03/02/21 08:33 Dose: 3 ml Documented by: VALERY Tamsulosin HCl (Tamsulosin Hcl 0.4 Mg Capsule) 0.4 mg PO BEDTIME [facility] Last Admin: 03/01/21 22:08 Dose: 0.4 mg Documented by: LAURENT Thiamine HCl (Thiamine Hcl 100 Mg Tablet) 100 mg PO BID [facility] Last Admin: 03/02/21 09:48 Dose: 100 mg Documented by: VALERY Vitamin D (Cholecalciferol (Vitamin D3) 25 Mcg Tablet) 50 mcg PO DAILY [facility] Last Admin: 03/02/21 09:48 Dose: 50 mcg Documented by: VALERY Zinc Sulfate (Zinc Sulfate 220 Mg Capsule) 220 mg PO DAILY [facility] Last Admin: 03/02/21 09:48 Dose: 220 mg Documented by: VALERY Labs CBC & Chem 7: 03/02/21 05:37 03/02/21 05:37 Labs: Laboratory Results - last 24 hr 03/01/21 03/01/21 03/01/21 07:44 16:08 17:54 MCV MCH MCHC RDW Plt Count MPV Absolute Nucleated RBC Nucleated RBC % (auto) PT INR Anion Gap Estim Creat Clear Calc Estimated GFR POC Glucose 172 H Random Glucose Calcium Total Bilirubin AST ALT Alkaline Phosphatase Total Protein Albumin Peritoneal WBC Peritoneal RBC Random Vancomycin 12.3 L Ur Strep pneumoniae Ag Blood Type O Positive Antibody Screen NEGATIVE Crossmatch See Detail 03/01/21 03/01/21 03/02/21 18:11 20:30 05:37 MCV 95.3 MCH 33.5 H MCHC 35.1 RDW 16.1 H Plt Count 49 L MPV 9.3 L Absolute Nucleated RBC 0.000 Nucleated RBC % (auto) 0.0 PT INR Anion Gap Estim Creat Clear Calc Estimated GFR POC Glucose 185 H Random Glucose Calcium Total Bilirubin AST ALT Alkaline Phosphatase Total Protein Albumin Peritoneal WBC Peritoneal RBC Random Vancomycin Ur Strep pneumoniae Ag Cancelled Blood Type Antibody Screen Crossmatch 03/02/21 03/02/21 03/02/21 05:37 05:37 07:58 MCV MCH MCHC RDW Plt Count MPV Absolute Nucleated RBC Nucleated RBC % (auto) PT 20.0 H INR 1.7 H Anion Gap 14 Estim Creat Clear Calc 20.8 Estimated GFR 15 POC Glucose 180 H Random Glucose 167 H Calcium 8.4 Total Bilirubin 5.5 H AST 36 ALT 24 Alkaline Phosphatase 207 H Total Protein 6.1 L Albumin 2.6 L Peritoneal WBC Peritoneal RBC Random Vancomycin Ur Strep pneumoniae Ag Blood Type Antibody Screen Crossmatch 03/02/21 Unknown MCV MCH MCHC RDW Plt Count MPV Absolute Nucleated RBC Nucleated RBC % (auto) PT INR Anion Gap Estim Creat Clear Calc Estimated GFR POC Glucose Random Glucose Calcium Total Bilirubin AST ALT Alkaline Phosphatase Total Protein Albumin Peritoneal WBC 0.185 Peritoneal RBC < 0.002 Random Vancomycin Ur Strep pneumoniae Ag Blood Type Antibody Screen Crossmatch Assessment and Plan (1) Elevated LFTs: Status: Acute (2) ESRD (end stage renal disease): Status: Acute (3) Acute hepatic encephalopathy: Status: Acute Assessment and Plan: hospital d#5 70yo M with decompensated cirrhosis with esophageal varices, ESRD on HD, seizure disorder recent admission to [facility] 01/12-02/16/21 [place] [facility] [place]ore[place], hypoglycemia, seizures, pneumonia, c oagulopathy; intubated 01/14-01/21 missed 1 HD session during HD schedule change, also not fully adherent with lactulose presented with lethargy; admitted for hepatic encephalopathy and multifocal pneumonia # hepatic encephalopathy - improved; lactulose PO and if cannot take it should get it [place]; rifaximin; counseled on importance of full compliance # healthcare-associated pneumonia - continue broad-spectrum coverage with vancomycin + cefepime d#5 - pneumococcal + Legionella urine antigens pending - BCx NGTD - trend PCT - ID re de-escalation # anemia - transfused 2u pRBCs; FOBT pending # thrombocytopenia - due to cirrhosis; count stable # decompensated cirrhosis with ascites - GI following - diagnostic paracentesis today to r/o SBP - on transplant list at [facility] but declined admission there due to lack of beds and pt's active infection # ESRD - HD TuThSa confirmed, Nephrology consulted # hyponatremia - mild and chronic, due to cirrhosis # hypothyroidism - continue LT4 150 mcg daily; repeat TSH in 4 wk # seizures - continue levetiracetam; switch IV to PO # DM2 - correction-dose lispro # VTE ppx - SCDs due to bleeding risk, thrombocytopenia # dispo - anticipate d/c tomorrow to LTC vs home Quality Stroke Does the patient have a stroke diagnosis?: No VTE Prior VTE?: No VTE Risk Level:: Medical - moderate - high VTE Device Contraindication: N/A - Device Ordered VTE Drug Contraindication: Treatment Not Indicated
[2021-03-02 12:37] LABS: Glucose, Whole Blood 177 mg/dL (60-115)
[2021-03-02] MEDS: rifAXIMin 550 MG TABLET PO ×2 (12:42→19:54)
[2021-03-02] MEDS: Lidocaine HCl 1 % MPF 5 ML VIAL SUBCUT (12:42)
[2021-03-02 13:40] LABS: BF Shift QC OK YES; Lymphocyte Peritoneal Fl 29 %; Monocytes Peritoneal Fl 9 %; Neutrophils Peritoneal Fluid 12 %; Other Peritioneal Fl 50 %
--- NOTE | 2021-03-02 14:17 | MHC.CM.PN ---
EMR REVIEWED, CM MET W/HOSPITALIST AND PT'S , PT'S CONCERNED SHE CANNOT MANAGE PT AT HOME, PT BECOMING MORE BEHAVIORAL ON UNIT, PER HOSPITALIST PLAN IS TO RECHECK AMMONIA LEVEL AND PSYCH CONSULT TO DETERMINE CAPACITY. CM WILL CONT TO FOLLOW. D/C PLAN UNCERTAIN AT THIS TIME.
[2021-03-02 14:43] LABS: Ammonia 155 umol/L (13-55)
--- NOTE | 2021-03-02 15:51 | PM.PSYCN ---
History of Present Illness Date of Service: 03/02/21 Chief Complaint: Hepatic Encephalopathy Reason for Consult: please evaluate for competency, trying to leave AMA. Requesting physician: Donis Tucker Discussed with referring provider: Yes Sources of Information: patient interviewed and chart reviewed HPI Narrative: Patient is a [age]-year-old male, with PMH of hypertension, hyperlipidemia, diabetes, seizures, liver cirrhosis, esophageal varices, ESDR, on hemodialysis, recent long admission at [facility]. Recently discharged home, presented to hospital with chief complaint of confusion. Found to have multifocal pneumonia, admitted for further care. By 's report, patient had been fairly independent at home, able to bathe self, walk with a walker. Home care services were in place, with some assist with ADLs. Patient appears to have declined while inpatient, and has expressed concern that she may not be able to care for him at this time at home. Prior to encounter, this feature writer reviewed chart. Upon entering room, this feature writer noted that patient was sitting in chair, with tab monitor in place, walker in front of chair. His phone alarm was wringing. When asked if he knew where his phone was, he looked at this feature writer but gave no response. He later pulled phone out of pocket and stared at it. This feature writer help shut off the alarm. He was slow to respond, and appeared to be confused. He had blunted affect, restricted range. He appeared to have disorganized thought process, and was disoriented. He was was able to state his name. However, when asked where he was, he was unable to answer. He also was unable to answer questions including date, reason he was in the hospital, day of the week, season, and year. He was unable to maintain any type of interaction with this feature writer, as he would not respond, and had poor eye contact. He appeared to be thought blocking, and struggling with any type of answer. We were unable to proceed with any type of mental status exam such as MMSE or [place]. His nurse reports that he appeared to be more alert this morning, and was able to answer orientation questions somewhat. She also reported that in report this morning she was informed that he had appeared confused on overnight shift. Per review of overnight notes, patient had appeared to become agitated and aggressive during the night. Past Psychiatric History: Unknown Medical Evaluation Reviewed: Yes Ammonia level today 155, but appears to be trending down (was in 200's). Personal & Social History: , lives with . Review of Systems Review of Systems Yes Unobtainable due to mental status Constitutional: Reports no additional constitutional complaints Reports confusion Psychiatric: Reports confusion [facility] Medical History Acid reflux Acute hepatic encephalopathy Acute on chronic kidney failure LINETTE (acute kidney injury) Alcohol induced liver disorder Anasarca Anemia Annual physical exam Aortic stenosis Ascites due to alcoholic cirrhosis Atrial fibrillation Cellulitis CHF (congestive heart failure) Chronic edema Cirrhosis CKD (chronic kidney disease) stage 3, GFR 30-59 ml/min Diabetes Dyslipidemia Elevated brain natriuretic peptide (BNP) level Encephalopathy Esophageal varix Essential hypertension GAVE (gastric antral vascular ectasia) Hearing loss Hepatic encephalopathy HTN (hypertension) Hyperammonemia Hyponatremia Lipodermatosclerosis Liver cirrhosis Low serum vitamin D Lower extremity edema Obesity Obesity (BMI 30-39.9) BARTOLOME (obstructive sleep apnea) Osteoarthritis Portal hypertension syndrome Portal hypertensive gastropathy Recurrent cellulitis of lower extremity Tongue ulcer Type 2 diabetes mellitus with chronic kidney disease Type 2 diabetes mellitus with hyperglycemia, with long-term current use of insulin Surgical History H/O colonoscopy History of esophagogastroduodenoscopy (EGD) History of tonsillectomy Family History: unknown Social History: lives with . Diagnostics Vital Signs (24Hr): Vital Signs - 24 hr 03/01/21 15:52 03/01/21 16:09 03/01/21 17:47 Temperature 97.2 F 97.9 F 97.5 F Pulse Rate 72 70 72 Respiratory Rate 16 16 18 Blood Pressure 145/75 H 147/73 H 139/78 Pulse Oximetry 03/01/21 19:40 03/02/21 00:00 03/02/21 03:44 Temperature 97.8 F 97.8 F 97.4 F Pulse Rate 70 81 70 Respiratory Rate 16 18 18 Blood Pressure 138/68 147/69 H 118/61 Pulse Oximetry 100 99 98 03/02/21 07:59 03/02/21 08:13 03/02/21 12:00 Temperature 97.5 F 97.8 F Pulse Rate 77 77 74 Respiratory Rate 18 18 Blood Pressure 133/60 133/60 131/60 Pulse Oximetry 100 100 99 03/02/21 15:13 Temperature 97.2 F Pulse Rate 75 Respiratory Rate 18 Blood Pressure 146/72 H Pulse Oximetry 96 Body Mass Index 33.0 Labs Results: 03/02/21 05:37 03/02/21 05:37 Labs: Laboratory Results - last 48 hr 02/28/21 02/28/21 03/01/21 16:16 20:23 05:56 WBC 3.7 L RBC 2.01 L Hgb 6.8 L* Hct 19.6 L* MCV 97.5 MCH 33.8 H MCHC 34.7 RDW 14.7 Plt Count 52 L MPV 10.0 Absolute Nucleated RBC 0.000 Nucleated RBC % (auto) 0.0 PT INR Sodium Potassium Chloride Carbon Dioxide Anion Gap BUN Creatinine Estim Creat Clear Calc Estimated GFR POC Glucose 149 H 155 H Random Glucose Calcium Magnesium Total Bilirubin AST ALT Alkaline Phosphatase Ammonia Total Protein Albumin Procalcitonin Peritoneal WBC Peritoneal RBC Periton Neutrophils Periton Lymphocytes Peritoneal Monocytes Peritoneal Other Cells Random Vancomycin Respiratory Panel Shannon Adenovirus (Rapid PCR) B.pert (TEM-PCR) B.parapertussis DNA PCR C. pneumoniae DNA (PCR) Coronavirus OC43 (PCR) Coronavirus HKU1 (PCR) Coronavirus 229E (PCR) Coronavirus NL63 (PCR) Human Metapneumovir PCR Influenza A (RT-PCR) Influenza B (RT-PCR) M. pneumoniae (PCR) Parainfluenza 1 (PCR) Parainfluenza 2 (PCR) Parainfluenza 3 (PCR) Parainfluenza 4 (PCR) RSV (PCR) Entero/Rhino (PCR) SARS-CoV-2 RNA (RT-PCR) Ur Strep pneumoniae Ag Blood Type Antibody Screen Crossmatch 03/01/21 03/01/21 03/01/21 05:56 05:56 05:56 WBC RBC Hgb Hct MCV MCH MCHC RDW Plt Count MPV Absolute Nucleated RBC Nucleated RBC % (auto) PT 22.8 H INR 2.0 H Sodium 132 L Potassium 3.9 Chloride 102 Carbon Dioxide 22 Anion Gap 12 BUN 24 H Creatinine 3.28 H Estim Creat Clear Calc 25.7 Estimated GFR 19 POC Glucose Random Glucose 131 H D Calcium 8.2 L D Magnesium 2.0 Total Bilirubin 4.0 H AST 37 ALT 23 Alkaline Phosphatase 180 H Ammonia Total Protein 5.5 L Albumin 2.4 L Procalcitonin 1.02 Peritoneal WBC Peritoneal RBC Periton Neutrophils Periton Lymphocytes Peritoneal Monocytes Peritoneal Other Cells Random Vancomycin Respiratory Panel Shannon Adenovirus (Rapid PCR) B.pert (TEM-PCR) B.parapertussis DNA PCR C. pneumoniae DNA (PCR) Coronavirus OC43 (PCR) Coronavirus HKU1 (PCR) Coronavirus 229E (PCR) Coronavirus NL63 (PCR) Human Metapneumovir PCR Influenza A (RT-PCR) Influenza B (RT-PCR) M. pneumoniae (PCR) Parainfluenza 1 (PCR) Parainfluenza 2 (PCR) Parainfluenza 3 (PCR) Parainfluenza 4 (PCR) RSV (PCR) Entero/Rhino (PCR) SARS-CoV-2 RNA (RT-PCR) Ur Strep pneumoniae Ag Blood Type Antibody Screen Crossmatch 03/01/21 03/01/21 03/01/21 07:29 07:44 09:02 WBC RBC Hgb Hct MCV MCH MCHC RDW Plt Count MPV Absolute Nucleated RBC Nucleated RBC % (auto) PT INR Sodium Potassium Chloride Carbon Dioxide Anion Gap BUN Creatinine Estim Creat Clear Calc Estimated GFR POC Glucose 108 Random Glucose Calcium Magnesium Total Bilirubin AST ALT Alkaline Phosphatase Ammonia Total Protein Albumin Procalcitonin Peritoneal WBC Peritoneal RBC Periton Neutrophils Periton Lymphocytes Peritoneal Monocytes Peritoneal Other Cells Random Vancomycin Respiratory Panel Shannon See Note Adenovirus (Rapid PCR) Not Detected B.pert (TEM-PCR) Not Detected B.parapertussis DNA PCR Not Detected C. pneumoniae DNA (PCR) Not Detected Coronavirus OC43 (PCR) Not Detected Coronavirus HKU1 (PCR) Not Detected Coronavirus 229E (PCR) Not Detected Coronavirus NL63 (PCR) Not Detected Human Metapneumovir PCR Not Detected Influenza A (RT-PCR) Not Detected Influenza B (RT-PCR) Not Detected M. pneumoniae (PCR) Not Detected Parainfluenza 1 (PCR) Not Detected Parainfluenza 2 (PCR) Not Detected Parainfluenza 3 (PCR) Not Detected Parainfluenza 4 (PCR) Not Detected RSV (PCR) Not Detected Entero/Rhino (PCR) Not Detected SARS-CoV-2 RNA (RT-PCR) Not Detected Ur Strep pneumoniae Ag Blood Type O Positive Antibody Screen NEGATIVE Crossmatch See Detail 03/01/21 03/01/21 03/01/21 11:59 16:08 17:54 WBC RBC Hgb Hct MCV MCH MCHC RDW Plt Count MPV Absolute Nucleated RBC Nucleated RBC % (auto) PT INR Sodium Potassium Chloride Carbon Dioxide Anion Gap BUN Creatinine Estim Creat Clear Calc Estimated GFR POC Glucose 180 H 172 H Random Glucose Calcium Magnesium Total Bilirubin AST ALT Alkaline Phosphatase Ammonia Total Protein Albumin Procalcitonin Peritoneal WBC Peritoneal RBC Periton Neutrophils Periton Lymphocytes Peritoneal Monocytes Peritoneal Other Cells Random Vancomycin 12.3 L Respiratory Panel Shannon Adenovirus (Rapid PCR) B.pert (TEM-PCR) B.parapertussis DNA PCR C. pneumoniae DNA (PCR) Coronavirus OC43 (PCR) Coronavirus HKU1 (PCR) Coronavirus 229E (PCR) Coronavirus NL63 (PCR) Human Metapneumovir PCR Influenza A (RT-PCR) Influenza B (RT-PCR) M. pneumoniae (PCR) Parainfluenza 1 (PCR) Parainfluenza 2 (PCR) Parainfluenza 3 (PCR) Parainfluenza 4 (PCR) RSV (PCR) Entero/Rhino (PCR) SARS-CoV-2 RNA (RT-PCR) Ur Strep pneumoniae Ag Blood Type Antibody Screen Crossmatch 03/01/21 03/01/21 03/01/21 17:54 18:11 20:30 WBC RBC Hgb 8.3 L D Hct 23.9 L D MCV MCH MCHC RDW Plt Count MPV Absolute Nucleated RBC Nucleated RBC % (auto) PT INR Sodium Potassium Chloride Carbon Dioxide Anion Gap BUN Creatinine Estim Creat Clear Calc Estimated GFR POC Glucose 185 H Random Glucose Calcium Magnesium Total Bilirubin AST ALT Alkaline Phosphatase Ammonia Total Protein Albumin Procalcitonin Peritoneal WBC Peritoneal RBC Periton Neutrophils Periton Lymphocytes Peritoneal Monocytes Peritoneal Other Cells Random Vancomycin Respiratory Panel Shannon Adenovirus (Rapid PCR) B.pert (TEM-PCR) B.parapertussis DNA PCR C. pneumoniae DNA (PCR) Coronavirus OC43 (PCR) Coronavirus HKU1 (PCR) Coronavirus 229E (PCR) Coronavirus NL63 (PCR) Human Metapneumovir PCR Influenza A (RT-PCR) Influenza B (RT-PCR) M. pneumoniae (PCR) Parainfluenza 1 (PCR) Parainfluenza 2 (PCR) Parainfluenza 3 (PCR) Parainfluenza 4 (PCR) RSV (PCR) Entero/Rhino (PCR) SARS-CoV-2 RNA (RT-PCR) Ur Strep pneumoniae Ag Cancelled Blood Type Antibody Screen Crossmatch 03/02/21 03/02/21 03/02/21 05:37 05:37 05:37 WBC 4.1 L RBC 2.54 L D Hgb 8.5 L Hct 24.2 L MCV 95.3 MCH 33.5 H MCHC 35.1 RDW 16.1 H Plt Count 49 L MPV 9.3 L Absolute Nucleated RBC 0.000 Nucleated RBC % (auto) 0.0 PT 20.0 H INR 1.7 H Sodium 132 L Potassium 4.3 Chloride 101 Carbon Dioxide 21 L Anion Gap 14 BUN 31 H Creatinine 4.05 H* Estim Creat Clear Calc 20.8 Estimated GFR 15 POC Glucose Random Glucose 167 H Calcium 8.4 Magnesium Total Bilirubin 5.5 H AST 36 ALT 24 Alkaline Phosphatase 207 H Ammonia Total Protein 6.1 L Albumin 2.6 L Procalcitonin Peritoneal WBC Peritoneal RBC Periton Neutrophils Periton Lymphocytes Peritoneal Monocytes Peritoneal Other Cells Random Vancomycin Respiratory Panel Shannon Adenovirus (Rapid PCR) B.pert (TEM-PCR) B.parapertussis DNA PCR C. pneumoniae DNA (PCR) Coronavirus OC43 (PCR) Coronavirus HKU1 (PCR) Coronavirus 229E (PCR) Coronavirus NL63 (PCR) Human Metapneumovir PCR Influenza A (RT-PCR) Influenza B (RT-PCR) M. pneumoniae (PCR) Parainfluenza 1 (PCR) Parainfluenza 2 (PCR) Parainfluenza 3 (PCR) Parainfluenza 4 (PCR) RSV (PCR) Entero/Rhino (PCR) SARS-CoV-2 RNA (RT-PCR) Ur Strep pneumoniae Ag Blood Type Antibody Screen Crossmatch 03/02/21 03/02/21 03/02/21 07:58 12:29 14:26 WBC RBC Hgb Hct MCV MCH MCHC RDW Plt Count MPV Absolute Nucleated RBC Nucleated RBC % (auto) PT INR Sodium Potassium Chloride Carbon Dioxide Anion Gap BUN Creatinine Estim Creat Clear Calc Estimated GFR POC Glucose 180 H 177 H Random Glucose Calcium Magnesium Total Bilirubin AST ALT Alkaline Phosphatase Ammonia 155 H Total Protein Albumin Procalcitonin Peritoneal WBC Peritoneal RBC Periton Neutrophils Periton Lymphocytes Peritoneal Monocytes Peritoneal Other Cells Random Vancomycin Respiratory Panel Shannon Adenovirus (Rapid PCR) B.pert (TEM-PCR) B.parapertussis DNA PCR C. pneumoniae DNA (PCR) Coronavirus OC43 (PCR) Coronavirus HKU1 (PCR) Coronavirus 229E (PCR) Coronavirus NL63 (PCR) Human Metapneumovir PCR Influenza A (RT-PCR) Influenza B (RT-PCR) M. pneumoniae (PCR) Parainfluenza 1 (PCR) Parainfluenza 2 (PCR) Parainfluenza 3 (PCR) Parainfluenza 4 (PCR) RSV (PCR) Entero/Rhino (PCR) SARS-CoV-2 RNA (RT-PCR) Ur Strep pneumoniae Ag Blood Type Antibody Screen Crossmatch 03/02/21 Unknown WBC RBC Hgb Hct MCV MCH MCHC RDW Plt Count MPV Absolute Nucleated RBC Nucleated RBC % (auto) PT INR Sodium Potassium Chloride Carbon Dioxide Anion Gap BUN Creatinine Estim Creat Clear Calc Estimated GFR POC Glucose Random Glucose Calcium Magnesium Total Bilirubin AST ALT Alkaline Phosphatase Ammonia Total Protein Albumin Procalcitonin Peritoneal WBC 0.185 Peritoneal RBC < 0.002 Periton Neutrophils 12 Periton Lymphocytes 29 Peritoneal Monocytes 9 Peritoneal Other Cells 50 Random Vancomycin Respiratory Panel Shannon Adenovirus (Rapid PCR) B.pert (TEM-PCR) B.parapertussis DNA PCR C. pneumoniae DNA (PCR) Coronavirus OC43 (PCR) Coronavirus HKU1 (PCR) Coronavirus 229E (PCR) Coronavirus NL63 (PCR) Human Metapneumovir PCR Influenza A (RT-PCR) Influenza B (RT-PCR) M. pneumoniae (PCR) Parainfluenza 1 (PCR) Parainfluenza 2 (PCR) Parainfluenza 3 (PCR) Parainfluenza 4 (PCR) RSV (PCR) Entero/Rhino (PCR) SARS-CoV-2 RNA (RT-PCR) Ur Strep pneumoniae Ag Blood Type Antibody Screen Crossmatch Imaging Radiology Impressions: ITS Impressions Chest CT 02/26/21 19:59 IMPRESSION: Multilobar infiltrate , ? Covid disease. Small bilateral pleural effusions and ascites. Right hepatic lobe cyst, lobulated liver ?cirrhosis. Cholelithiasis. Splenomegaly. No acute intracranial process seen. Head CT 02/26/21 19:59 IMPRESSION: Multilobar infiltrate , ? Covid disease. Small bilateral pleural effusions and ascites. Right hepatic lobe cyst, lobulated liver ?cirrhosis. Cholelithiasis. Splenomegaly. No acute intracranial process seen. Abdomen Ultrasound 02/27/21 16:18 IMPRESSION: Moderate ascites. Mental Status Exam Mental Status Exam Narrative: Fairly groomed, obese male, sitting up in chair at foot of bed. Did not appear to be in any type of distress. No involuntary movements noted, motor activity appeared calm. No type of aggressiveness or agitation noted. Ambulation not observed. Was oriented to self only. Did not appear to be in any type of physical discomfort, did not appear to be responding to any type of internal stimuli. Patient Appearance: Disheveled and Unkempt Level of Consciousness: Disoriented and Lethargic Patient Behavior: Passive, Confused and Poor Eye Contact Mood Description: Blunted and Flat Affect Description: Blunted and Flat Patient Cognition Impaired: Yes Ability to Follow Directions: Poor Speech Pattern: Impoverished, Difficulty Finding Words, Delayed and Long Pauses Memory Description: Remote Impaired, Immediate Impaired, Fci Impaired and Working Impaired Hallucinations: None Delusions: Not Present Thought Process: Disoriented and Confusion Thought Content: positive for Disoriented, positive for Thought Blocking, positive for Slowed Thinking and positive for Disorganized Judgement: Poor Medications Medications Current Medications Dextrose (Dextrose 50 % 25 Gm/50 Ml Vial) 25 gm IVPUSH Q15M PRN; Protocol PRN Reason: per Hypoglycemia Standing Ord. Epoetin Julito (Epoetin Julito 10,000 Unit/Ml Vial) 10,000 unit SUBCUT MoWeFr@1645 [facility] Folic Acid (Folic Acid 1 Mg Tablet) 1 mg PO DAILY [facility] Last Admin: 03/02/21 09:48 Dose: 1 mg Documented by: Glucose (Glucose Gel 15 Gm Gel..Gram.) 15 gm PO Q15M PRN; Protocol PRN Reason: per Hypoglycemia Standing Ord. Cefepime HCl 1 gm/ Sodium (Chloride) 50 mls @ 100 mls/hr IV Q24H [facility] Last Infusion: 03/01/21 23:36 Dose: Infused Documented by: Vancomycin HCl 500 mg/ Sodium (Chloride) 110 mls @ 110 mls/hr IV Q48H [facility] Insulin Human Lispro (Insulin Lispro 100 Unit/Ml 3 Ml Vial) 0 unit SUBCUT QIDACHS [facility]; Protocol Last Admin: 03/02/21 12:42 Dose: 2 unit Documented by: Lactulose (Lactulose 20 Gm/30 Ml Solution) 200 gm MO Q4H PRN PRN Reason: if pt cant tolerate PO Lactulose (Lactulose 20 Gm/30 Ml Solution) 45 gm PO TID [facility] Last Admin: 03/02/21 09:48 Dose: 45 gm Documented by: Levetiracetam (Levetiracetam 250 Mg Tablet) 250 mg PO MOWEFR@1645 [facility] Last Admin: 02/27/21 20:46 Dose: Not Given Documented by: Levetiracetam (Levetiracetam 1,000 Mg Tablet) 1,000 mg PO DAILY [facility] Levothyroxine Sodium (Levothyroxine Sodium 150 Mcg Tablet) 150 mcg PO DAILY@0630 [facility] Last Admin: 03/02/21 06:24 Dose: 150 mcg Documented by: Omeprazole (Omeprazole 20 Mg Capsule.Dr) 20 mg PO BID@0630,1630 [facility] Last Admin: 03/02/21 06:24 Dose: 20 mg Documented by: Pharmacy Consult (Consult Rx Perform Med Rec) 1 each MISCELLANE ONCE PRN PRN Reason: Consult order Pharmacy Consult (Consult Rx Vancomycin Dosing) 1 each MISCELLANE DAILY PRN PRN Reason: Consult order Pharmacy Consult (Consult Rx Vancomycin Dosing) 1 each MISCELLANE DAILY PRN PRN Reason: Consult order Rifaximin (Rifaximin 550 Mg Tablet) 550 mg PO BID [facility] Last Admin: 03/02/21 12:42 Dose: 550 mg Documented by: Sodium Chloride (0.9 % Sodium Chloride Flush 3 Ml Syringe) [facility] Admin: 03/02/21 08:33 Dose: 3 ml Documented by: Tamsulosin HCl (Tamsulosin Hcl 0.4 Mg Capsule) 0.4 mg PO BEDTIME [facility] Last Admin: 03/01/21 22:08 Dose: 0.4 mg Documented by: Thiamine HCl (Thiamine Hcl 100 Mg Tablet) 100 mg PO BID [facility] Last Admin: 03/02/21 09:48 Dose: 100 mg Documented by: Vitamin D (Cholecalciferol (Vitamin D3) 25 Mcg Tablet) 50 mcg PO DAILY [facility] Last Admin: 03/02/21 09:48 Dose: 50 mcg Documented by: Zinc Sulfate (Zinc Sulfate 220 Mg Capsule) 220 mg PO DAILY [facility] Last Admin: 03/02/21 09:48 Dose: 220 mg Documented by: Allergies Allergies Allergy/AdvReac Type Severity Reaction Status Date / Time No Known Allergies Allergy Verified 02/18/21 09:08 Assessment & Plan Assessment & Plan (1) Encounter for assessment of decision-making capacity: Status: Acute Code(s): Z01.89 - Encounter for other specified special examinations Assessment and Plan: Patient appeared to be oriented to self only. He was unable to report the date, location of where he was, rationale of why he was in the hospital. He was slow to respond, and was unable to answer questions such as day of week, season, year. During encounter his phone alarm was going off, he was unable to at 1st locate phone, and then stared blankly at at, not understanding how to shut the alarm off. Assessment and Plan: Patient unable to taken any type of information regarding his medical condition and process it in any type of meaningful way, in order to make any informed decisions. He is currently diagnosed with acute hepatic encephalopathy, which may manifest itself as delirium. This would explain the waxing and waning of his attention, as appearing approved improved in the mornings and worsened this afternoon. His cognitive performance is sufficiently impaired by this delirium that he is currently assessed as lacking in decisional capacity for medical decisions. His healthcare proxy or alternate medical decision maker should be invoked. Please note, that as the delirium clears, he may gain capacity for decision making. RECOMMENDATIONS: 1. Patient appears to lack capacity for medical decision making at this time. 2. Patient should not be allowed to leave AMA. 3. Please consider invoking HCP. 4. May want to consider having discussion with re: palliative care consult. 5. May want to consider the following Delirium prevention strategies: Lights on, shades up during day. Lights off, shades drawn at night. Minimized nighttime disruptions. Help keep patient awake and engaged during the day. Maximize access to glasses and hearing aids. Avoid benzodiazepines, anticholinergic medications. I have shared this with Dr. Donis Tucker, via secure electronic messaging system. Thank you for this consultation. If you have any questions or concerns, please do not hesitate to contact psychiatry service. Greater than 50% of the session was spent on counseling and/or coordination of care Patient educated on: therapeutic strategies and medical condition Informed Consent: does not understand and further education needed
[2021-03-02 16:07] LABS: Glucose, Whole Blood 128 mg/dL (60-115)
[2021-03-02] MEDS: levETIRAcetam 250 MG TABLET PO (16:07)
[2021-03-02] MEDS: Tamsulosin HCL 0.4 MG CAPSULE PO (19:54)
[2021-03-02] MEDS: vancomycin HCL 500 MG in 0.9 % Sodium Chloride 100 ML 110 MG IV (19:56)
[2021-03-02 20:09] LABS: Glucose, Whole Blood 175 mg/dL (60-115)
--- NOTE | 2021-03-02 21:05 | W.PM.IDCN ---
History of Present Illness Data of Consult Service Date: 03/02/21 Requesting physician: Donis Tucker Primary Care Provider: Unknown Physician HPI Reason for consult: sepsis,pneumonia He present with shortness of breath and mental status changes. He comes in with renal and hepatitic failure and shortness of breath. He has shortness of breath last day Review of Systems Review of Systems: Yes Unobtainable due to mental status PMFSH Past Medical History Medical History Acid reflux Acute hepatic encephalopathy Acute on chronic kidney failure LINETTE (acute kidney injury) Alcohol induced liver disorder Anasarca Anemia Annual physical exam Aortic stenosis Ascites due to alcoholic cirrhosis Atrial fibrillation Cellulitis CHF (congestive heart failure) Chronic edema Cirrhosis CKD (chronic kidney disease) stage 3, GFR 30-59 ml/min Diabetes Dyslipidemia Elevated brain natriuretic peptide (BNP) level Encephalopathy Esophageal varix Essential hypertension GAVE (gastric antral vascular ectasia) Hearing loss Hepatic encephalopathy HTN (hypertension) Hyperammonemia Hyponatremia Lipodermatosclerosis Liver cirrhosis Low serum vitamin D Lower extremity edema Obesity Obesity (BMI 30-39.9) BARTOLOME (obstructive sleep apnea) Osteoarthritis Portal hypertension syndrome Portal hypertensive gastropathy Recurrent cellulitis of lower extremity Tongue ulcer Type 2 diabetes mellitus with chronic kidney disease Type 2 diabetes mellitus with hyperglycemia, with long-term current use of insulin Family History Family History Brother Diabetes Father No problems noted. Surgical History Surgical History H/O colonoscopy History of esophagogastroduodenoscopy (EGD) History of tonsillectomy Social History Social History Household Members: Spouse Housing: House Do you presently have visiting nurse or other home services: Yes Alcohol intake: never Patient Tobacco Use Status: Never used Tobacco e-Cigarette/Vaping Use: Never Used Second Hand Smoke Exposure: No service: No Current occupational status: retired Meds Allergies Allergy/AdvReac Type Severity Reaction Status Date / Time No Known Allergies Allergy Verified 02/18/21 09:08 Active Medications: Current Medications Dextrose (Dextrose 50 % 25 Gm/50 Ml Vial) 25 gm IVPUSH Q15M PRN; Protocol PRN Reason: per Hypoglycemia Standing Ord. Epoetin Julito (Epoetin Julito 10,000 Unit/Ml Vial) 10,000 unit SUBCUT MoWeFr@1645 [facility] Last Admin: 03/02/21 16:07 Dose: 10,000 unit Documented by: Folic Acid (Folic Acid 1 Mg Tablet) 1 mg PO DAILY [facility] Last Admin: 03/02/21 09:48 Dose: 1 mg Documented by: Glucose (Glucose Gel 15 Gm Gel..Gram.) 15 gm PO Q15M PRN; Protocol PRN Reason: per Hypoglycemia Standing Ord. Cefepime HCl 1 gm/ Sodium (Chloride) 50 mls @ 100 mls/hr IV Q24H [facility] Last Infusion: 03/01/21 23:36 Dose: Infused Documented by: Vancomycin HCl 500 mg/ Sodium (Chloride) 110 mls @ 110 mls/hr IV Q48H [facility] Last Admin: 03/02/21 19:56 Dose: 110 mls/hr Documented by: Insulin Human Lispro (Insulin Lispro 100 Unit/Ml 3 Ml Vial) 0 unit SUBCUT QIDACHS [facility]; Protocol Last Admin: 03/02/21 16:07 Dose: Not Given Documented by: Lactulose (Lactulose 20 Gm/30 Ml Solution) 200 gm OK Q4H PRN PRN Reason: if pt cant tolerate PO Lactulose (Lactulose 20 Gm/30 Ml Solution) 45 gm PO RQ4H WHILE AWAKE [facility] Last Admin: 03/02/21 19:54 Dose: 45 gm Documented by: Levetiracetam (Levetiracetam 250 Mg Tablet) 250 mg PO MOWEFR@1645 [facility] Last Admin: 03/02/21 16:07 Dose: 250 mg Documented by: Levetiracetam (Levetiracetam 1,000 Mg Tablet) 1,000 mg PO DAILY [facility] Levothyroxine Sodium (Levothyroxine Sodium 150 Mcg Tablet) 150 mcg PO DAILY@0630 [facility] Last Admin: 03/02/21 06:24 Dose: 150 mcg Documented by: Omeprazole (Omeprazole 20 Mg Capsule.) 20 mg PO BID@0630,1630 [facility] Last Admin: 03/02/21 16:07 Dose: 20 mg Documented by: Pharmacy Consult (Consult Rx Perform Med Rec) 1 each MISCELLANE ONCE PRN PRN Reason: Consult order Pharmacy Consult (Consult Rx Vancomycin Dosing) 1 each MISCELLANE DAILY PRN PRN Reason: Consult order Pharmacy Consult (Consult Rx Vancomycin Dosing) 1 each MISCELLANE DAILY PRN PRN Reason: Consult order Rifaximin (Rifaximin 550 Mg Tablet) 550 mg PO BID [facility] Last Admin: 03/02/21 19:54 Dose: 550 mg Documented by: Sodium Chloride (0.9 % Sodium Chloride Flush 3 Ml Syringe) 3 ml IVFLUSH QSHIFT [facility] Last Admin: 03/02/21 19:56 Dose: 3 ml Documented by: Tamsulosin HCl (Tamsulosin Hcl 0.4 Mg Capsule) 0.4 mg PO BEDTIME [facility] Last Admin: 03/02/21 19:54 Dose: 0.4 mg Documented by: Thiamine HCl (Thiamine Hcl 100 Mg Tablet) 100 mg PO BID [facility] Last Admin: 03/02/21 19:54 Dose: 100 mg Documented by: Vitamin D (Cholecalciferol (Vitamin D3) 25 Mcg Tablet) 50 mcg PO DAILY [facility] Last Admin: 03/02/21 09:48 Dose: 50 mcg Documented by: Zinc Sulfate (Zinc Sulfate 220 Mg Capsule) 220 mg PO DAILY [facility] Last Admin: 03/02/21 09:48 Dose: 220 mg Documented by: Home Medications Medication Instructions Recorded Confirmed Last Taken Type folic acid 1 mg tablet 1 mg PO DAILY 01/04/21 02/26/21 02/26/21 History levetiracetam 500 mg tablet 1,000 mg PO DAILY 02/18/21 02/26/21 02/26/21 History levothyroxine 150 mcg tablet 150 mcg PO DAILY@0630 02/18/21 02/26/21 02/26/21 History liraglutide 0.6 mg/0.1 mL (18 mg/3 0.6 mg SUBCUT DAILY 02/18/21 02/26/21 02/26/21 History mL) subcutaneous pen injector (Showcase-TV 3-Gordo) omeprazole 20 mg capsule,delayed 20 mg PO BID@0630,1630 02/18/21 02/26/21 02/26/21 History release pen needle, diabetic 31 gauge x #1200 ea 02/18/21 02/18/21 Unknown History 09/28 (BD Ultra-Fine Short Pen Needle) penicillin V potassium 250 mg 250 mg PO DAILY 02/18/21 02/26/21 02/26/21 History tablet thiamine HCl (vitamin B1) 100 mg 100 mg PO BID 02/18/21 02/26/21 02/26/21 History tablet insulin degludec 200 unit/mL (3 100 unit SUBCUT DAILY 02/26/21 02/26/21 02/26/21 History mL) subcutaneous pen (Tresiba FlexTouch U-200 insulin) levetiracetam 250 mg tablet 250 mg PO MOWEFR@1645 02/26/21 02/26/21 02/25/21 History magnesium hydroxide 400 mg/5 mL 800 mg PO DAILY PRN 02/26/21 02/26/21 Unknown History oral suspension (Milk of Magnesia) rifaximin 550 mg tablet 550 mg PO BID 02/26/21 02/26/21 02/26/21 History Physical Exam Vital Signs: Vital Signs: Last Vital Signs Temp 97.8 F 03/02/21 19:30 Pulse 79 03/02/21 19:30 Resp 18 03/02/21 19:30 BP 169/77 H 03/02/21 19:30 Pulse Ox 100 03/02/21 19:30 Body Mass Index 33.0 Const: General: cooperative HENMT: Head: Yes normal to inspection Mouth: Normal oral and palatal mucosa present Cardio: Rate: regular rate Rhythm: regular rhythm GI: Palpation (GI): Soft to palpation and nontender Extrem: General: Yes normal to inspection Results Labs CBC & Chem 7: 03/04/21 08:18 03/03/21 09:19 Labs: Short CBC 03/02/21 Range/Units 05:37 WBC 4.1 L (4.8-10.8) X10*3/uL Hgb 8.5 L (14.0-18.0) g/dl Hct 24.2 L (42-52) % Plt Count 49 L (160-400) X10*3/uL BMP 03/02/21 05:37 Sodium 132 L Potassium 4.3 Chloride 101 Carbon Dioxide 21 L BUN 31 H Creatinine 4.05 H* Calcium 8.4 Liver Function 03/02/21 Range/Units 05:37 Total Bilirubin 5.5 H (0.0-1.0) mg/dL AST 36 (5-37) U/L ALT 24 (0-40) U/L Alkaline Phosphatase 207 H (39-117) U/L Albumin 2.6 L (3.5-5.0) g/dL Microbiology Microbiology Results: Microbiology 03/02/21 Unknown Ascites Fluid Gram Stain - Final 02/26/21 22:47 Blood - Venous Blood Culture - Preliminary No growth after 48 hours. 02/26/21 22:47 Blood - Venous Blood Culture - Preliminary No growth after 48 hours. Assessment and Plan (1) Acute hepatic encephalopathy: Status: Acute (2) Acidosis, lactic: Status: Acute (3) Multifocal pneumonia: Status: Acute There is likely aspiration pneumonia He is day 5 Vancomycin and Cefepime and reported more alert Within next day po Doxycycline and Augmentin for a week
[2021-03-02] MEDS: cefEPime HCl 1 GM in 0.9 % Sodium Chloride 50 ML IV (22:13)
[2021-03-03] VITALS (7 sets, daily range): BP systolic 114–146; BP diastolic 52–80; PULSE 70–95; RESP 16–18; TEMP 36.3–37.1; O2SAT 97–100
[2021-03-03] MEDS: Levothyroxine Sodium 150 MCG TABLET PO (06:31)
[2021-03-03] MEDS: Omeprazole 20 MG CAPSULE.DR PO ×2 (06:31→16:14)
[2021-03-03] MEDS: 0.9 % Sodium Chloride Flush 3 ML SYRINGE IVFLUSH ×3 (07:18→20:28)
[2021-03-03] MEDS: levETIRAcetam 1,000 MG TABLET 1000 MG PO (07:23)
[2021-03-03] MEDS: Lactulose 20 GM/30 ML SOLUTION 45 GM PO ×2 (07:23→12:20)
[2021-03-03] MEDS: Thiamine HCL 100 MG TABLET PO ×2 (07:23→20:24)
[2021-03-03] MEDS: Folic Acid 1 MG TABLET PO (07:23)
[2021-03-03] MEDS: rifAXIMin 550 MG TABLET PO ×2 (07:24→20:24)
[2021-03-03] MEDS: Zinc Sulfate 220 MG CAPSULE PO ×2 (07:24→12:19)
[2021-03-03] MEDS: Cholecalciferol (Vitamin D3) 25 MCG TABLET 50 MCG PO (07:24)
[2021-03-03 07:39] LABS: Glucose, Whole Blood 110 mg/dL (60-115)
[2021-03-03 09:36] LABS: MANUAL DIFF FLAG NO
[2021-03-03 09:40] LABS: Basophils Percent Auto 0.9 % (0-2); Eosinophils Absolute Auto 0.1 X10*3/uL (0.0-0.4); Eosinophils Percent Auto 3.7 % (0-4); Hematocrit 22.6 % (42-52); Hemoglobin 7.8 g/dl (14.0-18.0); Imm Gran Abs Auto 0.01 X10*3/uL (0.00-0.03); Imm Gran Pct Auto 0.3 % (0.0-0.4); Lymphocytes Absolute Auto 0.4 X10*3/uL (1.2-4.9); Lymphocytes Percent Auto 11.5 % (20-40); Mean Corpuscular HGB Conc 34.5 g/dl (31.0-36.0); Mean Corpuscular Hemoglobin 32.8 pg (27.0-33.0); Monocytes Absolute Auto 0.3 X10*3/uL (0.1-1.2); Neutrophils Absolute Auto 2.4 X10*3/uL (2.0-8.3); Neutrophils Percent Auto 73.6 % (45-73); Red Blood Count 2.38 X10*6/uL (4.60-5.80); Red Cell Distribution Width 15.7 % (11.0-16.0); White Blood Count 3.2 X10*3/uL (4.8-10.8)
[2021-03-03 09:56] LABS: Alanine Aminotransferase 24 U/L (0-40); Albumin Level 2.4 g/dL (3.5-5.0); Alkaline Phosphatase 190 U/L (39-117); Anion Gap 16 (12-20); Aspartate Amino Transferase 46 U/L (5-37); Blood Urea Nitrogen 28 mg/dL (9-16); Calcium 7.5 mg/dL (8.4-10.2); Carbon Dioxide 19 mmol/L (22-29); Chloride 102 mmol/L (96-108); Creatinine Clr Calc Pharmacy 23.6; Estimated Glomerular Filt Rate 17; Glucose Random 171 mg/dL (60-115); Platelet Count 46 X10*3/uL (160-400); Potassium 4.1 mmol/L (3.3-5.1); Sodium 133 mmol/L (135-145); Total Protein 5.8 g/dL (6.5-8.0)
--- NOTE | 2021-03-03 10:04 | W.PM.DNNEP ---
Subjective Subjective This patient was seen during dialysis. Interval history: Seen during HD s/p Paracenthesis 03/02 and 4.5 L was removed Physical Exam Vital Signs: Vital Signs: Last Vital Signs Temp 97.3 F 03/03/21 07:21 Pulse 95 03/03/21 07:21 Resp 16 03/03/21 07:21 BP 136/68 03/03/21 07:21 Pulse Ox 98 03/03/21 07:21 Body Mass Index 33.0 Const: General: cooperative and comfortable Nutritional Appearance: obese Orientation/consciousness: oriented to person Neck: Neck: Yes supple and Yes no JVD Resp: Effort & Inspection: no cough Auscultation: diminished lung sounds Cardio: Jugular venous distension: no JVD Palpation: no palpable S3 Rate: not tachycardic Heart sounds: no gallops and no rubs GI: Inspection: Yes obesity Palpation (GI): Soft to palpation, nontender, Ascites present and No Rebound tenderness present Auscultation: normal bowel sounds Neuro: General: oriented to person Motor exam (neuro): No Asterixis during motor activity present Extrem: General: No cyanosis and Yes pedal edema Assessment & Plan Assessment and plan (1) Anemia: Status: Acute (2) Cirrhosis of liver with ascites: Status: Acute (3) ESRD (end stage renal disease): Status: Acute Assessment and Plan: HD on TTS schedule No s/s of uremia Out Pt Hd arranged at [facility] TTS -2 shift Will add Midodrine 5 mg PO before HD to facilitate fluid removal Assessment and Plan: Start Epogen for anemia Time Spent With Patient Time: Total time spent is greater than 50% in coordination of care (as documented) at patient's floor/unit and/or counseling patient: Time with patient: less than 15 minutes Procedures Date of Service Date of Service: 03/03/21
[2021-03-03 10:18] LABS: Procalcitonin 0.87 ng/mL
--- NOTE | 2021-03-03 12:08 | MHC.CM.PN ---
Addendum entered by Georgina Urias RN 03/03/21 14:12: CM CONTACTED PT'S WHO REPORTS SHE PREFERS [facility], CM HAS PROVIDED PT'S WIFES CONTACT INFO TO SET UP INFORMATIONAL. Addendum entered by Georgina Urias RN 03/03/21 13:24: CM ATTEMPTED TO MEET W/PT'S IN PT'S ROOM HOWEVER PT'S HAS LEFT [facility]. Original Note: CM MET W/PT'S JEROME WHO WAS AT BEDSIDE, PT'S TEARFUL AND FEELS GUILTY AND TORN ABOUT PT GOING ON HOSPICE/PALLIATIVE CARE, JEROME REPORTS SHE DID DISCUSS W/HER TOW SONS AND THEY WERE ALL IN AGREEMENT THAT ITS TIME, JEROME ALSO REPORTED THAT AT ONE POINT WHEN HE HAD DIALYSIS THAT HE HAD ASKED HER TO LET HIM GO AND NOT STRING HIM ALONG LIKE SHE DID WITH HER FATHER, JEROME DOES NOT WANT HIM TO GO TO A FACILITY AND WOULD LIKE HIM HOME AND REPORTS SHE WILL PROVIDE CARE, JEROME WOULD LIKE A HOSPICE INFORMATIONAL AND PREFERS NA, HOSPITALIST AWARE PT'S HAS RETURNED AND WILL MEET W/HER. THIS CM DID REACH OUT TO REPLACED BY [facility] [employer] AND UNFORTUNATELY THEY DO NOT HAVE ROOM/AVAILABILITY FOR NEW PT'S AT THIS TIME.
[2021-03-03 12:15] LABS: Glucose, Whole Blood 131 mg/dL (60-115)
[2021-03-03] MEDS: Amoxicillin/Potassium Clav 250 MG TABLET PO ×2 (12:19→20:25)
--- NOTE | 2021-03-03 12:48 | HO.PM.IMPN ---
Subjective Subjective Date of Service: 03/03/21 Interval History: hepatic encephalopathy Review of Systems Mental status slowly improving Producing bowels today as per the staff Denies any chest pain or shortness of breath or abdominal pain or fever chills or cough or phlegm. Physical Exam Vital Signs: Vital Signs: Last Vital Signs Temp 97.3 F 03/03/21 12:00 Pulse 74 03/03/21 12:00 Resp 16 03/03/21 12:00 BP 119/52 L 03/03/21 12:00 Pulse Ox 99 03/03/21 12:00 Body Mass Index 33.0 Gen: chronically ill appearing, awake HEENT: mild scleral icterus. Neck: supple, R SC tunneled HD catheter without signs of infection or bleeding Lungs: air entry seems improving, slighgtly diminshed at bases. Heart: regular rate and rhythm, no murmurs Abd: soft, non-tender,? obese/distended, ascites present Ext: chronic lymphedema of legs Skin: warm/well-perfused, bruising. Neuro: no focal deficit, no asterixis Psych: restricted affect Objective Data Active Medications Amoxicillin/Clavulanate Potassium (Amoxicillin/Potassium Clav 250 Mg Tablet) 250 mg PO Q12H COUNTS INCLUDE 234 BEDS AT THE [facility] Last Admin: 03/03/21 12:19 Dose: 250 mg Documented by: MARTIN Dextrose (Dextrose 50 % 25 Gm/50 Ml Vial) 25 gm IVPUSH Q15M PRN; Protocol PRN Reason: per Hypoglycemia Standing Ord. Doxycycline Hyclate (Doxycycline Hyclate 100 Mg Tablet) 100 mg PO Q12H COUNTS INCLUDE 234 BEDS AT THE [facility] Last Admin: 03/03/21 07:53 Dose: 100 mg Documented by: MARTIN Epoetin Julito (Epoetin Julito 10,000 Unit/Ml Vial) 10,000 unit SUBCUT MoWeFr@1645 COUNTS INCLUDE 234 BEDS AT THE [facility] Last Admin: 03/02/21 16:07 Dose: 10,000 unit Documented by: VALERY Folic Acid (Folic Acid 1 Mg Tablet) 1 mg PO DAILY COUNTS INCLUDE 234 BEDS AT THE [facility] Last Admin: 03/03/21 07:23 Dose: 1 mg Documented by: MARTIN Glucose (Glucose Gel 15 Gm Gel..Gram.) 15 gm PO Q15M PRN; Protocol PRN Reason: per Hypoglycemia Standing Ord. Insulin Human Lispro (Insulin Lispro 100 Unit/Ml 3 Ml Vial) 0 unit SUBCUT QIDACHS COUNTS INCLUDE 234 BEDS AT THE [facility]; Protocol Last Admin: 03/03/21 12:10 Dose: Not Given Documented by: MARTIN Non-Admin Reason: No Insulin Coverage Lactulose (Lactulose 20 Gm/30 Ml Solution) 200 gm ND Q4H PRN PRN Reason: if pt cant tolerate PO Lactulose (Lactulose 20 Gm/30 Ml Solution) 45 gm PO RQ4H WHILE AWAKE COUNTS INCLUDE 234 BEDS AT THE [facility] Last Admin: 03/03/21 12:20 Dose: 45 gm Documented by: MARTIN Levetiracetam (Levetiracetam 250 Mg Tablet) 250 mg PO MOWEFR@1645 COUNTS INCLUDE 234 BEDS AT THE [facility] Last Admin: 03/02/21 16:07 Dose: 250 mg Documented by: VALERY Levetiracetam (Levetiracetam 1,000 Mg Tablet) 1,000 mg PO DAILY COUNTS INCLUDE 234 BEDS AT THE [facility] Last Admin: 03/03/21 07:23 Dose: 1,000 mg Documented by: MARTIN Levothyroxine Sodium (Levothyroxine Sodium 150 Mcg Tablet) 150 mcg PO DAILY@0630 COUNTS INCLUDE 234 BEDS AT THE [facility] Last Admin: 03/03/21 06:31 Dose: 150 mcg Documented by: LAKHWINDER Omeprazole (Omeprazole 20 Mg Capsule.) 20 mg PO BID@0630,1630 COUNTS INCLUDE 234 BEDS AT THE [facility] Last Admin: 03/03/21 06:31 Dose: 20 mg Documented by: LAKHWINDER Pharmacy Consult (Consult Rx Perform Med Rec) 1 each MISCELLANE ONCE PRN PRN Reason: Consult order Pharmacy Consult (Consult Rx Vancomycin Dosing) 1 each MISCELLANE DAILY PRN PRN Reason: Consult order Pharmacy Consult (Consult Rx Vancomycin Dosing) 1 each MISCELLANE DAILY PRN PRN Reason: Consult order Rifaximin (Rifaximin 550 Mg Tablet) 550 mg PO BID COUNTS INCLUDE 234 BEDS AT THE [facility] Last Admin: 03/03/21 07:24 Dose: 550 mg Documented by: MARTIN Sodium Chloride (0.9 % Sodium Chloride Flush 3 Ml Syringe) 3 ml IVFLUSH QSHIFT COUNTS INCLUDE 234 BEDS AT THE [facility] Last Admin: 03/03/21 07:18 Dose: 3 ml Documented by: MARTIN Tamsulosin HCl (Tamsulosin Hcl 0.4 Mg Capsule) 0.4 mg PO BEDTIME COUNTS INCLUDE 234 BEDS AT THE [facility] Last Admin: 03/02/21 19:54 Dose: 0.4 mg Documented by: HO.SANNAFA Thiamine HCl (Thiamine Hcl 100 Mg Tablet) 100 mg PO BID COUNTS INCLUDE 234 BEDS AT THE [facility] Last Admin: 03/03/21 07:23 Dose: 100 mg Documented by: MARTIN Vitamin D (Cholecalciferol (Vitamin D3) 25 Mcg Tablet) 50 mcg PO DAILY COUNTS INCLUDE 234 BEDS AT THE [facility] Last Admin: 03/03/21 07:24 Dose: 50 mcg Documented by: MARTIN Zinc Sulfate (Zinc Sulfate 220 Mg Capsule) 220 mg PO DAILY@1500 COUNTS INCLUDE 234 BEDS AT THE [facility] Last Admin: 03/03/21 12:19 Dose: 220 mg Documented by: MARTIN Labs CBC & Chem 7: 03/03/21 09:19 03/03/21 09:19 Labs: Laboratory Results - last 24 hr 03/02/21 03/02/21 03/02/21 14:26 15:58 19:59 MCV MCH MCHC RDW Plt Count MPV Immature Gran % (Auto) Neut % (Auto) Lymph % (Auto) [place] % (Auto) Eos % (Auto) Baso % (Auto) Lymph # (Auto) [place] # (Auto) Eos # (Auto) Baso # (Auto) Abs Immat Gran (auto) Absolute Neuts (auto) Absolute Nucleated RBC Nucleated RBC % (auto) PT INR Anion Gap Estim Creat Clear Calc Estimated GFR POC Glucose 128 H 175 H Random Glucose Calcium Total Bilirubin AST ALT Alkaline Phosphatase Ammonia 155 H Total Protein Albumin Procalcitonin Periton Neutrophils Periton Lymphocytes Peritoneal Monocytes Peritoneal Other Cells Peritoneal Albumin 03/02/21 03/02/21 03/03/21 Unknown Unknown 07:19 MCV MCH MCHC RDW Plt Count MPV Immature Gran % (Auto) Neut % (Auto) Lymph % (Auto) [place] % (Auto) Eos % (Auto) Baso % (Auto) Lymph # (Auto) [place] # (Auto) Eos # (Auto) Baso # (Auto) Abs Immat Gran (auto) Absolute Neuts (auto) Absolute Nucleated RBC Nucleated RBC % (auto) PT INR Anion Gap Estim Creat Clear Calc Estimated GFR POC Glucose 110 Random Glucose Calcium Total Bilirubin AST ALT Alkaline Phosphatase Ammonia Total Protein Albumin Procalcitonin Periton Neutrophils 12 Periton Lymphocytes 29 Peritoneal Monocytes 9 Peritoneal Other Cells 50 Peritoneal Albumin SEE NOTE 03/03/21 03/03/21 03/03/21 09:19 09:19 09:19 MCV 95.0 MCH 32.8 MCHC 34.5 RDW 15.7 Plt Count 46 L MPV 11.0 Immature Gran % (Auto) 0.3 Neut % (Auto) 73.6 H Lymph % (Auto) 11.5 L [place] % (Auto) 10.0 Eos % (Auto) 3.7 Baso % (Auto) 0.9 Lymph # (Auto) 0.4 L [place] # (Auto) 0.3 Eos # (Auto) 0.1 Baso # (Auto) 0.0 Abs Immat Gran (auto) 0.01 Absolute Neuts (auto) 2.4 Absolute Nucleated RBC 0.000 Nucleated RBC % (auto) 0.0 PT 23.0 H INR 2.0 H Anion Gap 16 Estim Creat Clear Calc 23.6 Estimated GFR 17 POC Glucose Random Glucose 171 H Calcium 7.5 L D Total Bilirubin 4.0 H AST 46 H ALT 24 Alkaline Phosphatase 190 H Ammonia Total Protein 5.8 L Albumin 2.4 L Procalcitonin Periton Neutrophils Periton Lymphocytes Peritoneal Monocytes Peritoneal Other Cells Peritoneal Albumin 03/03/21 03/03/21 09:19 12:05 MCV MCH MCHC RDW Plt Count MPV Immature Gran % (Auto) Neut % (Auto) Lymph % (Auto) [place] % (Auto) Eos % (Auto) Baso % (Auto) Lymph # (Auto) [place] # (Auto) Eos # (Auto) Baso # (Auto) Abs Immat Gran (auto) Absolute Neuts (auto) Absolute Nucleated RBC Nucleated RBC % (auto) PT INR Anion Gap Estim Creat Clear Calc Estimated GFR POC Glucose 131 H Random Glucose Calcium Total Bilirubin AST ALT Alkaline Phosphatase Ammonia Total Protein Albumin Procalcitonin 0.87 Periton Neutrophils Periton Lymphocytes Peritoneal Monocytes Peritoneal Other Cells Peritoneal Albumin Microbiology Microbiology Results: Microbiology 03/02/21 Unknown Gram Stain - Final Ascites Fluid Routine Culture - Preliminary No growth to date. Anaerobic Culture - Preliminary No growth to date. Assessment and Plan (1) Acute hepatic encephalopathy: Status: Acute (2) Anemia: Status: Acute Assessment and Plan: 70yo M with decompensated cirrhosis with esophageal varices, ESRD on HD, seizure disorder recent admission to [facility] 01/12-02/16/21 after transfer from [facility] for hepatorenal syndrome, hypoglycemia, seizures, pneumonia, coagulopathy; intubated 01/14-01/21 missed 1 HD session during HD schedule change, also not fully adherent with lactulose presented with lethargy; admitted for hepatic encephalopathy and multifocal pneumonia 1. hepatic encephalopathy- improved; lactulose PO and if cannot take it should get it ND; rifaximin; counseled on importance of full compliance 2. healthcare-associated pneumonia- continue broad-spectrum coverage with vancomycin + cefepime , switched to po antibiotics - pneumococcal + Legionella urine antigens pending - BCx NGTD - trend PCT from 1.02-0.87 3. anemia- transfused 2u pRBCs; FOBT pending 4. thrombocytopenia- due to cirrhosis; count stable 5.decompensated cirrhosis with ascites - GI following - diagnostic paracentesis today to r/o SBP - on transplant list at [facility] but declined admission there due to lack of beds and pt's active infection 6. ESRD - HD TuThSa confirmed, Nephrology consulted 7.hyponatremia - mild and chronic, due to cirrhosis 8. hypothyroidism- continue LT4 150 mcg daily; repeat TSH in 4 wk 9.seizures- continue levetiracetam; switch IV to PO 10 DM2- correction-dose lispro 11. VTE ppx - SCDs due to bleeding risk, thrombocytopenia 12. dispo- anticipate d/c tomorrow to LTC vs home Quality Stroke Does the patient have a stroke diagnosis?: No VTE Prior VTE?: No VTE Risk Level:: Medical - moderate - high VTE Device Contraindication: N/A - Device Ordered VTE Drug Contraindication: Treatment Not Indicated
--- NOTE | 2021-03-03 13:07 | MHC.CDI.CONC ---
CDI Concurrent Query Documentation Clarification: PHYSICIAN'S DOCUMENTATION REQUEST Date of Query: 03/03/21 2925 Patient Name: Shadi Tom Admit Date: 02/26/21 Dear Doctor, A review of the medical record indicates additional documentation may be needed. Please review below and update the documentation accordingly. Clinical Indicators: Documentation includes the diagnosis of malnutrition. Additional clinical indicators from the record include: Risk Factors/Clinical Indicators/Treatments HT 5'10 WT 104.326 kg BMI: 33.0 Per Nutrition Risk Assessment 03/02/21: unplanned weight loss > 10% 6 months GI 02/27/21: Chronic anemia due to anemia of chronic disease and malnutrition ASPEN Criteria* Acute Illness Chronic Illness Clinical Characteristic Non-Severe (2 or more criteria present) Severe (2 or more criteria present) Non-Severe (2 or more criteria present) Severe (2 or more criteria present) Energy Intake <75% for >7 days <=50% for >=5 days <75% for >=1 month <=75% for >=1 month Weight Loss 1 week 1 ? 2% >2% N/A N/A 1 month 5% >5% 5% >5% 3 months 7.5 % >7.5% 7.5% >7.5% 6 months N/A N/A 10% >10% 1 year N/A N/A 20% >20% Body Fat Mild Moderate Mild Severe Muscle Mass Mild Moderate Mild Severe Fluid Accumulation Mild Moderate to Severe Mild Severe Reduced Machine Cleaner Strength N/A Measurably Reduced N/A Measurably Reduced *[facility] Hospitalist, 2017 If possible, please provide in your progress notes, additional specificity regarding the severity of the malnutrition using the above information: Mild Moderate Severe Other (please specify) Unable to determine Use of terms such as suspected, likely, concern for, or probable (associated with a specific diagnosis that is being evaluated, monitored, or treated as if it exists) are acceptable and can be coded in the inpatient setting, when documented at the time of discharge. Thank you, Anna Hill RN Extension: [phone] Please use your independent medical judgment in providing your response. THIS QUERY IS PART OF THE PERMANENT MEDICAL RECORD Provider Response: Other Other Diagnosis: mild malnutrion
[2021-03-03 16:07] LABS: Glucose, Whole Blood 188 mg/dL (60-115)
[2021-03-03] MEDS: Insulin Lispro 100 UNIT/ML 3 ML VIAL SUBCUT ×2 (16:15→20:25)
--- NOTE | 2021-03-03 17:59 | MHC.SL.SWA ---
Speech Pathologist Impression: Risk of Aspiration Oralpharyngeal Dysphagia Risk of Aspiration Due to: History of Pneumonia Dysphasia Diet Status: Downgrade Liquid Consistency and Strategies for Safe Swallow: Liquid Intake Recommendation: Honey Thick Liquid Intake Strategies: Small Sips No Straws Solid Food Consistency: Dietary Recommendations: Regular Additional Modifications to Solid Foods: Recommend continue REGULAR solids (avoid tough, difficult to chew foods) and DOWNGRADE to HONEY THICK liquids with pills WHOLE or CRUSHED in PUREE. Patient produced prolonged wet coughing fit when drinking thin liquid. Patient refused trials of nectar thick liquid so tolerance of nectar thick consistency is unknown. Patient is able to feed himself. He is recommended aspiration precautions and total supervision. MD, RN, and RD notified by [employer]. SUPERVISOR EXTRUDING DEPARTMENT changed diet order in [facility]. Oral Medication Intake: Whole with Puree Compensatory Strategies and Precautions to be Taken for Safe Swallow: Sitting Upright (90 deg) Double Swallow No Straw Small Bites and Sips Alternate Liquids/Solids Rate of Ingestion Change Oral Check Avoid Specific Foods Supervision While Eating and Drinking for Safe Swallow: Total Supervision (1:1) Foods to Avoid: tough, difficult to chew foods Swallowing Recommended Treatments: Compens. Strategy Educat. Recommendation for Speech: Inpatient Speech Therapy Speech Pathologist Assistant Clinican/Clinical Fellow: Yes: Sophia Jackson Supervisory Statement: I have reviewed and agree with the student/clinical fellow's documentation: Yes Speech Language Pathologist: Brenda Bennett M.A., CCC-SUPERVISOR EXTRUDING DEPARTMENT
--- NOTE | 2021-03-03 18:01 | MHC.SLORD ---
Speech Language Pathology Order Status: Recommend continue REGULAR solids (avoid tough, difficult to chew foods; avoid mixed consistencies) and DOWNGRADE to HONEY THICK liquids with pills WHOLE or CRUSHED in PUREE. Patient produced prolonged wet coughing fit when drinking thin liquid. Patient refused trials of nectar thick liquid so tolerance of nectar thick consistency is unknown. Patient is able to feed himself. He is recommended aspiration precautions and total supervision. MD, RN, and RD notified by [employer]. WINDOWS ADMINISTRATOR changed diet order in [facility].
[2021-03-03 20:17] LABS: Glucose, Whole Blood 170 mg/dL (60-115)
[2021-03-03] MEDS: Tamsulosin HCL 0.4 MG CAPSULE PO (20:24)
[2021-03-04 04:00] VITALS: BP 131/75; PULSE 77; RESP 18; TEMP 36.8; O2SAT 99
[2021-03-04] MEDS: Omeprazole 20 MG CAPSULE.DR PO ×2 (06:26→16:57)
[2021-03-04] MEDS: Levothyroxine Sodium 150 MCG TABLET PO (06:27)
[2021-03-04 07:08] VITALS: PULSE 76; RESP 16; TEMP 36.4; O2SAT 99
[2021-03-04] MEDS: Insulin Lispro 100 UNIT/ML 3 ML VIAL SUBCUT ×3 (07:32→22:06)
[2021-03-04] MEDS: 0.9 % Sodium Chloride Flush 3 ML SYRINGE IVFLUSH ×3 (07:32→20:12)
[2021-03-04 08:36] LABS: Hematocrit 22.1 % (42-52); Hemoglobin 7.9 g/dl (14.0-18.0)
[2021-03-04 08:43] LABS: Ammonia 89 umol/L (13-55)
--- NOTE | 2021-03-04 09:45 | MHC.SL.DTX ---
Pre-Treatment Diet: Subjective: Changes made to current diet?: No Dysphasia Diet Status: continue current diet consistency- pt refused all liquid consistencies offered Liquid Consistency and Strategies: Liquid Intake Recommendation: Honey Thick Compensatory Strategies for Safe Swallow: Small Sips No Straws Compensatory Strategies for Safe Swallow(b): Sitting Upright (90 deg) No Straw Liquids from Cup Small Bites and Sips Alternate Liquids/Solids Solid Food Consistency: Dietary Recommendations: Regular Additional Modifications to Solids: Recommend continue REGULAR solids (avoid tough, difficult to chew foods; avoid mixed consistencies) and HONEY THICK liquids with pills WHOLE or CRUSHED in PUREE. Continue with aspiration precautions and total supervision with all PO intake. Oral Medication Intake: Whole with Puree Strategies and Precautions to be Taken for Safe Swallow: Compensatory Swallowing Status: Sitting Upright (90 deg) No Straw Liquids from Cup Small Bites and Sips Alternate Liquids/Solids Supervision While Eating and/Drinking: Total Supervision (1:1) Foods to Avoid: tough, difficult to chew foods, mixed consistencies Swallowing Recommended Treatments: Compens. Strategy Educat. Level of Impact on: Daily activities: Moderate Interpersonal interactions: Moderate Community: Moderate Prognosis for Improvement: Fair Recommendation for Speech: Inpatient Speech Therapy Treatment: Pt was seen for dysphagia treatment with a 1:1 sitter present. Current diet consistency REGULAR solids and HONEY THICK liquids. 1:1 sitter reported that pt consumed 100% of solids at breakfast with no overt difficulty. She stated that pt refused all liquids. Pt continued to adamantly refuse all liquid consistencies offered, stating I won't drink, now leave it alone! and Hell no! when various drinks were offered. Education was provided re: the importance of the intake of liquids for both hydration as well as to assist with swallowing solids. Pt did accept 1 sharon cracker for which he demonstrated an unremarkable oral phase with WFL oral clearance. Even after consuming a dry solid, pt was not agreeable to drink any liquids. Updated with RN. Continue with current diet consistency as unable to assess for potential upgrade in liquid consistency due to pt's refusal this date. Pan Devulcanizer Clinican/Clinical Fellow: No Supervisory Statement: I have reviewed and agree with the student/clinical fellow's documentation: N/A Speech Language Pathologist: Alee Sorenson M.A., CCC-BIRTHING NURSE
--- NOTE | 2021-03-04 09:53 | MHC.CM.PN ---
Addendum entered by Georgina Urias RN 03/04/21 10:11: CM CONTACTED FINANCIAL SERVICES TO DISCUSS [employer] INSURANCE OPTIONS AND PER FINANCIAL PT HAS THE COMMON [employer] PLAN WHICH DOES COVER REPITE/SNF SERVICES. Original Note: CM RECEIVED MESSAGE FROM PT'S JEROME AND RETURNED HER CALL AT 9:45AM [phone], JEROME REPORTS SHE NOW DOES NOT WANT TO TAKE PT HOME AND DOESN'T FEEL SHE CAN CARE FOR HIM D/T CONFUSION, JEROME DENIES ANY FAMILY HELP ALTHOUGH THERE ARE 2 ADULT SONS, JEROME AWARE HER CHOICES ARE TO TAKE PT HOME OR TRANSFER PT TO A SNF AND C/O NOT BEING ABLE TO AFFORD SNF, CM HAS MADE JEROME AWARE A SNF IS MUCH LESS EXPENSIVE THEN KEEPING PT IN HOSPITAL SETTING, JEROME REPORTING SHE IS MTG W/HER PHARMACY STOCK CLERK LATER TODAY TO DISCUSS OPTIONS AND CM WILL GIVE FINANCIAL SERVICES HER CONTACT INFO TO DISCUSS OPTIONS FOR [facility]. PER [facility], JEROME HAS ARRANGED TO MEET W/THEM ON TUESDAY W/HER TWO SONS PRESENT.
[2021-03-04] MEDS: Amoxicillin/Potassium Clav 250 MG TABLET PO ×2 (09:56→20:11)
[2021-03-04] MEDS: Cholecalciferol (Vitamin D3) 25 MCG TABLET 50 MCG PO (09:56)
[2021-03-04] MEDS: levETIRAcetam 1,000 MG TABLET 1000 MG PO (09:56)
[2021-03-04] MEDS: Folic Acid 1 MG TABLET PO (09:57)
[2021-03-04] MEDS: Thiamine HCL 100 MG TABLET PO ×2 (09:57→20:11)
[2021-03-04] MEDS: rifAXIMin 550 MG TABLET PO ×2 (09:57→20:11)
--- NOTE | 2021-03-04 09:57 | PM.PNNEP ---
Subjective Subjective Date of Service: 03/05/21 Interval history: Events noted hepatic encephalopathy Physical Exam Vital Signs: Vital Signs: Last Vital Signs Temp 97.5 F 03/04/21 07:08 Pulse 76 03/04/21 07:08 Resp 16 03/04/21 07:08 BP 131/75 03/04/21 04:00 Pulse Ox 99 03/04/21 07:08 Body Mass Index 33.0 Const: General: cooperative and comfortable Nutritional Appearance: obese Orientation/consciousness: oriented to person Neck: Neck: Yes supple and Yes no JVD Resp: Effort & Inspection: no cough Auscultation: diminished lung sounds Cardio: Jugular venous distension: no JVD Palpation: no palpable S3 Rate: not tachycardic Heart sounds: no gallops and no rubs GI: Inspection: Yes obesity Palpation (GI): Soft to palpation, nontender, Ascites present and No Rebound tenderness present Auscultation: normal bowel sounds Neuro: General: oriented to person Motor exam (neuro): No Asterixis during motor activity present Extrem: General: No cyanosis and Yes pedal edema Objective Data Labs CBC & Chem 7: 03/04/21 08:18 03/03/21 09:19 Labs: Laboratory Results - last 24 hr 03/03/21 03/03/21 03/03/21 09:19 09:19 09:19 WBC 3.2 L RBC 2.38 L Hgb 7.8 L Hct 22.6 L MCV 95.0 MCH 32.8 MCHC 34.5 RDW 15.7 Plt Count 46 L MPV 11.0 Immature Gran % (Auto) 0.3 Neut % (Auto) 73.6 H Lymph % (Auto) 11.[address] [facility] % (Auto) 10.0 Eos % (Auto) 3.7 Baso % (Auto) 0.9 Lymph # (Auto) 0.[address] [facility] # (Auto) 0.3 Eos # (Auto) 0.1 Baso # (Auto) 0.0 Abs Immat Gran (auto) 0.01 Absolute Neuts (auto) 2.4 Absolute Nucleated RBC 0.000 Nucleated RBC % (auto) 0.0 PT 23.0 H INR 2.0 H POC Glucose Ammonia Procalcitonin 0.87 03/03/21 03/03/21 03/03/21 12:05 15:57 20:09 WBC RBC Hgb Hct MCV MCH MCHC RDW Plt Count MPV Immature Gran % (Auto) Neut % (Auto) Lymph % (Auto) [facility] % (Auto) Eos % (Auto) Baso % (Auto) Lymph # (Auto) [facility] # (Auto) Eos # (Auto) Baso # (Auto) Abs Immat Gran (auto) Absolute Neuts (auto) Absolute Nucleated RBC Nucleated RBC % (auto) PT INR POC Glucose 131 H 188 H 170 H Ammonia Procalcitonin 03/04/21 03/04/21 08:18 08:18 WBC RBC Hgb 7.9 L Hct 22.1 L MCV MCH MCHC RDW Plt Count MPV Immature Gran % (Auto) Neut % (Auto) Lymph % (Auto) [facility] % (Auto) Eos % (Auto) Baso % (Auto) Lymph # (Auto) [facility] # (Auto) Eos # (Auto) Baso # (Auto) Abs Immat Gran (auto) Absolute Neuts (auto) Absolute Nucleated RBC Nucleated RBC % (auto) PT INR POC Glucose Ammonia 89 H Procalcitonin Microbiology Microbiology Results: Microbiology 03/02/21 Unknown Ascites Fluid Gram Stain - Final 03/02/21 Unknown Ascites Fluid Routine Culture - Final No growth after 2 days 03/02/21 Unknown Ascites Fluid Anaerobic Culture - Preliminary No growth to date. 02/26/21 22:47 Blood - Venous Blood Culture - Final No growth after 5 days. 02/26/21 22:47 Blood - Venous Blood Culture - Final No growth after 5 days. Procedures Date of Service Date of Service: 03/04/21 Assessment & Plan Assessment and plan (1) Anemia: Status: Acute (2) Cirrhosis of liver with ascites: Status: Acute (3) ESRD (end stage renal disease): Status: Acute Assessment and Plan: HD on TTS schedule No s/s of uremia Out Pt Hd arranged at [facility] TTS -2 shift Will add Midodrine 5 mg PO before HD to facilitate fluid removal Assessment and Plan: Start Epogen for anemia Time Spent With Patient Time: Total time spent is greater than 50% in coordination of care (as documented) at patient's floor/unit and/or counseling patient: Progress Note: Quality Stroke Does the patient have a stroke diagnosis?: No
[2021-03-04] MEDS: Lactulose 20 GM/30 ML SOLUTION 45 GM PO ×2 (10:05→17:04)
[2021-03-04 11:19] VITALS: BP 119/57; PULSE 75; RESP 17; TEMP 36.8; O2SAT 100
[2021-03-04 11:25] LABS: Glucose, Whole Blood 210 mg/dL (60-115)
--- NOTE | 2021-03-04 12:34 | MHC.CM.PN ---
PER HOSPITALIST PT WILL TRANSFER TO [facility] TO LIVER SPECIALIST, PT'S JEROME IS AWARE, SNF/HOSPICE/[facility] REFERRALS UPDATED VIA [facility].
--- NOTE | 2021-03-04 13:55 | MHC.CLN ---
F/U SEEN BY PET WALKER WITH LIQUID CONSISTENCY CHANGED TO HONEY THICK LIQUIDS. CONTINUES WITH HEMODIALYSIS. INTAKE VARIABLE AT MEALS, 0-100%. CONTINUE TO FOLLOW LABS AND INTAKE.
--- NOTE | 2021-03-04 15:21 | P.PNIM_ITS ---
Subjective Subjective Date of Service: 03/04/21 Interval History: Hepatic encephalopathy Review of Systems Could able to answer few simple questions today Denies any chest pain shortness of breath or abdominal pain or fever chills Physical Exam Vital Signs: Vital Signs: Last Vital Signs Temp 98.2 F 03/04/21 11:19 Pulse 75 03/04/21 11:19 Resp 17 03/04/21 11:19 BP 119/57 L 03/04/21 11:19 Pulse Ox 100 03/04/21 11:19 Body Mass Index 33.0 Gen: chronically ill appearing, awake HEENT: mild scleral icterus. Neck: supple, R SC tunneled HD catheter without signs of infection or bleeding Lungs: air entry seems improving, slighgtly diminshed at bases. Heart: regular rate and rhythm, no murmurs Abd: soft, non-tender,? obese/distended, ascites present Ext: chronic lymphedema of legs Skin: warm/well-perfused, bruising. Neuro: no focal deficit, no asterixis Psych: restricted affect Objective Data Active Medications Amoxicillin/Clavulanate Potassium (Amoxicillin/Potassium Clav 250 Mg Tablet) 250 mg PO Q12H [facility] Last Admin: 03/04/21 09:56 Dose: 250 mg Documented by: CAROL ANN Dextrose (Dextrose 50 % 25 Gm/50 Ml Vial) 25 gm IVPUSH Q15M PRN; Protocol PRN Reason: per Hypoglycemia Standing Ord. Doxycycline Hyclate (Doxycycline Hyclate 100 Mg Tablet) 100 mg PO Q12H [facility] Last Admin: 03/04/21 09:57 Dose: 100 mg Documented by: CAROL ANN Epoetin Julito (Epoetin Julito 10,000 Unit/Ml Vial) 10,000 unit SUBCUT MoWeFr@1645 [facility] Last Admin: 03/02/21 16:07 Dose: 10,000 unit Documented by: VALERY Folic Acid (Folic Acid 1 Mg Tablet) 1 mg PO DAILY [facility] Last Admin: 03/04/21 09:57 Dose: 1 mg Documented by: CAROL ANN Glucose (Glucose Gel 15 Gm Gel..Gram.) 15 gm PO Q15M PRN; Protocol PRN Reason: per Hypoglycemia Standing Ord. Insulin Human Lispro (Insulin Lispro 100 Unit/Ml 3 Ml Vial) 0 unit SUBCUT QIDACHS [facility]; Protocol Last Admin: 03/04/21 12:03 Dose: Not Given Documented by: CAROL ANN Non-Admin Reason: Patient Refused Lactulose (Lactulose 20 Gm/30 Ml Solution) 200 gm AZ Q4H PRN PRN Reason: if pt cant tolerate PO Lactulose (Lactulose 20 Gm/30 Ml Solution) 45 gm PO RQ4H WHILE AWAKE [facility] Last Admin: 03/04/21 13:39 Dose: Not Given Documented by: CAROL ANN Non-Admin Reason: Patient Refused Levetiracetam (Levetiracetam 250 Mg Tablet) 250 mg PO MOWEFR@1645 [facility] Last Admin: 03/02/21 16:07 Dose: 250 mg Documented by: VALERY Levetiracetam (Levetiracetam 1,000 Mg Tablet) 1,000 mg PO DAILY [facility] Last Admin: 03/04/21 09:56 Dose: 1,000 mg Documented by: CAROL ANN Levothyroxine Sodium (Levothyroxine Sodium 150 Mcg Tablet) 150 mcg PO DAILY@0630 [facility] Last Admin: 03/04/21 06:27 Dose: 150 mcg Documented by: BELLO Comments: barcode will not scan. Midodrine (Midodrine Hcl 5 Mg Tablet) 5 mg PO PRE PROCEDURE [facility] Omeprazole (Omeprazole 20 Mg Capsule.) 20 mg PO BID@0630,1630 [facility] Last Admin: 03/04/21 06:26 Dose: 20 mg Documented by: BELLO Pharmacy Consult (Consult Rx Perform Med Rec) 1 each MISCELLANE ONCE PRN PRN Reason: Consult order Pharmacy Consult (Consult Rx Vancomycin Dosing) 1 each MISCELLANE DAILY PRN PRN Reason: Consult order Pharmacy Consult (Consult Rx Vancomycin Dosing) 1 each MISCELLANE DAILY PRN PRN Reason: Consult order Rifaximin (Rifaximin 550 Mg Tablet) 550 mg PO BID [facility] Last Admin: 03/04/21 09:57 Dose: 550 mg Documented by: CAROL ANN Sodium Chloride (0.9 % Sodium Chloride Flush 3 Ml Syringe) 3 ml IVFLUSH QSHIFT [facility] Last Admin: 03/04/21 07:32 Dose: 3 ml Documented by: CAROL ANN Tamsulosin HCl (Tamsulosin Hcl 0.4 Mg Capsule) 0.4 mg PO BEDTIME [facility] Last Admin: 03/03/21 20:24 Dose: 0.4 mg Documented by: BELLO Thiamine HCl (Thiamine Hcl 100 Mg Tablet) 100 mg PO BID [facility] Last Admin: 03/04/21 09:57 Dose: 100 mg Documented by: CAROL ANN Vitamin D (Cholecalciferol (Vitamin D3) 25 Mcg Tablet) 50 mcg PO DAILY [facility] Last Admin: 03/04/21 09:56 Dose: 50 mcg Documented by: ACROL ANN Zinc Sulfate (Zinc Sulfate 220 Mg Capsule) 220 mg PO DAILY@1500 [facility] Last Admin: 03/03/21 12:19 Dose: 220 mg Documented by: MARTIN Labs CBC & Chem 7: 03/04/21 08:18 03/03/21 09:19 Labs: Laboratory Results - last 24 hr 03/03/21 03/03/21 03/04/21 15:57 20:09 08:18 POC Glucose 188 H 170 H Ammonia 89 H 03/04/21 11:16 POC Glucose 210 H Ammonia Microbiology Microbiology Results: Microbiology 03/02/21 Unknown Gram Stain - Final Ascites Fluid Routine Culture - Final No growth after 2 days Anaerobic Culture - Preliminary No growth to date. 02/26/21 22:47 Blood Culture - Final Blood - Venous No growth after 5 days. 02/26/21 22:47 Blood Culture - Final Blood - Venous No growth after 5 days. Assessment and Plan (1) Acute hepatic encephalopathy: Status: Acute Assessment and Plan: 70yo M with decompensated cirrhosis with esophageal varices, ESRD on HD, seizure disorder recent admission to [facility] 01/12-02/16/21 after transfer from [facility] for hepatorenal syndrome, hypoglycemia, seizures, pneumonia, coagulopathy; intubated 01/14-01/21 missed 1 HD session during HD schedule change, also not fully adherent with lactulose presented with lethargy; admitted for hepatic encephalopathy and multifocal pneumonia 1. hepatic encephalopathy- improved; lactulose PO and if cannot take it should get it AZ; rifaximin; counseled on importance of full compliance 2. healthcare-associated pneumonia- continue broad-spectrum coverage with vancomycin + cefepime , switched to po antibiotics - pneumococcal + Legionella urine antigens pending - BCx NGTD - trend PCT from 1.02-0.87 3. anemia- transfused 2u pRBCs; FOBT pending 4. thrombocytopenia- due to cirrhosis; count stable 5.decompensated cirrhosis with ascites - GI following - diagnostic paracentesis today to r/o SBP - on transplant list at [facility] but declined admission there due to lack of beds and pt's active infection 6. ESRD - HD TuThSa confirmed, Nephrology consulted 7.hyponatremia - mild and chronic, due to cirrhosis 8. hypothyroidism- continue LT4 150 mcg daily; repeat TSH in 4 wk 9.seizures- continue levetiracetam; switch IV to PO 10 DM2- correction-dose lispro 11. VTE ppx - SCDs due to bleeding risk, thrombocytopenia 12. dispo-discussed with [facility]-care team line at [phone], no bed available yet. Quality Stroke Does the patient have a stroke diagnosis?: No VTE Prior VTE?: No VTE Risk Level:: Medical - moderate - high VTE Device Contraindication: N/A - Device Ordered VTE Drug Contraindication: Treatment Not Indicated
[2021-03-04 15:50] VITALS: BP 138/60; PULSE 82; RESP 16; TEMP 36.7; O2SAT 95
[2021-03-04 16:24] LABS: Glucose, Whole Blood 232 mg/dL (60-115)
[2021-03-04] MEDS: levETIRAcetam 250 MG TABLET PO (16:57)
[2021-03-04] MEDS: Zinc Sulfate 220 MG CAPSULE PO (16:57)
[2021-03-04 20:00] VITALS: BP 122/46; PULSE 70; RESP 18; TEMP 36.8; O2SAT 100
[2021-03-04] MEDS: Tamsulosin HCL 0.4 MG CAPSULE PO (20:11)
[2021-03-04 20:50] LABS: Glucose, Whole Blood 182 mg/dL (60-115)
[2021-03-04 23:39] VITALS: BP 123/58; PULSE 86; RESP 18; TEMP 36.6; O2SAT 100
[2021-03-05 00:23] LABS: Glucose, Whole Blood 195 mg/dL (60-115)
[2021-03-05] MEDS: Omeprazole 20 MG CAPSULE.DR PO ×2 (02:27→05:51)
[2021-03-05 02:54] VITALS: BP 128/70; PULSE 82; RESP 18; TEMP 36.6; O2SAT 100
[2021-03-05] MEDS: Levothyroxine Sodium 150 MCG TABLET PO (05:51)
--- NOTE | 2021-03-05 09:50 | W.PM.DNNEP ---
Subjective Subjective This patient was seen during dialysis. Interval history: Hepatic encephalopathy Physical Exam Vital Signs: Vital Signs: Last Vital Signs Temp 98 F 03/05/21 02:54 Pulse 82 03/05/21 02:54 Resp 18 03/05/21 02:54 BP 128/70 03/05/21 02:54 Pulse Ox 100 03/05/21 02:54 Body Mass Index 33.0 Const: General: cooperative and comfortable Nutritional Appearance: obese Orientation/consciousness: oriented to person Neck: Neck: Yes supple and Yes no JVD Resp: Effort & Inspection: no cough Auscultation: diminished lung sounds Cardio: Jugular venous distension: no JVD Palpation: no palpable S3 Rate: not tachycardic Heart sounds: no gallops and no rubs GI: Inspection: Yes obesity Palpation (GI): Soft to palpation, nontender, Ascites present and No Rebound tenderness present Auscultation: normal bowel sounds Neuro: General: oriented to person Motor exam (neuro): No Asterixis during motor activity present Extrem: General: No cyanosis and Yes pedal edema Assessment & Plan Assessment and plan (1) Anemia: Status: Acute (2) Cirrhosis of liver with ascites: Status: Acute (3) ESRD (end stage renal disease): Status: Acute Assessment and Plan: HD on TTS schedule No s/s of uremia Out Pt Hd arranged at [facility] TTS -2 shift Midodrine 5 mg PO before HD to facilitate fluid removal Await Rehab/ Transfe r to [facility] Assessment and Plan: Start Epogen for anemia Time Spent With Patient Time: Total time spent is greater than 50% in coordination of care (as documented) at patient's floor/unit and/or counseling patient: Time with patient: 15 - 24 minutes Procedures Date of Service Date of Service: 03/05/21
[2021-03-05 10:51] VITALS: BP 150/63; PULSE 71; RESP 16; TEMP 36.7; O2SAT 100
[2021-03-05 10:56] LABS: Glucose, Whole Blood 125 mg/dL (60-115)
[2021-03-05] MEDS: rifAXIMin 550 MG TABLET PO (11:21)
[2021-03-05] MEDS: Folic Acid 1 MG TABLET PO (11:21)
[2021-03-05] MEDS: levETIRAcetam 1,000 MG TABLET 1000 MG PO (11:21)
[2021-03-05] MEDS: Thiamine HCL 100 MG TABLET PO (11:21)
[2021-03-05] MEDS: 0.9 % Sodium Chloride Flush 3 ML SYRINGE IVFLUSH (11:22)
[2021-03-05] MEDS: Cholecalciferol (Vitamin D3) 25 MCG TABLET 50 MCG PO (11:22)
[2021-03-05] MEDS: Lactulose 20 GM/30 ML SOLUTION 45 GM PO (11:29)
[2021-03-05] MEDS: Amoxicillin/Potassium Clav 250 MG TABLET PO (11:29)
--- NOTE | 2021-03-05 12:05 | MHC.SLORD ---
Speech Language Pathology Order Status: MATERIAL FLOW ENGINEER attempted to see patient for PO trials this morning, but patient was off floor for a procedure. MATERIAL FLOW ENGINEER to return this afternoon if schedule allows or tomorrow morning to re-assess potential for upgrade in liquid consistency if patient is willing to participate. Will continue to follow.
--- NOTE | 2021-03-05 13:08 | P.DS_ITS ---
DS: Providers Provider Date of Service: 03/05/21 Date of admission: 02/26/21 22:53 Date of discharge: 03/05/21 Primary care physician: Unknown Physician Consults: 02/26/21 22:49 Consult to Gastroenterology Routine Consulting Provider: Porter Tovar Reason for consultation: hepatic encephalopathy Consult to Infectious Diseases Routine Consulting Provider: Camryn Mclain Reason for consultation: rec pna Consult to Nephrology Routine Consulting Provider: Jonah Billingsley Reason for consultation: ESRD; missed last two HD sessions. p/w AMS 03/02/21 13:21 Consult to Psychiatry Routine Consulting Provider: Psych Covering Reason for consultation: please evaluate for competency; pt trying to leave AMA- cirrhotic/ESRD, DS: Diagnosis Discharge Diagnosis (1) Anemia: Status: Acute (2) Cirrhosis of liver with ascites: Status: Acute (3) ESRD (end stage renal disease): Status: Acute DS: Summary Hospital Course Hospital Course: 70yo M with decompensated cirrhosis with esophageal varices, ESRD on HD, seizure disorder recent admission to [facility] 01/12-02/16/21 [place] [facility] [place], hypoglycemia, seizures, pneumonia, coagulopathy; intubated 01/14-01/21 missed 1 HD session during HD schedule change, also not fully adherent with lactulose presented with lethargy; admitted for hepatic encephalopathy and multifocal pneumonia. Hospital course: Patient admitted due to decompensated cirrhosis and esophageal varices, also found to have ectatic encephalopathy. Patient has hepatorenal syndrome on dialysis-Tuesday and Tuesday. He got paracentesis during this admission 4.5 L fluid was removed. Now seems euvolemic. Nephro recommended adding small dose of midodrine on dialysis days only. Patient was treated hepatic encephalopathy olivier lactulose and rifaximin and improving.goal bowel movement 4 per day. Please cut down lactulose to 20 gm q.i.d. if has more than 4 for bowel movements a day, stop lactulose if perfuse diarrhea. Anemia/thrombocytopenia: Probably related to cirrhosis, hepatorenal on hd:received 2 PRBC-seen by GI-added omeprazole, zinc- please follow-up with the GI out patiently. In addition patient had Hcap: Treated with IV antibiotic initially, and subsequently switched to p.o. antibiotic please complete the course of doxycycline and Augmentin. Please repeat chest imaging study with PCP in 3-4 week time to see resolution of pneumonia. Diabetes: Fingersticks are running mostly in 100-180 range, asymptomatic, we will hold off on tresba, monitor fingersticks at home-use sliding scale coverage if fingersticks above 200 mg/dL. Above management discussed with patient's tactical intelligence officer in [facility]-they currently do not have bed so they recommended to discharge patient and they will arrange subsequently transfer to [facility]. follow up with dr alanna HINOJOSA ,pcp -moniter cbc, bmp ,lft's , Hba1c and tsh in 1 w t[place] with pcp. Above management discussed with patient in detail length she understand and in agreement with the plan. For noncompliance with medications discussed with his also in detail she understand and she still thinks that she can they can manage at home with the help of VNA and case management also discuss says the whole situation with the again in detail. Risk of missing dialysis and not taking his lactulose her discussed with the including worsening liver function as well as encephalopathy and even -she understand-she says that she will try her best to reinforce compliance and she wants to take him home , refused rehab. Discussed with patient's tactical intelligence officer Dr. young in [facility] they do not have bed but they will do outpatient arrangement for him to transfer to [facility]. Time Spent with Patient Time attestation: Total time spent providing and/or coordinating discharge services: Discharge coordination time: Greater than 30 minutes Quality: Stroke Does the patient have a stroke diagnosis?: No Physical Exam Vital Signs: Vital Signs: Last Vital Signs Temp 98.0 F 03/05/21 10:51 Pulse 71 03/05/21 10:51 Resp 16 03/05/21 10:51 BP 150/63 H 03/05/21 10:51 Pulse Ox 100 03/05/21 10:51 Body Mass Index 33.0 Gen:seems improving,walking in coridor, awake HEENT: mild scleral icterus. Neck: supple. Lungs: air entry seems improving, slighgtly diminshed at bases. Heart: regular rate and rhythm, no murmurs Abd: soft, non-tender,? obese/distended, ascites present Ext: chronic lymphedema of legs Skin: warm/well-perfused, bruising. Neuro: seems more alert aox2 ,seems improving,no focal deficit, no asterixis Psych: restricted affect DS: Data Data Completed and Pending Completed studies during hospitalization [Text1]: Procedures Drainage of Peritoneal Cavity, Percutaneous Approach (01/04/21) Introduction of Mineral-based Topical Hemostatic Agent into Upper GI, Via Natural or Artificial Opening Endoscopic, New Technology Group 6 (10/15/20) Transfusion of Nonautologous Frozen Plasma into Peripheral Vein, Percutaneous Approach (01/04/21) Transfusion of Nonautologous Platelets into Peripheral Vein, Percutaneous Approach (01/04/21) Labs on day of discharge: Laboratory Results - last 24 hr 03/04/21 03/04/21 03/04/21 07:10 16:13 20:43 POC Glucose 195 H 232 H 182 H 03/05/21 10:48 POC Glucose 125 H Preliminary micro results at discharge 03/02/21 Unknown Anaerobic Culture - Preliminary Ascites Fluid No growth to date. Additional Comments Additional comments: 02/26:chests ct:IMPRESSION: Multilobar infiltrate , ? Covid disease. ? Small bilateral pleural effusions and ascites. Right hepatic lobe cyst, lobulated liver ?cirrhosis. ? Cholelithiasis. Splenomegaly. ? No acute intracranial process seen. 02/26:head ct: Brain: There is no acute intra-axial, extra-axial bleed, masses or midline shift. There is no acute infarction in evolution. There is no edema. Both lateral ventricles are symmetrical in size and configuration. No calvarial abnormality. No scalp soft tissue abnormality seen. There is a small external occipital horn noted. abd us:IMPRESSION: Moderate ascites. Discharge Plan Discharge Patient Disposition: Home Health Service Discharge Diagnosis: Hepatic encephalopathy, Hcap, anemia/thrombocytopenia Referrals: [facility] [Outside] - 1 Day (RESUMPTION OF SERVICE, LABS TO BE DRAWN X 1 WEEK: CBC, BMP, LFT'S, TSH AND HGB A1C.) Selena Stewart MD [Physician] - 1 Week (fu in 1week) Jose Rudolph MD [Physician] - 1 Week (fu in 1 week) Malcoml Morgan MD [Physician] - 1 Week (fu in 1 week) Physician,Unknown J [Primary Care Provider] - 1 Week Discharge Medications: New midodrine 5 mg Tablet 5 mg PO PRE PROCEDURE Qty: 5 RF: 0 zinc sulfate [Zinc-220] 50 mg zinc (220 mg) Capsule 220 mg PO DAILY@1500 Qty: 30 RF: 0 lactulose 20 gram/30 mL solution 30 g PO QID Qty: 1200 RF: 0 doxycycline hyclate 100 mg tablet 100 mg PO DAILY Qty: 10 RF: 0 amoxicillin-pot clavulanate [Augmentin] 250-62.5 mg/5 mL suspension for reconstitution 10 ml PO BID Qty: 100 RF: 0 insulin lispro [Humalog KwikPen Insulin] 100 unit/mL insulin pen See Protocol sliding scale dose subcut USEASDIRECTD Qty: 15 RF: 0 Continued tamsulosin [Flomax] 0.4 mg Capsule 0.4 mg PO BEDTIME RF: 0 folic acid 1 mg Tablet 1 mg PO DAILY RF: 0 cholecalciferol (vitamin D3) [Vitamin D3] 50 mcg (2,000 unit) Capsule 50 mcg PO DAILY RF: 0 magnesium hydroxide [Milk of Magnesia] 400 mg/5 mL Suspension 800 mg PO DAILY PRN (Reason: Constipation) RF: 0 rifaximin 550 mg Tablet 550 mg PO BID RF: 0 levetiracetam 250 mg Tablet 250 mg PO MOWEFR@1645 RF: 0 levetiracetam 500 mg tablet 1,000 mg PO DAILY RF: 0 levothyroxine 150 mcg tablet 150 mcg PO DAILY@0630 RF: 0 (DME) pen needle, diabetic [BD Ultra-Fine Short Pen Needle] 31 gauge x 5/16 needle See Rx Instructions ea subcut BID Qty: 1200 RF: 0 omeprazole 20 mg capsule,delayed release(DR/EC) 20 mg PO BID@0630,1630 RF: 0 Victoza 3-Gordo 0.6 mg/0.1 mL (18 mg/3 mL) pen injector 0.6 mg subcut DAILY RF: 0 thiamine HCl (vitamin B1) 100 mg tablet 100 mg PO BID RF: 0 Held Tresiba FlexTouch U-200 200 unit/mL (3 mL) insulin pen 100 unit subcut DAILY RF: 0 Hold Instructions: Resume on 04/09/21. please hold until seen by pcp. penicillin V potassium 250 mg tablet 250 mg PO DAILY RF: 0 Hold Instructions: Resume on 03/20/21. Discontinued lactulose 10 gram/15 mL solution 20 g PO TID RF: 0 Discharge Orders: Discharge Order (Routine); Ordered 03/05/21 Ordered By: Don Vieira Diet: advance to usual diet, diabetic diet and low salt diet Activity on Discharge: As tolerated Stand Alone Forms: Patient Portal Discharge page Care Plan Goals: Patient admitted due to decompensated cirrhosis and esophageal varices, also found to have ectatic encephalopathy. Patient has hepatorenal syndrome on dialysis-Tuesday and Tuesday. Patient was treated hepatic encephalopathy olivier lactulose and rifaximin and improving.goal bowel movement 4 per day. Please cut down lactulose to 20 gm q.i.d. if has more than 4 for bowel movements a day, stop lactulose if perfuse diarrhea. In addition patient had Hcap: Treated with IV antibiotic initially, and subsequently switched to p.o. antibiotic please complete the course of doxycycline and Augmentin. Please repeat chest imaging study with PCP in 3-4 week time to see resolution of pneumonia. Anemia/thrombocytopenia: Probably related to cirrhosis, hepatorenal on hd:received 2 PRBC-seen by GI-added omeprazole, zinc- please follow-up with the GI out patiently. Diabetes: Fingersticks are running mostly in 100-180 range, asymptomatic, we will hold off on tresba, monitor fingersticks at home-use sliding scale coverage if fingersticks above 200 mg/dL. Above management discussed with patient's tactical intelligence officer in [facility]-they currently do not have bed so they recommended to discharge patient and they will arrange subsequently transfer to [facility]. follow up with dr alanna HINOJOSA ,pcp -moniter cbc, bmp ,lft's , Hba1c and tsh in 1 week with pcp. Above management discussed with patient in detail length she understand and in agreement with the plan. Health Concerns: As above. Plan of Treatment: as above. Assessment: as above.
--- NOTE | 2021-03-05 14:33 | MHC.CM.PN ---
IMM 03/05/21, CM MET W/PT'S JEROME X 2 TODAY AND SHE REPORTS SHE WANTS TO TAKE HIM HOME TODAY AND REPORTS SHE HAS THE SUPPORT ODF HER TWO SONS AND ADDITIONAL FAMILY MEMBERS, JEROME WAS ENCOURAGED TO FOLLOW THROUGH WITH SNF PLACEMENT HOWEVER SHE IS INSISTENT ON TAKING PT HOME D/T PT NOT WANTING TO GO TO SNF. PT WILL D/C TODAY W/RESUMP OF [facility], VNA IS AWARE PT WILL NEED LAB DRAW IN 1 WK FOR CBC, BMP, LFT'S, TSH AND HGBA1C, PT ALSO NEEDS DAILY FINGER STICKS W/NEW HUMOLOG SLIDING SCALE INSULIN, CM REVIEWED THIS W/PT AND PT'S /HCP, PT HAS CLEARED AND WAS ABLE TO TELL CM WHAT DIABETIC MEDICATION HE IS ON AND THAT HE GIVES HIMSELF BOTH MEDS VIA PEN, PT REPORTS HE IS MORE COMFORTABLE W/PENS AND NOT W/SYRINGE AND VIAL, PT AWARE HE WILL BE NO LONGER TAKING TRESIBA AND IS CONFIDENT W/USE OF PENS SO HOSPITALIST IS ORDERING AN INSULIN PEN FOR PT INSTEAD OF VIAL AND SYRINGES, [facility] WILL SEE PT TOMORROW MORNING AND CM HAS ASKED VNA TO DO ADDITIONAL TEACHING W/PT AND . PER HOSPITALIST/ D/C SUMMARY [facility] WILL CONTACT FAMILY AND ARRANGE TRANSPORTATION ONCE BED IS AVAILABLE. D/C PLAN: HOME W/[facility] FOR [facility], FAMILY FOR TRANSPORT.
--- NOTE | 2021-03-05 15:06 | MHC.CM.PN ---
THIS MANAGER SOCIAL MEDIA HAD CONVERSATION WITH /HCP (WITH PERMISSION FROM PATIENT) (JEROME) MADE AWARE OF CONCERNS FOR SAFETY OF PATIENT AND IF PATIENT IS TO RETURN HOME. STATES THAT HER PLAN IS TO KEEP PATIENT ON HIS MEDICATION REGIMEN AND HOPE FOR A BED OFFER AT [facility] SHE IS MORE CONCERNED THAT PATIENT WILL BECOME AGGRESSIVE/COMBATIVE IF FORCED TO GET ON AN AMBULANCE AND GO SOMEPLACE HE DOESNT WANT TO BE PATIENT AND AWARE THAT IF HE IS BROUGHT BACK TO OUR ED, THAT ATTEMPTS CAN BE MADE TO PLACE HIM FROM THERE IF MEDICALLY STABLE. CURRENT OFFER WAS [facility], WHICH IS WHERE PREFERS. ALSO MADE AWARE THAT PATIENT AND ARE CONSIDERED ELDERS AT RISK AND A VERBAL REPORT WILL BE FILED. HOSPITALIST MADE AWARE OF CONVERSATION.
[2021-03-05 17:55] LABS: Legionella Ag Urine Not Detected (Not Detected)
[2021-03-05 22:37] LABS: Strep Pneumo Ag urine Not Detected (Not Detected)
== END 2021-03-05 16:58 | disposition home health service (06) | DRG 441 ==
LOC: HO.ED 22:41 → HO.EDOVER 22:59 → HO.S3 02-27 17:13
PROVIDERS: Family Medicine; Radiology Diagnostic Radiology; Admitting Provider Hospitalist; Emergency Provider Emergency Medicine; Visit Provider Internal Medicine
PROC: 0W9G3ZZ Drainage of Peritoneal Cavity, Percutaneous Approach (ICD-10-PCS; principal; 2021-03-02 12:00)
DX: K72.00 Acute and subacute hepatic failure without coma (principal); J18.9 Pneumonia, unspecified organism; N18.6 End stage renal disease; G92.8 Other toxic encephalopathy; K76.7 Hepatorenal syndrome; E87.2 Acidosis; I13.2 Hypertensive heart and chronic kidney disease with heart failure and with stage 5 chronic kidney disease, or end stage renal disease; E87.1 Hypo-osmolality and hyponatremia; D61.818 Other pancytopenia; R18.8 Other ascites; E44.1 Mild protein-calorie malnutrition; E78.5 Hyperlipidemia, unspecified; Z20.822 Contact with and (suspected) exposure to COVID-19; Z91.15 Patient's noncompliance with renal dialysis; E03.9 Hypothyroidism, unspecified; K74.60 Unspecified cirrhosis of liver; G40.909 Epilepsy, unspecified, not intractable, without status epilepticus; D63.1 Anemia in chronic kidney disease; I50.9 Heart failure, unspecified; E11.22 Type 2 diabetes mellitus with diabetic chronic kidney disease; Z87.01 Personal history of pneumonia (recurrent); Z99.2 Dependence on renal dialysis; Z79.2 Long term (current) use of antibiotics; Z68.33 Body mass index [BMI] 33.0-33.9, adult; Z79.4 Long term (current) use of insulin; Z79.890 Hormone replacement therapy; Z79.899 Other long term (current) drug therapy
CPT/HCPCS: 36415; 49083; 70450; 71250; 76705; 80048; 80053; 80076; 80202; 82042; 82140; 82803; 82947; 83605; 83690; 83735; 84145; 84439; 84443; 84484; 85014; 85018; 85025; 85027; 85610; 85730; 86850; 86900; 86901; 86923; 87040; 87071; 87073; 87205; 87449; 87633; 87635; 87899; 89051; 90999; 92610; 93005; 96365; 96367; 96375; 97162; 99285; 99291; J0692; J0885; J1953; J3370; J3430; P9016; P9047

== ENCOUNTER 2021-03-16 10:46 | Outpatient (REF) | payer MEDICARE, MEDICAID, SELFPAY ==
--- NOTE | 2021-03-16 11:34 | MHC.AU.HFU ---
Hearing Instrument Follow-Up- Binaural Date of Visit: 03/16/21 Right Ear: Acting Section Chief: Phonak Model: Audeo M 70-13T Serial Number: [id number] Repair Warranty: 03/02/2023 Battery Size: 13 Color: Graphite Cueto Wildlife Photographer: #2 Medium Type of Dome: Medium Vented Type of Wax Guard: CeruShield Disk Dispensed By: [facility] Date of Fittin12/17/2019 Left Ear: Acting Section Chief: Phonak Model: Audeo M 70-13T Serial Number: [id number] Repair Warranty: 03/02/2023 Battery Size: 13 Color: Graphite Cueto Wildlife Photographer: #1 Medium Type of Dome: Medium Vented Type of Wax Guard: CeruShield Disk Dispensed By: [facility] Date of Fittin12/17/2019 Follow-Up Summary: Patient was on the schedule for an audiologic re-evaluation. Patient refused to do the hearing test today, despite my recommendation to monitor hearing levels once a year. Patient is waiting for a liver transplant and diabetic and counseled about the need to perform regular hearing tests. Patient still did not test today. Performed hearing aid maintenance, cleaning microphones and contacts. changed wax guards and domes. Both aids amplifying well. Reviewed wax guard change with patient and his ; however, both have manual dexterity difficulties so advised scheduling appointment when ever needed. Recommendations: Recommendations: Hearing instrument follow-up or maintenance as needed. Please contact our clinic with any questions or concerns. Diagnosis Code(s): Primary Diagnosis: H90.3 Bilateral Sensorineural Hearing Loss Services Performed: ADORNO Non-Quantity Charges: HANC: NonBillable Event Signature: Provider: Janet Ellis, [facility]
== END 2021-03-16 10:47 | disposition home or self-care (01) ==
LOC: HO.SH 10:46
PROVIDERS: Visit Provider Internal Medicine
DX: Z13.89 Encounter for screening for other disorder (principal)

== ENCOUNTER 2021-04-21 13:39 | Inpatient (IN) | payer MEDICARE, MEDICAID, SELFPAY ==
--- NOTE | ~2021-04-21 | XR_ITS ---
EXAMINATION: XR CHEST CLINICAL INFORMATION: Shortness of breath COMPARISON: Chest radiograph 01/07/2021 TECHNIQUE: Frontal view of the chest was obtained. FINDINGS: Since the prior study, a right-sided dialysis catheter has been placed with its tip in the right atria. Scattered patchy infiltrates are seen but there is overall improvement when compared to the dense infiltrate in the right upper lobe at the time of the prior study. XR/XR chest 1V IMPRESSION: Low lung volumes with some patchy scattered infiltrates, right greater than left but overall improved when compared to the [place] study.
--- NOTE | 2021-04-21 13:57 | ECG_ITS ---
Test Reason : WEAKNESS Blood Pressure : / mmHG Vent. Rate : 077 BPM Atrial Rate : 000 BPM P-R Int : 000 ms QRS Dur : 106 ms QT Int : 432 ms P-R-T Axes : 000 -10 001 degrees QTc Int : 488 ms Atrial fibrillation Prolonged QT Abnormal ECG When compared with ECG of 26-FEB-2021 20:36, No significant change was found Referred By: Edwin Barnes Electronically Signed By:West Salazar
[2021-04-21 14:00] VITALS: BP 121/73; BP 128/56; PULSE 77; PULSE 87; RESP 18; TEMP 35.8; O2SAT 100; O2SAT 99; BMI 36.9
[2021-04-21 15:03] LABS: MANUAL DIFF FLAG NO
[2021-04-21 15:05] LABS: Basophils Percent Auto 0.3 % (0-2); Eosinophils Absolute Auto 0.1 X10*3/uL (0.0-0.4); Eosinophils Percent Auto 0.9 % (0-4); Hematocrit 27.9 % (42.0-52.0); Hemoglobin 9.6 g/dl (14.0-18.0); Imm Gran Abs Auto 0.05 X10*3/uL (0.00-0.03); Imm Gran Pct Auto 0.7 % (0.0-0.4); Lymphocytes Absolute Auto 0.5 X10*3/uL (1.2-4.9); Lymphocytes Percent Auto 6.4 % (20-40); Mean Corpuscular HGB Conc 34.4 g/dl (31.0-36.0); Mean Corpuscular Hemoglobin 33.7 pg (27.0-33.0); Mean Corpuscular Volume 97.9 fL (80.0-98.0); Monocytes Absolute Auto 0.3 X10*3/uL (0.1-1.2); Monocytes Percent Auto 4.6 % (2-11); Neutrophils Absolute Auto 6.1 x10*3/uL (2.0-8.3); Neutrophils Percent Auto 87.1 % (45-73); Red Blood Count 2.85 X10*6/uL (4.60-5.80); Red Cell Distribution Width 16.1 % (11.0-16.0)
[2021-04-21 15:07] LABS: Platelet Count 89 X10*3/uL (160-400)
[2021-04-21 15:13] LABS: Ammonia 78 umol/L (13-55)
[2021-04-21 15:14] LABS: INTERNATIONAL NORM RATIO 1.6 (0.9-1.1); Prothrombin Time 18.9 SEC (9.9-13.0)
[2021-04-21 15:17] LABS: Partial Thromboplastin Time 47.3 SEC (24.1-38.0)
[2021-04-21 15:25] LABS: COVID-19 Test Negative (Negative); IDNOW Serial# 9DD0AD1C
[2021-04-21 15:25] LABS: Lactic Acid 3.6 mmol/L (0.5-2.0)
[2021-04-21 15:27] LABS: Ethanol < 10 mg/dL
[2021-04-21 15:33] LABS: Troponin-I High Sensitivity 13.8 ng/L (<3.5-35.0)
[2021-04-21 15:37] LABS: Alanine Aminotransferase 38 U/L (0-40); Albumin Level 2.2 g/dL (3.5-5.0); Alkaline Phosphatase 266 U/L (39-117); Anion Gap 18 (12-20); Aspartate Amino Transferase 57 U/L (5-37); Bilirubin Total 4.8 mg/dL (0.0-1.0); Blood Urea Nitrogen 48 mg/dL (9-16); Carbon Dioxide 18 mmol/L (22-29); Chloride 99 mmol/L (96-108); Creatinine Clr Calc Pharmacy 11.7; Estimated Glomerular Filt Rate 7; Glucose Random 158 mg/dL (60-115); Lipase 39 U/L (8-78); Sodium 131 mmol/L (135-145); Total Protein 6.6 g/dL (6.5-8.0)
--- NOTE | 2021-04-21 16:12 | ED_ITS ---
HPI - Altered Mental Status General Chief Complaint: Altered Mental Status Stated Complaint: AMS,COMA LIKE STATE,NEEDS LIVER TRANSPLANT Time Seen by Provider: 04/21/21 13:47 Source: family (, Edna) and EMS Mode of arrival: EMS Limitations: altered mental status History of Present Illness HPI narrative: 70-year-old male who was brought to the emergency department by ambulance for evaluation of altered mental status. Information came from EMS and from the patient's Edna who is here in the emergency department. According to his , the patient had a normal day yesterday. The patient was altered this morning and difficult to arouse. She was able to give him a dose of lactulose 60 mL at 6:00 a.m. and repeated this at 8:00 a.m.. Despite getting this dose of lactulose, he was still lethargic. She states that the patient usually gets his care at [facility] and is on a transplant list for a liver transplant. She spoke to the patient's education managers who advised her to call an ambulance and have the patient brought to the nearest emergency department for evaluation. Patient does have end-stage renal disease and is dialyzed on Tuesdays, and Saturdays. His states that he had a full dialysis on Tuesday but she was not able to get him to dialysis today. Related Data Home Medications Medication Instructions Recorded Confirmed folic acid 1 mg tablet 1 mg PO DAILY 01/04/21 02/26/21 levetiracetam 500 mg tablet 1,000 mg PO DAILY 02/18/21 02/26/21 levothyroxine 150 mcg tablet 150 mcg PO DAILY@0630 02/18/21 02/26/21 liraglutide 0.6 mg/0.1 mL (18 mg/3 0.6 mg SUBCUT DAILY 02/18/21 02/26/21 mL) subcutaneous pen injector (Joox 3-Gordo) omeprazole 20 mg capsule,delayed 20 mg PO BID@0630,1630 02/18/21 02/26/21 release pen needle, diabetic 31 gauge x #1200 ea 02/18/21 02/18/2116 (BD Ultra-Fine Short Pen Needle) penicillin V potassium 250 mg 250 mg PO DAILY 02/18/21 02/26/21 tablet thiamine HCl (vitamin B1) 100 mg 100 mg PO BID 02/18/21 02/26/21 tablet insulin degludec 200 unit/mL (3 100 unit SUBCUT DAILY 02/26/21 02/26/21 mL) subcutaneous pen (Tresiba FlexTouch U-200 insulin) levetiracetam 250 mg tablet 250 mg PO MOWEFR@1645 02/26/21 02/26/21 magnesium hydroxide 400 mg/5 mL 800 mg PO DAILY PRN 02/26/21 02/26/21 oral suspension (Milk of Magnesia) rifaximin 550 mg tablet 550 mg PO BID 02/26/21 02/26/21 Previous Rx's Medication Instructions Recorded amoxicillin 250 mg-potassium 10 ml PO BID #100 ml 03/05/21 clavulanate 62.5 mg/5 mL oral suspension (Augmentin) doxycycline hyclate 100 mg tablet 100 mg PO DAILY #10 tab 03/05/21 insulin lispro 100 unit/mL See Protocol SUBCUT USEASDIRECTD 03/05/21 subcutaneous pen (Humalog KwikPen #15 ml (U-100) Insulin) midodrine 5 mg tablet 5 mg PO PRE PROCEDURE #5 tab 03/05/21 zinc sulfate 50 mg zinc (220 mg) 220 mg PO DAILY@1500 #30 cap 03/05/21 capsule (Zinc-220) tamsulosin 0.4 mg capsule (Flomax) 0.4 mg PO BEDTIME #90 cap 03/10/21 lactulose 20 gram/30 mL oral 30 g (45 mL) PO QID 30 Days #5400 03/27/21 solution ml cholecalciferol (vitamin D3) 50 50 mcg PO DAILY #90 cap 04/06/21 mcg (2,000 unit) capsule Allergies Allergy/AdvReac Type Severity Reaction Status Date / Time No Known Allergies Allergy Verified 02/18/21 09:08 [facility] Past Medical History Medical History Acid reflux Acute hepatic encephalopathy Acute on chronic kidney failure LINETTE (acute kidney injury) Alcohol induced liver disorder Anasarca Anemia Annual physical exam Aortic stenosis Ascites due to alcoholic cirrhosis Atrial fibrillation Cellulitis CHF (congestive heart failure) Chronic edema Cirrhosis CKD (chronic kidney disease) stage 3, GFR 30-59 ml/min Diabetes Dyslipidemia Elevated brain natriuretic peptide (BNP) level Encephalopathy Esophageal varix Essential hypertension GAVE (gastric antral vascular ectasia) Hearing loss Hepatic encephalopathy HTN (hypertension) Hyperammonemia Hyponatremia Lipodermatosclerosis Liver cirrhosis Low serum vitamin D Lower extremity edema Obesity Obesity (BMI 30-39.9) BARTOLOME (obstructive sleep apnea) Osteoarthritis Portal hypertension syndrome Portal hypertensive gastropathy Recurrent cellulitis of lower extremity Tongue ulcer Type 2 diabetes mellitus with chronic kidney disease Type 2 diabetes mellitus with hyperglycemia, with long-term current use of insulin Surgical History H/O colonoscopy History of esophagogastroduodenoscopy (EGD) History of tonsillectomy Family History Family History Brother Diabetes Father No problems noted. Social History Social History Household Members: Spouse Housing: House Do you presently have visiting nurse or other home services: Yes Alcohol intake: never Patient Tobacco Use Status: Never used Tobacco e-Cigarette/Vaping Use: Never Used Second Hand Smoke Exposure: No Advance Directives: Yes Advance Directives on File: Yes Advance Directives Date on File: 03/03/21 service: No Current occupational status: retired Physical Exam Vital Signs: Vital Signs: Last Vital Signs Temp 96.5 F L 04/21/21 14:00 Pulse 87 04/21/21 18:44 Resp 20 04/21/21 18:44 BP 138/66 04/21/21 18:44 Pulse Ox 100 04/21/21 18:44 BMI result Body Mass Index 36.9 Const: Other: Lethargic but arousable male patient, patient becomes combative whenever we try to wake him up, he was able to tell me his name. HENMT: Head: Yes normal to inspection, Yes normocephalic and Yes atraumatic Ears: external ears normal General nose exam: Normal external nose present Face and sinus: Yes normal facial exam Mouth: Normal oral and palatal mucosa present Throat: Yes posterior oropharynx normal Eyes: Other: Scleral icteric, pupils are equal round reactive to light approximately 4 mm Neck: Neck: Yes normal visual inspection, Yes no lymphadenopathy, Yes trachea midline and Yes supple Chest: Chest palpation & inspection: normal inspection of the chest and normal palpation of entire chest wall Resp: Effort & Inspection: normal respiratory effort and able to speak in complete sentences Auscultation: clear to auscultation bilaterally Cardio: Rate: regular rate Rhythm: regular rhythm Heart sounds: S1 n ormal heart sound present, S2 normal heart sound present and no murmurs GI: Other: Obese, distended abdomen, no abdominal tenderness, normal bowel sounds : General: Yes no CVA tenderness Back/Spine/Pelvis: Back: no CVA tenderness Skin: Other: Jaundice Neuro: Other: The patient is lethargic but arousable, he becomes combative when you stimulate and, he was able to tell me his name Extrem: Other: 2+ pitting edema bilaterally symmetric Psych: Appearance: grossly normal Speech and movement: Normal speech and movement present Affect: normal affect Attitude: cooperative Thought process: Normal thought process present Thought content: Normal thought content present Course Course Course Narrative: 70-year-old male with a history of cirrhosis of the liver with frequent episodes of hepatic encephalopathy and end-stage renal disease who presents emergency department for evaluation of altered level of consciousness. According to his , patient was altered this morning was lethargic but she was able to give him 2 doses of lactulose 60 mL at 6:00 a.m. and 60 mL at 8:00 a.m.. Initial vital signs reveal a blood pressure of 128/56 and temperature 96.5? F orally. O2 saturation was 100% on room air. The patient was lethargic but arousable, was able state his name, his exam was otherwise consistent with his hepatic failure with jaundice and icteric sclera, distended abdomen secondary to ascites and to 2+ pitting edema to his lower extremities. 1621: Laboratory evaluation: White blood count was normal 7000. H&H was low at 9.6 and 27 [place] [address], this is chronic. INR was elevated at 1.6. PTT was elevated 47.3. AST is elevated at 57. Alk-phos is elevated 266. Total bilirubin is elevated 4.8. The lactate elevated 3.6, this is secondary to his liver failure and not sepsis. Patient has end-stage renal disease has significant peripheral edema therefore was not given any IV fluid. Patient's ammonia level was elevated at 78. Patient was ordered to get lactulose 30 mL orally. The would like me to try to transfer the patient to [facility] and I did discuss this with the transfer service. The transfer service is going to contact their on- call education managers, Dr. Davison. 1816: Discussed with Dr. Davison, the education managers at [facility]. They are not able to accept him today at their facility, they recommend that he stay here and he is does not improve they will consider trying to get him to their facility tomorrow. He recommended that an NG tube be placed in the patient receive lactulose 45 g Q 2 hours x3. I will discuss admission with the covering hospitalist. 1939: The patient is more awake, he is still confused according to his . He states he is having no pain. Repeat abdominal exam revealed no tenderness. The patient is able to take the lactulose orally therefore I canceled the NG to orders. Patient was ordered to get lactulose 45 g orally. I did discuss the patient's presentation with the covering hospitalist, Dr. Kong and the patient will be admitted for further treatment. MDM - Altered Mental Status Lab Data Result diagrams: 04/21/21 14:55 04/21/21 14:55 Labs: Lab Results 04/21/21 04/21/21 04/21/21 Range/Units 14:55 14:55 14:55 WBC 7.0 (4.8-10.8) X10*3/uL RBC 2.85 L (4.60-5.80) X10*6/uL Hgb 9.6 L (14.0-18.0) g/dl Hct 27.9 L (42.0-52.0) % MCV 97.9 (80.0-98.0) fL MCH 33.7 H (27.0-33.0) pg MCHC 34.4 (31.0-36.0) g/dl RDW 16.1 H (11.0-16.0) % Plt Count 89 L (160-400) X10*3/uL MPV 10.0 (9.4-12.4) fL Immature Gran % (Auto) 0.7 H (0.0-0.4) % Neut % (Auto) 87.1 H (45-73) % Lymph % (Auto) 6.4 L (20-40) % Laurel % (Auto) 4.6 (2-11) % Eos % (Auto) 0.9 (0-4) % Baso % (Auto) 0.3 (0-2) % Lymph # (Auto) 0.5 L (1.2-4.9) X10*3/uL Laurel # (Auto) 0.3 (0.1-1.2) X10*3/uL Eos # (Auto) 0.1 (0.0-0.4) X10*3/uL Baso # (Auto) 0.0 (0.0-0.2) X10*3/uL Abs Immat Gran (auto) 0.05 H (0.00-0.03) X10*3/uL Absolute Neuts (auto) 6.1 (2.0-8.3) x10*3/uL Absolute Nucleated RBC 0.000 (0.0-0.012) X10*3/uL Nucleated RBC % (auto) 0.0 (0.0-0.2) /100WBC PT 18.9 H (9.9-13.0) SEC INR 1.6 H (0.9-1.1) APTT 47.3 H D (24.1-38.0) SEC Sodium 131 L (135-145) mmol/L Potassium 4.0 (3.3-5.1) mmol/L Chloride 99 (96-108) mmol/L Carbon Dioxide 18 L (22-29) mmol/L Anion Gap 18 (12-20) BUN 48 H (9-16) mg/dL Creatinine 7.37 H* (0.5-1.4) mg/dL Estim Creat Clear Calc 11.7 Estimated GFR 7 Random Glucose 158 H (60-115) mg/dL Lactic Acid (0.5-2.0) mmol/L Lactic Acid Fup @ 2Hr (0.5-2.0) mmol/L Calcium 8.0 L D (8.4-10.2) mg/dL Total Bilirubin 4.8 H (0.0-1.0) mg/dL AST 57 H (5-37) U/L ALT 38 (0-40) U/L Alkaline Phosphatase 266 H D (39-117) U/L Ammonia (13-55) umol/L Troponin I High Sens (<3.5-35.0) ng/L Total Protein 6.6 (6.5-8.0) g/dL Albumin 2.2 L (3.5-5.0) g/dL Lipase 39 (8-78) U/L Ethyl Alcohol mg/dL COVID-19 (JACKY) (Negative) COVID-19 Clin Com 04/21/21 04/21/21 04/21/21 Range/Units 14:55 14:55 14:56 WBC (4.8-10.8) X10*3/uL RBC (4.60-5.80) X10*6/uL Hgb (14.0-18.0) g/dl Hct (42.0-52.0) % MCV (80.0-98.0) fL MCH (27.0-33.0) pg MCHC (31.0-36.0) g/dl RDW (11.0-16.0) % Plt Count (160-400) X10*3/uL MPV (9.4-12.4) fL Immature Gran % (Auto) (0.0-0.4) % Neut % (Auto) (45-73) % Lymph % (Auto) (20-40) % Laurel % (Auto) (2-11) % Eos % (Auto) (0-4) % Baso % (Auto) (0-2) % Lymph # (Auto) (1.2-4.9) X10*3/uL Laurel # (Auto) (0.1-1.2) X10*3/uL Eos # (Auto) (0.0-0.4) X10*3/uL Baso # (Auto) (0.0-0.2) X10*3/uL Abs Immat Gran (auto) (0.00-0.03) X10*3/uL Absolute Neuts (auto) (2.0-8.3) x10*3/uL Absolute Nucleated RBC (0.0-0.012) X10*3/uL Nucleated RBC % (auto) (0.0-0.2) /100WBC PT (9.9-13.0) SEC INR (0.9-1.1) APTT (24.1-38.0) SEC Sodium (135-145) mmol/L Potassium (3.3-5.1) mmol/L Chloride (96-108) mmol/L Carbon Dioxide (22-29) mmol/L Anion Gap (12-20) BUN (9-16) mg/dL Creatinine (0.5-1.4) mg/dL Estim Creat Clear Calc Estimated GFR Random Glucose (60-115) mg/dL Lactic Acid 3.6 H* (0.5-2.0) mmol/L Lactic Acid Fup @ 2Hr (0.5-2.0) mmol/L Calcium (8.4-10.2) mg/dL Total Bilirubin (0.0-1.0) mg/dL AST (5-37) U/L ALT (0-40) U/L Alkaline Phosphatase (39-117) U/L Ammonia 78 H (13-55) umol/L Troponin I High Sens (<3.5-35.0) ng/L Total Protein (6.5-8.0) g/dL Albumin (3.5-5.0) g/dL Lipase (8-78) U/L Ethyl Alcohol < 10 mg/dL COVID-19 (JACKY) (Negative) COVID-19 Clin Com 04/21/21 04/21/21 04/21/21 Range/Units 14:56 14:56 18:45 WBC (4.8-10.8) X10*3/uL RBC (4.60-5.80) X10*6/uL Hgb (14.0-18.0) g/dl Hct (42.0-52.0) % MCV (80.0-98.0) fL MCH (27.0-33.0) pg MCHC (31.0-36.0) g/dl RDW (11.0-16.0) % Plt Count (160-400) X10*3/uL MPV (9.4-12.4) fL Immature Gran % (Auto) (0.0-0.4) % Neut % (Auto) (45-73) % Lymph % (Auto) (20-40) % Laurel % (Auto) (2-11) % Eos % (Auto) (0-4) % Baso % (Auto) (0-2) % Lymph # (Auto) (1.2-4.9) X10*3/uL Laurel # (Auto) (0.1-1.2) X10*3/uL Eos # (Auto) (0.0-0.4) X10*3/uL Baso # (Auto) (0.0-0.2) X10*3/uL Abs Immat Gran (auto) (0.00-0.03) X10*3/uL Absolute Neuts (auto) (2.0-8.3) x10*3/uL Absolute Nucleated RBC (0.0-0.012) X10*3/uL Nucleated RBC % (auto) (0.0-0.2) /100WBC PT (9.9-13.0) SEC INR (0.9-1.1) APTT (24.1-38.0) SEC Sodium (135-145) mmol/L Potassium (3.3-5.1) mmol/L Chloride (96-108) mmol/L Carbon Dioxide (22-29) mmol/L Anion Gap (12-20) BUN (9-16) mg/dL Creatinine (0.5-1.4) mg/dL Estim Creat Clear Calc Estimated GFR Random Glucose (60-115) mg/dL Lactic Acid (0.5-2.0) mmol/L Lactic Acid Fup @ 2Hr 4.0 H* (0.5-2.0) mmol/L Calcium (8.4-10.2) mg/dL Total Bilirubin (0.0-1.0) mg/dL AST (5-37) U/L ALT (0-40) U/L Alkaline Phosphatase (39-117) U/L Ammonia (13-55) umol/L Troponin I High Sens 13.8 (<3.5-35.0) ng/L Total Protein (6.5-8.0) g/dL Albumin (3.5-5.0) g/dL Lipase (8-78) U/L Ethyl Alcohol mg/dL COVID-19 (JACKY) Negative (Negative) COVID-19 Clin Com See Note Critical Care Time Critical Care Time Critical Care Time: Yes Total Critical Care Time: 55 Attestation: Critical Care: The patient was critically ill with a high prob ability of imminent or life threatening deterioration. I spent greater than 30 minutes of discontinuous time evaluating the patient,delivering critical care at the bedside, discussing and evaluating pertinent data with consultants. Critical care time does not include time spent performing separately billable procedures or teaching. Total time spent performing critical care was 55 minutes. Discharge Plan Discharge Prescriptions: No Action tamsulosin [Flomax] 0.4 mg capsule 0.4 mg PO BEDTIME Qty: 90 RF: 3 lactulose 20 gram/30 mL solution 30 g PO QID 30 Days Qty: 5400 RF: 2 cholecalciferol (vitamin D3) 50 mcg (2,000 unit) capsule 50 mcg PO DAILY Qty: 90 RF: 2 folic acid 1 mg Tablet 1 mg PO DAILY RF: 0 magnesium hydroxide [Milk of Magnesia] 400 mg/5 mL Suspension 800 mg PO DAILY PRN (Reason: Constipation) RF: 0 Tresiba FlexTouch U-200 200 unit/mL (3 mL) insulin pen 100 unit subcut DAILY RF: 0 Hold Instructions: Resume on 04/09/21. please hold until seen by pcp. rifaximin 550 mg Tablet 550 mg PO BID RF: 0 levetiracetam 250 mg Tablet 250 mg PO MOWEFR@1645 RF: 0 midodrine 5 mg Tablet 5 mg PO PRE PROCEDURE Qty: 5 RF: 0 zinc sulfate [Zinc-220] 50 mg zinc (220 mg) Capsule 220 mg PO DAILY@1500 Qty: 30 RF: 0 doxycycline hyclate 100 mg tablet 100 mg PO DAILY Qty: 10 RF: 0 amoxicillin-pot clavulanate [Augmentin] 250-62.5 mg/5 mL suspension for reconstitution 10 ml PO BID Qty: 100 RF: 0 insulin lispro [Humalog KwikPen Insulin] 100 unit/mL insulin pen See Protocol sliding scale dose subcut USEASDIRECTD Qty: 15 RF: 0 levetiracetam 500 mg tablet 1,000 mg PO DAILY RF: 0 levothyroxine 150 mcg tablet 150 mcg PO DAILY@0630 RF: 0 penicillin V potassium 250 mg tablet 250 mg PO DAILY RF: 0 Hold Instructions: Resume on 03/20/21. (DME) pen needle, diabetic [BD Ultra-Fine Short Pen Needle] 31 gauge x 5/16 needle See Rx Instructions ea subcut BID Qty: 1200 RF: 0 omeprazole 20 mg capsule,delayed release(DR/EC) 20 mg PO BID@0630,1630 RF: 0 Victoza 3-Gordo 0.6 mg/0.1 mL (18 mg/3 mL) pen injector 0.6 mg subcut DAILY RF: 0 thiamine HCl (vitamin B1) 100 mg tablet 100 mg PO BID RF: 0
[2021-04-21] MEDS: Lactulose 20 GM/30 ML SOLUTION 30 GM PO (16:35)
[2021-04-21 17:04] LABS: Reflex Lactate? Lactic Acid Added
[2021-04-21] MEDS: Lactulose 20 GM/30 ML SOLUTION 200 GM PR (17:40)
[2021-04-21 18:44] VITALS: BP 138/66; PULSE 87; RESP 20; O2SAT 100
[2021-04-21] MEDS: Lactulose 20 GM/30 ML SOLUTION 45 GM PO (19:37)
[2021-04-21 19:42] VITALS: BP 133/66; PULSE 77; RESP 18; O2SAT 99
--- NOTE | 2021-04-21 19:43 | PC.NURSE ---
pt is more alert talking and is in agreement to take the lactolose by mouth. provider made aware, chest xray taken, and pt took the med by mouth with no difficulty. no ngt at this time per provider.
[2021-04-21 20:49] LABS: Reflex Lactate? 2 Y
--- NOTE | 2021-04-21 20:50 | P.HPHOSP_ITS ---
History of Present Illness Date of Service: 04/21/21 Chief Complaint: Lethargy 70-year-old male with a past medical history of hypertension, hyperlipidemia, diabetes, CHF, AFib, ESRD on hemodialysis-TTS, aortic stenosis, decompensated alcoholic liver cirrhosis with anasarca, ascites, esophageal varices, portal hypertension syndrome - follows with a enamel buffer Dr. Davison at [facility], BARTOLOME, osteoarthritis, portal hyper tension syndrome, history of seizures, BPH presented to the hospital today with a chief complaint of lethargy. At the time of my entry patient is alert and awake oriented times 2. spoke to the patient's at bedside who has given most of the history- mentions that patient was doing fine until yesterday; this morning patient had his breakfast and went to sleep and around 8:00 p.m. when she tried to wake him up he was very drowsy and lethargic and is not getting of; she subsequently called the patient's enamel buffer at [facility] who suggested to take him to the ER; Reports that patient's mental status waxing and waning; intermittently agitated. Denies patient complaining of abdominal pain, cough or sputum production, denied any fevers; Mentioned that he supposed to get his hemodialysis today but was not done given patient is drowsy and lethargic. mentions that patient has chronic decubitus ulcers. Patient's also mentions that patient's ammonia level is easily 90s; and current presentation is similar to the prior admissions with Hypaque encephalopathy. Review of all other systems is negative except mentioned above ER course: Per ER team patient initially noted to be drowsy but at times patient become agitated; mentioned the family wanted to transfer the patient to the [facility]- ER physician spoke to [facility] who mentioned that the not taking anymore transfers; then ER physician's for the patient's enamel buffer Dr. perez who suggested to give the patient lactulose 3 times via NG the patient is drowsy and lethargic. Subsequently patient become alert and awake and decided to take the lactulose p.o.. On labs noted to have lactic acidosis, abnormal chemistry consistent with ESRD but no concerns for emergency dialysis. Ammonia level was 78. Admitted for further management [facility] Medical History Acid reflux Acute hepatic encephalopathy Acute on chronic kidney failure LINETTE (acute kidney injury) Alcohol induced liver disorder Anasarca Anemia Annual physical exam Aortic stenosis Ascites due to alcoholic cirrhosis Atrial fibrillation Cellulitis CHF (congestive heart failure) Chronic edema Cirrhosis CKD (chronic kidney disease) stage 3, GFR 30-59 ml/min Diabetes Dyslipidemia Elevated brain natriuretic peptide (BNP) level Encephalopathy Esophageal varix Essential hypertension GAVE (gastric antral vascular ectasia) Hearing loss Hepatic encephalopathy HTN (hypertension) Hyperammonemia Hyponatremia Lipodermatosclerosis Liver cirrhosis Low serum vitamin D Lower extremity edema Obesity Obesity (BMI 30-39.9) BARTOLOME (obstructive sleep apnea) Osteoarthritis Portal hypertension syndrome Portal hypertensive gastropathy Recurrent cellulitis of lower extremity Tongue ulcer Type 2 diabetes mellitus with chronic kidney disease Type 2 diabetes mellitus with hyperglycemia, with long-term current use of insulin Family History Brother Diabetes Father No problems noted. Pertinent family history: As mentioned above Surgical History H/O colonoscopy History of esophagogastroduodenoscopy (EGD) History of tonsillectomy Social History Household Members: Spouse Housing: House Do you presently have visiting nurse or other home services: Yes Alcohol intake: never Patient Tobacco Use Status: Never used Tobacco e-Cigarette/Vaping Use: Never Used Second Hand Smoke Exposure: No Advance Directives: Yes Advance Directives on File: Yes Advance Directives Date on File: 03/03/21 service: No Current occupational status: retired Meds Allergies Allergy/AdvReac Type Severity Reaction Status Date / Time No Known Allergies Allergy Verified 02/18/21 09:08 Active Medications: Current Medications Dextrose (Dextrose 50 % 25 Gm/50 Ml Vial) 25 gm IVPUSH Q15M PRN; Protocol PRN Reason: per Hypoglycemia Standing Ord. Glucose (Glucose Gel 15 Gm Gel..Gram.) 15 gm PO Q15M PRN; Protocol PRN Reason: per Hypoglycemia Standing Ord. Insulin Human Lispro (Insulin Lispro 100 Unit/Ml 3 Ml Vial) 0 unit SUBCUT QIDACHS [facility]; Protocol Lactulose (Lactulose 20 Gm/30 Ml Solution) 45 gm PO TID [facility] Last Admin: 04/21/21 19:37 Dose: 45 gm Documented by: Pharmacy Consult (Consult Rx Perform Med Rec) 1 each MISCELLANE ONCE PRN PRN Reason: Consult order Sodium Chloride (0.9 % Sodium Chloride Flush 3 Ml Syringe) 3 ml IVFLUSH QSHIFT [facility] Home Medications Medication Instructions Recorded Confirmed Last Taken Type folic acid 1 mg tablet 1 mg PO DAILY 01/04/21 04/21/21 04/20/21 History levetiracetam 500 mg tablet 1,000 mg PO TUTHSA@1800 02/18/21 04/21/21 04/20/21 History levothyroxine 150 mcg tablet 150 mcg PO DAILY@0630 02/18/21 04/21/21 04/20/21 History pen needle, diabetic 31 gauge x #1200 ea 02/18/21 02/18/21 Unknown History 09/28 (BD Ultra-Fine Short Pen Needle) thiamine HCl (vitamin B1) 100 mg 100 mg PO BID 02/18/21 04/21/21 04/20/21 History tablet insulin degludec 200 unit/mL (3 100 unit SUBCUT DAILY 02/26/21 02/26/21 04/20/21 History mL) subcutaneous pen (Tresiba FlexTouch U-200 insulin) levetiracetam 250 mg tablet 250 mg PO SUMOWEFR@1800 02/26/21 04/21/21 04/20/21 History rifaximin 550 mg tablet 550 mg PO BID 02/26/21 04/21/21 04/20/21 History lactulose 20 gram/30 mL oral 45 ml PO BID 04/21/21 04/21/21 04/20/21 History solution liraglutide 0.6 mg/0.1 mL (18 mg/3 0.6 mg SUBCUT DAILY 04/21/21 04/21/21 04/20/21 History mL) subcutaneous pen injector (Victoza 3-Gordo) losartan 50 mg tablet 1 tab PO DAILY 04/21/21 04/21/21 04/20/21 History omeprazole 20 mg capsule,delayed 20 mg PO BID 04/21/21 04/21/21 04/20/21 History release Physical Exam Vital Signs and Narrative: Vital Signs: Last Vital Signs Temp 96.5 F L 04/21/21 14:00 Pulse 77 04/21/21 19:42 Resp 18 04/21/21 19:42 BP 133/66 04/21/21 19:42 Pulse Ox 99 04/21/21 19:42 BMI result Body Mass Index 36.9 Gen: Appears be in no acute distress HEENT: NCAT, Moist mucosa. Pulmonary: Vesicular breath sounds, fair air entry CVS: Normal S1-S2 Abdomen: BS+, Soft, Distended but nontender Extremities: Warm well perfused; chronic skin changes noted. 2+ pitting edema Neuro: Alert and awake. Oriented x2. Follows simple commands. decubitus ulcers: Noted erythematous lesions on his buttocks- healing per patient's . Results Labs CBC and Chem 7: 04/21/21 14:55 04/21/21 14:55 Labs: Laboratory Results - last 24 hr 04/21/21 04/21/21 04/21/21 14:55 14:55 14:55 MCV 97.9 MCH 33.7 H MCHC 34.4 RDW 16.1 H Plt Count 89 L MPV 10.0 Immature Gran % (Auto) 0.7 H Neut % (Auto) 87.1 H Lymph % (Auto) 6.4 L [place] % (Auto) 4.6 Eos % (Auto) 0.9 Baso % (Auto) 0.3 Lymph # (Auto) 0.5 L [place] # (Auto) 0.3 Eos # (Auto) 0.1 Baso # (Auto) 0.0 Abs Immat Gran (auto) 0.05 H Absolute Neuts (auto) 6.1 Absolute Nucleated RBC 0.000 Nucleated RBC % (auto) 0.0 PT 18.9 H INR 1.6 H APTT 47.3 H D Anion Gap 18 Estim Creat Clear Calc 11.7 Estimated GFR 7 Random Glucose 158 H Lactic Acid Lactic Acid Fup @ 2Hr Calcium 8.0 L D Total Bilirubin 4.8 H AST 57 H ALT 38 Alkaline Phosphatase 266 H D Ammonia Troponin I High Sens Total Protein 6.6 Albumin 2.2 L Lipase 39 Ethyl Alcohol COVID-19 (JACKY) COVID-19 Clin Com 04/21/21 04/21/21 04/21/21 14:55 14:55 14:56 MCV MCH MCHC RDW Plt Count MPV Immature Gran % (Auto) Neut % (Auto) Lymph % (Auto) [place] % (Auto) Eos % (Auto) Baso % (Auto) Lymph # (Auto) [place] # (Auto) Eos # (Auto) Baso # (Auto) Abs Immat Gran (auto) Absolute Neuts (auto) Absolute Nucleated RBC Nucleated RBC % (auto) PT INR APTT Anion Gap Estim Creat Clear Calc Estimated GFR Random Glucose Lactic Acid 3.6 H* Lactic Acid Fup @ 2Hr Calcium Total Bilirubin AST ALT Alkaline Phosphatase Ammonia 78 H Troponin I High Sens Total Protein Albumin Lipase Ethyl Alcohol < 10 COVID-19 (JACKY) COVID-19 Clin Com 04/21/21 04/21/21 04/21/21 14:56 14:56 18:45 MCV MCH MCHC RDW Plt Count MPV Immature Gran % (Auto) Neut % (Auto) Lymph % (Auto) [place] % (Auto) Eos % (Auto) Baso % (Auto) Lymph # (Auto) [place] # (Auto) Eos # (Auto) Baso # (Auto) Abs Immat Gran (auto) Absolute Neuts (auto) Absolute Nucleated RBC Nucleated RBC % (auto) PT INR APTT Anion Gap Estim Creat Clear Calc Estimated GFR Random Glucose Lactic Acid Lactic Acid Fup @ 2Hr 4.0 H* Calcium Total Bilirubin AST ALT Alkaline Phosphatase Ammonia Troponin I High Sens 13.8 Total Protein Albumin Lipase Ethyl Alcohol COVID-19 (JACKY) Negative COVID-19 Clin Com See Note Imaging Radiologist's Impressions: Impressions Chest X-Ray 04/21/21 19:30 IMPRESSION: Low lung volumes with some patchy scattered infiltrates, right greater than left but overall improved when compared to the December study. Assessment and Plan (1) AMS (altered mental status): Status: Acute 70-year-old male with a past medical history of hypertension, hyperlipidemia, diabetes, CHF, AFib, ESRD on hemodialysis-TTS, aortic stenosis, decompensated alcoholic liver cirrhosis with anasarca, ascites, esophageal varices, portal hypertension syndrome - follows with a enamel buffer Dr. Davison at [facility], BARTOLOME, osteoarthritis, portal hyper tension syndrome, history of seizures, BPH presented to the hospital today with a chief complaint of lethargy/ altered mental status. Altered mental status: Patient mental status is waxing and waning per family. At the time of [place] patient is alert awake, cooperative. concerns for hepatic encephalopathy. Patient was initially very lethargic prior to coming to the hospital. Patient's enamel buffer recommended lactulose 45mg t.i.d.. Will continue for now. continue home rifaximin supportive care decompensated alcoholic liver cirrhosis with portal hypertension symptoms/esophageal varices/ascites: Patient not on diuretics anymore has he makes little urine from ESRD. no abdominal tenderness noted. Patient afebrile. Will defer to the day hospitalist to follow up with IR possible paracentesis. Lactic acidosis: Will give gentle fluids total of 250 cc. Continue the patient on thiamine ESRD: Patient on hemodialysis TTS. Missed his dialysis session today. Nephrology consult. diabetes: Insulin sliding scale Hypothyroidism: Continue levothyroxine Seizure history: Continue Keppra DVT prophylaxis: SCD boots Code status: Full code Quality Stroke Does the patient have a stroke diagnosis?: No VTE Prior VTE?: No VTE Risk Level:: Medical - moderate - high VTE Device Contraindication: N/A - Device Ordered VTE Drug Contraindication: Treatment Not Indicated
--- NOTE | 2021-04-21 21:00 | PHA.MEDREC ---
Pharmacy Consult ? Medication Reconciliation Pharmacy has completed the medication reconciliation. The came with a medication list. Currently give Keppra 250 mg daily expect dialysis days is 500 mg. On the medicatin list is midodrine which he no longer takes. The was unsure about how much Tresiba the patient gets. Angie Inman, ChelD
[2021-04-21 21:28] LABS: ~Lactic Acid-LAB USE ONLY 4.1 mmol/L (0.5-2.0)
[2021-04-21] MEDS: Tamsulosin HCL 0.4 MG CAPSULE PO (21:31)
[2021-04-21] MEDS: Thiamine HCL 100 MG TABLET PO (21:31)
[2021-04-21 21:33] LABS: Glucose, Whole Blood 136 mg/dL (60-115)
[2021-04-21] MEDS: rifAXIMin 550 MG TABLET PO (22:35)
[2021-04-22] VITALS (10 sets, daily range): BP systolic 109–135; BP diastolic 43–71; PULSE 76–88; RESP 16–20; TEMP 36.2–37.1; O2SAT 99–100
--- NOTE | 2021-04-22 00:28 | PC.NURSE ---
pt has been getting out of bed on his own, high fall risk, mildly confused and needs redirecting. sitter now present with the pt. no bm at this time.
--- NOTE | 2021-04-22 01:23 | PC.NURSE ---
pt ambulated to bathroom liquid ha stool. pt now back to bed. teaching that the pt is npo.
--- NOTE | 2021-04-22 02:52 | PC.NURSE ---
pt has a nonprod cough, moved into a hospital bed to help with pt buttocks wounds, epc cream applied. pt has had only smears of ha stool on the bed pads since his last bm in the bathroom.
[2021-04-22] MEDS: 0.9 % Sodium Chloride 1,000 ML 50 ML IVCONT (04:23)
[2021-04-22] MEDS: Omeprazole 20 MG CAPSULE.DR PO ×2 (06:02→17:10)
[2021-04-22] MEDS: Levothyroxine Sodium 150 MCG TABLET PO (07:02)
[2021-04-22 07:24] LABS: Glucose, Whole Blood 109 mg/dL (60-115)
[2021-04-22 08:22] LABS: MANUAL DIFF FLAG NO
[2021-04-22 08:27] LABS: Basophils Absolute Auto 0.1 X10*3/uL (0.0-0.2); Basophils Percent Auto 0.9 % (0-2); Eosinophils Absolute Auto 0.3 X10*3/uL (0.0-0.4); Eosinophils Percent Auto 3.6 % (0-4); Hematocrit 26.1 % (42.0-52.0); Imm Gran Abs Auto 0.03 X10*3/uL (0.00-0.03); Imm Gran Pct Auto 0.4 % (0.0-0.4); Lymphocytes Absolute Auto 0.8 X10*3/uL (1.2-4.9); Lymphocytes Percent Auto 9.7 % (20-40); Mean Corpuscular HGB Conc 34.5 g/dl (31.0-36.0); Mean Corpuscular Volume 98.5 fL (80.0-98.0); Mean Platelet Volume 9.6 fL (9.4-12.4); Monocytes Absolute Auto 0.6 X10*3/uL (0.1-1.2); Neutrophils Absolute Auto 6.2 x10*3/uL (2.0-8.3); Neutrophils Percent Auto 78.4 % (45-73); Red Blood Count 2.65 X10*6/uL (4.60-5.80); Red Cell Distribution Width 16.2 % (11.0-16.0)
[2021-04-22 08:31] LABS: Platelet Count 91 X10*3/uL (160-400)
[2021-04-22 08:57] LABS: Anion Gap 18 (12-20); Blood Urea Nitrogen 56 mg/dL (9-16); Carbon Dioxide 18 mmol/L (22-29); Chloride 98 mmol/L (96-108); Creatinine Clr Calc Pharmacy 11.5; Estimated Glomerular Filt Rate 7; Glucose Random 141 mg/dL (60-115); Potassium 3.9 mmol/L (3.3-5.1); Sodium 130 mmol/L (135-145)
[2021-04-22 08:58] LABS: Lactic Acid 3.4 mmol/L (0.5-2.0)
[2021-04-22] MEDS: Folic Acid 1 MG TABLET PO (09:00)
[2021-04-22] MEDS: Losartan Potassium 50 MG TABLET PO (09:00)
[2021-04-22] MEDS: Thiamine HCL 100 MG TABLET PO ×2 (09:02→21:27)
[2021-04-22] MEDS: rifAXIMin 550 MG TABLET PO ×2 (09:02→21:27)
[2021-04-22] MEDS: Lactulose 20 GM/30 ML SOLUTION 45 GM PO ×3 (09:03→21:27)
--- NOTE | 2021-04-22 10:10 | P.CONNP_ITS ---
History of Present Illness Reason for Consult Consult date: 04/22/21 Reason for consult: ESRD Chief Complaint Chief complaint: AMS History of Present Illness Narrative: ?70-year-old male with a history of hypertension, hyperlipidemia, diabetes, CHF, AFib, ESRD on hemodialysis-TTS, aortic stenosis,? decompensated a lcoholic liver cirrhosis with? anasarca, ascites, esophageal varices, portal hypertension syndrome - follows with a wire weaving loom setter Dr. Davison at [facility], BARTOLOME, osteoarthritis,? portal hyper tension syndrome, history of seizures, BPH presented to the hospital with a chief complaint of lethargy. patient had his breakfast and went to sleep and around 8:00 p.m. when tried to wake him up he was very drowsy and lethargic and is not getting of; she subsequently called the patient's wire weaving loom setter at [facility] who suggested to take him to the ER; Reports that patient's mental status waxing and waning; intermittently agitated.? Denies patient complaining of abdominal pain, cough or sputum production, denied any fevers; Usually gets dialysis on TTS at [facility] Review of Systems Constitutional: Denies anorexia and Denies fever(s) Denies dysphagia, Denies dizziness, Denies hoarseness and Denies neck pain Cardiovascular: Denies chest pain Respiratory: Reports cough and Denies pain on inspiration Gastrointestinal: Denies abdominal pain, Denies dysphagia and Denies vomiting Musculoskeletal: Denies neck pain and Denies numbness Reports confusion, Denies dizziness, Denies numbness and Denies paresthesias Psychiatric: Reports confusion PMFSH Past Medical History Medical History Acid reflux Acute hepatic encephalopathy Acute on chronic kidney failure LINETTE (acute kidney injury) Alcohol induced liver disorder Anasarca Anemia Annual physical exam Aortic stenosis Ascites due to alcoholic cirrhosis Atrial fibrillation Cellulitis CHF (congestive heart failure) Chronic edema Cirrhosis CKD (chronic kidney disease) stage 3, GFR 30-59 ml/min Diabetes Dyslipidemia Elevated brain natriuretic peptide (BNP) level Encephalopathy Esophageal varix Essential hypertension GAVE (gastric antral vascular ectasia) Hearing loss Hepatic encephalopathy HTN (hypertension) Hyperammonemia Hyponatremia Lipodermatosclerosis Liver cirrhosis Low serum vitamin D Lower extremity edema Obesity Obesity (BMI 30-39.9) BARTOLOME (obstructive sleep apnea) Osteoarthritis Portal hypertension syndrome Portal hypertensive gastropathy Recurrent cellulitis of lower extremity Tongue ulcer Type 2 diabetes mellitus with chronic kidney disease Type 2 diabetes mellitus with hyperglycemia, with long-term current use of insulin Family History Family History Brother Diabetes Father No problems noted. Surgical History Surgical History H/O colonoscopy History of esophagogastroduodenoscopy (EGD) History of tonsillectomy Social History Social History Household Members: Spouse Housing: House Do you presently have visiting nurse or other home services: Yes Alcohol intake: former Patient Tobacco Use Status: Never used Tobacco e-Cigarette/Vaping Use: Never Used Second Hand Smoke Exposure: No Advance Directives Date on File: 03/03/21 service: No Current occupational status: retired Hispanic [employer] Allergies Allergy/AdvReac Type Severity Reaction Status Date / Time No Known Allergies Allergy Verified 02/18/21 09:08 Active Medications: Current Medications Dextrose (Dextrose 50 % 25 Gm/50 Ml Vial) 25 gm IVPUSH Q15M PRN; Protocol PRN Reason: per Hypoglycemia Standing Ord. Folic Acid (Folic Acid 1 Mg Tablet) 1 mg PO DAILY [facility] Last Admin: 04/22/21 09:00 Dose: 1 mg Documented by: Glucose (Glucose Gel 15 Gm Gel..Gram.) 15 gm PO Q15M PRN; Protocol PRN Reason: per Hypoglycemia Standing Ord. Insulin Human Lispro (Insulin Lispro 100 Unit/Ml 3 Ml Vial) 0 unit SUBCUT QIDACHS [facility]; Protocol Last Admin: 04/22/21 09:03 Dose: Not Given Documented by: Lactulose (Lactulose 20 Gm/30 Ml Solution) 45 gm PO TID [facility] Last Admin: 04/22/21 09:03 Dose: 45 gm Documented by: Levetiracetam (Levetiracetam 250 Mg Tablet) 250 mg PO SUMOWEFR@1800 [facility] Levetiracetam (Levetiracetam 500 Mg Tablet) 500 mg PO TUTHSA@1800 [facility] Levothyroxine Sodium (Levothyroxine Sodium 150 Mcg Tablet) 150 mcg PO DAILY@063 0 [facility] Last Admin: 04/22/21 07:02 Dose: 150 mcg Documented by: Losartan Potassium (Losartan Potassium 50 Mg Tablet) 50 mg PO DAILY [facility]; Protocol Last Admin: 04/22/21 09:00 Dose: 50 mg Documented by: Omeprazole (Omeprazole 20 Mg Capsule.) 20 mg PO BID@0630,1630 [facility] Last Admin: 04/22/21 06:02 Dose: 20 mg Documented by: Pharmacy Consult (Consult Rx Perform Med Rec) 1 each MISCELLANE ONCE PRN PRN Reason: Consult order Rifaximin (Rifaximin 550 Mg Tablet) 550 mg PO BID [facility] Last Admin: 04/22/21 09:02 Dose: 550 mg Documented by: Sodium Chloride (0.9 % Sodium Chloride Flush 3 Ml Syringe) 3 ml IVFLUSH QSHIFT [facility] Last Admin: 04/22/21 09:02 Dose: Not Given Documented by: Tamsulosin HCl (Tamsulosin Hcl 0.4 Mg Capsule) 0.4 mg PO BEDTIME [facility] Last Admin: 04/21/21 21:31 Dose: 0.4 mg Documented by: Thiamine HCl (Thiamine Hcl 100 Mg Tablet) 100 mg PO BID [facility] Last Admin: 04/22/21 09:02 Dose: 100 mg Documented by: Home Medications Medication Instructions Recorded Confirmed Last Taken Type folic acid 1 mg tablet 1 mg PO DAILY 01/04/21 04/21/21 04/20/21 History levetiracetam 500 mg tablet 500 mg PO TUTHSA@1800 02/18/21 04/21/21 04/20/21 H istory levothyroxine 150 mcg tablet 150 mcg PO DAILY@0630 02/18/21 04/21/21 04/20/21 History pen needle, diabetic 31 gauge x #1200 ea 02/18/21 02/18/21 Unknown History 16 (BD Ultra-Fine Short Pen Needle) thiamine HCl (vitamin B1) 100 mg 100 mg PO BID 02/18/21 04/21/21 04/20/21 H istory tablet insulin degludec 200 unit/mL (3 100 unit SUBCUT DAILY 02/26/21 02/26/21 04/20/21 History mL) subcutaneous pen (Tresiba FlexTouch U-200 insulin) levetiracetam 250 mg tablet 250 mg PO SUMOWEFR@1800 02/26/21 04/21/21 04/20/21 History rifaximin 550 mg tablet 550 mg PO BID 02/26/21 04/21/21 04/20/21 History lactulose 20 gram/30 mL oral 45 ml PO BID 04/21/21 04/21/21 04/20/21 History solution liraglutide 0.6 mg/0.1 mL (18 mg/3 0.6 mg SUBCUT DAILY 04/21/21 04/21/21 04/20/21 History mL) subcutaneous pen injector (Victoza 3-Gordo) losartan 50 mg tablet 1 tab PO DAILY 04/21/21 04/21/21 04/20/21 History omeprazole 20 mg capsule,delayed 20 mg PO BID 04/21/21 04/21/21 04/20/21 History release Physical Exam Vital Signs: Last Vital Signs Temp 98.8 F 04/22/21 00:18 Pulse 86 04/22/21 09:00 Resp 16 04/22/21 08:59 BP 119/64 04/22/21 09:00 Pulse Ox 99 04/22/21 08:59 BMI result Body Mass Index 36.9 Const General: confusion Orientation/consciousness: confusion Neck Neck: Yes no JVD Resp Effort & Inspection: normal respiratory effort, Actively coughing and no stridor Cardio Jugular venous distension: no JVD Palpation: no palpable S3 Heart sounds: no gallops and no rubs GI Inspection: Yes normal to inspection and Yes distended Auscultation: normal bowel sounds Neuro General: confusion Extrem Right upper extremity: edema Results Lab Results Result Diagrams: 04/23/21 05:24 04/23/21 05:24 Lab results: Chemistry 04/21/21 04/22/21 14:55 08:05 Sodium 131 L 130 L Potassium 4.0 3.9 Carbon Dioxide 18 L 18 L BUN 48 H 56 H Creatinine 7.37 H* 7.50 H* Calcium 8.0 L D 8.0 L Hematology 04/21/21 04/22/21 14:55 08:05 WBC 7.0 8.0 Hgb 9.6 L 9.0 L Plt Count 89 L 91 L Assessment and Plan (1) ESRD (end stage renal disease): Status: Acute Usually gets HD TTS missed HD yesterday Shall arrange for HD today Cirrhosis/Encephalopathy Resume Lactulose Follow ammonia Procedures Date of Service Date of Service: 04/22/21
[2021-04-22 10:21] LABS: Reflex Lactate? Lactic Acid Added
--- NOTE | 2021-04-22 10:22 | MHC.CM.PN ---
Patient lives in a house with his /HCP and he is functionally independent.Patient attends HD Q //SAT @ [facility] just stopped services and Patient does not feel VNA will be needed after this hospitalization.CM has initiated and will follow for dc planning. Patient is on the [facility] Liver Transplant waiting list.PCP is DR.Joanne Stewart
--- NOTE | 2021-04-22 10:47 | PC.NURSE ---
Pt has been alert/oriented x2, has periods of confusion but mostly able to make needs known. Ambulatory to bathroom and steady on feet. Cleaned and buttocks excoriated, barrier cream applied/ Pt to bathroom x3 at this times to have bowel movements. Spoke to and updated on status. Right chest permacath intact and in place. NSR on tele. Skin/sclera mildly jaundiced,
--- NOTE | 2021-04-22 11:14 | PC.NURSE ---
Pt to be transported to Dialysis on telepack at this time.
--- NOTE | 2021-04-22 12:31 | HO.PM.IMPN ---
Subjective Subjective Date of Service: 04/22/21 Interval History: cc: ams itnerval history: still a bit cloudy, but having bms and improving Cardiovascular Cardiovascular: Reports no additional cardiovascular complaints Respiratory Respiratory: Reports no additional respiratory complaints Physical Exam Vital Signs: Vital Signs: Last Vital Signs Temp 98.8 F 04/22/21 00:18 Pulse 86 04/22/21 09:00 Resp 16 04/22/21 08:59 BP 119/64 04/22/21 09:00 Pulse Ox 99 04/22/21 08:59 BMI result Body Mass Index 36.9 General: still a bit lethargic O X 3, no acute distress Resp: CTA bilateral, no accessory muscles used CVS: S1,S2,RRR GI: soft, non tender, distended Neuro: motor grossly intact, alert, a bit sluggish Psych: appropriate affect, appropriate insight Objective Data Active Medications Dextrose (Dextrose 50 % 25 Gm/50 Ml Vial) 25 gm IVPUSH Q15M PRN; Protocol PRN Reason: per Hypoglycemia Standing Ord. Folic Acid (Folic Acid 1 Mg Tablet) 1 mg PO DAILY [facility] Last Admin: 04/22/21 09:00 Dose: 1 mg Documented by: TONY Glucose (Glucose Gel 15 Gm Gel..Gram.) 15 gm PO Q15M PRN; Protocol PRN Reason: per Hypoglycemia Standing Ord. Insulin Human Lispro (Insulin Lispro 100 Unit/Ml 3 Ml Vial) 0 unit SUBCUT QIDACHS [facility]; Protocol Last Admin: 04/22/21 11:14 Dose: Not Given Documented by: TONY Non-Admin Reason: at dialysis Lactulose (Lactulose 20 Gm/30 Ml Solution) 45 gm PO TID [facility] Last Admin: 04/22/21 09:03 Dose: 45 gm Documented by: TONY Levetiracetam (Levetiracetam 250 Mg Tablet) 250 mg PO SUMOWEFR@1800 [facility] Levetiracetam (Levetiracetam 500 Mg Tablet) 500 mg PO TUTHSA@1800 [facility] Levothyroxine Sodium (Levothyroxine Sodium 150 Mcg Tablet) 150 mcg PO DAILY@0630 [facility] Last Admin: 04/22/21 07:02 Dose: 150 mcg Documented by: MCTKamari Losartan Potassium (Losartan Potassium 50 Mg Tablet) 50 mg PO DAILY [facility]; Protocol Last Admin: 04/22/21 09:00 Dose: 50 mg Documented by: TONY Omeprazole (Omeprazole 20 Mg Capsule.Dr) 20 mg PO BID@0672,4320 [facility] Last Admin: 04/22/21 06:02 Dose: 20 mg Documented by: SARAI Pharmacy Consult (Consult Rx Perform Med Rec) 1 each MISCELLANE ONCE PRN PRN Reason: Consult order Rifaximin (Rifaximin 550 Mg Tablet) 550 mg PO BID [facility] Last Admin: 04/22/21 09:02 Dose: 550 mg Documented by: TONY Sodium Chloride (0.9 % Sodium Chloride Flush 3 Ml Syringe) 3 ml IVFLUSH QSHIFT [facility] Last Admin: 04/22/21 09:02 Dose: Not Given Documented by: TONY Non-Admin Reason: IV Running Tamsulosin HCl (Tamsulosin Hcl 0.4 Mg Capsule) 0.4 mg PO BEDTIME [facility] Last Admin: 04/21/21 21:31 Dose: 0.4 mg Documented by: SARAI Thiamine HCl (Thiamine Hcl 100 Mg Tablet) 100 mg PO BID [facility] Last Admin: 04/22/21 09:02 Dose: 100 mg Documented by: TONY Labs CBC & Chem 7: 04/22/21 08:05 04/22/21 08:05 Labs: Laboratory Results - last 24 hr 04/21/21 04/21/21 04/21/21 14:55 14:55 14:55 MCV 97.9 MCH 33.7 H MCHC 34.4 RDW 16.1 H Plt Count 89 L MPV 10.0 Immature Gran % (Auto) 0.7 H Neut % (Auto) 87.1 H Lymph % (Auto) 6.4 L [place] % (Auto) 4.6 Eos % (Auto) 0.9 Baso % (Auto) 0.3 Lymph # (Auto) 0.5 L [place] # (Auto) 0.3 Eos # (Auto) 0.1 Baso # (Auto) 0.0 Abs Immat Gran (auto) 0.05 H Absolute Neuts (auto) 6.1 Absolute Nucleated RBC 0.000 Nucleated RBC % (auto) 0.0 PT 18.9 H INR 1.6 H APTT 47.3 H D Anion Gap 18 Estim Creat Clear Calc 11.7 Estimated GFR 7 POC Glucose Random Glucose 158 H Lactic Acid Lactic Acid Fup @ 2Hr Lactic Acid Fup @ 4Hr Calcium 8.0 L D Total Bilirubin 4.8 H AST 57 H ALT 38 Alkaline Phosphatase 266 H D Ammonia Troponin I High Sens Total Protein 6.6 Albumin 2.2 L Lipase 39 Ethyl Alcohol COVID-19 (JACKY) [employer] 04/21/21 04/21/21 04/21/21 14:55 14:55 14:56 MCV MCH MCHC RDW Plt Count MPV Immature Gran % (Auto) Neut % (Auto) Lymph % (Auto) [place] % (Auto) Eos % (Auto) Baso % (Auto) Lymph # (Auto) [place] # (Auto) Eos # (Auto) Baso # (Auto) Abs Immat Gran (auto) Absolute Neuts (auto) Absolute Nucleated RBC Nucleated RBC % (auto) PT INR APTT Anion Gap Estim Creat Clear Calc Estimated GFR POC Glucose Random Glucose Lactic Acid 3.6 H* Lactic Acid Fup @ 2Hr Lactic Acid Fup @ 4Hr Calcium Total Bilirubin AST ALT Alkaline Phosphatase Ammonia 78 H Troponin I High Sens Total Protein Albumin Lipase Ethyl Alcohol < 10 COVID-19 (JACKY) [employer] 04/21/21 04/21/21 04/21/21 14:56 14:56 18:45 MCV MCH MCHC RDW Plt Count MPV Immature Gran % (Auto) Neut % (Auto) Lymph % (Auto) [place] % (Auto) Eos % (Auto) Baso % (Auto) Lymph # (Auto) [place] # (Auto) Eos # (Auto) Baso # (Auto) Abs Immat Gran (auto) Absolute Neuts (auto) Absolute Nucleated RBC Nucleated RBC % (auto) PT INR APTT Anion Gap Estim Creat Clear Calc Estimated GFR POC Glucose Random Glucose Lactic Acid Lactic Acid Fup @ 2Hr 4.0 H* Lactic Acid Fup @ 4Hr Calcium Total Bilirubin AST ALT Alkaline Phosphatase Ammonia Troponin I High Sens 13.8 Total Protein Albumin Lipase Ethyl Alcohol COVID-19 (JACKY) Negative [employer] See Note 04/21/21 04/21/21 04/22/21 21:09 21:25 07:18 MCV MCH MCHC RDW Plt Count MPV Immature Gran % (Auto) Neut % (Auto) Lymph % (Auto) [place] % (Auto) Eos % (Auto) Baso % (Auto) Lymph # (Auto) [place] # (Auto) Eos # (Auto) Baso # (Auto) Abs Immat Gran (auto) Absolute Neuts (auto) Absolute Nucleated RBC Nucleated RBC % (auto) PT INR APTT Anion Gap Estim Creat Clear Calc Estimated GFR POC Glucose 136 H 109 Random Glucose Lactic Acid Lactic Acid Fup @ 2Hr Lactic Acid Fup @ 4Hr 4.1 H* Calcium Total Bilirubin AST ALT Alkaline Phosphatase Ammonia Troponin I High Sens Total Protein Albumin Lipase Ethyl Alcohol COVID-19 (JACKY) COVID-19 Clin Com 04/22/21 04/22/21 04/22/21 08:05 08:05 08:05 MCV 98.5 H MCH 34.0 H MCHC 34.5 RDW 16.2 H Plt Count 91 L MPV 9.6 Immature Gran % (Auto) 0.4 Neut % (Auto) 78.4 H Lymph % (Auto) 9.7 L [place] % (Auto) 7.0 Eos % (Auto) 3.6 Baso % (Auto) 0.9 Lymph # (Auto) 0.8 L [place] # (Auto) 0.6 Eos # (Auto) 0.3 Baso # (Auto) 0.1 Abs Immat Gran (auto) 0.03 Absolute Neuts (auto) 6.2 Absolute Nucleated RBC 0.000 Nucleated RBC % (auto) 0.0 PT INR APTT Anion Gap 18 Estim Creat Clear Calc 11.5 Estimated GFR 7 POC Glucose Random Glucose 141 H Lactic Acid 3.4 H* Lactic Acid Fup @ 2Hr Lactic Acid Fup @ 4Hr Calcium 8.0 L Total Bilirubin AST ALT Alkaline Phosphatase Ammonia Troponin I High Sens Total Protein Albumin Lipase Ethyl Alcohol COVID-19 (JACKY) COVID-19 Clin Com 04/22/21 11:02 MCV MCH MCHC RDW Plt Count MPV Immature Gran % (Auto) Neut % (Auto) Lymph % (Auto) [place] % (Auto) Eos % (Auto) Baso % (Auto) Lymph # (Auto) [place] # (Auto) Eos # (Auto) Baso # (Auto) Abs Immat Gran (auto) Absolute Neuts (auto) Absolute Nucleated RBC Nucleated RBC % (auto) PT INR APTT Anion Gap Estim Creat Clear Calc Estimated GFR POC Glucose Random Glucose Lactic Acid Lactic Acid Fup @ 2Hr 3.0 H* Lactic Acid Fup @ 4Hr Calcium Total Bilirubin AST ALT Alkaline Phosphatase Ammonia Troponin I High Sens Total Protein Albumin Lipase Ethyl Alcohol COVID-19 (JACKY) COVID-19 Clin Com Assessment and Plan (1) Chronic liver failure: Status: Acute Assessment and Plan: 70M presented with ams hepatic encephalopathy in patient with decompensated alcoholic cirrhosis Improving, still not at baseline, continue lactulose 45 GM TID, rifaximin continue to monitor, goal 2-4 bm/day ESRD HD DM insulin hypothyroid synthroid epilepsy [facility] Stroke Does the patient have a stroke diagnosis?: No VTE Prior VTE?: No VTE Risk Level:: Medical - moderate - high VTE Device Contraindication: N/A - Device Ordered VTE Drug Contraindication: Treatment Not Indicated
[2021-04-22 13:10] LABS: Reflex Lactate? 2 Y
[2021-04-22 14:14] LABS: ~Lactic Acid-LAB USE ONLY 1.8 mmol/L (0.5-2.0)
[2021-04-22 17:03] LABS: Glucose, Whole Blood 91 mg/dL (60-115)
[2021-04-22] MEDS: 0.9 % Sodium Chloride Flush 3 ML SYRINGE IVFLUSH ×2 (17:10→21:28)
[2021-04-22] MEDS: levETIRAcetam 250 MG TABLET PO (17:11)
[2021-04-22 20:48] LABS: Glucose, Whole Blood 189 mg/dL (60-115)
[2021-04-22] MEDS: Insulin Lispro 100 UNIT/ML 3 ML VIAL SUBCUT (21:27)
[2021-04-22] MEDS: Tamsulosin HCL 0.4 MG CAPSULE PO (21:27)
[2021-04-23 05:42] LABS: Hematocrit 22.1 % (42.0-52.0); Hemoglobin 7.5 g/dl (14.0-18.0); Mean Corpuscular HGB Conc 33.9 g/dl (31.0-36.0); Mean Corpuscular Hemoglobin 33.6 pg (27.0-33.0); Mean Corpuscular Volume 99.1 fL (80.0-98.0); Mean Platelet Volume 9.9 fL (9.4-12.4); Red Blood Count 2.23 X10*6/uL (4.60-5.80); Red Cell Distribution Width 15.9 % (11.0-16.0); White Blood Count 6.6 X10*3/uL (4.8-10.8)
[2021-04-23 05:43] LABS: Platelet Count 62 X10*3/uL (160-400)
[2021-04-23] MEDS: Levothyroxine Sodium 150 MCG TABLET PO (05:44)
[2021-04-23] MEDS: Omeprazole 20 MG CAPSULE.DR PO (05:44)
[2021-04-23 05:58] LABS: Anion Gap 12 (12-20); Blood Urea Nitrogen 36 mg/dL (9-16); Calcium 7.6 mg/dL (8.4-10.2); Carbon Dioxide 22 mmol/L (22-29); Chloride 99 mmol/L (96-108); Creatinine Clr Calc Pharmacy 15.4; Estimated Glomerular Filt Rate 10; Glucose Fasting 162 mg/dL (60-99); Potassium 3.2 mmol/L (3.3-5.1); Sodium 130 mmol/L (135-145)
[2021-04-23 07:25] VITALS: BP 132/60; PULSE 85; RESP 20; TEMP 36.2; O2SAT 100
[2021-04-23 07:47] LABS: Glucose, Whole Blood 126 mg/dL (60-115)
[2021-04-23] MEDS: Lactulose 20 GM/30 ML SOLUTION 45 GM PO (08:45)
[2021-04-23] MEDS: Thiamine HCL 100 MG TABLET PO (08:46)
[2021-04-23] MEDS: Losartan Potassium 50 MG TABLET PO (08:46)
[2021-04-23] MEDS: Folic Acid 1 MG TABLET PO (08:46)
[2021-04-23] MEDS: rifAXIMin 550 MG TABLET PO (08:46)
[2021-04-23] MEDS: 0.9 % Sodium Chloride Flush 3 ML SYRINGE IVFLUSH (09:26)
--- NOTE | 2021-04-23 11:02 | P.DS_ITS ---
DS: Providers Provider Date of Service: 04/23/21 Date of admission: 04/21/21 19:45 Primary care physician: Selena Stewart MD Consults: 04/21/21 19:45 Consult to Nephrology Routine Consulting Provider: Jonah Billingsley Reason for consultation: ESRD DS: Diagnosis Discharge Diagnosis (1) Chronic liver failure: Status: Acute DS: Summary Hospital Course Hospital Course: patient was admitted for padding encephalopathy, he was should lactulose 45 g t.i.d. and rifaximin. He had successful bowel movements and his mentation returned to baseline. He will be discharged home to continue with the goal of 4 bowel movements per day. He will follow up with liver transplant team at [facility]. Time Spent with Patient Time attestation: Total time spent providing and/or coordinating discharge services: Discharge coordination time: Greater than 30 minutes Quality: Stroke Does the patient have a stroke diagnosis?: No Physical Exam Vital Signs: Vital Signs: Last Vital Signs Temp 97.2 F 04/23/21 07:25 Pulse 85 04/23/21 07:25 Resp 20 04/23/21 07:25 BP 132/60 04/23/21 07:25 Pulse Ox 100 04/23/21 07:25 BMI result Body Mass Index 36.9 General: alert O X 3, no acute distress Resp:? CTA bilateral, no accessory muscles used CVS: S1,S2,RRR GI: soft, non tender,? distended Neuro:? motor grossly intact, alert, a bit sluggish Psych: appropriate affect, appropriate insight? DS: Data Data Completed and Pending Completed studies during hospitalization [Text1]: Procedures Drainage of Peritoneal Cavity, Percutaneous Approach (02/26/21) Introduction of Mineral-based Topical Hemostatic Agent into Upper GI, Via Natural or Artificial Opening Endoscopic, [employer] 6 (10/15/20) Performance of Urinary Filtration, Intermittent, Less than 6 Hours Per Day (02/26/21) Transfusion of Nonautologous Frozen Plasma into Peripheral Vein, Percutaneous Approach (01/04/21) Transfusion of Nonautologous Platelets into Peripheral Vein, Percutaneous Approach (01/04/21) Transfusion of Nonautologous Red Blood Cells into Peripheral Vein, Percutaneous Approach (02/26/21) Labs on day of discharge: Laboratory Results - last 24 hr 04/22/21 04/22/21 04/22/21 11:02 13:57 16:51 WBC RBC Hgb Hct MCV MCH MCHC RDW Plt Count MPV Absolute Nucleated RBC Nucleated RBC % (auto) Sodium Potassium Chloride Carbon Dioxide Anion Gap BUN Creatinine Estim Creat Clear Calc Estimated GFR POC Glucose 91 Fasting Glucose Lactic Acid Fup @ 2Hr 3.0 H* Lactic Acid Fup @ 4Hr 1.8 Calcium 04/22/21 04/23/21 04/23/21 20:40 05:24 05:24 WBC 6.6 RBC 2.23 L Hgb 7.5 L Hct 22.1 L MCV 99.1 H MCH 33.6 H MCHC 33.9 RDW 15.9 Plt Count 62 L D MPV 9.9 Absolute Nucleated RBC 0.000 Nucleated RBC % (auto) 0.0 Sodium 130 L Potassium 3.2 L Chloride 99 Carbon Dioxide 22 Anion Gap 12 BUN 36 H Creatinine 5.62 H* Estim Creat Clear Calc 15.4 Estimated GFR 10 POC Glucose 189 H Fasting Glucose 162 H Lactic Acid Fup @ 2Hr Lactic Acid Fup @ 4Hr Calcium 7.6 L 04/23/21 07:28 WBC RBC Hgb Hct MCV MCH MCHC RDW Plt Count MPV Absolute Nucleated RBC Nucleated RBC % (auto) Sodium Potassium Chloride Carbon Dioxide Anion Gap BUN Creatinine Estim Creat Clear Calc Estimated GFR POC Glucose 126 H Fasting Glucose Lactic Acid Fup @ 2Hr Lactic Acid Fup @ 4Hr Calcium Preliminary micro results at discharge 04/21/21 14:55 Blood Culture - Preliminary Blood - Venous No growth after 24 hours. 04/21/21 14:55 Blood Culture - Preliminary Blood - Venous No growth after 24 hours. Discharge Plan Discharge Patient Disposition: Home, Self-Care Discharge Diagnosis: hepatic encephalopathy Referrals: Selena Stewart MD [Primary Care Provider] - 1 Week Discharge Medications: Continued tamsulosin [Flomax] 0.4 mg capsule 0.4 mg PO BEDTIME Qty: 90 RF: 3 cholecalciferol (vitamin D3) 50 mcg (2,000 unit) capsule 50 mcg PO DAILY Qty: 90 RF: 2 folic acid 1 mg Tablet 1 mg PO DAILY RF: 0 losartan 50 mg tablet 1 tab PO DAILY RF: 0 lactulose 20 gram/30 mL solution 45 ml PO BID RF: 0 Victoza 3-Gordo 0.6 mg/0.1 mL (18 mg/3 mL) Pen Injector 0.6 mg SUBCUT DAILY RF: 0 omeprazole 20 mg Capsule,Delayed Release(Dr/Ec) 20 mg PO BID RF: 0 Tresiba FlexTouch U-200 200 unit/mL (3 mL) insulin pen 100 unit subcut DAILY RF: 0 Hold Instructions: Resume on 04/09/21. please hold until seen by pcp. rifaximin 550 mg Tablet 550 mg PO BID RF: 0 levetiracetam 250 mg Tablet 250 mg PO SUMOWEFR@1800 RF: 0 levetiracetam 500 mg tablet 500 mg PO TUTHSA@1800 RF: 0 levothyroxine 150 mcg tablet 150 mcg PO DAILY@0630 RF: 0 (DME) pen needle, diabetic [BD Ultra-Fine Short Pen Needle] 31 gauge x 5/16 needle See Rx Instructions ea subcut BID Qty: 1200 RF: 0 thiamine HCl (vitamin B1) 100 mg tablet 100 mg PO BID RF: 0 Discharge Orders: Discharge Order (Routine); Ordered 04/23/21 Ordered By: Silas Sutton Diet: advance to usual diet Activity on Discharge: As tolerated Stand Alone Forms: Patient Portal Discharge page Care Plan Goals: avoid hospitalization Health Concerns: cirrhosis, esrd Plan of Treatment: lactulose for 4 BM per day, follow up with GI and nephro Assessment: see above
[2021-04-23 11:22] LABS: Glucose, Whole Blood 226 mg/dL (60-115)
--- NOTE | 2021-04-28 06:50 | P.CDIR_ITS ---
Documented by User: Jordyn Ferrer CCS, CDIS 04/28/21 06:55 Retrospective Query PHYSICIAN'S DOCUMENTATION REQUEST Date of Query: 04/28/21 0651 Patient Name: Shadi Tom Admit Date: 04/21/21 Dear Doctor, A review of the medical record indicates additional documentation may be needed. Please review below and update the documentation accordingly. Clinical Indicators: Risk Factors/Clinical Indicators/Treatments DX: Chronic liver failure Hepatic encephalopathy On Transplant list/ESRD/Dialysis. Decompensated alcoholic liver cirrhosis. Clarify which of the following accurately represents the acuity of the [insert diagnosis]. Possible options might include: Hepatic encephalopathy: * Acute * Acute on chronic * Other ? please specify * Unable to determine Use of terms such as suspected, likely, concern for, or probable (associated with a specific diagnosis that is being evaluated, monitored, or treated as if it exists) are acceptable and can be coded in the inpatient setting, when documented at the time of discharge. Thank you, Jordyn Ferrer CCS, CDIS Extension: [phone] Please use your independent medical judgment in providing your response. THIS QUERY IS PART OF THE PERMANENT MEDICAL RECORD Documented by User: Silas Sutton MD 04/28/21 07:02 Retrospective Query Provider Response: Other (recurrent hepatic encephalopathy)
--- NOTE | 2021-04-28 06:55 | P.CDIR_ITS ---
Retrospective Query PHYSICIAN'S DOCUMENTATION REQUEST Date of Query: 04/28/21 0656 Patient Name: Shadi Tom Admit Date: 04/21/21 Dear Doctor, A review of the medical record indicates additional documentation may be needed. Please review below and update the documentation accordingly. Clinical Indicators: Risk Factors/Clinical Indicators/Treatments ED: 04/21 - Altered mental status, lethargic, coma like state, ESRD/Dialysis/Transplant list. Patient becoming more alert, aware but still confused. Lactulose. Based on the above, please further specify, in the Progress Notes, the known or suspected type of the documented encephalopathy: Encephalopathy: * Metabolic * Toxic * Toxic metabolic * Alcoholic * Other (please specify) * Unable to determine Use of terms such as suspected, likely, concern for, or probable (associated with a specific diagnosis that is being evaluated, monitored, or treated as if it exists) are acceptable and can be coded in the inpatient setting, when documented at the time of discharge. Thank you, Jordyn Ferrer [facility], CDIS Extension: [phone] Please use your independent medical judgment in providing your response. THIS QUERY IS PART OF THE PERMANENT MEDICAL RECORD
== END 2021-04-23 11:41 | disposition home or self-care (01) | DRG 441 ==
LOC: HO.ED 19:43 → HO.EDOVER 19:50 → HO.S3 04-22 12:20
PROVIDERS: Admitting Provider Hospitalist; Emergency Provider Emergency Medicine Emergency Medical Services; PCP Internal Medicine; Visit Provider Internal Medicine
DX: K72.90 Hepatic failure, unspecified without coma (principal); N18.6 End stage renal disease; I13.2 Hypertensive heart and chronic kidney disease with heart failure and with stage 5 chronic kidney disease, or end stage renal disease; K76.6 Portal hypertension; K72.10 Chronic hepatic failure without coma; K70.31 Alcoholic cirrhosis of liver with ascites; Z99.2 Dependence on renal dialysis; E78.5 Hyperlipidemia, unspecified; N40.0 Benign prostatic hyperplasia without lower urinary tract symptoms; E03.9 Hypothyroidism, unspecified; E11.22 Type 2 diabetes mellitus with diabetic chronic kidney disease; I50.9 Heart failure, unspecified; G40.909 Epilepsy, unspecified, not intractable, without status epilepticus; Z91.15 Patient's noncompliance with renal dialysis; Z20.822 Contact with and (suspected) exposure to COVID-19; Z79.890 Hormone replacement therapy; Z79.899 Other long term (current) drug therapy
CPT/HCPCS: 36415; 71045; 80048; 80053; 82077; 82140; 82947; 83605; 83690; 84484; 85025; 85027; 85610; 85730; 87040; 87635; 90999; 93005; 99285; 99291